=== PATIENT | male | born 1955 | race Caucasian/White ===

== ENCOUNTER 2016-12-12 10:31 | Outpatient (CLI) | payer BC ==
[~2016-12-12] VITALS: Ht 177.8 cm; Wt 95.3 kg
[~2016-12-12 10:31] MED LIST: LOSA50TA36 PO
== END 2016-12-12 12:08 ==
LOC: PREOP 10:31
PROVIDERS: ATTEND Otolaryngology Otolaryngology/Facial Plastic Surgery
DX: Z01.818 Encounter for other preprocedural examination (principal); H65.23 Chronic serous otitis media, bilateral

== ENCOUNTER 2016-12-16 06:57 | Day surgery (SDC) | payer BC ==
[~2016-12-16] VITALS: Ht 177.8 cm; Wt 95.3 kg
[2016-12-16] MEDS ORDERED: LACTATED RINGERS 1,000 ML IV PRN (07:14)
[2016-12-16] MEDS ORDERED: MULT-974 PO (07:23)
[2016-12-16] MEDS ORDERED: LACT1CAP8 PO (07:23)
[2016-12-16 07:24] VITALS: BP 115/78
[2016-12-16] MEDS ORDERED: HURRICAINE EXT TUBE (BENZOCAINE) ONE (08:23)
[2016-12-16] MEDS ORDERED: DEXAMETHASONE PF 10 MG/ML (DECADRON) VIAL ONE (08:23)
[2016-12-16] MEDS ORDERED: proPOfol 200 MG/20 ML (DIPRIVAN) VIAL IV ONE (08:23)
[2016-12-16] MEDS ORDERED: SEVOFLURANE (ULTANE) 15 ML INHAL SOLN ONE ×2 (08:23→08:54)
[2016-12-16] MEDS ORDERED: LIDOCAINE PF 2% 5 ML (XYLOCAINE) VIAL ONE (08:23)
[2016-12-16] MEDS ORDERED: LACTATED RINGERS 1,000 ML IV ONE (08:23)
[2016-12-16] MEDS ORDERED: fentaNYL INJECTION 100 MCG/2 ML AMP ONE (08:24)
[2016-12-16] MEDS ORDERED: MIDAZOLAM 2 MG/2 ML (VERSED) VIAL ONE (08:24)
--- NOTE | 2016-12-16 08:43 | Progress Note-Pre Operative ---
Pre-Operative Progress Note H&P Reviewed The H&P was reviewed, patient examined and no changes noted. Date Seen by Provider: Dec 16, 2016 Time Seen by Provider: 08:00 Date H&P Reviewed: Dec 16, 2016 Time H&P Reviewed: 08:00 Pre-Operative Diagnosis: Bilat Chornic DANYELLE DURAN MD Dec 16, 2016 8:43 am
--- NOTE | 2016-12-16 08:59 | Progress Note-Post Operative ---
Post-Operative Progess Note Surgeon (s)/Alumni Coordinator (s) Surgeon DANYELLE DALEY MD Alumni Coordinator n/a Pre-Operative Diagnosis Bilat Chornic MARCEL Post-Operative Diagnosis same Post-Op Procedure Note Date of Procedure: Dec 16, 2016 Name of Procedure Performed: bmt Description & Findings Description and Findings: n/a Anesthesia Type lma Estimated Blood Loss minimal Packing none. Specimen(s) collected/removed none DANYELLE DALEY MD Dec 16, 2016 8:59 am
[2016-12-16] MEDS ORDERED: APAP 325 MG/10.15 ML LIQ (TYLENOL) UDC PO PRN (09:00)
[2016-12-16] MEDS ORDERED: morphine INJ 10 MG/ML 1ML (SYR OR VIAL) IVP PRN (09:15)
[2016-12-16 09:45] VITALS: BP 124/86
[2016-12-16] MEDS ORDERED: CIPR5DRO OP (10:01)
[2016-12-16 10:15] VITALS: BP 126/84
[2016-12-16 10:20] VITALS: BP 126/84
== END 2016-12-16 10:20 | disposition home or self-care (01) ==
LOC: SDC 06:57
PROVIDERS: ATTEND Otolaryngology Otolaryngology/Facial Plastic Surgery
DX: H65.23 Chronic serous otitis media, bilateral (principal); I10 Essential (primary) hypertension; Z79.899 Other long term (current) drug therapy
CPT/HCPCS: 87081

== ENCOUNTER 2019-11-18 08:54 | Outpatient (RCR) | payer BC ==
[~2019-11-18] VITALS: Ht 177 cm; Wt 100.0 kg
[~2019-11-18 08:54] MED LIST changes: +CIPR5DRO OP; +LACT1CAP8 PO; -LOSA50TA36 PO; +LOSA50TA63 PO; +MULT-974 PO; +PANT40TA3 PO
== END 2019-11-18 16:30 | disposition home or self-care (01) ==
LOC: PREOP 08:54
PROVIDERS: ATTEND Otolaryngology Otolaryngology/Facial Plastic Surgery
DX: Z01.818 Encounter for other preprocedural examination (principal); H65.21 Chronic serous otitis media, right ear
CPT/HCPCS: 87635

== ENCOUNTER 2019-11-22 07:54 | Day surgery (SDC) | payer BC ==
[~2019-11-22] VITALS: Ht 177 cm; Wt 100.0 kg
[2019-11-22] VITALS (10 sets, daily range): BP systolic 90–140; BP diastolic 59–95
--- OUTSIDE RECORDS SUMMARY | 2019-11-22 08:17 | XMS REPORT ---
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 Unavailable Lindy DANYELLE Sotelo MD Unavailable Unavailable Zaid Alex MD Unavailable Unavailable [facility] Unavailable Lindy rick Unavailable Unavailable Unavailable Unavailable Unavailable Unavailable Unavailable Unavailable Unavailable Unavailable Unavailable Unavailable Allergies Normalized Allergy Reported Date of Reaction(s) Care Provider Facility Allergy Type classification allergen Allergy Onset Drug (2 Unclassified No known no information Shimon Hernandez ot Available sources.) allergies (71952) DA (4 Unclassified No Known Drug 12-12-2016 - no information DANYELLE DALEY Not Available sources.) MD Dhaval (40445) Medications Medication Ingredient Drug Dose Dates Status Sig Sig Care Class(es) (Normalized) (Original) Provid er 200 actuat Albuterol beta2-Adren 2 11-20-19 no take 2 P ROAIR HFA Britne albuterol Translation ergic puff(s 20 informat puff(s) by 1 08 (90 y 0.09 s: [ PROAIR Agonist ) ion inhalation BASE) Staff o mg/actuat HFA 108 (90 four times MCG/ACT rd (no metered BASE) daily as INHALATION phone) dose MCG/ACT needed AEROSOL inhaler (6 INHALATION SOLUTION 2 sources.) AEROSOL puffs four SOLUTION] times a day as needed ALBUTEROL SULFATE [id number] Active Katie Braswell Active amoxicillin Amoxicillin Penicillin- 500 mg 08-02-19 no take 1 AMOXICILLIN Zaid 500 mg oral class 19 - informat capsule by 500 MG ORAL M capsule (20 Antibacteri 08-12-19 ion mouth three CAPSULE 1 Guerns sources.) al 19 times daily cap by mouth stoney HERNANDEZ three times (no a day phone) AMOXICILLIN [id number] No Longer Active Zaid Alex MD Active cefdinir cefdinir Cephalospor 300 mg 09-09-19 no take 1 CEFD INIR 300 Mingo 300 mg oral in 20 - informat capsule by MG ORAL Tin dle capsule (20 Antibacteri 09-19-19 ion mouth twice CAPSULE by APPLICATIONS ADMINISTRATOR sources.) al 20 daily mouth twice (no a day phone) CEFDINIR [id number] No Longer Active Mingo Yoan APPLICATIONS ADMINISTRATOR Active no MULTIPLE no 11-20-19 no take 1 MULTIVITAMIN Britn e information VITAMINS-FL information 20 informat tablet by AD ULT ORAL y (6 NERALS ion mouth once TABLET 1 po Staffo sources.) daily qd rd (no phone) MULTIPLE VITAMINS-MIN ERALS [id number] Active Katie Braswell Active pantoprazol pantoprazol Proton Pump 40 mg 03-26-20 no take 1 PANTOPRAZOLE Zaid freire 40 mg e Inhibitor 18 informat tablet by 40MG TAKE 1 M delayed ion mouth once TABLET BY T[place]anna release daily for MOUTH DAILY stoney HERNANDEZ oral tablet gastroesopha FOR GERD (no ( geal reflux phone) sources.) disease PANTOPRAZOLE SODIUM [id number] Active Katie Braswell Active Problems Active Problems Problem Normalized Date Last Normalized Normalized Provider Fa cility Classification Problem(s) Recorded Problem Problem Sta tus Duration Other skin Actinic Episodic Active Zaid Alex [facility] disorders (7 keratosis (19682) sources.) Translations: [ Actinic keratosis, cheek, right, Actinic keratosis, cheek, right] Other upper Allergic Chronic Active [facility] respiratory rhinitis due [facility] (17928) disease (20 to pollen (Work Phone: sources.) Translations: [ Allergic ) rhinitis, seasonal, Allergic rhinitis, seasonal, Allergic rhinitis, seasonal] Unclassified BMI 32-32.9 no information Active QIE Admin [facility] (6 sources.) Translations: [facility] (62482) [ BMI 32-32.9] (Work Phone: ) Other Body mass Chronic Active [facility] nutritional; index (BMI) (92514) endocrine; and 31.0-31.9, metabolic adult disorders (1 source.) Other Body mass 11-20-2019 - Chronic Active [facility] nutritional; index (BMI) (91562) endocrine; and 32.0-32.9, metabolic adult disorders (1 source.) Other Body mass Chronic Active [facility] nutritional; index (BMI) (45038) endocrine; and 40.0-44.9, metabolic adult disorders (1 source.) Chronic Chronic airway Chronic [facility] obstruction, (19292) pulmonary not elsewhere disease and classified bronchiectasis Translations: (7 sources.) [ COPD, COPD] Otitis media Chronic serous 11-19-2019 - Chronic Active SUDHAKAR DALEY Not Available and related otitis media, , (67721) conditions (7 bilateral sources.) Translations: [ CHRONIC SEROUS OTITIS MEDIA, RIGHT EAR] Other Encounter for 11-12-2019 - Episodic [facility] for [facility], (56584) suspected unspecified conditions (not mental disorders or infectious disease) (1 source.) Other 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; (severe) (49771) endocrine; and obesity due to metabolic excess disorders (1 calories source.) Other Obesity, 11-20-2019 - Chronic Active [facility] nutritional; unspecified (54587) endocrine; and metabolic disorders (2 sources.) Diabetes Other abnormal Episodic Active Zaid [facility] mellitus glucose (96348) without Translations: complication [ Elevated (2 sources.) blood sugar, Elevated blood sugar] Other Other long Episodic Active DANYELLE DALEY [facility] Via aftercare (5 term (current) , MD Singleton sources.) drug therapy [facility] (87536) Otitis media Unspecified Episodic Active Zaid [facility] and related otitis media (38267) conditions (14 Translations: sources.) [ Otitis media acute right, Otitis media acute right] Past or Other Problems Problem Normalized Date Last Normalized Normalized Provider Fa cility Classification Problem(s) Recorded Problem Problem Sta tus Duration Unclassified BMI 40-44.9 no information no information QIE Admi n [facility] (13 sources.) Translations: [facility] (98737) [ BMI 40-44.9] (Work Phone: ) Unclassified Body Mass no information no information [facility] Admin [facility] (20 sources.) [employer] [facility] (38867) 31.0-31.9 (Work Phone: Adult ) Immunizations Need for Episodic Completed QIE Admin [facility] inic and screening [facility] (48221) for infectious vaccination (Work Phone: disease (20 and sources.) inoculation ) against influenza Translations: [ Influenza Vaccination for Prophylaxis, Influenza Vaccination for Prophylaxis, Influenza Vaccination for Prophylaxis] Procedures Procedure Normalized Procedure Procedure Result Performer Facility Date 11-20-2019 Collection venous no information Vincent Paniagua [facility] blood venipuncture (24891) (Work Phone: ) 11-20-2019 Cyclocryotherapy no information Katie Topete [facility] (71635) (Work Phone: ) Immunizations The data below is from unstructured sourcesNo immunizations recorded for this patient visitNo immunizations recorded for this patient visitNo immunizations recorded for this patient visitNo immunizations recorded for this patient visitNo immunizations recorded for this patient visit No immunizations recorded for this patient visitNo immunizations recorded for th is patient visitNo immunizations recorded for this patient visitNo immunizations recorded for this patient visitNo immunizations recorded for this patient visit No immunizations recorded for this patient visitNo immunizations recorded for th is patient visitNo immunizations recorded for this patient visitNo immunizations recorded for this patient visitNo immunizations recorded for this patient visit No immunizations recorded for this patient visitNo immunizations recorded for th is patient visitNo immunizations recorded for this patient visitNo immunizations recorded for this patient visitNo immunizations recorded for this patient visit No immunizations recorded for this patient visitNo immunizations recorded for th is patient visitNo immunizations recorded for this patient visitNo immunizations recorded for this patient visitNo immunizations recorded for this patient visit No immunizations recorded for this patient visitNo immunizations recorded for th is patient visitNo immunizations recorded for this patient visitNo immunizations recorded for this patient visitNo immunizations recorded for this patient visit No immunizations recorded for this patient visitNo immunizations recorded for th is patient visitNo immunizations recorded for this patient visitNo immunizations recorded for this patient visitNo immunizations recorded for this patient visit Results Test Name Value Interpretation Reference Range Date Time Fa cility (Normalized) (Normalized) (Medline Reference) other on null no information (CONVERSATION) : (no code) Not Available [facility] (06902) PreReg~(NK_ADDR_ SAME) : No~(IQHREGISTRA) : No, Not Interested~(CITY _CHECK) : Yes~(RELATINSTR) : Please search using the first and last name in the person search box. If you select add person the first and last name will populate the name barajas above.~(REALRELT NCVG) : Real~(FTRELTNCVG ) : Freetext~(NOEMAI L) : No Email no information (PREVPATTYPE) : (no code) Not Available Historical~(ACCR (42781) ELATEDVI) : No~(CONVERSATION ) : [facility] PreReg~(NK_ADDR_ SAME) : No~(IQHREGISTRA) : No, Not Interested~(CITY _CHECK) : Yes~(RELATINSTR) : Please search using the first and last name in the person search box. If you select add person the first and last name will populate the name barajas above.~(REALRELT NCVG) : Real~(FTRELTNCVG ) : [employer]ext~(NOEMAI L) : No Email laboratory on 2019-11-20 Albumin (U) <30 mg/g Normal (no code) 11-20-2019 [facility] [Mass/Vol] mg/g 08:00040 [employer] (02187) (Work Phone: ) Albumin DL <= 20 10 mg/L (no code) 11-20-2019 [facility] mg/L (U) 08:00040 [employer] (17536) [Mass/Vol] (Work Phone: ) ALP [Catalytic 58 U/L (no code) 44 - 147 U/L 11-20-2019 [facility] activity/Vol] 08:000400 [facility] () (Work Phone: ) ALT [Catalytic 25 U/L (no code) 4 - 40 U/L 11-20-2019 [facility] activity/Vol] 08:00040 [facility] () (Work Phone: ) AST [Catalytic 25 U/L (no code) 10 - 34 U/L 11-20-2019 [facility] activity/Vol] 08:00 [facility] () (Work Phone: ) Bilirubin 0.60 mg/dL (no code) 0.1 - 1.2 mg/dL 11-20-2019 [facility] [Mass/Vol] 08:040 [facility] () (Work Phone: ) Calcium 9.6 mg/dL (no code) 8.5 - 10.2 mg/dL 11-20-2019 [facility] [Mass/Vol] 08: [facility] () (Work Phone: ) Chloride 102 mmol/L (no code) 95 - 106 mmol/L 11-20-2019 [facility] [Moles/Vol] 08: [facility] () (Work Phone: ) Cholesterol 260 mg/dL (H) 180 - 200 mg/dL 11-20-2019 [facility] [Mass/Vol] 08: [facility] () (Work Phone: ) Cholesterol in 47 mg/dL (no code) 11-20-2019 [facility] HDL [Mass/Vol] 08: [facility] () (Work Phone: ) Cholesterol in 187 mg/dL (H) 0 - 100 mg/dL 11-20-2019 [facility] LDL [Mass/Vol] 08: [facility] () (Work Phone: ) CO2 (BldV) 29.8 mmol/L (no code) 11-20-2019 [facility] [Partial 08: [facility] () pressure] (Work Phone: ) Creatinine 1.11 mg/dL (no code) 11-20-2019 [facility] [Mass/Vol] 08:00-040 [facility] () (Work Phone: ) Erythrocyte 11.5 % (L) 11.6 - 14.6 % 11-20-2019 [facility] distribution 08: [facility] () width (RBC) (Work Phone: [Ratio] ) GFR/1.73 sq M 71 (?) (no code) 11-20-2019 [facility] predicted among : [facility] () non-blacks MDRD (Work Phone: (S/P/Bld) [Vol ) rate/Area] Glucose 113 mg/dL (H) 60 - 125 mg/dL 11-20-2019 [facility] [Mass/Vol] 08:-399 [facility] () (Work Phone: ) Hematocrit (Bld) 46.2 % (no code) 36.1 - 50.3 % 11-20-2019 [facility] [Volume 08: [facility] () fraction] (Work Phone: ) Hemoglobin (Bld) 15.6 g/dL (no code) 12.1 - 17.2 g/dL 11-20-2019 [facility] [Mass/Vol] 08:00-040 [facility] () (Work Phone: ) MCH (RBC) 30.0 pg (no code) 27 - 31 pg 11-20-2019 [facility] [Entitic mass] 08: [facility] () (Work Phone: ) MCHC (RBC) 33.397361 g/dL (no code) 32 - 36 g/dL 11-20-2019 [facility] [Mass/Vol] 08:-399 [facility] () (Work Phone: ) MCV (RBC) 89 fL (no code) 80 - 100 fL 11-20-2019 [facility] [Entitic vol] 08:040 [facility] () (Work Phone: ) Platelets (Bld) 272 10^3/MM^3 (no code) 11-20-2019 [facility] [#/Vol] [facility] () (Work Phone: ) Potassium 4.4 mmol/L (no code) 3.7 - 5.2 mmol/L 11-20-2019 [facility] [Moles/Vol] 08:00-[facility]00 [facility] () (Work Phone: ) Prostate 3.99 ng/mL (no code) 0 - 4 ng/mL 11-20-2019 [facility] specific Ag 08: [facility] () [Mass/Vol] (Work Phone: ) RBC (Bld) 5.21 10^6/MM^3 (no code) 11-20-2019 [facility] [#/Vol] 08:000400 [facility] () (Work Phone: ) Sodium 138 mmol/L (no code) 135 - 145 mmol/L 11-20-2019 [facility] [Moles/Vol] 08:00-0400 [facility] () (Work Phone: ) Triglyceride 131 mg/dL (no code) 11-20-2019 [facility] post 12 Hr fast : [facility] () [Mass/Vol] (Work Phone: ) Urea nitrogen 16 mg/dL (no code) 7 - 20 mg/dL 11-20-2019 [facility] [Mass/Vol] 08:000400 [facility] () (Work Phone: ) WBC (Bld) 9.1 10^3/MM^3 (no code) 11-20-2019 [facility] [#/Vol] 08:000400 [facility] () (Work Phone: ) urinalysis on 2018-03-26 Albumin DL <= 20 10 mg/L (no code) 03-26-2018 [facility] mg/L mass conc 13: [facility] () (U) (Work Phone: ) other on 2018-03-26 Albumin/Creatini <30 mg/g Normal (no code) 03-26-2018 [facility] ne mass ratio mg/g 13:000 [facility] () (U) (Work Phone: ) ALP enzyme 52 U/L (no code) 03-26-2018 [facility] act/vol (Bld) 13:000400 [facility] () (Work Phone: ) CO2 ppres (BldV) 28.6 mmol/L (no code) 03-26-2018 [facility] () (Work Phone: ) Erythrocyte 11.9 % (no code) 11.6 - 14.6 % 03-26-2018 [facility] distribution 13:000 [facility] () width (RBC) (Work Phone: [Ratio] ) MCHC (RBC) 32 g/dL (no code) 32 - 36 g/dL 03-26-2018 [facility] [Mass/Vol] [facility]00 [facility] () (Work Phone: ) WBC Manual cnt 9.9 10^3/MM^3 (no code) 03-26-2018 [facility] #/vol (Bld) 13:000400 [facility] () (Work Phone: ) metabolic panel on 2018-03-26 ALT enzyme 29 U/L (no code) 4 - 40 U/L 03-26-2018 [facility] act/vol 13:000400 [facility] () (Work Phone: ) AST enzyme 18 U/L (no code) 10 - 34 U/L 03-26-2018 [facility] act/vol [facility]:00-[facility]00 [facility] ([id number]) (Work Phone: ) Bilirubin mass 0.50 mg/dL (no code) 0.1 - 1.2 mg/dL 03-26-2018 [facility] conc 13:000400 [facility] () (Work Phone: ) Calcium mass 9.0 mg/dL (no code) 8.5 - 10.2 mg/dL 03-26-2018 [facility] conc 13:00-0400 [facility] (14293) (Work Phone: ) Chloride molar 102 mmol/L (no code) 95 - 106 mmol/L 03-26-2018 [facility] conc 13:00-0400 [facility] (91860) (Work Phone: ) Creatinine mass 1.14 mg/dL (no code) 03-26-2018 [facility]00 [facility] () (Work Phone: ) Glucose mass 96 mg/dL (H) 60 - 125 mg/dL 03-26-2018 [facility] conc 13:00-0400 [facility] () (Work Phone: ) Potassium molar 4.0 mmol/L (no code) 3.7 - 5.2 mmol/L 03-26-2018 [facility] conc 13:00-0400 [facility] () (Work Phone: ) Sodium molar 137 mmol/L (no code) 135 - 145 mmol/L 03-26-2018 [facility] conc 13:00-0400 [facility] (07119) (Work Phone: ) Urea nitrogen 16 mg/dL (no code) 7 - 20 mg/dL 03-26-2018 [facility] mass conc 13:00-0400 [facility] (42180) (Work Phone: ) hematology on 2018-03-26 Erythrocyte 11.9 % (no code) 11.6 - 14.6 % 03-26-2018 [facility] distribution 13:00-0400 [facility] (84119) width Auto Ratio (Work Phone: (RBC) ) Hematocrit (Bld) 43.7 % (no code) 36.1 - 50.3 % 03-26-2018 [facility] [Volume 13:00-0400 [facility] (17967) fraction] (Work Phone: ) Hematocrit Auto 43.7 % (no code) 36.1 - 50.3 % 03-26-2018 [facility] Volume Fraction 13:00-0400 [facility] ([id number]) (Bld) (Work Phone: ) Hemoglobin mass 14.0 g/dL (no code) 12.1 - 17.2 g/dL 03-26-2018 [facility] conc (Bld) 13:00-0400 [facility] () (Work Phone: ) MCH (RBC) 28.8 pg (no code) 27 - 31 pg 03-26-2018 [facility] [Entitic mass] 13:00-0400 [facility] () (Work Phone: ) MCH Auto Entitic 28.8 pg (no code) 27 - 31 pg 03-26-2018 [facility] mass (RBC) 13:00-0400 [facility] () (Work Phone: ) MCHC Auto mass 32 g/dL (no code) 32 - 36 g/dL 03-26-2018 [facility] conc (RBC) [facility]:00-0400 [facility] () (Work Phone: ) MCV (RBC) 90 fL (no code) 80 - 100 fL 03-26-2018 [facility] [Entitic vol] 13:00-0400 [facility] () (Work Phone: ) MCV Auto Entitic 90 fL (no code) 80 - 100 fL 03-26-2018 [facility] volume (RBC) 13:00-0400 [facility] () (Work Phone: ) Platelets (Bld) 245 10^3/MM^3 (no code) 03-26-2018 [facility] [#/Vol] [facility]:00-0400 [facility] () (Work Phone: ) Platelets Auto 245 10^3/MM^3 (no code) 03-26-2018 [facility] #/vol (Bld) 13:00-0400 [facility] () (Work Phone: ) RBC (Bld) 4.85 10^6/MM^3 (no code) 03-26-2018 [facility] [#/Vol] [facility]:00-0400 [facility] () (Work Phone: ) RBC Auto #/vol 4.85 10^6/MM^3 (no code) 03-26-2018 [facility] (Bld) [facility]00 [facility] ([id number]) (Work Phone: ) WBC (Bld) 9.9 10^3/MM^3 (no code) 03-26-2018 [facility] [#/Vol] 13:00-0400 [facility] ([id number]) (Work Phone: ) Vital Signs Vital Sign Value Interpretation Reference Date Time Care Prov ider Facility (Normalized) (Normalized) Range Body height 177.8 cm (no code) cm 11-20-2019 [facility] ([id number]) (Work Phone: ) Body height 177.8 cm (no code) cm 09-09-2019 [facility] ([id number]) (Work Phone: ) Body 98.4 [degF] (no code) 97.8 - 99.0 11-20-2019 [facility] Admin [facility] temperature [degF] 08:00-0400 [facility] ([id number]) (Work Phone: ) Body 97.8 [degF] (no code) 97.8 - 99.0 09-09-2019 [facility] Admin [facility] temperature [degF] 07:00-0500 [facility] ([id number]) (Work Phone: ) Body 98.9 [degF] (no code) 97.8 - 99.0 08-02-2018 [facility] Admin [facility] Temperature [degF] 13:00-0500 [facility] ([id number]) (Work Phone: ) Body 98.8 [degF] (no code) 97.8 - 99.0 03-26-2018 [facility] Admin [facility] Temperature [degF] 13:00-0400 [facility] ([id number]) (Work Phone: ) Body weight 101.75 kg (no code) kg 11-20-2019 QIE Admin A [facility] 08:00-[facility]00 [facility] ([id number]) (Work Phone: ) Body weight 126.06 kg (no code) kg 09-09-2019 QIE Admin A [facility] 07:00-0500 [facility] ([id number]) (Work Phone: ) Body weight 100.02 kg (no code) kg 08-02-2018 QIE Admin A [facility] 13:00-0500 [facility] () (Work Phone: ) Body weight 98.43 kg (no code) kg 03-26-2018 [facility] () (Work Phone: ) Blood Pressure 131/ (no code) Systolic: 90 - 08-02-2018 [facility] Admin [facility] 77mm[Hg] 120 mm[Hg] 13:00-0500 [facility] () (Work Phone: Diastolic: 60 - 80 mm[Hg] ) Blood Pressure 141/ (no code) Systolic: 90 - 03-26-2018 [facility] Admin [facility] 84mm[Hg] 120 mm[Hg] 13:00-0400 [facility] () (Work Phone: Diastolic: 60 - 80 mm[Hg] ) Blood Pressure 149/ (no code) Systolic: 90 - 11-20-2019 [facility] Admin [facility] 97mm[Hg] 120 mm[Hg] 08:00-0400 [facility] ([id number]) (Work Phone: Diastolic: 60 - 80 mm[Hg] ) Diastolic 103 mm[Hg] (no code) 60 - 80 mm[Hg] 09-09-2019 QIE Adm in [facility] blood pressure 07:00-0500 [facility] () (Work Phone: ) Diastolic 102 mm[Hg] (no code) 60 - 80 mm[Hg] 09-09-2019 QIE Adm in [facility] blood pressure 07:00-0500 [facility] () (Work Phone: ) Heart rate 74 /min (no code) 60 - 100 /min 11-20-2019 [facility] Admin [facility] 08:00-0400 [facility] () (Work Phone: ) Heart rate 81 /min (no code) 60 - 100 /min 09-09-2019 [facility] Admin [facility] 07:00-[facility]00 [facility] ([id number]) (Work Phone: ) Height 177.8 cm (no code) cm 08-02-2018 [facility]00 [facility] ([id number]) (Work Phone: ) Height 177.8 cm (no code) cm 03-26-2018 [facility] ([id number]) (Work Phone: ) Pulse (Heart 89 /min (no code) 60 - 100 /min 08-02-2018 [facility] Adm in [facility] Rate) 13:00-0500 [facility] ([id number]) (Work Phone: ) Pulse (Heart 74 /min (no code) 60 - 100 /min 03-26-2018 [facility] Adm in [facility] Rate) 13:00-0400 [facility] ([id number]) (Work Phone: ) Systolic blood 167 mm[Hg] (no code) 90 - 120 09-09-2019 [facility] Admi n [facility] pressure mm[Hg] 07:00-0500 [facility] ([id number]) (Work Phone: ) Systolic blood 161 mm[Hg] (no code) 90 - 120 09-09-2019 [facility] Admi n [facility] pressure mm[Hg] 07:00-0500 [facility] ([id number]) (Work Phone: ) Weight 100.02 kg (no code) kg 08-02-2018 [facility] Admin [facility] 13:00-0500 [facility] ([id number]) (Work Phone: ) Weight 98.43 kg (no code) kg 03-26-2018 [facility]:00-[facility]00 [facility] ([id number]) (Work Phone: ) Interventions No Information Plan of Treatment The data below is from unstructured sources Discharge Date 12/16/16 10:20am Instructions/Education Provided ANEPerry THESIA INSTRUCTIONS POSTOP DR. DALEY-TYMPANOSTOMY TUBES Prescriptions See Medication Section Goals No Information Social History No Information Functional Status The data below is from unstructured sourcesNo functional or cognitive status observations are available for this visit.No functional or cognitive status observations are available for this visit.No functional or cognitive status observations are available for this visit.No functional or cognitive status observations are available for this visit.No functional or cognitive status observations are available for this visit.No functional or cog nitive status observations are available for this visit.No functional or cogniti ve status observations are available for this visit.No functional or cognitive s tatus observations are available for this visit.No functional or cognitive statu s observations are available for this visit.No functional or cognitive status ob servations are available for this visit.No functional or cognitive status observ ations are available for this visit.No functional or cognitive status observatio ns are available for this visit.No functional or cognitive status observations a re available for this visit.No functional or cognitive status observations are a vailable for this visit.No functional or cognitive status observations are avail able for this visit.No functional or cognitive status observations are available for this visit.No functional or cognitive status observations are available for this visit.No functional or cognitive status observations are available for thi s visit.No functional or cognitive status observations are available for this vi sit.No functional or cognitive status observations are available for this visit. No functional or cognitive status observations are available for this visit.No f unctional or cognitive status observations are available for this visit.No funct ional or cognitive status observations are available for this visit.No functiona l or cognitive status observations are available for this visit.No functional or cognitive status observations are available for this visit.No functional or cog nitive status observations are available for this visit.No functional or cogniti ve status observations are available for this visit.No functional or cognitive s tatus observations are available for this visit.No functional or cognitive statu s observations are available for this visit.No functional or cognitive status ob servations are available for this visit.No functional or cognitive status observ ations are available for this visit.No functional or cognitive status observatio ns are available for this visit.No functional or cognitive status observations a re available for this visit.No functional or cognitive status observations are a vailable for this visit.No functional or cognitive status observations are avail able for this visit.No functional status information available.No functional sta tus information available. 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 (no (no phone) phone) 11-18-2019 Patient encounter no information DANYELLE DALEY MD (no [facility] - procedure phone) [facility] 11-18-2019 (no phone) 11-14-2019 Patient encounter no information DANYELLE DALEY MD (no [facility] procedure phone) [facility] (no phone) 12-16-2016 Patient encounter no information no name no or ganization name - procedure 12-16-2016 12-16-2016 Patient encounter no information DANYELLE DALEY MD (no [facility] - procedure phone) [facility] 12-16-2016 (no phone) 12-09-2016 Patient encounter no information no name no or ganization name procedure 08-30-2016 Patient encounter no information no name no or ganization name procedure 05-11-2016 Patient encounter no information no name no or ganization name - procedure 05-12-2016 11-12-2019 Health screening Routine general no name (no p fadi) medical examination at a health care facility no information Encounter for other no name (no phone) preprocedural examination Medical Equipment No Information Payers Normalized Payer Value [facility] no information Summary Purpose TRANSITION OF CARE AUTO GENERATIONTRANSITION OF CARE AUTO GENERATIONTRANSITION OF CARE AUTO GENERATIONTRANSITION OF CARE AUTO GENERATIONTRANSITION OF CARE AUTO GENERATIONTRANSITION OF CARE AUTO GENERATIONTRANSITION OF CARE AUTO GENERATIONTRANSITION OF CARE AUTO GENERATIONTRANSITION OF CARE AUTO GENERATIONTRANSITION OF CARE AUTO GENERATIONTRANSITION OF CARE AUTO GENERATIONTRANSITION OF CARE AUTO GE NERATIONTRANSITION OF CARE AUTO GENERATIONTRANSITION OF CARE AUTO GENERATIONTRAN SITION OF CARE AUTO GENERATIONTRANSITION OF CARE AUTO GENERATIONTRANSITION OF CA RE AUTO GENERATIONTRANSITION OF CARE AUTO GENERATION Discharge Instructions No discharge instruction text is available for this visit.No discharge instruction text is available for this visit.No discharge instruction text is available for this visit.No discharge instruction text is available for this visit.No discharge instruction text is available for this visit.No discharge instruction text is available for this visit.No discharge instruction text is available for this visit.No discharge instruction text is available for this visit.No discharge instruction text is available for this visit.No discharge instruction text is available for this visit.No discharge instruction text is available for this visit.No discharge instruction text is available for this visit.No discharge instruction text is available for this visit.No discharge instruction text is available for this visit.No discharge instruction text is available for this visit.No discharge instruction text is available for this visit.No discharge instruction text is available for this visit.No discharge instruction text is available for this visit.No hospital discharge instruction information available. Advance Directives Directive Response Recor ded Date/Time Advance Directives No 7:19am Resuscitation Status Full Code 12/16/16 7:19am Additional Source Comments This clinical document has been generated using [employer] software that has been certified by the Office of the National Coordinator for Health Information Technology (ONC 15.99.04.3023.Diam.[id number]) and the National Committee for Sales Operations Consultant (NCQA, as an eMeasure certified technology). FOR RECORDS PERTAINING TO PATIENTS WHO ARE OR HAVE BEEN ENROLLED IN A CHEMICAL D EPENDENCY/SUBSTANCE ABUSE PROGRAM, SOME INFORMATION MAY BE OMITTED. This clinica l summary was aggregated from multiple sources. Caution should be exercised in using it in the provision of clinical care. This summary normalizes information from multiple sources, and as a consequence, information in this document may ma terially change the coding, format and clinical context of patient data. In tia tion, data may be omitted in some cases. CLINICAL DECISIONS SHOULD BE BASED ON T HE PRIMARY CLINICAL RECORDS. [employer] provides no warranty or guara ntee of the accuracy or completeness of information in this document.The followi ng information is based on time limited clinical information
[2019-11-22] MEDS ORDERED: LACTATED RINGERS 1,000 ML IV PRN (08:18)
--- OUTSIDE RECORDS SUMMARY | 2019-11-22 08:18 | XMS REPORT | Clinical Summary ---
Author Author Admin, Volodymyr De Dios Organization [place] Address Unknown Phone Unavailable Allergies, Adverse Reactions, Alerts Allergy Name Reaction Description Start Date Severity Status Pr ovider No Known Allergies Salina Macdonald MA Conditions or Problems Problem Name Problem Code Onset Date Status Entry Date Provider Comment Standard Description Annotate HYPERTENSION 401.9 Active aMu Mcmahon MD Unspecified essential hypertension HYPERLIPIDEMIA 272.4 Refinement Mau Mcmahon MD Other and unspecified hyperlipidemia Mixed hyperlipidemia 272.4 Active Mau Mcmahon MD Other and unspecified hyperlipidemia G E R D 530.81 Active Mau Mcmahon MD Esophageal reflux SEASONAL ALLERGIC RHINITIS 477.9 Resolved 7 Mau Mcmahon MD Allergic rhinitis, cause unspecified Pneumonia, right lower lobe 486 Resolved Osbaldo Wilkes MD Pneumonia, organism unspecified Poison bel 692.6 Resolved Osbaldo Wilkes MD Contact dermatitis and other eczema due to plants [except food] Leg edema, right 782.3 Resolved Mau Mcmahon MD Edema Osteoarthritis 715.90 Active Mau Mcmahon MD Osteoarthrosis, unspecified whether generalized or localized, involving unspecified site Bronchitis 490 Resolved Osbaldo Wilkes MD Bronchitis, not specified as acute or chronic Rhinitis, acute 460 Resolved Osbaldo Dewey Acute nasopharyngitis [common cold] Benign paroxysmal positional vertigo, left 386.11 Resolved Mau Mcmahon MD Benign paroxysmal positional vertigo Gout, unspecified 274.9 Active Mau Mcmahon MD Gout, unspecified Bronchitis, acute 466.0 Resolved Mau meehan MD Acute bronchitis Obesity 278.00 Refinement Osbaldo Wilkes MD Obesity, unspecified Obesity Class I (BMI 30-34.9) 278.00 Refinement 08/02 Mau Mcmahon MD Obesity, unspecified Obesity Class III (BMI >=40) 278.00 Refinement Mingo Milton APRN Obesity, unspecified Obesity Class I (BMI 30-34.9) 278.00 Active 11/19 Katie Braswell Obesity, unspecified Ear disorder 388.9 Resolved Mau Mcmahon MD Unspecified disorder of ear Preop exam V72.84 Resolved Mau Mcmahon MD Preoperative examination, unspecified Skin tag 701.9 Resolved Mau Mcmahon MD Unspecified hypertrophic and atrophic conditions of skin Influenza Vaccination for Prophylaxis V04.81 Inactive Mau Mcmahon MD Need for prophylactic vaccin ation and inoculation against influenza Body Mass Index 31.0-31.9 Adult Refinement 2017 Mau Mcmahon MD Body Mass Index 31.0-31.9, adult BMI 40-44.9 Refinement Mingo Milton APRN Body Mass Index 31.0-31.9, adult BMI 32-32.9 Active Katie Braswell Body Mass Index 31.0-31.9, adult Allergic rhinitis, seasonal 477.0 Active Mau Mcmahon MD Allergic rhinitis due to pollen SINUSITIS, ACUTE 461.9 Inactive Mua Mcmahon MD Acute sinusitis, unspecified Otitis media acute right 382.9 Active Mingo goss APRN Unspecified otitis media Health screening V70.0 Active CORAL Estrella Routine general medical examination at a health care facility COPD 496 Active Katie Braswell C hronic airway obstruction, not elsewhere classified Actinic keratosis, cheek, right 702.0 Active 2019 Katie Braswell Actinic keratosis Elevated blood sugar 790.29 Active Fiorella Justin Other abnormal glucose SEASONAL ALLERGIC RHINITIS ICD-477.9 Inactive Mau Mcmahon MD Pneumonia, right lower lobe ICD-486 Inactive Osbaldo Wilkes MD Poison bel ICD-692.6 Inactive Osbaldo Dewey Leg edema, right ICD-782.3 Inactive Mau calderon MD Bronchitis ICD-490 Inactive Osbaldo iWlkes MD 201 01/08/07 Rhinitis, acute ICD-460 Inactive Osbaldo Lechuga MD Benign paroxysmal positional vertigo, left ICD-386.11 Inactive Mau Mmcahon MD Bronchitis, acute ICD-466.0 Inactive Mau chen MD Ear disorder ICD-388.9 Inactive Mau meehan MD Preop exam ICD-V72.84 Inactive Mau Mcmahon MD Skin tag ICD-701.9 Inactive Mau Dewey Influenza Vaccination for Prophylaxis ICD-V04.81 8 Inactive Fiorella Anderson SINUSITIS, ACUTE ICD-461.9 Inactive Mau calderon MD Medication List Medication Instructions Start Date Stop Date Generic Name NDC Status Provider Patient Instruction PROAIR HFA 108 (90 BASE) MCG/ACT INHALATION AEROSOL SO LUTION 2 puffs four times a day as needed ALBUTEROL SULFATE 64436345367 Active B montrell Braswell Active MULTIVITAMIN ADULT ORAL TABLET 1 po qd MULTI PLE VITAMINS-MINERALS 12312492517 Active Katie Braswell Active MOMETASONE SPR 50MCG SPRAY 2 SPRAYS INTO EACH NOSTRIL DAILY DIRECTED MOMETASONE FUROATE 45283536197 Active Mau Dewey Active CEFDINIR 300 MG ORAL CAPSULE by mouth twice a day 2019 CEFDINIR 53005417696 No Longer Active Mingo Milton APRN Active LOSARTAN POT 50MG 1 TABLET BY MOUTH TWICE DAILY FOR HYPERT ENSION AND GOUT LOSARTAN POTASSIUM 13782731648 Active Mau Dewey Active PANTOPRAZOLE 40MG TAKE 1 TABLET BY MOUTH DAILY FOR GERD PANTOPRAZOLE SODIUM 01564183758 Active Katie Braswell Acti ve AMOXICILLIN 500 MG ORAL CAPSULE 1 cap by mouth three times a day AMOXICILLIN 57694808001 No Longer Active Mau Mcmahon MD Active PREDNISONE 20 MG ORAL TABLET 2 tabs daily for 3 days, 1 tab daily for 3 days, 1/2 tab daily for 2 days PREDNISONE 86068736198 No Longer Active Mau Mcmahon MD Active GUAIFENESIN-CODEINE 100-10 MG/5ML ORAL SYRUP 5ml every 4 to 6 hours as needed for cough GUAIFENESIN-CODEINE 07988301082 No Longe r Active Mau Mcmahon MD Active PREDNISONE 20 MG ORAL TABLET 2 daily for 3 days then 1 daily for 3 days PREDNISONE 11870353424 No Longer Active Mau calderon MD Active HYDROCHLOROTHIAZIDE 25 MG ORAL TABLET 0.5 tablet by mo uth daily for blood pressure. HYDROCHLOROTHIAZIDE 45408235383 No Longe r Active Osbaldo Wilkes MD Active COLCHICINE 0.6 MG ORAL CAPSULE PRN FOR GOUT FLARE UPS COLCHICINE 49963729960 No Longer Active Osbaldo Wilkes MD Activ e ALLOPURINOL 100 MG ORAL TABLET Take 1 tab po x 7 days, then 2 times every day thereafter if tolerated. ALLOPURINOL 22505929965 No Longer Active Osbaldo Wilkes MD Active NASONEX 50 MCG/ACT NASAL SUSPENSION use 2 sprays in each nos tril qday MOMETASONE FUROATE 20988317377 No Longer Active Osbaldo valdez MD Active PREDNISONE 5 MG ORAL TABLET PREDNISONE 60301484333 No Longer Active Osbaldo Wilkes MD Active AZITHROMYCIN 250 MG ORAL TABLET 2 po qd x 1 day, then 1 po q d x 4 days AZITHROMYCIN 61355920588 No Longer Active CORAL Estrella Active SUDAFED 12 HOUR 120 MG ORAL TABLET EXTENDED RELEASE 12 HOUR 1 pill twice daily if needed for congestion PSEUDOEPHEDRINE HCL 47384888928 A ctive Mau Mcmahon MD Active MECLIZINE HCL 25 MG ORAL TABLET one 4 times a day as needed for dizziness MECLIZINE HCL 21275182264 No Longer Active Mau Mcmahon MD Active ZOFRAN 4 MG ORAL TABLET 1 po q6hr PRN Nausea 9 ONDANSETRON HCL 43173902073 No Longer Active Mau Mcmahon MD Acti ve PREDNISONE 5 MG ORAL TABLET Take 3 tabs po on the day, decrease by 1 tablet every 3 days until off PREDNISONE 17602052434 No Longer Active Gilbert Amador MD Active CHERATUSSIN AC 100-10 MG/5ML ORAL SYRUP 1 tsp by mouth every 4 hours as needed for cough GUAIFENESIN-CODEINE 96639621695 No Longe r Active Gilbert Amador MD Active ZITHROMAX 250 MG ORAL TABLET 2 po today, then 1 po q days 2-5 20 23/10/22 AZITHROMYCIN 83825969565 No Longer Active Deirdre Riddle MONEY POSITION OFFICER Active CELEBREX 100 MG ORAL CAPSULE take 1 tab po BID for osteoarthriti s CELECOXIB 70892684868 No Longer Active Deirdre Arell MONEY POSITION OFFICER A ctive OMEPRAZOLE 20 MG ORAL CAPSULE DELAYED RELEASE 1 tablet po in the am OMEPRAZOLE 10047365919 No Longer Active Deirdre Arell MONEY POSITION OFFICER A ctive BACTRIM DS 800-160 MG ORAL TABLET 1 tab by mouth twice daily 201 12/08/14 TRIMETHOPRIM-SULFAMETHOXAZOLE 58167619638 No Longer Active Vincent Riddle MONEY POSITION OFFICER Active ZITHROMAX 1 GM ORAL PACKET DIR AZITHROMY ANALISA 90602116365 No Longer Active Deirdre Reynosoll MONEY POSITION OFFICER Active LEVAQUIN 500 MG ORAL TABLET 1 tablet by mouth daily 20 25/07/14 LEVOFLOXACIN 71969959703 No Longer Active Mau Mcmahon MD Acti ve HYDROCHLOROTHIAZIDE 25 MG ORAL TABLET 1 PO Q AM 201 10/16/21 HYDROCHLOROTHIAZIDE 19618044103 No Longer Active Ryne Cristina DO Ac tive SIMVASTATIN 20 MG ORAL TABLET 1 tablet po q hs SIMVASTATIN 46069684263 No Longer Active Ryne Cristina DO Active SIMVASTATIN 20 MG ORAL TABLET 1 tablet po q hs SIMVASTATIN 20 MG ORAL TABLET 859065 SIMVASTATIN Inactive HYDROCHLOROTHIAZIDE 25 MG ORAL TABLET 1 PO Q AM 201 10/16/21 HYDROCHLOROTHIAZIDE 25 MG ORAL TABLET 028326 HYDROCHLOROTHIAZIDE In active LEVAQUIN 500 MG ORAL TABLET 1 tablet by mouth daily 20 25/07/14 LEVAQUIN 500 MG ORAL TABLET 087893 LEVOFLOXACIN Inactive ZITHROMAX 1 GM ORAL PACKET DIR Z ITHROMAX 1 GM ORAL PACKET 996580 AZITHROMYCIN Inactive BACTRIM DS 800-160 MG ORAL TABLET 1 tab by mouth twice daily 201 12/08/14 BACTRIM DS 800-160 MG ORAL TABLET 286989 TRIMETHOPRIM-SULFAMETHOXAZOLE Inactive OMEPRAZOLE 20 MG ORAL CAPSULE DELAYED RELEASE 1 tablet po in the am OMEPRAZOLE 20 MG ORAL CAPSULE DELAYED RELEASE 436905 OM EPRAZOLE Inactive CELEBREX 100 MG ORAL CAPSULE take 1 tab po BID for osteoarthriti s CELEBREX 100 MG ORAL CAPSULE 213969 CELECOXIB [place] ctive CHERATUSSIN AC 100-10 MG/5ML ORAL SYRUP 1 tsp by mouth every 4 hours as needed for cough CHERATUSSIN AC 100-10 MG/5ML ORAL SYRUP 9 82409 GUAIFENESIN-CODEINE Inactive PREDNISONE 5 MG ORAL TABLET Take 3 tabs po on the , decrease by 1 tablet every 3 days until off PREDNISONE 5 MG OR AL TABLET 911818 PREDNISONE Inactive ZOFRAN 4 MG ORAL TABLET 1 po q6hr PRN Nausea 9 ZOFRAN 4 MG ORAL TABLET 385377 ONDANSETRON HCL Inactive MECLIZINE HCL 25 MG ORAL TABLET one 4 times a day as needed for dizziness MECLIZINE HCL 25 MG ORAL TABLET 871432 MECLIZINE HCL Inactive PREDNISONE 5 MG ORAL TABLET PREDNISO NE 5 MG ORAL TABLET 674604 PREDNISONE Inactive NASONEX 50 MCG/ACT NASAL SUSPENSION use 2 sprays in each nos tril qday NASONEX 50 MCG/ACT NASAL SUSPENSION 3051505 MOMET ASONE FUROATE Inactive ALLOPURINOL 100 MG ORAL TABLET Take 1 tab po x 7 days, then 2 times every day thereafter if tolerated. ALLOPURINOL 100 MG ORAL TABLET 522904 ALLOPURINOL Inactive COLCHICINE 0.6 MG ORAL CAPSULE PRN FOR GOUT FLARE UPS COLCHICINE 0.6 MG ORAL CAPSULE 2444419 COLCHICINE Inactive HYDROCHLOROTHIAZIDE 25 MG ORAL TABLET 0.[address] [facility] daily for blood pressure. HYDROCHLOROTHIAZIDE 25 MG ORAL TABLET 310 798 HYDROCHLOROTHIAZIDE Inactive PREDNISONE 20 MG ORAL TABLET 2 daily for 3 days then 1 daily for 3 days PREDNISONE 20 MG ORAL TABLET 448223 PREDNISONE Inactive GUAIFENESIN-CODEINE 100-10 MG/5ML ORAL SYRUP 5ml every 4 to 6 hours as needed for cough GUAIFENESIN-CODEINE 100-10 MG/5M L ORAL SYRUP 954667 GUAIFENESIN-CODEINE Inactive ZITHROMAX 250 MG ORAL TABLET 2 po today, then 1 po q days 2-5 20 23/10/22 ZITHROMAX 250 MG ORAL TABLET 327696 AZITHROMYCIN [place] ctive AZITHROMYCIN 250 MG ORAL TABLET 2 po qd x 1 day, then 1 po q d x 4 days AZITHROMYCIN 250 MG ORAL TABLET 308040 AZITHROMY ANALISA Inactive PREDNISONE 20 MG ORAL TABLET 2 tabs daily for 3 days, 1 tab daily for 3 days, 1/2 tab daily for 2 days PREDNISONE 20 MG ORAL T ABLET 999518 PREDNISONE Inactive AMOXICILLIN 500 MG ORAL CAPSULE 1 cap by mouth three times a day AMOXICILLIN 500 MG ORAL CAPSULE 322070 AMOXICILLIN Inactive CEFDINIR 300 MG ORAL CAPSULE by mouth twice a day 2019 CEFDINIR 300 MG ORAL CAPSULE 003281 CEFDINIR Inactive Vital Signs Date Name Value Unit Range Description blood pressure, diastolic, repeated by physician 97 BP santos blood pressure, diastolic 97 mm[Hg] BP santos blood pressure, systolic, repeated by physician 149 BP sys blood pressure, systolic 149 mm[Hg] BP sys height E&M 70 [in_us] Bdy height pulse rate 74 /min Heart rate temperature E&M 98.4 [degF] Body temp erature weight E&M 224.31 [lb_av] Weight Measure d blood pressure, diastolic, second observation 103 m m[Hg] BP santos blood pressure, diastolic, repeated by physician 102 BP santos blood pressure, diastolic 102 mm[Hg] BP santos blood pressure, systolic, second observation 167 mm [Hg] BP sys blood pressure, systolic, repeated by physician 161 BP sys blood pressure, systolic 161 mm[Hg] BP sys height E&M 70 [in_us] Bdy height pulse rate 81 /min Heart rate temperature E&M 97.8 [degF] Body temp erature weight E&M 277.90 [lb_av] Weight Measure d Diagnostic Results Date Name Value Unit Range Description Lab Report: CBC, Comp. Metabolic Panel, Lipid Panel, Magnesium, MICROALB ... - Chemistry sodium, serum 138 mmol/L 771-267 1837/05/13 carbon dioxide, venous blood 29.8 mmol/L 21.0-32 .0 potassium, serum 4.4 mmol/L 3.5-5.2 chloride, serum 102 mmol/L 98-107 blood glucose 113 mg/dL 65-95 urea nitrogen, blood 16 mg/dL 7-18 creatinine, serum 1.11 mg/dL 0.60-1.30 Estimated Glomerular Filtration Rate (calc) 71 (?) mL/min/1.73m2 = OR > 60 mL/min alanine aminotransferase (SGPT), serum 25 U/L 12-78 aspartate aminotransferase (SGOT), serum 25 U/L 19-43 calcium, serum 9.6 mg/dL 8.5-10.1 bilirubin, serum, total 0.60 mg/dL 0.00-1.00 cholesterol, serum 260 mg/dL 923-482 4325/05/13 triglyceride, serum, fasting 131 mg/dL 30-200 HDL cholesterol, serum 47 mg/dL 32-60 LDL cholesterol, serum 187 mg/dL 0-130 prostate specific antigen 3.99 ng/mL 0.00-4.00 Lab Report: CBC, Comp. Metabolic Panel, Lipid Panel, Magnesium, MICROALB ... - Hematology leukocyte count, blood 9.1 10^3/MM^3 10*3/mm3 4.6-10.2 erythrocyte (RBC) count 5.21 10^6/MM^3 10*6/mm3 4.50-6.5 0 hemoglobin, blood 15.6 g/dL 14.0-18.0 hematocrit, blood 46.2 % 40.0-54.0 mean corpuscular volume, RBC 89 fL 80-97 mean corpuscular hemoglobin, RBC 30.0 pg 27. 0-31.2 mean corpuscular hemoglobin concentration, RBC 33.8 G/DL % 31.8-35.4 red blood cell distribution width 11.5 % 11 .6-14.8 platelet count 272 10^3/MM^3 10*3/mm3 142-424 Lab Report: CBC, Comp. Metabolic Panel, Lipid Panel, Magnesium, MICROALB ... - Lab Alkaline phosphatase 58 50-136 microalbumin, urine 10 mg/L 0-19 Lab Report: CBC, Comp. Metabolic Panel, Lipid Panel, Magnesium, MICROALB ... - Urinalysis microalbumin/total urine volume <30 mg/g Normal mg/g mg/L 0-29 Encounters Code Encounter Date Provider Facility CPT-75743 [id number] Vst-Est Level IV 11:05:24 CDT Isela Braswell [facility] CPT-88611 Level 3 Est. Patient 16:31:32 BACK END ENGINEER Mingo goss APRN [facility] CPT-91715 [id number] Vst-Est Level III 13:57:28 BACK END ENGINEER Mau Mcmahon MD [facility] CPT-71405 [id number] Vst-Est Level IV 15:44:27 C DT Mau Mcmahon MD [facility] CPT-44277 Level 4 Est. Patient 21:12:34 CDT Mau bailey MD [facility] CPT-52908 Level 3 Est. Patient 16:26:55 BACK END ENGINEER Osbaldo Wilkes MD [facility] CPT-26033 Level 4 Est. Patient 12:43:27 CDT Mau bailey MD [facility] CPT-56963 Level 3 Est. Patient 16:46:20 CDT Gilbert Amador MD [facility] CPT-75452 Level 3 Est. Patient 09:03:26 CDT Deirdre carter GEE [facility] CPT-50588 Level 4 Est. Patient 15:38:51 BACK END ENGINEER Mau bailey MD [facility] CPT-32328 Level 4 Est. Patient 10:26:24 CDT Mau bailey MD [facility] CPT-58988 Level 3 Est. Patient 17:21:09 CDT Ryne ornelas DO [facility] CPT-96221 Level 4 Est. Patient 09:22:16 CDT Mau bailey MD [facility] CPT-05653 Level 3 Est. Patient 08:55:02 BACK END ENGINEER Mau bailey MD [facility] Procedures Code Procedure Name Date Entry Date Standard Desc ription CPT-70330 Venipuncture Draw Fee 12:43:05 CDT CPT-Cryo Cryotherapy 10:49:32 CDT CPT-LR Lesion Removal 21:12:34 CDT CPT-44356 EKG Trac and Interp - XRAY USE ONLY 1 5:52:34 CDT CPT-79159 Venipuncture Draw Fee 09:05:38 CDT CPT-41241 Uric Acid - LAB USE ONLY 09:05:38 CDT 03/10 CPT-62637 Sed Rate - LAB USE ONLY 09:05:38 CDT 03/10 CPT-54703 CMP - LAB USE ONLY 09:05:37 CDT CPT-37052 CBC - LAB USE ONLY 09:05:37 CDT CPT-J2930 Solu Medrol 125 mg (Methyl Prednisolone Sodium Succinate) 16:27:04 CDT CPT-10093 Abx/Therapy Injection 16:27:04 CDT CPT-J2930 Solu Medrol 125 mg (Methyl Prednisolone Sodium Succinate) 14:33:18 CDT
--- OUTSIDE RECORDS SUMMARY | 2019-11-22 08:18 | XMS REPORT | Clinical Summary ---
Author Author Admin, Volodymyr De Dios Organization [facility] Address Unknown Phone Unavailable Allergies, Adverse Reactions, Alerts Allergy Name Reaction Description Start Date Severity Status Pr ovider No Known Allergies Salina Macdonald MA Conditions or Problems Problem Name Problem Code Onset Date Status Entry Date Provider Comment Standard Description Annotate HYPERTENSION 401.9 Active Mau Mcmahon MD Unspecified essential hypertension HYPERLIPIDEMIA 272.4 [...] due to pollen SINUSITIS, ACUTE 461.9 Inactive Mau Mcmahon MD Acute sinusitis, unspecified Otitis media acute right 382.9 Active Mingo goss APRN Unspecified otitis media Health screening V70.0 Active CORAL Estrella Routine general medical examination at a health care facility COPD 496 Active Katie Braswell C hronic airway obstruction, not elsewhere classified Actinic keratosis, cheek, right 702.0 Active 2019 Katie Braswell Actinic keratosis SEASONAL ALLERGIC RHINITIS ICD-477.9 Inactive Mau Mcmahon MD Pneumonia, right lower lobe ICD-486 Inactive Osbaldo Wilkes MD Poison bel ICD-692.6 Inactive Osbaldo Dewey Leg edema, right ICD-782.3 Inactive Mau calderon MD Bronchitis ICD-490 Inactive Osbaldo Wilkes MD 201 01/08/07 Rhinitis, acute ICD-460 Inactive Osbaldo Lechuga MD Benign paroxysmal positional vertigo, left ICD-386.11 Inactive Mau Mcmahon MD Bronchitis, acute ICD-466.0 Inactive Mau chen [...] times a day as needed ALBUTEROL SULFATE 67111746498 Active B montrell Braswell Active MULTIVITAMIN ADULT ORAL TABLET 1 po qd MULTI PLE VITAMINS-MINERALS 83967368646 Active Katie Braswell Active MOMETASONE SPR 50MCG SPRAY 2 SPRAYS INTO EACH NOSTRIL DAILY DIRECTED MOMETASONE FUROATE 85604788897 Active Mau Dewey Active CEFDINIR 300 MG ORAL CAPSULE by mouth twice a day 2019 CEFDINIR 68059723497 No Longer Active Mingo Milton APRN Active LOSARTAN POT 50MG 1 TABLET BY MOUTH TWICE DAILY FOR HYPERT ENSION AND GOUT LOSARTAN POTASSIUM 75210880265 Active Mau Dewey Active PANTOPRAZOLE 40MG TAKE 1 TABLET BY MOUTH DAILY FOR GERD PANTOPRAZOLE SODIUM 95221141056 Active Katie Braswell Acti ve AMOXICILLIN 500 MG ORAL CAPSULE 1 cap by mouth three times a day AMOXICILLIN 21114604764 No Longer Active Mau Mcmahon MD Active PREDNISONE 20 MG ORAL TABLET 2 tabs daily for 3 days, 1 tab daily for 3 days, 1/2 tab daily for 2 days PREDNISONE 48915724521 No Longer Active Mau Mcmahon MD Active GUAIFENESIN-CODEINE 100-10 MG/5ML ORAL SYRUP 5ml every 4 to 6 hours as needed for cough GUAIFENESIN-CODEINE 22592804331 No Longe r Active Mau Mcmahon MD Active PREDNISONE 20 MG ORAL TABLET 2 daily for 3 days then 1 daily for 3 days PREDNISONE 93753933202 No Longer Active Mau calderon MD Active HYDROCHLOROTHIAZIDE 25 MG ORAL TABLET 0.5 tablet by mo [facility] daily for blood pressure. HYDROCHLOROTHIAZIDE 13694393578 No Longe r Active Osbaldo Wilkes MD Active COLCHICINE 0.6 MG ORAL CAPSULE PRN FOR GOUT FLARE UPS COLCHICINE 42069514455 No Longer Active Osbaldo Wilkes MD Activ e ALLOPURINOL 100 MG ORAL TABLET Take 1 tab po x 7 days, then 2 times every day thereafter if tolerated. ALLOPURINOL 37991230194 No Longer Active Osbaldo Wilkes MD Active NASONEX 50 MCG/ACT NASAL SUSPENSION use 2 sprays in each nos tril qday MOMETASONE FUROATE 60701833962 No Longer Active Osbaldo valdez MD Active PREDNISONE 5 MG ORAL TABLET PREDNISONE 92620519601 No Longer Active Osbaldo Wilkes MD Active AZITHROMYCIN 250 MG ORAL TABLET 2 po qd x 1 day, then 1 po q d x 4 days AZITHROMYCIN 72840566185 No Longer Active CORAL Estrella Active SUDAFED 12 HOUR 120 MG ORAL TABLET EXTENDED RELEASE 12 HOUR 1 pill twice daily if needed for congestion PSEUDOEPHEDRINE HCL 54533062865 A ctive Mau Mcmahon MD Active MECLIZINE HCL 25 MG ORAL TABLET one 4 times a day as needed for dizziness MECLIZINE HCL 93185924222 No Longer Active Mau Mcmahon MD Active ZOFRAN 4 MG ORAL TABLET 1 po q6hr PRN Nausea 9 ONDANSETRON HCL 58866280663 No Longer Active Mau Mcmahon MD Acti ve PREDNISONE 5 MG ORAL TABLET Take 3 tabs po on the day, decrease by 1 tablet every 3 days until off PREDNISONE 65601388885 No Longer Active Gilbert Amador MD Active CHERATUSSIN AC 100-10 MG/5ML ORAL SYRUP 1 tsp by mouth every 4 hours as needed for cough GUAIFENESIN-CODEINE 83583768475 No Longe r Active Gilbert Amador MD Active ZITHROMAX 250 MG ORAL TABLET 2 po today, then 1 po q days 2-5 20 23/10/22 AZITHROMYCIN 45840122335 No Longer Active Deirdre Riddle APRN Active CELEBREX 100 MG ORAL CAPSULE take 1 tab po BID for osteoarthriti s CELECOXIB 30855624524 No Longer Active Deirdre Riddle GROUP CAPTAIN A ctive OMEPRAZOLE 20 MG ORAL CAPSULE DELAYED RELEASE 1 tablet po in the am OMEPRAZOLE 53513119320 No Longer Active Deirdre Riddle GROUP CAPTAIN A ctive BACTRIM DS 800-160 MG ORAL TABLET 1 tab by mouth twice daily 201 12/08/14 TRIMETHOPRIM-SULFAMETHOXAZOLE 24568121398 No Longer Active Vincent Reynosoemma FLYNN Active ZITHROMAX 1 GM ORAL PACKET DIR AZITHROMY ANALISA 90062315963 No Longer Active Deirdre Edgardoemma FLYNN Active LEVAQUIN 500 MG ORAL TABLET 1 tablet by mouth daily 20 25/07/14 LEVOFLOXACIN 91472387754 No Longer Active Mau Mcmahon MD Acti ve HYDROCHLOROTHIAZIDE 25 MG ORAL TABLET 1 PO Q AM 201 10/16/21 HYDROCHLOROTHIAZIDE 55203292757 No Longer Active Ryne Cristina DO Ac tive SIMVASTATIN 20 MG ORAL TABLET 1 tablet po q hs SIMVASTATIN 94308574685 No Longer Active Ryne Cristina DO Active SIMVASTATIN 20 MG ORAL TABLET 1 tablet po q hs SIMVASTATIN 20 MG ORAL TABLET 472921 SIMVASTATIN Inactive HYDROCHLOROTHIAZIDE 25 MG ORAL TABLET 1 PO Q AM 201 10/16/21 HYDROCHLOROTHIAZIDE 25 MG ORAL TABLET 955858 HYDROCHLOROTHIAZIDE In active LEVAQUIN 500 MG ORAL TABLET 1 tablet by mouth daily 20 25/07/14 LEVAQUIN 500 MG ORAL TABLET 867459 LEVOFLOXACIN Inactive ZITHROMAX 1 GM ORAL PACKET DIR Z ITHROMAX 1 GM ORAL PACKET 087115 AZITHROMYCIN Inactive BACTRIM DS 800-160 MG ORAL TABLET 1 tab by mouth twice daily 201 12/08/14 BACTRIM DS 800-160 MG ORAL TABLET 854702 TRIMETHOPRIM-SULFAMETHOXAZOLE Inactive OMEPRAZOLE 20 MG ORAL CAPSULE DELAYED RELEASE 1 tablet po in the am OMEPRAZOLE 20 MG ORAL CAPSULE DELAYED RELEASE 854905 OM EPRAZOLE Inactive CELEBREX 100 MG ORAL CAPSULE take 1 tab po BID for osteoarthriti s CELEBREX 100 MG ORAL CAPSULE 974039 CELECOXIB Zohreh ctive CHERATUSSIN AC 100-10 MG/5ML ORAL SYRUP 1 tsp by mouth every 4 hours as needed for cough CHERATUSSIN AC 100-10 MG/5ML ORAL SYRUP 9 54170 GUAIFENESIN-CODEINE Inactive PREDNISONE 5 MG ORAL TABLET Take 3 tabs po on the , decrease by 1 tablet every 3 days until off PREDNISONE 5 MG OR AL TABLET 734796 PREDNISONE Inactive ZOFRAN 4 MG ORAL TABLET 1 po q6hr PRN Nausea 9 ZOFRAN 4 MG ORAL TABLET 532235 ONDANSETRON HCL Inactive MECLIZINE HCL 25 MG ORAL TABLET one 4 times a day as needed for dizziness MECLIZINE HCL 25 MG ORAL TABLET 006085 MECLIZINE HCL Inactive PREDNISONE 5 MG ORAL TABLET PREDNISO NE 5 MG ORAL TABLET 503759 PREDNISONE Inactive NASONEX 50 MCG/ACT NASAL SUSPENSION use 2 sprays in each nos tril qday NASONEX 50 MCG/ACT NASAL SUSPENSION 1065891 MOMET ASONE FUROATE Inactive ALLOPURINOL 100 MG ORAL TABLET Take 1 tab po x 7 days, then 2 times every day thereafter if tolerated. ALLOPURINOL 100 MG ORAL TABLET 901640 ALLOPURINOL Inactive COLCHICINE 0.6 MG ORAL CAPSULE PRN FOR GOUT FLARE UPS COLCHICINE 0.6 MG ORAL CAPSULE 6911566 COLCHICINE Inactive HYDROCHLOROTHIAZIDE 25 MG ORAL TABLET 0.5 tablet by [facility] daily for blood pressure. HYDROCHLOROTHIAZIDE 25 MG ORAL TABLET 310 798 HYDROCHLOROTHIAZIDE Inactive PREDNISONE 20 MG ORAL TABLET 2 daily for 3 days then 1 daily for 3 days PREDNISONE 20 MG ORAL TABLET 821151 PREDNISONE Inactive GUAIFENESIN-CODEINE 100-10 MG/5ML ORAL SYRUP 5ml every 4 to 6 hours as needed for cough GUAIFENESIN-CODEINE 100-10 MG/5M L ORAL SYRUP 318771 GUAIFENESIN-CODEINE Inactive ZITHROMAX 250 MG ORAL TABLET 2 po today, then 1 po q days 2-5 20 23/10/22 ZITHROMAX 250 MG ORAL TABLET 545081 AZITHROMYCIN Zohreh ctive AZITHROMYCIN 250 MG ORAL TABLET 2 po qd x 1 day, then 1 po q d x 4 days AZITHROMYCIN 250 MG ORAL TABLET 539833 AZITHROMY ANALISA Inactive PREDNISONE 20 MG ORAL TABLET 2 tabs daily for 3 days, 1 tab daily for 3 days, 1/2 tab daily for 2 days PREDNISONE 20 MG ORAL T ABLET 518422 PREDNISONE Inactive AMOXICILLIN 500 MG ORAL CAPSULE 1 cap by mouth three times a day AMOXICILLIN 500 MG ORAL CAPSULE 971874 AMOXICILLIN Inactive CEFDINIR 300 MG ORAL CAPSULE by mouth twice a day 2019 CEFDINIR 300 MG ORAL CAPSULE 411713 CEFDINIR Inactive Vital Signs Date Name Value [...] ... - Chemistry sodium, serum 138 mmol/L 330-598 5049/05/13 carbon dioxide, venous blood 29.8 mmol/L 21.0-32 [...] 0.60 mg/dL 0.00-1.00 cholesterol, serum 260 mg/dL 460-614 0162/05/13 triglyceride, serum, fasting 131 mg/dL 30-200 HDL [...] 0-29 Encounters Code Encounter Date Provider Facility CPT-39853 [id number] Vst-Est Level IV 11:05:24 CDT Isela Braswell [facility] CPT-92049 Level 3 Est. Patient 16:31:32 RESIDENT CARE TECHNICIAN Mingo goss APRN [facility] CPT-54281 [id number] Vst-Est Level III 13:57:28 RESIDENT CARE TECHNICIAN Mau Mcmahon MD [facility] CPT-35247 [id number] Vst-Est Level IV 15:44:27 C DT Mau Mcmahon MD [facility] CPT-83425 Level 4 Est. Patient 21:12:34 CDT Mau bailey MD [facility] CPT-26709 Level 3 Est. Patient 16:26:55 RESIDENT CARE TECHNICIAN Osbaldo Wilkes MD [facility] CPT-89939 Level 4 Est. Patient 12:43:27 CDT Mau bailey MD [facility] CPT-83204 Level 3 Est. Patient 16:46:20 CDT Gilbert Amador MD [facility] CPT-42489 Level 3 Est. Patient 09:03:26 CDT Deirdre carter APRN [facility] CPT-75912 Level 4 Est. Patient 15:38:51 RESIDENT CARE TECHNICIAN Mau bailey MD [facility] CPT-78139 Level 4 Est. Patient 10:26:24 CDT Mau bailey MD [facility] CPT-05529 Level 3 Est. Patient 17:21:09 CDT Ryne ornelas DO [facility] CPT-18631 Level 4 Est. Patient 09:22:16 CDT Mau bailey MD [facility] CPT-44380 Level 3 Est. Patient 08:55:02 RESIDENT CARE TECHNICIAN Mau bailey MD [facility] Procedures Code Procedure Name Date Entry Date Standard Desc ription CPT-42043 Venipuncture Draw Fee 12:43:05 CDT CPT-Cryo Cryotherapy 10:49:32 CDT CPT-LR Lesion Removal 21:12:34 CDT CPT-28911 EKG Trac and Interp - XRAY USE ONLY 1 5:52:34 CDT CPT-18428 Venipuncture Draw Fee 09:05:38 CDT CPT-92736 Uric Acid - LAB USE ONLY 09:05:38 CDT 03/10 CPT-12745 Sed Rate - LAB USE ONLY 09:05:38 CDT 03/10 CPT-14205 CMP - LAB USE ONLY 09:05:37 CDT CPT-06906 CBC - LAB USE ONLY 09:05:37 CDT CPT-J2930 Solu Medrol 125 mg (Methyl Prednisolone Sodium Succinate) 16:27:04 CDT CPT-99446 Abx/Therapy Injection 16:27:04 CDT CPT-J2930 Solu Medrol 125 mg (Methyl Prednisolone Sodium Succinate) 14:33:18 CDT
--- OUTSIDE RECORDS SUMMARY | 2019-11-22 08:18 | XMS REPORT | Clinical Summary ---
Author Author Admin, Volodymyr De Dios Organization [facility] Address Unknown Phone Unavailable Allergies, Adverse Reactions, [...] times a day as needed ALBUTEROL SULFATE 43544418458 Active B montrell Braswell Active MULTIVITAMIN ADULT ORAL TABLET 1 po qd MULTI PLE VITAMINS-MINERALS 81685581059 Active Katie Braswell Active MOMETASONE SPR 50MCG SPRAY 2 SPRAYS INTO EACH NOSTRIL DAILY DIRECTED MOMETASONE FUROATE 71657924680 Active Mau Dewey Active CEFDINIR 300 MG ORAL CAPSULE by mouth twice a day 2019 CEFDINIR 57428433585 No Longer Active Mingo Milton APRN Active LOSARTAN POT 50MG 1 TABLET BY MOUTH TWICE DAILY FOR HYPERT ENSION AND GOUT LOSARTAN POTASSIUM 55463120396 Active Mau Dewey Active PANTOPRAZOLE 40MG TAKE 1 TABLET BY MOUTH DAILY FOR GERD PANTOPRAZOLE SODIUM 62317655430 Active Katie Brawsell Acti ve AMOXICILLIN 500 MG ORAL CAPSULE 1 cap by mouth three times a day AMOXICILLIN 47514310349 No Longer Active Mau Mcmahon MD Active PREDNISONE 20 MG ORAL TABLET 2 tabs daily for 3 days, 1 tab daily for 3 days, 1/2 tab daily for 2 days PREDNISONE 25619152936 No Longer Active Mau Mcmahon MD Active GUAIFENESIN-CODEINE 100-10 MG/5ML ORAL SYRUP 5ml every 4 to 6 hours as needed for cough GUAIFENESIN-CODEINE 59123514385 No Longe r Active Mau Mcmahon MD Active PREDNISONE 20 MG ORAL TABLET 2 daily for 3 days then 1 daily for 3 days PREDNISONE 59792941371 No Longer Active Mau calderon MD Active HYDROCHLOROTHIAZIDE 25 MG ORAL TABLET 0.5 tablet by mo [facility] daily for blood pressure. HYDROCHLOROTHIAZIDE 90459868345 No Longe r Active Osbaldo Wilkes MD Active COLCHICINE 0.6 MG ORAL CAPSULE PRN FOR GOUT FLARE UPS COLCHICINE 05033481609 No Longer Active Osbaldo Wilkes MD Activ e ALLOPURINOL 100 MG ORAL TABLET Take 1 tab po x 7 days, then 2 times every day thereafter if tolerated. ALLOPURINOL 54137144148 No Longer Active Osbaldo Wilkes MD Active NASONEX 50 MCG/ACT NASAL SUSPENSION use 2 sprays in each nos tril qday MOMETASONE FUROATE 52452155428 No Longer Active Osbaldo valdez MD Active PREDNISONE 5 MG ORAL TABLET PREDNISONE 79636287816 No Longer Active Osbaldo Wilkes MD Active AZITHROMYCIN 250 MG ORAL TABLET 2 po qd x 1 day, then 1 po q d x 4 days AZITHROMYCIN 36931339121 No Longer Active CORAL Estrella Active SUDAFED 12 HOUR 120 MG ORAL TABLET EXTENDED RELEASE 12 HOUR 1 pill twice daily if needed for congestion PSEUDOEPHEDRINE HCL 80668181217 A ctive Mau Mcmahon MD Active MECLIZINE HCL 25 MG ORAL TABLET one 4 times a day as needed for dizziness MECLIZINE HCL 94576982382 No Longer Active Mau Mcmahon MD Active ZOFRAN 4 MG ORAL TABLET 1 po q6hr PRN Nausea 9 ONDANSETRON HCL 87259394972 No Longer Active Mau Mcmahon MD Acti ve PREDNISONE 5 MG ORAL TABLET Take 3 tabs po on the day, decrease by 1 tablet every 3 days until off PREDNISONE 28681450060 No Longer Active Gilbert Amador MD Active CHERATUSSIN AC 100-10 MG/5ML ORAL SYRUP 1 tsp by mouth every 4 hours as needed for cough GUAIFENESIN-CODEINE 14374360223 No Longe r Active Gilbert Amador MD Active ZITHROMAX 250 MG ORAL TABLET 2 po today, then 1 po q days 2-5 20 23/10/22 AZITHROMYCIN 26988279371 No Longer Active Deirdre Riddle APRN Active CELEBREX 100 MG ORAL CAPSULE take 1 tab po BID for osteoarthriti s CELECOXIB 56252283855 No Longer Active Deirdre Riddle SPRAY CREW A ctive OMEPRAZOLE 20 MG ORAL CAPSULE DELAYED RELEASE 1 tablet po in the am OMEPRAZOLE 57229813144 No Longer Active Deirdre Riddle SPRAY CREW A ctive BACTRIM DS 800-160 MG ORAL TABLET 1 tab by mouth twice daily 201 12/08/14 TRIMETHOPRIM-SULFAMETHOXAZOLE 62856261454 No Longer Active Vincent Reynosoemma FLYNN Active ZITHROMAX 1 GM ORAL PACKET DIR AZITHROMY ANALISA 92508502278 No Longer Active Deirdre Edgardoemma FLYNN Active LEVAQUIN 500 MG ORAL TABLET 1 tablet by mouth daily 20 25/07/14 LEVOFLOXACIN 40680521795 No Longer Active Mau Mcmahon MD Acti ve HYDROCHLOROTHIAZIDE 25 MG ORAL TABLET 1 PO Q AM 201 10/16/21 HYDROCHLOROTHIAZIDE 75128391210 No Longer Active Ryne Cristina DO Ac tive SIMVASTATIN 20 MG ORAL TABLET 1 tablet po q hs SIMVASTATIN 37013954913 No Longer Active Ryne Cristina DO Active SIMVASTATIN 20 MG ORAL TABLET 1 tablet po q hs SIMVASTATIN 20 MG ORAL TABLET 475817 SIMVASTATIN Inactive HYDROCHLOROTHIAZIDE 25 MG ORAL TABLET 1 PO Q AM 201 10/16/21 HYDROCHLOROTHIAZIDE 25 MG ORAL TABLET 152089 HYDROCHLOROTHIAZIDE In active LEVAQUIN 500 MG ORAL TABLET 1 tablet by mouth daily 20 25/07/14 LEVAQUIN 500 MG ORAL TABLET 121446 LEVOFLOXACIN Inactive ZITHROMAX 1 GM ORAL PACKET DIR Z ITHROMAX 1 GM ORAL PACKET 096349 AZITHROMYCIN Inactive BACTRIM DS 800-160 MG ORAL TABLET 1 tab by mouth twice daily 201 12/08/14 BACTRIM DS 800-160 MG ORAL TABLET 126426 TRIMETHOPRIM-SULFAMETHOXAZOLE Inactive OMEPRAZOLE 20 MG ORAL CAPSULE DELAYED RELEASE 1 tablet po in the am OMEPRAZOLE 20 MG ORAL CAPSULE DELAYED RELEASE 576497 OM EPRAZOLE Inactive CELEBREX 100 MG ORAL CAPSULE take 1 tab po BID for osteoarthriti s CELEBREX 100 MG ORAL CAPSULE 162258 CELECOXIB Zohreh ctive CHERATUSSIN AC 100-10 MG/5ML ORAL SYRUP 1 tsp by mouth every 4 hours as needed for cough CHERATUSSIN AC 100-10 MG/5ML ORAL SYRUP 9 99743 GUAIFENESIN-CODEINE Inactive PREDNISONE 5 MG ORAL TABLET Take 3 tabs po on the , decrease by 1 tablet every 3 days until off PREDNISONE 5 MG OR AL TABLET 084944 PREDNISONE Inactive ZOFRAN 4 MG ORAL TABLET 1 po q6hr PRN Nausea 9 ZOFRAN 4 MG ORAL TABLET 349832 ONDANSETRON HCL Inactive MECLIZINE HCL 25 MG ORAL TABLET one 4 times a day as needed for dizziness MECLIZINE HCL 25 MG ORAL TABLET 887878 MECLIZINE HCL Inactive PREDNISONE 5 MG ORAL TABLET PREDNISO NE 5 MG ORAL TABLET 465854 PREDNISONE Inactive NASONEX 50 MCG/ACT NASAL SUSPENSION use 2 sprays in each nos tril qday NASONEX 50 MCG/ACT NASAL SUSPENSION 2984489 MOMET ASONE FUROATE Inactive ALLOPURINOL 100 MG ORAL TABLET Take 1 tab po x 7 days, then 2 times every day thereafter if tolerated. ALLOPURINOL 100 MG ORAL TABLET 209277 ALLOPURINOL Inactive COLCHICINE 0.6 MG ORAL CAPSULE PRN FOR GOUT FLARE UPS COLCHICINE 0.6 MG ORAL CAPSULE 2165770 COLCHICINE Inactive HYDROCHLOROTHIAZIDE 25 MG ORAL TABLET 0.5 tablet by [facility] daily for blood pressure. HYDROCHLOROTHIAZIDE 25 MG ORAL TABLET 310 798 HYDROCHLOROTHIAZIDE Inactive PREDNISONE 20 MG ORAL TABLET 2 daily for 3 days then 1 daily for 3 days PREDNISONE 20 MG ORAL TABLET 432192 PREDNISONE Inactive GUAIFENESIN-CODEINE 100-10 MG/5ML ORAL SYRUP 5ml every 4 to 6 hours as needed for cough GUAIFENESIN-CODEINE 100-10 MG/5M L ORAL SYRUP 815006 GUAIFENESIN-CODEINE Inactive ZITHROMAX 250 MG ORAL TABLET 2 po today, then 1 po q days 2-5 20 23/10/22 ZITHROMAX 250 MG ORAL TABLET 022137 AZITHROMYCIN Zohreh ctive AZITHROMYCIN 250 MG ORAL TABLET 2 po qd x 1 day, then 1 po q d x 4 days AZITHROMYCIN 250 MG ORAL TABLET 155959 AZITHROMY ANALISA Inactive PREDNISONE 20 MG ORAL TABLET 2 tabs daily for 3 days, 1 tab daily for 3 days, 1/2 tab daily for 2 days PREDNISONE 20 MG ORAL T ABLET 574405 PREDNISONE Inactive AMOXICILLIN 500 MG ORAL CAPSULE 1 cap by mouth three times a day AMOXICILLIN 500 MG ORAL CAPSULE 621296 AMOXICILLIN Inactive CEFDINIR 300 MG ORAL CAPSULE by mouth twice a day 2019 CEFDINIR 300 MG ORAL CAPSULE 212858 CEFDINIR Inactive Vital Signs Date Name Value [...] weight E&M 277.90 [lb_av] Weight Measure d Encounters Code Encounter Date Provider Facility CPT-97076 [id number] Vst-Est Level IV 11:05:24 CDT Isela larastoney French [facility] CPT-83811 Level 3 Est. Patient 16:31:32 ECOTHERAPIST Mingo goss [facility] CPT-59925 [id number] Vst-Est Level III 13:57:28 ECOTHERAPIST Mau Mcmahon MD [facility]-80452 21519-Qbm Vst-Est Level IV 15:44:27 C DT Mau Mcmahon MD [facility] CPT-17268 Level 4 Est. Patient 21:12:34 CDT Mau bailey MD [facility] CPT-44164 Level 3 Est. Patient 16:26:55 ECOTHERAPIST Osbaldo Wilkes MD [facility] CPT-61353 Level 4 Est. Patient 12:43:27 CDT Mau bailey MD [facility] CPT-09793 Level 3 Est. Patient 16:46:20 CDT Gilbert Amador MD [facility] CPT-16032 Level 3 Est. Patient 09:03:26 CDT Deirdre carter [facility] CPT-17641 Level 4 Est. Patient 15:38:51 ECOTHERAPIST Mau bailey MD [facility] CPT-98966 Level 4 Est. Patient 10:26:24 CDT Mau bailey MD [facility] CPT-75521 Level 3 Est. Patient 17:21:09 CDT Ryen ornelas DO [facility] CPT-56818 Level 4 Est. Patient 09:22:16 CDT Mau bailey MD [facility] CPT-57055 Level 3 Est. Patient 08:55:02 ECOTHERAPIST Mau bailey MD [facility] Procedures Code Procedure Name Date Entry Date Standard Desc ription CPT-18530 Venipuncture Draw Fee 12:43:05 CDT CPT-Cryo Cryotherapy 10:49:32 CDT CPT-LR Lesion Removal 21:12:34 CDT CPT-23411 EKG Trac and Interp - XRAY USE ONLY 1 5:52:34 CDT CPT-54278 Venipuncture Draw Fee 09:05:38 CDT CPT-91061 Uric Acid - LAB USE ONLY 09:05:38 CDT 03/10 CPT-86872 Sed Rate - LAB USE ONLY 09:05:38 CDT 03/10 CPT-25059 CMP - LAB USE ONLY 09:05:37 CDT CPT-61150 CBC - LAB USE ONLY 09:05:37 CDT CPT-J2930 Solu Medrol 125 mg (Methyl Prednisolone Sodium Succinate) 16:27:04 CDT CPT-95228 Abx/Therapy Injection 16:27:04 CDT CPT-J2930 Solu Medrol 125 mg (Methyl Prednisolone Sodium Succinate) 14:33:18 CDT
--- OUTSIDE RECORDS SUMMARY | 2019-11-22 08:19 | XMS REPORT | Clinical Summary ---
Author Author Admin, Volodymyr De Dios Organization [employer] Address Unknown Phone Unavailable Allergies, Adverse Reactions, [...] meehan MD Acute bronchitis Obesity 278.00 Refinement Osabldo Wilkes MD Obesity, unspecified Obesity Class I [...] times a day as needed ALBUTEROL SULFATE 63362936959 Active B montrell Braswell Active MULTIVITAMIN ADULT ORAL TABLET 1 po qd MULTI PLE VITAMINS-MINERALS 39869114728 Active Katie Braswell Active MOMETASONE SPR 50MCG SPRAY 2 SPRAYS INTO EACH NOSTRIL DAILY DIRECTED MOMETASONE FUROATE 79393321861 Active Mau Dewey Active CEFDINIR 300 MG ORAL CAPSULE by mouth twice a day 2019 CEFDINIR 95667582795 No Longer Active Mingo Milton APRN Active LOSARTAN POT 50MG 1 TABLET BY MOUTH TWICE DAILY FOR HYPERT ENSION AND GOUT LOSARTAN POTASSIUM 10499426813 Active Mau Dewey Active PANTOPRAZOLE 40MG TAKE 1 TABLET BY MOUTH DAILY FOR GERD PANTOPRAZOLE SODIUM 75622632039 Active Katie Braswell Acti ve AMOXICILLIN 500 MG ORAL CAPSULE 1 cap by mouth three times a day AMOXICILLIN 29754089378 No Longer Active Mau Mcmahon MD Active PREDNISONE 20 MG ORAL TABLET 2 tabs daily for 3 days, 1 tab daily for 3 days, 1/2 tab daily for 2 days PREDNISONE 34804354056 No Longer Active Mau Mcmahon MD Active GUAIFENESIN-CODEINE 100-10 MG/5ML ORAL SYRUP 5ml every 4 to 6 hours as needed for cough GUAIFENESIN-CODEINE 04741141373 No Longe r Active Mau Mcmahon MD Active PREDNISONE 20 MG ORAL TABLET 2 daily for 3 days then 1 daily for 3 days PREDNISONE 51256061881 No Longer Active Mau calderon MD Active HYDROCHLOROTHIAZIDE 25 MG ORAL TABLET 0.[address] [facility] daily for blood pressure. HYDROCHLOROTHIAZIDE 27922853637 No Longe r Active Osbaldo Wilkes MD Active COLCHICINE 0.6 MG ORAL CAPSULE PRN FOR GOUT FLARE UPS COLCHICINE 69945278853 No Longer Active Osbaldo Wilkes MD Activ e ALLOPURINOL 100 MG ORAL TABLET Take 1 tab po x 7 days, then 2 times every day thereafter if tolerated. ALLOPURINOL 18051440567 No Longer Active Osbaldo Wilkes MD Active NASONEX 50 MCG/ACT NASAL SUSPENSION use 2 sprays in each nos tril qday MOMETASONE FUROATE 73108494141 No Longer Active Osbaldo valdez MD Active PREDNISONE 5 MG ORAL TABLET PREDNISONE 16484500536 No Longer Active Osbaldo Wilkes MD Active AZITHROMYCIN 250 MG ORAL TABLET 2 po qd x 1 day, then 1 po q d x 4 days AZITHROMYCIN 57213431234 No Longer Active CORAL Estrella Active SUDAFED 12 HOUR 120 MG ORAL TABLET EXTENDED RELEASE 12 HOUR 1 pill twice daily if needed for congestion PSEUDOEPHEDRINE HCL 17178090420 A ctive Mau Mcmahon MD Active MECLIZINE HCL 25 MG ORAL TABLET one 4 times a day as needed for dizziness MECLIZINE HCL 57485188575 No Longer Active Mau Mcmahon MD Active ZOFRAN 4 MG ORAL TABLET 1 po q6hr PRN Nausea 9 ONDANSETRON HCL 30338787509 No Longer Active Mau Mcmahon MD Acti ve PREDNISONE 5 MG ORAL TABLET Take 3 tabs po on the day, decrease by 1 tablet every 3 days until off PREDNISONE 93037985230 No Longer Active Gilbert Amador MD Active CHERATUSSIN AC 100-10 MG/5ML ORAL SYRUP 1 tsp by mouth every 4 hours as needed for cough GUAIFENESIN-CODEINE 17341968311 No Longe r Active Gilbert Amador MD Active ZITHROMAX 250 MG ORAL TABLET 2 po today, then 1 po q days 2-5 20 23/10/22 AZITHROMYCIN 96612431557 No Longer Active Deirdre Riddle APRN Active CELEBREX 100 MG ORAL CAPSULE take 1 tab po BID for osteoarthriti s CELECOXIB 54877767289 No Longer Active Deirdre Riddle JOINERY PATTERNMAKER A ctive OMEPRAZOLE 20 MG ORAL CAPSULE DELAYED RELEASE 1 tablet po in the am OMEPRAZOLE 24967070870 No Longer Active Deirdre Riddle JOINERY PATTERNMAKER A ctive BACTRIM DS 800-160 MG ORAL TABLET 1 tab by mouth twice daily 201 12/08/14 TRIMETHOPRIM-SULFAMETHOXAZOLE 49943997028 No Longer Active Vincent Reynosoemma FLYNN Active ZITHROMAX 1 GM ORAL PACKET DIR AZITHROMY ANALISA 42577778443 No Longer Active Deirdre Edgardoemma FLYNN Active LEVAQUIN 500 MG ORAL TABLET 1 tablet by mouth daily 20 25/07/14 LEVOFLOXACIN 88837833592 No Longer Active Mau Mcmahon MD Acti ve HYDROCHLOROTHIAZIDE 25 MG ORAL TABLET 1 PO Q AM 201 10/16/21 HYDROCHLOROTHIAZIDE 84639271768 No Longer Active Ryne Cristina DO Ac tive SIMVASTATIN 20 MG ORAL TABLET 1 tablet po q hs SIMVASTATIN 80941087833 No Longer Active Ryne Cristina DO Active SIMVASTATIN 20 MG ORAL TABLET 1 tablet po q hs SIMVASTATIN 20 MG ORAL TABLET 428801 SIMVASTATIN Inactive HYDROCHLOROTHIAZIDE 25 MG ORAL TABLET 1 PO Q AM 201 10/16/21 HYDROCHLOROTHIAZIDE 25 MG ORAL TABLET 817988 HYDROCHLOROTHIAZIDE In active LEVAQUIN 500 MG ORAL TABLET 1 tablet by mouth daily 20 25/07/14 LEVAQUIN 500 MG ORAL TABLET 423939 LEVOFLOXACIN Inactive ZITHROMAX 1 GM ORAL PACKET DIR Z ITHROMAX 1 GM ORAL PACKET 455550 AZITHROMYCIN Inactive BACTRIM DS 800-160 MG ORAL TABLET 1 tab by mouth twice daily 201 12/08/14 BACTRIM DS 800-160 MG ORAL TABLET 956087 TRIMETHOPRIM-SULFAMETHOXAZOLE Inactive OMEPRAZOLE 20 MG ORAL CAPSULE DELAYED RELEASE 1 tablet po in the am OMEPRAZOLE 20 MG ORAL CAPSULE DELAYED RELEASE 129073 OM EPRAZOLE Inactive CELEBREX 100 MG ORAL CAPSULE take 1 tab po BID for osteoarthriti s CELEBREX 100 MG ORAL CAPSULE 226016 CELECOXIB Zohreh ctive CHERATUSSIN AC 100-10 MG/5ML ORAL SYRUP 1 tsp by mouth every 4 hours as needed for cough CHERATUSSIN AC 100-10 MG/5ML ORAL SYRUP 9 83374 GUAIFENESIN-CODEINE Inactive PREDNISONE 5 MG ORAL TABLET Take 3 tabs po on the , decrease by 1 tablet every 3 days until off PREDNISONE 5 MG OR AL TABLET 197793 PREDNISONE Inactive ZOFRAN 4 MG ORAL TABLET 1 po q6hr PRN Nausea 9 ZOFRAN 4 MG ORAL TABLET 703818 ONDANSETRON HCL Inactive MECLIZINE HCL 25 MG ORAL TABLET one 4 times a day as needed for dizziness MECLIZINE HCL 25 MG ORAL TABLET 853003 MECLIZINE HCL Inactive PREDNISONE 5 MG ORAL TABLET PREDNISO NE 5 MG ORAL TABLET 363665 PREDNISONE Inactive NASONEX 50 MCG/ACT NASAL SUSPENSION use 2 sprays in each nos tril qday NASONEX 50 MCG/ACT NASAL SUSPENSION 2236235 MOMET ASONE FUROATE Inactive ALLOPURINOL 100 MG ORAL TABLET Take 1 tab po x 7 days, then 2 times every day thereafter if tolerated. ALLOPURINOL 100 MG ORAL TABLET 466009 ALLOPURINOL Inactive COLCHICINE 0.6 MG ORAL CAPSULE PRN FOR GOUT FLARE UPS COLCHICINE 0.6 MG ORAL CAPSULE 5007112 COLCHICINE Inactive HYDROCHLOROTHIAZIDE 25 MG ORAL TABLET 0.5 tablet by [facility] daily for blood pressure. HYDROCHLOROTHIAZIDE 25 MG ORAL TABLET 310 798 HYDROCHLOROTHIAZIDE Inactive PREDNISONE 20 MG ORAL TABLET 2 daily for 3 days then 1 daily for 3 days PREDNISONE 20 MG ORAL TABLET 482144 PREDNISONE Inactive GUAIFENESIN-CODEINE 100-10 MG/5ML ORAL SYRUP 5ml every 4 to 6 hours as needed for cough GUAIFENESIN-CODEINE 100-10 MG/5M L ORAL SYRUP 106161 GUAIFENESIN-CODEINE Inactive ZITHROMAX 250 MG ORAL TABLET 2 po today, then 1 po q days 2-5 20 23/10/22 ZITHROMAX 250 MG ORAL TABLET 465394 AZITHROMYCIN Zohreh ctive AZITHROMYCIN 250 MG ORAL TABLET 2 po qd x 1 day, then 1 po q d x 4 days AZITHROMYCIN 250 MG ORAL TABLET 765865 AZITHROMY ANALISA Inactive PREDNISONE 20 MG ORAL TABLET 2 tabs daily for 3 days, 1 tab daily for 3 days, 1/2 tab daily for 2 days PREDNISONE 20 MG ORAL T ABLET 902840 PREDNISONE Inactive AMOXICILLIN 500 MG ORAL CAPSULE 1 cap by mouth three times a day AMOXICILLIN 500 MG ORAL CAPSULE 901622 AMOXICILLIN Inactive CEFDINIR 300 MG ORAL CAPSULE by mouth twice a day 2019 CEFDINIR 300 MG ORAL CAPSULE 528495 CEFDINIR Inactive Vital Signs Date Name Value [...] d Encounters Code Encounter Date Provider Facility CPT-00446 [id number] Vst-Est Level IV 11:05:24 CDT Isela larastoney French [facility] CPT-48347 Level 3 Est. Patient 16:31:32 SENIOR MICROSTRATEGY DEVELOPER Mingo goss [facility] CPT-74084 [id number] Vst-Est Level III 13:57:28 SENIOR MICROSTRATEGY DEVELOPER Mau Mcmahon MD [facility]-29383 [id number] Vst-Est Level IV 15:44:27 C DT Mau Mcmahon MD [facility] CPT-36865 Level 4 Est. Patient 21:12:34 CDT Mau bailey MD [facility] CPT-33767 Level 3 Est. Patient 16:26:55 SENIOR MICROSTRATEGY DEVELOPER Osbaldo Wilkes MD [facility] CPT-97502 Level 4 Est. Patient 12:43:27 CDT Mau bailey MD [facility] CPT-81577 Level 3 Est. Patient 16:46:20 CDT Gilbert Amador MD [facility] CPT-40922 Level 3 Est. Patient 09:03:26 CDT Deirdre carter [facility] CPT-68228 Level 4 Est. Patient 15:38:51 SENIOR MICROSTRATEGY DEVELOPER Mau bailey MD [facility] CPT-41845 Level 4 Est. Patient 10:26:24 CDT Mau bailey MD [facility] CPT-84310 Level 3 Est. Patient 17:21:09 CDT Ryne ornelas DO [facility] CPT-73673 Level 4 Est. Patient 09:22:16 CDT Mau bailey MD [facility] CPT-97654 Level 3 Est. Patient 08:55:02 SENIOR MICROSTRATEGY DEVELOPER Mau bailey MD [facility] Procedures Code Procedure Name Date Entry Date Standard Desc ription CPT-94433 Venipuncture Draw Fee 12:43:05 CDT CPT-Cryo Cryotherapy 10:49:32 CDT CPT-LR Lesion Removal 21:12:34 CDT CPT-40648 EKG Trac and Interp - XRAY USE ONLY 1 5:52:34 CDT CPT-00218 Venipuncture Draw Fee 09:05:38 CDT CPT-56672 Uric Acid - LAB USE ONLY 09:05:38 CDT 03/10 CPT-49072 Sed Rate - LAB USE ONLY 09:05:38 CDT 03/10 CPT-87435 CMP - LAB USE ONLY 09:05:37 CDT CPT-38976 CBC - LAB USE ONLY 09:05:37 CDT CPT-J2930 Solu Medrol 125 mg (Methyl Prednisolone Sodium Succinate) 16:27:04 CDT CPT-80160 Abx/Therapy Injection 16:27:04 CDT CPT-J2930 Solu Medrol 125 mg (Methyl Prednisolone Sodium Succinate) 14:33:18 CDT
--- OUTSIDE RECORDS SUMMARY | 2019-11-22 08:19 | XMS REPORT | Clinical Summary ---
Author Author Admin, Volodymyr De Dios Organization [employer] Address Unknown Phone Unavailable Allergies, Adverse Reactions, Alerts Allergy Name Reaction Description Start Date Severity Status Pr ovider No Known Allergies Alison obando MA Conditions or Problems Problem Name Problem [...] times a day as needed ALBUTEROL SULFATE 00621490576 Active B montrell Braswell Active MULTIVITAMIN ADULT ORAL TABLET 1 po qd MULTI PLE VITAMINS-MINERALS 94606595300 Active Katie Braswell Active MOMETASONE SPR 50MCG SPRAY 2 SPRAYS INTO EACH NOSTRIL DAILY DIRECTED MOMETASONE FUROATE 06542865009 Active Mau Dewey Active CEFDINIR 300 MG ORAL CAPSULE by mouth twice a day 2019 CEFDINIR 51255084484 No Longer Active Mingo Milton APRN Active LOSARTAN POT 50MG 1 TABLET BY MOUTH TWICE DAILY FOR HYPERT ENSION AND GOUT LOSARTAN POTASSIUM 85233480826 Active Mau Dewey Active PANTOPRAZOLE 40MG TAKE 1 TABLET BY MOUTH DAILY FOR GERD PANTOPRAZOLE SODIUM 81414606267 Active Katie Braswell Acti ve AMOXICILLIN 500 MG ORAL CAPSULE 1 cap by mouth three times a day AMOXICILLIN 80759471690 No Longer Active Mau Mcmahon MD Active PREDNISONE 20 MG ORAL TABLET 2 tabs daily for 3 days, 1 tab daily for 3 days, 1/2 tab daily for 2 days PREDNISONE 46042861556 No Longer Active Mau Mcmahon MD Active GUAIFENESIN-CODEINE 100-10 MG/5ML ORAL SYRUP 5ml every 4 to 6 hours as needed for cough GUAIFENESIN-CODEINE 04218199630 No Longe r Active Mau Mcmahon MD Active PREDNISONE 20 MG ORAL TABLET 2 daily for 3 days then 1 daily for 3 days PREDNISONE 27626382420 No Longer Active Mau calderon MD Active HYDROCHLOROTHIAZIDE 25 MG ORAL TABLET 0.5 tablet by mo [facility] daily for blood pressure. HYDROCHLOROTHIAZIDE 68253197631 No Longe r Active Osbaldo Wilkes MD Active COLCHICINE 0.6 MG ORAL CAPSULE PRN FOR GOUT FLARE UPS COLCHICINE 75672050986 No Longer Active Osbaldo Wilkes MD Activ e ALLOPURINOL 100 MG ORAL TABLET Take 1 tab po x 7 days, then 2 times every day thereafter if tolerated. ALLOPURINOL 95056718919 No Longer Active Osbaldo Wilkes MD Active NASONEX 50 MCG/ACT NASAL SUSPENSION use 2 sprays in each nos tril qday MOMETASONE FUROATE 08029472960 No Longer Active Osbaldo valdez MD Active PREDNISONE 5 MG ORAL TABLET PREDNISONE 92136969859 No Longer Active Osbaldo Wilkes MD Active AZITHROMYCIN 250 MG ORAL TABLET 2 po qd x 1 day, then 1 po q d x 4 days AZITHROMYCIN 96772159353 No Longer Active CORAL Estrella Active SUDAFED 12 HOUR 120 MG ORAL TABLET EXTENDED RELEASE 12 HOUR 1 pill twice daily if needed for congestion PSEUDOEPHEDRINE HCL 42042671370 A ctive Mau Mcmahon MD Active MECLIZINE HCL 25 MG ORAL TABLET one 4 times a day as needed for dizziness MECLIZINE HCL 79301020205 No Longer Active aMu Mcmahon MD Active ZOFRAN 4 MG ORAL TABLET 1 po q6hr PRN Nausea 9 ONDANSETRON HCL 43401974849 No Longer Active Mau Mcmahon MD Acti ve PREDNISONE 5 MG ORAL TABLET Take 3 tabs po on the , decrease by 1 tablet every 3 days until off PREDNISONE 07939128373 No Longer Active Gilbert Amador MD Active CHERATUSSIN AC 100-10 MG/5ML ORAL SYRUP 1 tsp by mouth every 4 hours as needed for cough GUAIFENESIN-CODEINE 62370347404 No Longe r Active Gilbert Amador MD Active ZITHROMAX 250 MG ORAL TABLET 2 po today, then 1 po q days 2-5 20 23/10/22 AZITHROMYCIN 26576595064 No Longer Active Deirdre Arell BABY DOCTOR Active CELEBREX 100 MG ORAL CAPSULE take 1 tab po BID for osteoarthriti s CELECOXIB 45233433479 No Longer Active Deirdre Riddle BABY DOCTOR A ctive OMEPRAZOLE 20 MG ORAL CAPSULE DELAYED RELEASE 1 tablet po in the am OMEPRAZOLE 87802783508 No Longer Active Deirdre Riddle BABY DOCTOR A ctive BACTRIM DS 800-160 MG ORAL TABLET 1 tab by mouth twice daily 201 12/08/14 TRIMETHOPRIM-SULFAMETHOXAZOLE 97511791901 No Longer Active Vincent Reynosoemma AJN Active ZITHROMAX 1 GM ORAL PACKET DIR AZITHROMY ANALISA 69123472879 No Longer Active Deirdre Reynosoemma BABY DOCTOR Active LEVAQUIN 500 MG ORAL TABLET 1 tablet by mouth daily 20 25/07/14 LEVOFLOXACIN 41213638086 No Longer Active Mau Mcmahon MD Acti ve HYDROCHLOROTHIAZIDE 25 MG ORAL TABLET 1 PO Q AM 201 10/16/21 HYDROCHLOROTHIAZIDE 26017997283 No Longer Active Ryne Cristina DO Ac tive SIMVASTATIN 20 MG ORAL TABLET 1 tablet po q hs SIMVASTATIN 32893015789 No Longer Active Ryne Cristina DO Active SIMVASTATIN 20 MG ORAL TABLET 1 tablet po q hs SIMVASTATIN 20 MG ORAL TABLET 518502 SIMVASTATIN Inactive HYDROCHLOROTHIAZIDE 25 MG ORAL TABLET 1 PO Q AM 201 10/16/21 HYDROCHLOROTHIAZIDE 25 MG ORAL TABLET 226778 HYDROCHLOROTHIAZIDE In active LEVAQUIN 500 MG ORAL TABLET 1 tablet by mouth daily 20 25/07/14 LEVAQUIN 500 MG ORAL TABLET 687665 LEVOFLOXACIN Inactive ZITHROMAX 1 GM ORAL PACKET DIR Z ITHROMAX 1 GM ORAL PACKET 462015 AZITHROMYCIN Inactive BACTRIM DS 800-160 MG ORAL TABLET 1 tab by mouth twice daily 201 12/08/14 BACTRIM DS 800-160 MG ORAL TABLET 257604 TRIMETHOPRIM-SULFAMETHOXAZOLE Inactive OMEPRAZOLE 20 MG ORAL CAPSULE DELAYED RELEASE 1 tablet po in the am OMEPRAZOLE 20 MG ORAL CAPSULE DELAYED RELEASE 896023 OM EPRAZOLE Inactive CELEBREX 100 MG ORAL CAPSULE take 1 tab po BID for osteoarthriti s CELEBREX 100 MG ORAL CAPSULE 750311 CELECOXIB Zohreh ctive CHERATUSSIN AC 100-10 MG/5ML ORAL SYRUP 1 tsp by mouth every 4 hours as needed for cough CHERATUSSIN AC 100-10 MG/5ML ORAL SYRUP 9 12711 GUAIFENESIN-CODEINE Inactive PREDNISONE 5 MG ORAL TABLET Take 3 tabs po on the , decrease by 1 tablet every 3 days until off PREDNISONE 5 MG OR AL TABLET 028245 PREDNISONE Inactive ZOFRAN 4 MG ORAL TABLET 1 po q6hr PRN Nausea 9 ZOFRAN 4 MG ORAL TABLET 128857 ONDANSETRON HCL Inactive MECLIZINE HCL 25 MG ORAL TABLET one 4 times a day as needed for dizziness MECLIZINE HCL 25 MG ORAL TABLET 226257 MECLIZINE HCL Inactive PREDNISONE 5 MG ORAL TABLET PREDNISO NE 5 MG ORAL TABLET 774104 PREDNISONE Inactive NASONEX 50 MCG/ACT NASAL SUSPENSION use 2 sprays in each nos tril qday NASONEX 50 MCG/ACT NASAL SUSPENSION 0787924 MOMET ASONE FUROATE Inactive ALLOPURINOL 100 MG ORAL TABLET Take 1 tab po x 7 days, then 2 times every day thereafter if tolerated. ALLOPURINOL 100 MG ORAL TABLET 842424 ALLOPURINOL Inactive COLCHICINE 0.6 MG ORAL CAPSULE PRN FOR GOUT FLARE UPS COLCHICINE 0.6 MG ORAL CAPSULE 7211374 COLCHICINE Inactive HYDROCHLOROTHIAZIDE 25 MG ORAL TABLET 0.5 tablet by [facility] daily for blood pressure. HYDROCHLOROTHIAZIDE 25 MG ORAL TABLET 310 798 HYDROCHLOROTHIAZIDE Inactive PREDNISONE 20 MG ORAL TABLET 2 daily for 3 days then 1 daily for 3 days PREDNISONE 20 MG ORAL TABLET 341679 PREDNISONE Inactive GUAIFENESIN-CODEINE 100-10 MG/5ML ORAL SYRUP 5ml every 4 to 6 hours as needed for cough GUAIFENESIN-CODEINE 100-10 MG/5M L ORAL SYRUP 088919 GUAIFENESIN-CODEINE Inactive ZITHROMAX 250 MG ORAL TABLET 2 po today, then 1 po q days 2-5 20 23/10/22 ZITHROMAX 250 MG ORAL TABLET 494686 AZITHROMYCIN Zohreh ctive AZITHROMYCIN 250 MG ORAL TABLET 2 po qd x 1 day, then 1 po q d x 4 days AZITHROMYCIN 250 MG ORAL TABLET 025175 AZITHROMY ANALISA Inactive PREDNISONE 20 MG ORAL TABLET 2 tabs daily for 3 days, 1 tab daily for 3 days, 1/2 tab daily for 2 days PREDNISONE 20 MG ORAL T ABLET 744557 PREDNISONE Inactive AMOXICILLIN 500 MG ORAL CAPSULE 1 cap by mouth three times a day AMOXICILLIN 500 MG ORAL CAPSULE 224858 AMOXICILLIN Inactive CEFDINIR 300 MG ORAL CAPSULE by mouth twice a day 2019 CEFDINIR 300 MG ORAL CAPSULE 144784 CEFDINIR Inactive Vital Signs Date Name Value Unit Range Description blood pressure, diastolic, second observation 103 m [...] d Encounters Code Encounter Date Provider Facility CPT-71994 [id number] Vst-Est Level IV 11:05:24 CDT Isela allison [facility] CPT-60378 Level 3 Est. Patient 16:31:32 JAWBONE BREAKER Mingo Tin dle [facility]-83760 [id number] Vst-Est Level III 13:57:28 JAWBONE BREAKER Mau Mcmahon MD [facility]-07359 [id number] Vst-Est Level IV 15:44:27 C DT Mau Mcmahon MD [facility] CPT-54404 Level 4 Est. Patient 21:12:34 CDT Mau bailey MD [facility] CPT-62435 Level 3 Est. Patient 16:26:55 JAWBONE BREAKER Osbaldo Wilkes MD [facility] CPT-75400 Level 4 Est. Patient 12:43:27 CDT Mau bailey MD [facility] CPT-00747 Level 3 Est. Patient 16:46:20 CDT Gilbert Amador MD [facility] CPT-87764 Level 3 Est. Patient 09:03:26 CDT Deirdredeisy carter [facility] CPT-10519 Level 4 Est. Patient 15:38:51 JAWBONE BREAKER Mau bailey MD [facility] CPT-49430 Level 4 Est. Patient 10:26:24 CDT Mau bailey MD [facility] CPT-94402 Level 3 Est. Patient 17:21:09 CDT Ryne ornelas DO [facility] CPT-80786 Level 4 Est. Patient 09:22:16 CDT Mau bailey MD [facility] CPT-65732 Level 3 Est. Patient 08:55:02 JAWBONE BREAKER Mau bailey MD [facility] Procedures Code Procedure Name Date Entry Date Standard Desc ription CPT-34777 Venipuncture Draw Fee 12:43:05 CDT CPT-Cryo Cryotherapy 10:49:32 CDT CPT-LR Lesion Removal 21:12:34 CDT CPT-18851 EKG Trac and Interp - XRAY USE ONLY 1 5:52:34 CDT CPT-32107 Venipuncture Draw Fee 09:05:38 CDT CPT-85422 Uric Acid - LAB USE ONLY 09:05:38 CDT 03/10 CPT-45362 Sed Rate - LAB USE ONLY 09:05:38 CDT 03/10 CPT-95866 CMP - LAB USE ONLY 09:05:37 CDT CPT-31442 CBC - LAB USE ONLY 09:05:37 CDT CPT-J2930 Solu Medrol 125 mg (Methyl Prednisolone Sodium Succinate) 16:27:04 CDT CPT-20164 Abx/Therapy Injection 16:27:04 CDT CPT-J2930 Solu Medrol 125 mg (Methyl Prednisolone Sodium Succinate) 14:33:18 CDT
--- OUTSIDE RECORDS SUMMARY | 2019-11-22 08:19 | XMS REPORT | Clinical Summary ---
Author Author Admin, Volodymyr De Dios Organization [employer] Address Unknown Phone Unavailable Allergies, Adverse Reactions, Alerts Allergy Name Reaction Description Start Date Severity Status Pr ovider No Known Allergies Alison obando MA Conditions or Problems Problem Name Problem Code Onset Date Status Entry Date Provider Comment Standard Description Annotate HYPERTENSION 401.9 Active Mau Mcmahon MD Unspecified essential hypertension HYPERLIPIDEMIA 272.4 Refinement Mua Mcmahon MD Other and unspecified hyperlipidemia Mixed [...] Obesity Class I (BMI 30-34.9) 278.00 Refinement 0 08/02 Mau Mcmahon MD Obesity, unspecified Obesity Class III (BMI >=40) 278.00 Active Mingo Milton APRN Obesity, unspecified Ear disorder 388.9 Resolved Mau [...] Body Mass Index 31.0-31.9, adult BMI 40-44.9 Active Mingo Milton APRN Body Mass Index 31.0-31.9, adult Allergic rhinitis, seasonal 477.0 Active Mau Mcmahon MD Allergic rhinitis due to pollen SINUSITIS, ACUTE 461.9 Inactive Mau Mcmahon MD Acute sinusitis, unspecified Otitis media acute right 382.9 Active Mingo goss APRN Unspecified otitis media Health screening V70.0 Active CORAL Estrella Routine general medical examination at a health care facility SEASONAL ALLERGIC RHINITIS ICD-477.9 Inactive Mau Mcmahon [...] Generic Name NDC Status Provider Patient Instruction MOMETASONE SPR 50MCG SPRAY 2 SPRAYS INTO EACH NOSTRIL DAILY DIRECTED MOMETASONE FUROATE [id number] Active Mau Dewey Active CEFDINIR 300 MG ORAL CAPSULE by mouth twice a day 2019 CEFDINIR 00677516669 No Longer Active Mingo Milton APRN Active LOSARTAN POT 50MG 1 TABLET BY MOUTH TWICE DAILY FOR HYPERT ENSION AND GOUT LOSARTAN POTASSIUM 33546410782 Active Mau Dewey Active PANTOPRAZOLE 40MG TAKE 1 TABLET BY MOUTH DAILY FOR GERD PANTOPRAZOLE SODIUM 91214408132 Active Mau Mcmahon MD A ctive AMOXICILLIN 500 MG ORAL CAPSULE 1 cap by mouth three times a day AMOXICILLIN 46847243979 No Longer Active Mau Mcmahon MD Active PREDNISONE 20 MG ORAL TABLET 2 tabs daily for 3 days, 1 tab daily for 3 days, 1/2 tab daily for 2 days PREDNISONE 63933353097 No Longer Active Mau Mcmahon MD Active GUAIFENESIN-CODEINE 100-10 MG/5ML ORAL SYRUP 5ml every 4 to 6 hours as needed for cough GUAIFENESIN-CODEINE 30652379000 No Longe r Active Mau Mcmahon MD Active PREDNISONE 20 MG ORAL TABLET 2 daily for 3 days then 1 daily for 3 days PREDNISONE 09999044928 No Longer Active Mau calderon MD Active HYDROCHLOROTHIAZIDE 25 MG ORAL TABLET 0.5 tablet by [facility] daily for blood pressure. HYDROCHLOROTHIAZIDE 98543806124 No Longe r Active Osbaldo Wilkes MD Active COLCHICINE 0.6 MG ORAL CAPSULE PRN FOR GOUT FLARE UPS COLCHICINE 21055208413 No Longer Active Osbaldo Wilkes MD Activ e ALLOPURINOL 100 MG ORAL TABLET Take 1 tab po x 7 days, then 2 times every day thereafter if tolerated. ALLOPURINOL 21195255903 No Longer Active Osbaldo Wilkes MD Active NASONEX 50 MCG/ACT NASAL SUSPENSION use 2 sprays in each nos tril qday MOMETASONE FUROATE 02017110514 No Longer Active Osbaldo valdez MD Active PREDNISONE 5 MG ORAL TABLET PREDNISONE 90996056976 No Longer Active Osbaldo Wilkes MD Active AZITHROMYCIN 250 MG ORAL TABLET 2 po qd x 1 day, then 1 po q d x 4 days AZITHROMYCIN 76235543620 No Longer Active CORAL Estrella Active SUDAFED 12 HOUR 120 MG ORAL TABLET EXTENDED RELEASE 12 HOUR 1 pill twice daily if needed for congestion PSEUDOEPHEDRINE HCL 52272394737 A ctive Mau Mcmahon MD Active MECLIZINE HCL 25 MG ORAL TABLET one 4 times a day as needed for dizziness MECLIZINE HCL 91433396143 No Longer Active Mau Mcmahon MD Active ZOFRAN 4 MG ORAL TABLET 1 po q6hr PRN Nausea 9 ONDANSETRON HCL 55427266768 No Longer Active Mau Mcmahon MD Acti ve PREDNISONE 5 MG ORAL TABLET Take 3 tabs po on the , decrease by 1 tablet every 3 days until off PREDNISONE 97532102397 No Longer Active Gilbert Amador MD Active CHERATUSSIN AC 100-10 MG/5ML ORAL SYRUP 1 tsp by mouth every 4 hours as needed for cough GUAIFENESIN-CODEINE 98394263521 No Longe r Active Gilbert Amador MD Active ZITHROMAX 250 MG ORAL TABLET 2 po today, then 1 po q days 2-5 20 23/10/22 AZITHROMYCIN 40640383171 No Longer Active Deirdre Riddle APRN Active CELEBREX 100 MG ORAL CAPSULE take 1 tab po BID for osteoarthriti s CELECOXIB 14692765383 No Longer Active Deirdre Riddle APRN A ctive OMEPRAZOLE 20 MG ORAL CAPSULE DELAYED RELEASE 1 tablet po in the am OMEPRAZOLE 20985893854 No Longer Active Deirdre Riddle APRN A ctive BACTRIM DS 800-160 MG ORAL TABLET 1 tab by mouth twice daily 201 12/08/14 TRIMETHOPRIM-SULFAMETHOXAZOLE 76007878094 No Longer Active Vincent Riddle APRN Active ZITHROMAX 1 GM ORAL PACKET DIR AZITHROMY ANALISA 22336975004 No Longer Active Deirdre Riddle APRN Active LEVAQUIN 500 MG ORAL TABLET 1 tablet by mouth daily 20 25/07/14 LEVOFLOXACIN 23325248447 No Longer Active Mau Mcmahon MD Acti ve HYDROCHLOROTHIAZIDE 25 MG ORAL TABLET 1 PO Q AM 201 10/16/21 HYDROCHLOROTHIAZIDE 52039244624 No Longer Active Ryne Cristina DO Ac tive SIMVASTATIN 20 MG ORAL TABLET 1 tablet po q hs SIMVASTATIN 30692522836 No Longer Active Ryne Cristina DO Active SIMVASTATIN 20 MG ORAL TABLET 1 tablet po q hs SIMVASTATIN 20 MG ORAL TABLET 053427 SIMVASTATIN Inactive HYDROCHLOROTHIAZIDE 25 MG ORAL TABLET 1 PO Q AM 201 10/16/21 HYDROCHLOROTHIAZIDE 25 MG ORAL TABLET 037152 HYDROCHLOROTHIAZIDE In active LEVAQUIN 500 MG ORAL TABLET 1 tablet by mouth daily 20 25/07/14 LEVAQUIN 500 MG ORAL TABLET 737413 LEVOFLOXACIN Inactive ZITHROMAX 1 GM ORAL PACKET DIR Z ITHROMAX 1 GM ORAL PACKET 440369 AZITHROMYCIN Inactive BACTRIM DS 800-160 MG ORAL TABLET 1 tab by mouth twice daily 201 12/08/14 BACTRIM DS 800-160 MG ORAL TABLET 298846 TRIMETHOPRIM-SULFAMETHOXAZOLE Inactive OMEPRAZOLE 20 MG ORAL CAPSULE DELAYED RELEASE 1 tablet po in the am OMEPRAZOLE 20 MG ORAL CAPSULE DELAYED RELEASE 730342 OM EPRAZOLE Inactive CELEBREX 100 MG ORAL CAPSULE take 1 tab po BID for osteoarthriti s CELEBREX 100 MG ORAL CAPSULE 148947 CELECOXIB Zohreh ctive CHERATUSSIN AC 100-10 MG/5ML ORAL SYRUP 1 tsp by mouth every 4 hours as needed for cough CHERATUSSIN AC 100-10 MG/5ML ORAL SYRUP 9 27896 GUAIFENESIN-CODEINE Inactive PREDNISONE 5 MG ORAL TABLET Take 3 tabs po on the , decrease by 1 tablet every 3 days until off PREDNISONE 5 MG OR AL TABLET 575786 PREDNISONE Inactive ZOFRAN 4 MG ORAL TABLET 1 po q6hr PRN Nausea 9 ZOFRAN 4 MG ORAL TABLET 283120 ONDANSETRON HCL Inactive MECLIZINE HCL 25 MG ORAL TABLET one 4 times a day as needed for dizziness MECLIZINE HCL 25 MG ORAL TABLET 153432 MECLIZINE HCL Inactive PREDNISONE 5 MG ORAL TABLET PREDNISO NE 5 MG ORAL TABLET 630186 PREDNISONE Inactive NASONEX 50 MCG/ACT NASAL SUSPENSION use 2 sprays in each nos tril qday NASONEX 50 MCG/ACT NASAL SUSPENSION 4504132 MOMET ASONE FUROATE Inactive ALLOPURINOL 100 MG ORAL TABLET Take 1 tab po x 7 days, then 2 times every day thereafter if tolerated. ALLOPURINOL 100 MG ORAL TABLET 528498 ALLOPURINOL Inactive COLCHICINE 0.6 MG ORAL CAPSULE PRN FOR GOUT FLARE UPS COLCHICINE 0.6 MG ORAL CAPSULE 5108211 COLCHICINE Inactive HYDROCHLOROTHIAZIDE 25 MG ORAL TABLET 0.5 tablet by [facility] daily for blood pressure. HYDROCHLOROTHIAZIDE 25 MG ORAL TABLET 310 798 HYDROCHLOROTHIAZIDE Inactive PREDNISONE 20 MG ORAL TABLET 2 daily for 3 days then 1 daily for 3 days PREDNISONE 20 MG ORAL TABLET 849147 PREDNISONE Inactive GUAIFENESIN-CODEINE 100-10 MG/5ML ORAL SYRUP 5ml every 4 to 6 hours as needed for cough GUAIFENESIN-CODEINE 100-10 MG/5M L ORAL SYRUP 394013 GUAIFENESIN-CODEINE Inactive ZITHROMAX 250 MG ORAL TABLET 2 po today, then 1 po q days 2-5 20 23/10/22 ZITHROMAX 250 MG ORAL TABLET 709572 AZITHROMYCIN Harvest ctive AZITHROMYCIN 250 MG ORAL TABLET 2 po qd x 1 day, then 1 po q d x 4 days AZITHROMYCIN 250 MG ORAL TABLET 848858 AZITHROMY ANALISA Inactive PREDNISONE 20 MG ORAL TABLET 2 tabs daily for 3 days, 1 tab daily for 3 days, 1/2 tab daily for 2 days PREDNISONE 20 MG ORAL T ABLET 074387 PREDNISONE Inactive AMOXICILLIN 500 MG ORAL CAPSULE 1 cap by mouth three times a day AMOXICILLIN 500 MG ORAL CAPSULE 485380 AMOXICILLIN Inactive CEFDINIR 300 MG ORAL CAPSULE by mouth twice a day 2019 CEFDINIR 300 MG ORAL CAPSULE 382038 CEFDINIR Inactive Vital Signs Date Name Value [...] d Encounters Code Encounter Date Provider Facility CPT-28720 Level 3 Est. Patient 16:31:32 VRT MECHANIC Mingo goss [facility] [place] CPT-41387 [id number] Vst-Est Level III 13:57:28 VRT MECHANIC Mau Mcmahon MD [facility] CPT-02385 [id number] Vst-Est Level IV 15:44:27 C DT Mau Mcmahon MD [facility] CPT-40374 Level 4 Est. Patient 21:12:34 CDT Mau abiley MD [facility] CPT-18421 Level 3 Est. Patient 16:26:55 VRT MECHANIC Osbaldo Wilkes MD [facility] CPT-63272 Level 4 Est. Patient 12:43:27 CDT Mau bialey MD [facility] CPT-88969 Level 3 Est. Patient 16:46:20 CDT Gilbert Amador MD [facility] CPT-79167 Level 3 Est. Patient 09:03:26 CDT Deirdre carter INTERNAL AFFAIRS INVESTIGATOR [facility] CPT-13972 Level 4 Est. Patient 15:38:51 VRT MECHANIC Mau bailey MD [facility] CPT-37488 Level 4 Est. Patient 10:26:24 CDT Mau bailey MD [facility] CPT-40659 Level 3 Est. Patient 17:21:09 CDT Ryne ornelas DO [facility] CPT-10701 Level 4 Est. Patient 09:22:16 CDT Mau bailey MD [facility] CPT-88971 Level 3 Est. Patient 08:55:02 VRT MECHANIC Mau bailey MD [facility] Procedures Code Procedure Name Date Entry Date Standard Desc ription CPT-LR Lesion Removal 21:12:34 CDT CPT-81826 EKG Trac and Interp - XRAY USE ONLY 1 5:52:34 CDT CPT-17875 Venipuncture Draw Fee 09:05:38 CDT CPT-17302 Uric Acid - LAB USE ONLY 09:05:38 CDT 03/10 CPT-93317 Sed Rate - LAB USE ONLY 09:05:38 CDT 03/10 CPT-48168 CMP - LAB USE ONLY 09:05:37 CDT CPT-88711 CBC - LAB USE ONLY 09:05:37 CDT CPT-J2930 Solu Medrol 125 mg (Methyl Prednisolone Sodium Succinate) 16:27:04 CDT CPT-64013 Abx/Therapy Injection 16:27:04 CDT CPT-J2930 Solu Medrol 125 mg (Methyl Prednisolone Sodium Succinate) 14:33:18 CDT
--- OUTSIDE RECORDS SUMMARY | 2019-11-22 08:19 | XMS REPORT | Clinical Summary ---
Author Author Admin, Volodymyr De Dios Organization [employer] Address Unknown Phone Unavailable Allergies, Adverse Reactions, [...] times a day as needed ALBUTEROL SULFATE 49068307687 Active B montrell Braswell Active MULTIVITAMIN ADULT ORAL TABLET 1 po qd MULTI PLE VITAMINS-MINERALS 67771225131 Active Katie Braswell Active MOMETASONE SPR 50MCG SPRAY 2 SPRAYS INTO EACH NOSTRIL DAILY DIRECTED MOMETASONE FUROATE 58292949723 Active Mau Dewey Active CEFDINIR 300 MG ORAL CAPSULE by mouth twice a day 2019 CEFDINIR 08874994339 No Longer Active Mingo Milton APRN Active LOSARTAN POT 50MG 1 TABLET BY MOUTH TWICE DAILY FOR HYPERT ENSION AND GOUT LOSARTAN POTASSIUM 73001266735 Active Mau Dewey Active PANTOPRAZOLE 40MG TAKE 1 TABLET BY MOUTH DAILY FOR GERD PANTOPRAZOLE SODIUM 00299680282 Active Katie Braswell Acti ve AMOXICILLIN 500 MG ORAL CAPSULE 1 cap by mouth three times a day AMOXICILLIN 39028220223 No Longer Active Mau Mcmahon MD Active PREDNISONE 20 MG ORAL TABLET 2 tabs daily for 3 days, 1 tab daily for 3 days, 1/2 tab daily for 2 days PREDNISONE 15074666236 No Longer Active Mau Mcmahon MD Active GUAIFENESIN-CODEINE 100-10 MG/5ML ORAL SYRUP 5ml every 4 to 6 hours as needed for cough GUAIFENESIN-CODEINE 35356675198 No Longe r Active Mau Mcmahon MD Active PREDNISONE 20 MG ORAL TABLET 2 daily for 3 days then 1 daily for 3 days PREDNISONE 61702906611 No Longer Active Mau calderon MD Active HYDROCHLOROTHIAZIDE 25 MG ORAL TABLET 0.5 tablet by mo [facility] daily for blood pressure. HYDROCHLOROTHIAZIDE 73432491561 No Longe r Active Osbaldo Wilkes MD Active COLCHICINE 0.6 MG ORAL CAPSULE PRN FOR GOUT FLARE UPS COLCHICINE 85068478951 No Longer Active Osbaldo Wilkes MD Activ e ALLOPURINOL 100 MG ORAL TABLET Take 1 tab po x 7 days, then 2 times every day thereafter if tolerated. ALLOPURINOL 31443763995 No Longer Active Osbaldo Wilkes MD Active NASONEX 50 MCG/ACT NASAL SUSPENSION use 2 sprays in each nos tril qday MOMETASONE FUROATE 80102214123 No Longer Active Osbaldo valdez MD Active PREDNISONE 5 MG ORAL TABLET PREDNISONE 89051114574 No Longer Active Osbaldo Wilkes MD Active AZITHROMYCIN 250 MG ORAL TABLET 2 po qd x 1 day, then 1 po q d x 4 days AZITHROMYCIN 98751403337 No Longer Active CORAL Estrella Active SUDAFED 12 HOUR 120 MG ORAL TABLET EXTENDED RELEASE 12 HOUR 1 pill twice daily if needed for congestion PSEUDOEPHEDRINE HCL 98004235446 A ctive Mau Mcmahon MD Active MECLIZINE HCL 25 MG ORAL TABLET one 4 times a day as needed for dizziness MECLIZINE HCL 50328018505 No Longer Active Mau Mcmahon MD Active ZOFRAN 4 MG ORAL TABLET 1 po q6hr PRN Nausea 9 ONDANSETRON HCL 69115937257 No Longer Active Mau Mcmahon MD Acti ve PREDNISONE 5 MG ORAL TABLET Take 3 tabs po on the day, decrease by 1 tablet every 3 days until off PREDNISONE 94535366680 No Longer Active Gilbert Amador MD Active CHERATUSSIN AC 100-10 MG/5ML ORAL SYRUP 1 tsp by mouth every 4 hours as needed for cough GUAIFENESIN-CODEINE 70061339273 No Longe r Active Gilbert Amador MD Active ZITHROMAX 250 MG ORAL TABLET 2 po today, then 1 po q days 2-5 20 23/10/22 AZITHROMYCIN 47541221833 No Longer Active Deirdre Riddle APRN Active CELEBREX 100 MG ORAL CAPSULE take 1 tab po BID for osteoarthriti s CELECOXIB 80025663457 No Longer Active Deirdre Riddle BLACK TOP MACHINE OPERATOR A ctive OMEPRAZOLE 20 MG ORAL CAPSULE DELAYED RELEASE 1 tablet po in the am OMEPRAZOLE 13717229780 No Longer Active Deirdre Riddle BLACK TOP MACHINE OPERATOR A ctive BACTRIM DS 800-160 MG ORAL TABLET 1 tab by mouth twice daily 201 12/08/14 TRIMETHOPRIM-SULFAMETHOXAZOLE 97095669887 No Longer Active Vincent Reynosoemma FLYNN Active ZITHROMAX 1 GM ORAL PACKET DIR AZITHROMY ANALISA 57048451379 No Longer Active Deirdre Edgardoemma FLYNN Active LEVAQUIN 500 MG ORAL TABLET 1 tablet by mouth daily 20 25/07/14 LEVOFLOXACIN 96545772398 No Longer Active Mau Mcmahon MD Acti ve HYDROCHLOROTHIAZIDE 25 MG ORAL TABLET 1 PO Q AM 201 10/16/21 HYDROCHLOROTHIAZIDE 28798796599 No Longer Active Ryne Cristina DO Ac tive SIMVASTATIN 20 MG ORAL TABLET 1 tablet po q hs SIMVASTATIN 77484826095 No Longer Active Ryne Cristina DO Active SIMVASTATIN 20 MG ORAL TABLET 1 tablet po q hs SIMVASTATIN 20 MG ORAL TABLET 735902 SIMVASTATIN Inactive HYDROCHLOROTHIAZIDE 25 MG ORAL TABLET 1 PO Q AM 201 10/16/21 HYDROCHLOROTHIAZIDE 25 MG ORAL TABLET 495384 HYDROCHLOROTHIAZIDE In active LEVAQUIN 500 MG ORAL TABLET 1 tablet by mouth daily 20 25/07/14 LEVAQUIN 500 MG ORAL TABLET 874153 LEVOFLOXACIN Inactive ZITHROMAX 1 GM ORAL PACKET DIR Z ITHROMAX 1 GM ORAL PACKET 799166 AZITHROMYCIN Inactive BACTRIM DS 800-160 MG ORAL TABLET 1 tab by mouth twice daily 201 12/08/14 BACTRIM DS 800-160 MG ORAL TABLET 362178 TRIMETHOPRIM-SULFAMETHOXAZOLE Inactive OMEPRAZOLE 20 MG ORAL CAPSULE DELAYED RELEASE 1 tablet po in the am OMEPRAZOLE 20 MG ORAL CAPSULE DELAYED RELEASE 972685 OM EPRAZOLE Inactive CELEBREX 100 MG ORAL CAPSULE take 1 tab po BID for osteoarthriti s CELEBREX 100 MG ORAL CAPSULE 293553 CELECOXIB Zohreh ctive CHERATUSSIN AC 100-10 MG/5ML ORAL SYRUP 1 tsp by mouth every 4 hours as needed for cough CHERATUSSIN AC 100-10 MG/5ML ORAL SYRUP 9 42716 GUAIFENESIN-CODEINE Inactive PREDNISONE 5 MG ORAL TABLET Take 3 tabs po on the , decrease by 1 tablet every 3 days until off PREDNISONE 5 MG OR AL TABLET 759834 PREDNISONE Inactive ZOFRAN 4 MG ORAL TABLET 1 po q6hr PRN Nausea 9 ZOFRAN 4 MG ORAL TABLET 392199 ONDANSETRON HCL Inactive MECLIZINE HCL 25 MG ORAL TABLET one 4 times a day as needed for dizziness MECLIZINE HCL 25 MG ORAL TABLET 651228 MECLIZINE HCL Inactive PREDNISONE 5 MG ORAL TABLET PREDNISO NE 5 MG ORAL TABLET 514601 PREDNISONE Inactive NASONEX 50 MCG/ACT NASAL SUSPENSION use 2 sprays in each nos tril qday NASONEX 50 MCG/ACT NASAL SUSPENSION 5703054 MOMET ASONE FUROATE Inactive ALLOPURINOL 100 MG ORAL TABLET Take 1 tab po x 7 days, then 2 times every day thereafter if tolerated. ALLOPURINOL 100 MG ORAL TABLET 151955 ALLOPURINOL Inactive COLCHICINE 0.6 MG ORAL CAPSULE PRN FOR GOUT FLARE UPS COLCHICINE 0.6 MG ORAL CAPSULE 5982661 COLCHICINE Inactive HYDROCHLOROTHIAZIDE 25 MG ORAL TABLET 0.5 tablet by [facility] daily for blood pressure. HYDROCHLOROTHIAZIDE 25 MG ORAL TABLET 310 798 HYDROCHLOROTHIAZIDE Inactive PREDNISONE 20 MG ORAL TABLET 2 daily for 3 days then 1 daily for 3 days PREDNISONE 20 MG ORAL TABLET 573655 PREDNISONE Inactive GUAIFENESIN-CODEINE 100-10 MG/5ML ORAL SYRUP 5ml every 4 to 6 hours as needed for cough GUAIFENESIN-CODEINE 100-10 MG/5M L ORAL SYRUP 249073 GUAIFENESIN-CODEINE Inactive ZITHROMAX 250 MG ORAL TABLET 2 po today, then 1 po q days 2-5 20 23/10/22 ZITHROMAX 250 MG ORAL TABLET 615630 AZITHROMYCIN Zohreh ctive AZITHROMYCIN 250 MG ORAL TABLET 2 po qd x 1 day, then 1 po q d x 4 days AZITHROMYCIN 250 MG ORAL TABLET 631203 AZITHROMY ANALISA Inactive PREDNISONE 20 MG ORAL TABLET 2 tabs daily for 3 days, 1 tab daily for 3 days, 1/2 tab daily for 2 days PREDNISONE 20 MG ORAL T ABLET 493683 PREDNISONE Inactive AMOXICILLIN 500 MG ORAL CAPSULE 1 cap by mouth three times a day AMOXICILLIN 500 MG ORAL CAPSULE 549642 AMOXICILLIN Inactive CEFDINIR 300 MG ORAL CAPSULE by mouth twice a day 2019 CEFDINIR 300 MG ORAL CAPSULE 857740 CEFDINIR Inactive Vital Signs Date Name Value [...] d Encounters Code Encounter Date Provider Facility CPT-11222 [id number] Vst-Est Level IV 11:05:24 CDT Isela larastoney French [facility] CPT-63607 Level 3 Est. Patient 16:31:32 SENIOR ELECTRONICS ENGINEER Mingo goss [facility] CPT-48081 [id number] Vst-Est Level III 13:57:28 SENIOR ELECTRONICS ENGINEER Mau Mcmahon MD [facility]-73086 [id number] Vst-Est Level IV 15:44:27 C DT Mau Mcmahon MD [facility] CPT-13949 Level 4 Est. Patient 21:12:34 CDT Mau bailey MD [facility] CPT-83058 Level 3 Est. Patient 16:26:55 SENIOR ELECTRONICS ENGINEER Osbaldo Wilkes MD [facility] CPT-51205 Level 4 Est. Patient 12:43:27 CDT Mau bailey MD [facility] CPT-20506 Level 3 Est. Patient 16:46:20 CDT Gilbert Amador MD [facility] CPT-50535 Level 3 Est. Patient 09:03:26 CDT Deirdre carter [facility] CPT-97878 Level 4 Est. Patient 15:38:51 SENIOR ELECTRONICS ENGINEER Mau bailey MD [facility] CPT-58184 Level 4 Est. Patient 10:26:24 CDT Mau bailey MD [facility] CPT-25219 Level 3 Est. Patient 17:21:09 CDT Ryne ornelas DO [facility] CPT-99743 Level 4 Est. Patient 09:22:16 CDT Mau bailey MD [facility] CPT-07537 Level 3 Est. Patient 08:55:02 SENIOR ELECTRONICS ENGINEER Mau bailey MD [facility] Procedures Code Procedure Name Date Entry Date Standard Desc ription CPT-74831 Venipuncture Draw Fee 12:43:05 CDT CPT-Cryo Cryotherapy 10:49:32 CDT CPT-LR Lesion Removal 21:12:34 CDT CPT-68928 EKG Trac and Interp - XRAY USE ONLY 1 5:52:34 CDT CPT-85761 Venipuncture Draw Fee 09:05:38 CDT CPT-74552 Uric Acid - LAB USE ONLY 09:05:38 CDT 03/10 CPT-76172 Sed Rate - LAB USE ONLY 09:05:38 CDT 03/10 CPT-35849 CMP - LAB USE ONLY 09:05:37 CDT CPT-46299 CBC - LAB USE ONLY 09:05:37 CDT CPT-J2930 Solu Medrol 125 mg (Methyl Prednisolone Sodium Succinate) 16:27:04 CDT CPT-92085 Abx/Therapy Injection 16:27:04 CDT CPT-J2930 Solu Medrol 125 mg (Methyl Prednisolone Sodium Succinate) 14:33:18 CDT
--- OUTSIDE RECORDS SUMMARY | 2019-11-22 08:20 | XMS REPORT | Clinical Summary ---
Author Author Admin, Volodymyr De Dios Organization [employer] Address Unknown Phone Unavailable Allergies, Adverse Reactions, [...] Obesity Class I (BMI 30-34.9) 278.00 Refinement 20190 08/02 Mau Mcmahon MD Obesity, unspecified Obesity [...] Active Mingo goss APRN Unspecified otitis media SEASONAL ALLERGIC RHINITIS ICD-477.9 Inactive Mau Mcmahon [...] Generic Name NDC Status Provider Patient Instruction CEFDINIR 300 MG ORAL CAPSULE by mouth twice a day 2019 CEFDINIR 28507477401 Active Mingo Milton APRN Active LOSARTAN POT 50MG 1 TABLET BY MOUTH TWICE DAILY FOR HYPERT ENSION AND GOUT LOSARTAN POTASSIUM 47092298392 Active Mau Dewey Active PANTOPRAZOLE 40MG TAKE 1 TABLET BY MOUTH DAILY FOR GERD PANTOPRAZOLE SODIUM 61434965606 Active Mau Topete ctive AMOXICILLIN 500 MG ORAL CAPSULE 1 cap by mouth three times a day AMOXICILLIN 29804986672 No Longer Active Mau Mcmahon MD Active PREDNISONE 20 MG ORAL TABLET 2 tabs daily for 3 days, 1 tab daily for 3 days, 1/2 tab daily for 2 days PREDNISONE 07394092001 No Longer Active Mau Mcmahon MD Active GUAIFENESIN-CODEINE 100-10 MG/5ML ORAL SYRUP 5ml every 4 to 6 hours as needed for cough GUAIFENESIN-CODEINE 60724183599 No Longe r Active Mau Mcmahon MD Active PREDNISONE 20 MG ORAL TABLET 2 daily for 3 days then 1 daily for 3 days PREDNISONE 23211645606 No Longer Active Mau calderon MD Active NASONEX 50 MCG/ACT NASAL SUSPENSION 2 sprays everyday MOMETASONE FUROATE 13643903651 Active CORAL Bocanegra Active HYDROCHLOROTHIAZIDE 25 MG ORAL TABLET 0.5 tablet by [facility] daily for blood pressure. HYDROCHLOROTHIAZIDE 33105849736 No Longe r Active Osbaldo Wilkes MD Active COLCHICINE 0.6 MG ORAL CAPSULE PRN FOR GOUT FLARE UPS COLCHICINE 94477552432 No Longer Active Osbaldo Wilkes MD Activ e ALLOPURINOL 100 MG ORAL TABLET Take 1 tab po x 7 days, then 2 times every day thereafter if tolerated. ALLOPURINOL 75036027601 No Longer Active Osbaldo Wilkes MD Active NASONEX 50 MCG/ACT NASAL SUSPENSION use 2 sprays in each nos tril qday MOMETASONE FUROATE 71107586404 No Longer Active Osbaldo valdez MD Active PREDNISONE 5 MG ORAL TABLET PREDNISONE 68925228191 No Longer Active Osbaldo Wilkes MD Active AZITHROMYCIN 250 MG ORAL TABLET 2 po qd x 1 day, then 1 po q d x 4 days AZITHROMYCIN 05188859509 No Longer Active CORAL Estrella Active SUDAFED 12 HOUR 120 MG ORAL TABLET EXTENDED RELEASE 12 HOUR 1 pill twice daily if needed for congestion PSEUDOEPHEDRINE HCL 27505433115 A ctive Mau Mcmahon MD Active MECLIZINE HCL 25 MG ORAL TABLET one 4 times a day as needed for dizziness MECLIZINE HCL 17117124663 No Longer Active Mau Mcmahon MD Active ZOFRAN 4 MG ORAL TABLET 1 po q6hr PRN Nausea 9 ONDANSETRON HCL 81252914391 No Longer Active Mau Mcmahon MD Acti ve PREDNISONE 5 MG ORAL TABLET Take 3 tabs po on the , decrease by 1 tablet every 3 days until off PREDNISONE 55223589342 No Longer Active Gilbert Amador MD Active CHERATUSSIN AC 100-10 MG/5ML ORAL SYRUP 1 tsp by mouth every 4 hours as needed for cough GUAIFENESIN-CODEINE 68634851371 No Longe r Active Gilbert Amador MD Active ZITHROMAX 250 MG ORAL TABLET 2 po today, then 1 po q days 2-5 20 23/10/22 AZITHROMYCIN 72687728514 No Longer Active Deirdre Arell DIRECTOR OF WORKFORCE DEVELOPMENT Active CELEBREX 100 MG ORAL CAPSULE take 1 tab po BID for osteoarthriti s CELECOXIB 44396552402 No Longer Active Deirdre Arell DIRECTOR OF WORKFORCE DEVELOPMENT A ctive OMEPRAZOLE 20 MG ORAL CAPSULE DELAYED RELEASE 1 tablet po in the am OMEPRAZOLE 52856376660 No Longer Active Deirdre Arell DIRECTOR OF WORKFORCE DEVELOPMENT A ctive BACTRIM DS 800-160 MG ORAL TABLET 1 tab by mouth twice daily 201 12/08/14 TRIMETHOPRIM-SULFAMETHOXAZOLE 76113658843 No Longer Active Vincent Riddle APRN Active ZITHROMAX 1 GM ORAL PACKET DIR AZITHROMY ANALISA 62750443733 No Longer Active Deirdre Arell DIRECTOR OF WORKFORCE DEVELOPMENT Active LEVAQUIN 500 MG ORAL TABLET 1 tablet by mouth daily 20 25/07/14 LEVOFLOXACIN 90117847418 No Longer Active Mau Mcmahon MD Acti ve HYDROCHLOROTHIAZIDE 25 MG ORAL TABLET 1 PO Q AM 201 10/16/21 HYDROCHLOROTHIAZIDE 39845104960 No Longer Active Ryne Cristina DO Ac tive SIMVASTATIN 20 MG ORAL TABLET 1 tablet po q hs SIMVASTATIN 01288789848 No Longer Active Ryne Cristina DO Active SIMVASTATIN 20 MG ORAL TABLET 1 tablet po q hs SIMVASTATIN 20 MG ORAL TABLET 501534 SIMVASTATIN Inactive HYDROCHLOROTHIAZIDE 25 MG ORAL TABLET 1 PO Q AM 201 10/16/21 HYDROCHLOROTHIAZIDE 25 MG ORAL TABLET 048147 HYDROCHLOROTHIAZIDE In active LEVAQUIN 500 MG ORAL TABLET 1 tablet by mouth daily 20 25/07/14 LEVAQUIN 500 MG ORAL TABLET 354565 LEVOFLOXACIN Inactive ZITHROMAX 1 GM ORAL PACKET DIR Z ITHROMAX 1 GM ORAL PACKET 243404 AZITHROMYCIN Inactive BACTRIM DS 800-160 MG ORAL TABLET 1 tab by mouth twice daily 201 12/08/14 BACTRIM DS 800-160 MG ORAL TABLET 744076 TRIMETHOPRIM-SULFAMETHOXAZOLE Inactive OMEPRAZOLE 20 MG ORAL CAPSULE DELAYED RELEASE 1 tablet po in the am OMEPRAZOLE 20 MG ORAL CAPSULE DELAYED RELEASE 781722 OM EPRAZOLE Inactive CELEBREX 100 MG ORAL CAPSULE take 1 tab po BID for osteoarthriti s CELEBREX 100 MG ORAL CAPSULE 726891 CELECOXIB Zohreh ctive CHERATUSSIN AC 100-10 MG/5ML ORAL SYRUP 1 tsp by mouth every 4 hours as needed for cough CHERATUSSIN AC 100-10 MG/5ML ORAL SYRUP 9 94118 GUAIFENESIN-CODEINE Inactive PREDNISONE 5 MG ORAL TABLET Take 3 tabs po on the , decrease by 1 tablet every 3 days until off PREDNISONE 5 MG OR AL TABLET 055304 PREDNISONE Inactive ZOFRAN 4 MG ORAL TABLET 1 po q6hr PRN Nausea 9 ZOFRAN 4 MG ORAL TABLET 497896 ONDANSETRON HCL Inactive MECLIZINE HCL 25 MG ORAL TABLET one 4 times a day as needed for dizziness MECLIZINE HCL 25 MG ORAL TABLET 140563 MECLIZINE HCL Inactive PREDNISONE 5 MG ORAL TABLET PREDNISO NE 5 MG ORAL TABLET 717490 PREDNISONE Inactive NASONEX 50 MCG/ACT NASAL SUSPENSION use 2 sprays in each nos tril qday NASONEX 50 MCG/ACT NASAL SUSPENSION 5984693 MOMET ASONE FUROATE Inactive ALLOPURINOL 100 MG ORAL TABLET Take 1 tab po x 7 days, then 2 times every day thereafter if tolerated. ALLOPURINOL 100 MG ORAL TABLET 576243 ALLOPURINOL Inactive COLCHICINE 0.6 MG ORAL CAPSULE PRN FOR GOUT FLARE UPS COLCHICINE 0.6 MG ORAL CAPSULE 6238715 COLCHICINE Inactive HYDROCHLOROTHIAZIDE 25 MG ORAL TABLET 0.5 tablet by [facility] daily for blood pressure. HYDROCHLOROTHIAZIDE 25 MG ORAL TABLET 310 798 HYDROCHLOROTHIAZIDE Inactive PREDNISONE 20 MG ORAL TABLET 2 daily for 3 days then 1 daily for 3 days PREDNISONE 20 MG ORAL TABLET 675666 PREDNISONE Inactive GUAIFENESIN-CODEINE 100-10 MG/5ML ORAL SYRUP 5ml every 4 to 6 hours as needed for cough GUAIFENESIN-CODEINE 100-10 MG/5M L ORAL SYRUP 020079 GUAIFENESIN-CODEINE Inactive ZITHROMAX 250 MG ORAL TABLET 2 po today, then 1 po q days 2-5 20 23/10/22 ZITHROMAX 250 MG ORAL TABLET 927657 AZITHROMYCIN Zohreh ctive AZITHROMYCIN 250 MG ORAL TABLET 2 po qd x 1 day, then 1 po q d x 4 days AZITHROMYCIN 250 MG ORAL TABLET 956535 AZITHROMY ANALISA Inactive PREDNISONE 20 MG ORAL TABLET 2 tabs daily for 3 days, 1 tab daily for 3 days, 1/2 tab daily for 2 days PREDNISONE 20 MG ORAL T ABLET 358474 PREDNISONE Inactive AMOXICILLIN 500 MG ORAL CAPSULE 1 cap by mouth three times a day AMOXICILLIN 500 MG ORAL CAPSULE 843763 AMOXICILLIN Inactive Vital Signs Date Name Value Unit [...] E&M 70 [in_us] Bdy height pulse rate E&M 81 /min Heart rate temperature E&M 97.8 [degF] Body temp erature weight E&M 277.90 [lb_av] Weight Measure d Encounters Code Encounter Date Provider Facility CPT-15491 Level 3 Est. Patient 16:31:32 HOME HEALTH ADMINISTRATOR Mingo goss [facility] CPT-05474 [id number] Vst-Est Level III 13:57:28 HOME HEALTH ADMINISTRATOR Mau Mcmahon MD [facility] CPT-83318 [id number] Vst-Est Level IV 15:44:27 C DT Mau Mcmahon MD [facility] CPT-02019 Level 4 Est. Patient 21:12:34 CDT Mau bailey MD [facility] CPT-18478 Level 3 Est. Patient 16:26:55 HOME HEALTH ADMINISTRATOR Osbaldo Wilkes MD [facility] CPT-13473 Level 4 Est. Patient 12:43:27 CDT Mau bailey MD [facility] CPT-01413 Level 3 Est. Patient 16:46:20 CDT Gilbert Amador MD [facility] CPT-48142 Level 3 Est. Patient 09:03:26 CDT Deirdre carter [facility] CPT-19597 Level 4 Est. Patient 15:38:51 HOME HEALTH ADMINISTRATOR Mau bailey MD [facility] CPT-79533 Level 4 Est. Patient 10:26:24 CDT Mau bailey MD [facility] CPT-57883 Level 3 Est. Patient 17:21:09 CDT Ryne Nina Sherry ornelas DO [facility] CPT-15495 Level 4 Est. Patient 09:22:16 CDT Mau bailey MD [facility] CPT-68503 Level 3 Est. Patient 08:55:02 HOME HEALTH ADMINISTRATOR Mau bailey MD [facility] Procedures Code Procedure Name Date Entry Date Standard Desc ription CPT-LR Lesion Removal 21:12:34 CDT CPT-55911 EKG Trac and Interp - XRAY USE ONLY 1 5:52:34 CDT CPT-94977 Venipuncture Draw Fee 09:05:38 CDT CPT-32139 Uric Acid - LAB USE ONLY 09:05:38 CDT 03/10 CPT-55432 Sed Rate - LAB USE ONLY 09:05:38 CDT 03/10 CPT-29394 CMP - LAB USE ONLY 09:05:37 CDT CPT-53242 CBC - LAB USE ONLY 09:05:37 CDT CPT-J2930 Solu Medrol 125 mg (Methyl Prednisolone Sodium Succinate) 16:27:04 CDT CPT-38593 Abx/Therapy Injection 16:27:04 CDT CPT-J2930 Solu Medrol 125 mg (Methyl Prednisolone Sodium Succinate) 14:33:18 CDT
--- OUTSIDE RECORDS SUMMARY | 2019-11-22 08:20 | XMS REPORT | Clinical Summary ---
Author Author Admin, Volodymyr De Dios Organization [employer] Address Unknown Phone Unavailable Allergies, Adverse Reactions, [...] hyperlipidemia G E R D 530.81 Active aMu Mcmahon MD Esophageal reflux SEASONAL ALLERGIC RHINITIS [...] Active Mingo goss APRN Unspecified otitis media Pneumonia, right lower lobe ICD-486 Inactive Osbaldo Wilkes MD Poison bel ICD-692.6 Inactive Osbaldo Dewey Leg edema, right ICD-782.3 Inactive Mau calderon MD Bronchitis ICD-490 Inactive Osbaldo Wilkes MD 201 01/08/07 Rhinitis, acute ICD-460 Inactive Osbaldo Lechuga MD Benign paroxysmal positional vertigo, left ICD-386.11 Inactive Mau Mcmahon MD Bronchitis, acute ICD-466.0 Inactive Mau chen MD SEASONAL ALLERGIC RHINITIS ICD-477.9 Inactive Mau Mcmahon MD Ear disorder ICD-388.9 Inactive Mau meehan MD Preop exam ICD-V72.84 Inactive Mau Mcmahon MD Skin tag ICD-701.9 Inactive Mau Dewey Influenza Vaccination for Prophylaxis ICD-V04.81 8 Inactive Fiorella Justin SINUSITIS, ACUTE ICD-461.9 Inactive Mau calderon MD Medication List Medication Instructions Start Date Stop Date Generic Name NDC Status Provider Patient Instruction CEFDINIR 300 MG ORAL CAPSULE by mouth twice a day 2019 CEFDINIR 69382078150 Active Mingo Milton APRN Active LOSARTAN POT 50MG 1 TABLET BY MOUTH TWICE DAILY FOR HYPERT ENSION AND GOUT LOSARTAN POTASSIUM 78773993547 Active Mau Dewey Active PANTOPRAZOLE 40MG TAKE 1 TABLET BY MOUTH DAILY FOR GERD PANTOPRAZOLE SODIUM 87785830106 Active Mau Topete ctive AMOXICILLIN 500 MG ORAL CAPSULE 1 cap by mouth three times a day AMOXICILLIN 66247997868 No Longer Active Mau Mcmahon MD Active PREDNISONE 20 MG ORAL TABLET 2 tabs daily for 3 days, 1 tab daily for 3 days, 1/2 tab daily for 2 days PREDNISONE 50116193881 No Longer Active Mau Mcmahon MD Active GUAIFENESIN-CODEINE 100-10 MG/5ML ORAL SYRUP 5ml every 4 to 6 hours as needed for cough GUAIFENESIN-CODEINE 79249419693 No Longe r Active Mau Mcmahon MD Active PREDNISONE 20 MG ORAL TABLET 2 daily for 3 days then 1 daily for 3 days PREDNISONE 36229009527 No Longer Active Mau calderon MD Active NASONEX 50 MCG/ACT NASAL SUSPENSION 2 sprays everyday MOMETASONE FUROATE 99520848604 Active CORAL Bocanegra Active HYDROCHLOROTHIAZIDE 25 MG ORAL TABLET 0.5 tablet by [facility] daily for blood pressure. HYDROCHLOROTHIAZIDE 95318985582 No Longe r Active Osbaldo Wilkes MD Active COLCHICINE 0.6 MG ORAL CAPSULE PRN FOR GOUT FLARE UPS COLCHICINE 24055137280 No Longer Active Osbaldo Wilkes MD Activ e ALLOPURINOL 100 MG ORAL TABLET Take 1 tab po x 7 days, then 2 times every day thereafter if tolerated. ALLOPURINOL 71781924830 No Longer Active Osbaldo Wilkes MD Active NASONEX 50 MCG/ACT NASAL SUSPENSION use 2 sprays in each nos tril qday MOMETASONE FUROATE 63827440090 No Longer Active Osbaldo valdez MD Active PREDNISONE 5 MG ORAL TABLET PREDNISONE 67232774872 No Longer Active Osbaldo Wilkes MD Active AZITHROMYCIN 250 MG ORAL TABLET 2 po qd x 1 day, then 1 po q d x 4 days AZITHROMYCIN 28583139763 No Longer Active CORAL Estrella Active SUDAFED 12 HOUR 120 MG ORAL TABLET EXTENDED RELEASE 12 HOUR 1 pill twice daily if needed for congestion PSEUDOEPHEDRINE HCL 15906744540 A ctive Mau Mcmahon MD Active MECLIZINE HCL 25 MG ORAL TABLET one 4 times a day as needed for dizziness MECLIZINE HCL 89903612568 No Longer Active Mau Mcmahon MD Active ZOFRAN 4 MG ORAL TABLET 1 po q6hr PRN Nausea 9 ONDANSETRON HCL 89730615317 No Longer Active Mau Mcmahon MD Acti ve PREDNISONE 5 MG ORAL TABLET Take 3 tabs po on the , decrease by 1 tablet every 3 days until off PREDNISONE 92893175472 No Longer Active Gilbert Amador MD Active CHERATUSSIN AC 100-10 MG/5ML ORAL SYRUP 1 tsp by mouth every 4 hours as needed for cough GUAIFENESIN-CODEINE 78741508278 No Longe r Active Gilbert Amador MD Active ZITHROMAX 250 MG ORAL TABLET 2 po today, then 1 po q days 2-5 20 23/10/22 AZITHROMYCIN 76617302312 No Longer Active Deirdre Arell SWEETBREAD TRIMMER Active CELEBREX 100 MG ORAL CAPSULE take 1 tab po BID for osteoarthriti s CELECOXIB 37264369899 No Longer Active Deirdre Arell SWEETBREAD TRIMMER A ctive OMEPRAZOLE 20 MG ORAL CAPSULE DELAYED RELEASE 1 tablet po in the am OMEPRAZOLE 19141323269 No Longer Active Deirdre Arell SWEETBREAD TRIMMER A ctive BACTRIM DS 800-160 MG ORAL TABLET 1 tab by mouth twice daily 201 12/08/14 TRIMETHOPRIM-SULFAMETHOXAZOLE 27146657225 No Longer Active Vincent Riddle APRN Active ZITHROMAX 1 GM ORAL PACKET DIR AZITHROMY ANALISA 86530688956 No Longer Active Deirdre Arell SWEETBREAD TRIMMER Active LEVAQUIN 500 MG ORAL TABLET 1 tablet by mouth daily 20 25/07/14 LEVOFLOXACIN 66398343774 No Longer Active Mau Mcmahon MD Acti ve HYDROCHLOROTHIAZIDE 25 MG ORAL TABLET 1 PO Q AM 201 10/16/21 HYDROCHLOROTHIAZIDE 30321218638 No Longer Active Ryne Cristina DO Ac tive SIMVASTATIN 20 MG ORAL TABLET 1 tablet po q hs SIMVASTATIN 04607376298 No Longer Active Ryne Cristina DO Active SIMVASTATIN 20 MG ORAL TABLET 1 tablet po q hs SIMVASTATIN 20 MG ORAL TABLET 370598 SIMVASTATIN Inactive HYDROCHLOROTHIAZIDE 25 MG ORAL TABLET 1 PO Q AM 201 10/16/21 HYDROCHLOROTHIAZIDE 25 MG ORAL TABLET 295792 HYDROCHLOROTHIAZIDE In active LEVAQUIN 500 MG ORAL TABLET 1 tablet by mouth daily 20 25/07/14 LEVAQUIN 500 MG ORAL TABLET 541197 LEVOFLOXACIN Inactive ZITHROMAX 1 GM ORAL PACKET DIR Z ITHROMAX 1 GM ORAL PACKET 984960 AZITHROMYCIN Inactive BACTRIM DS 800-160 MG ORAL TABLET 1 tab by mouth twice daily 201 12/08/14 BACTRIM DS 800-160 MG ORAL TABLET 295461 TRIMETHOPRIM-SULFAMETHOXAZOLE Inactive OMEPRAZOLE 20 MG ORAL CAPSULE DELAYED RELEASE 1 tablet po in the am OMEPRAZOLE 20 MG ORAL CAPSULE DELAYED RELEASE 257161 OM EPRAZOLE Inactive CELEBREX 100 MG ORAL CAPSULE take 1 tab po BID for osteoarthriti s CELEBREX 100 MG ORAL CAPSULE 389090 CELECOXIB Zohreh ctive CHERATUSSIN AC 100-10 MG/5ML ORAL SYRUP 1 tsp by mouth every 4 hours as needed for cough CHERATUSSIN AC 100-10 MG/5ML ORAL SYRUP 9 65899 GUAIFENESIN-CODEINE Inactive PREDNISONE 5 MG ORAL TABLET Take 3 tabs po on the , decrease by 1 tablet every 3 days until off PREDNISONE 5 MG OR AL TABLET 639849 PREDNISONE Inactive ZOFRAN 4 MG ORAL TABLET 1 po q6hr PRN Nausea 9 ZOFRAN 4 MG ORAL TABLET 656583 ONDANSETRON HCL Inactive MECLIZINE HCL 25 MG ORAL TABLET one 4 times a day as needed for dizziness MECLIZINE HCL 25 MG ORAL TABLET 001291 MECLIZINE HCL Inactive PREDNISONE 5 MG ORAL TABLET PREDNISO NE 5 MG ORAL TABLET 561206 PREDNISONE Inactive NASONEX 50 MCG/ACT NASAL SUSPENSION use 2 sprays in each nos tril qday NASONEX 50 MCG/ACT NASAL SUSPENSION 9211931 MOMET ASONE FUROATE Inactive ALLOPURINOL 100 MG ORAL TABLET Take 1 tab po x 7 days, then 2 times every day thereafter if tolerated. ALLOPURINOL 100 MG ORAL TABLET 635080 ALLOPURINOL Inactive COLCHICINE 0.6 MG ORAL CAPSULE PRN FOR GOUT FLARE UPS COLCHICINE 0.6 MG ORAL CAPSULE 2655219 COLCHICINE Inactive HYDROCHLOROTHIAZIDE 25 MG ORAL TABLET 0.5 tablet by [facility] daily for blood pressure. HYDROCHLOROTHIAZIDE 25 MG ORAL TABLET 310 798 HYDROCHLOROTHIAZIDE Inactive PREDNISONE 20 MG ORAL TABLET 2 daily for 3 days then 1 daily for 3 days PREDNISONE 20 MG ORAL TABLET 375242 PREDNISONE Inactive GUAIFENESIN-CODEINE 100-10 MG/5ML ORAL SYRUP 5ml every 4 to 6 hours as needed for cough GUAIFENESIN-CODEINE 100-10 MG/5M L ORAL SYRUP 459708 GUAIFENESIN-CODEINE Inactive ZITHROMAX 250 MG ORAL TABLET 2 po today, then 1 po q days 2-5 20 23/10/22 ZITHROMAX 250 MG ORAL TABLET 620369 AZITHROMYCIN Zohreh ctive AZITHROMYCIN 250 MG ORAL TABLET 2 po qd x 1 day, then 1 po q d x 4 days AZITHROMYCIN 250 MG ORAL TABLET 532132 AZITHROMY ANALISA Inactive PREDNISONE 20 MG ORAL TABLET 2 tabs daily for 3 days, 1 tab daily for 3 days, 1/2 tab daily for 2 days PREDNISONE 20 MG ORAL T ABLET 254150 PREDNISONE Inactive AMOXICILLIN 500 MG ORAL CAPSULE 1 cap by mouth three times a day AMOXICILLIN 500 MG ORAL CAPSULE 505621 AMOXICILLIN Inactive Vital Signs Date Name Value [...] d Encounters Code Encounter Date Provider Facility CPT-42512 Level 3 Est. Patient 16:31:32 REVENUE ACCOUNTANT Mingo goss [facility] CPT-87740 [id number] Vst-Est Level III 13:57:28 REVENUE ACCOUNTANT Mau Mcmahon MD [facility] CPT-69358 [id number] Vst-Est Level IV 15:44:27 C DT Mau Mcmahon MD [facility] CPT-13512 Level 4 Est. Patient 21:12:34 CDT Mau bailey MD [facility] CPT-92011 Level 3 Est. Patient 16:26:55 REVENUE ACCOUNTANT Osbaldo Wilkes MD [facility] CPT-05054 Level 4 Est. Patient 12:43:27 CDT Mau bailey MD [facility] CPT-42779 Level 3 Est. Patient 16:46:20 CDT Gilbert Amador MD [facility] CPT-97032 Level 3 Est. Patient 09:03:26 CDT Deirdre carter [facility] CPT-25497 Level 4 Est. Patient 15:38:51 REVENUE ACCOUNTANT Mau bailey MD [facility] CPT-07129 Level 4 Est. Patient 10:26:24 CDT Mau bailey MD [facility] CPT-41776 Level 3 Est. Patient 17:21:09 CDT Ryne Nina Sherry ornelas DO [facility] CPT-52925 Level 4 Est. Patient 09:22:16 CDT Mau bailey MD [facility] CPT-27217 Level 3 Est. Patient 08:55:02 REVENUE ACCOUNTANT Mau bailey MD [facility] Procedures Code Procedure Name Date Entry Date Standard Desc ription CPT-LR Lesion Removal 21:12:34 CDT CPT-32718 EKG Trac and Interp - XRAY USE ONLY 1 5:52:34 CDT CPT-21842 Venipuncture Draw Fee 09:05:38 CDT CPT-15341 Uric Acid - LAB USE ONLY 09:05:38 CDT 03/10 CPT-67852 Sed Rate - LAB USE ONLY 09:05:38 CDT 03/10 CPT-80138 CMP - LAB USE ONLY 09:05:37 CDT CPT-66505 CBC - LAB USE ONLY 09:05:37 CDT CPT-J2930 Solu Medrol 125 mg (Methyl Prednisolone Sodium Succinate) 16:27:04 CDT CPT-14761 Abx/Therapy Injection 16:27:04 CDT CPT-J2930 Solu Medrol 125 mg (Methyl Prednisolone Sodium Succinate) 14:33:18 CDT
--- OUTSIDE RECORDS SUMMARY | 2019-11-22 08:20 | XMS REPORT | Clinical Summary ---
Author Author Admin, Volodymyr De Dios Organization [employer] Address Unknown Phone Unavailable Allergies, Adverse Reactions, [...] unspecified Otitis media acute right 382.9 Active Mnigo goss APRN Unspecified otitis media SEASONAL ALLERGIC [...] by mouth twice a day 2019 CEFDINIR 92311288354 Active Mingo Milton APRN Active LOSARTAN POT 50MG 1 TABLET BY MOUTH TWICE DAILY FOR HYPERT ENSION AND GOUT LOSARTAN POTASSIUM 99198158667 Active Mau Dewey Active PANTOPRAZOLE 40MG TAKE 1 TABLET BY MOUTH DAILY FOR GERD PANTOPRAZOLE SODIUM 46751657469 Active Mau Topete ctive AMOXICILLIN 500 MG ORAL CAPSULE 1 cap by mouth three times a day AMOXICILLIN 83411070343 No Longer Active Mau Mcmahon MD Active PREDNISONE 20 MG ORAL TABLET 2 tabs daily for 3 days, 1 tab daily for 3 days, 1/2 tab daily for 2 days PREDNISONE 26883707140 No Longer Active Mau Mcmahon MD Active GUAIFENESIN-CODEINE 100-10 MG/5ML ORAL SYRUP 5ml every 4 to 6 hours as needed for cough GUAIFENESIN-CODEINE 03317953171 No Longe r Active Mau Mcmahon MD Active PREDNISONE 20 MG ORAL TABLET 2 daily for 3 days then 1 daily for 3 days PREDNISONE 28793166757 No Longer Active Mau calderon MD Active NASONEX 50 MCG/ACT NASAL SUSPENSION 2 sprays everyday MOMETASONE FUROATE 52537753572 Active CORAL Bocanegra Active HYDROCHLOROTHIAZIDE 25 MG ORAL TABLET 0.5 tablet by [facility] daily for blood pressure. HYDROCHLOROTHIAZIDE 31996666864 No Longe r Active Osbaldo Wilkes MD Active COLCHICINE 0.6 MG ORAL CAPSULE PRN FOR GOUT FLARE UPS COLCHICINE 51937322284 No Longer Active Osbaldo Wilkes MD Activ e ALLOPURINOL 100 MG ORAL TABLET Take 1 tab po x 7 days, then 2 times every day thereafter if tolerated. ALLOPURINOL 97944089366 No Longer Active Osbaldo Wilkes MD Active NASONEX 50 MCG/ACT NASAL SUSPENSION use 2 sprays in each nos tril qday MOMETASONE FUROATE 08617545445 No Longer Active Osbaldo valdez MD Active PREDNISONE 5 MG ORAL TABLET PREDNISONE 69211777545 No Longer Active Osbaldo Wilkes MD Active AZITHROMYCIN 250 MG ORAL TABLET 2 po qd x 1 day, then 1 po q d x 4 days AZITHROMYCIN 41614325771 No Longer Active CORAL Estrella Active SUDAFED 12 HOUR 120 MG ORAL TABLET EXTENDED RELEASE 12 HOUR 1 pill twice daily if needed for congestion PSEUDOEPHEDRINE HCL 86476765684 A ctive Mau Mcmahon MD Active MECLIZINE HCL 25 MG ORAL TABLET one 4 times a day as needed for dizziness MECLIZINE HCL 93079908905 No Longer Active Mau Mcmahon MD Active ZOFRAN 4 MG ORAL TABLET 1 po q6hr PRN Nausea 9 ONDANSETRON HCL 66075961677 No Longer Active Mau Mcmahon MD Acti ve PREDNISONE 5 MG ORAL TABLET Take 3 tabs po on the , decrease by 1 tablet every 3 days until off PREDNISONE 31436692738 No Longer Active Gilbert Amador MD Active CHERATUSSIN AC 100-10 MG/5ML ORAL SYRUP 1 tsp by mouth every 4 hours as needed for cough GUAIFENESIN-CODEINE 78060805612 No Longe r Active Gilbert Amador MD Active ZITHROMAX 250 MG ORAL TABLET 2 po today, then 1 po q days 2-5 20 23/10/22 AZITHROMYCIN 47672723294 No Longer Active Deirdre Arell MANUFACTURING SUPERVISOR Active CELEBREX 100 MG ORAL CAPSULE take 1 tab po BID for osteoarthriti s CELECOXIB 85445540142 No Longer Active Deirdre Arell MANUFACTURING SUPERVISOR A ctive OMEPRAZOLE 20 MG ORAL CAPSULE DELAYED RELEASE 1 tablet po in the am OMEPRAZOLE 83023024998 No Longer Active Deirdre Arell MANUFACTURING SUPERVISOR A ctive BACTRIM DS 800-160 MG ORAL TABLET 1 tab by mouth twice daily 201 12/08/14 TRIMETHOPRIM-SULFAMETHOXAZOLE 41091272539 No Longer Active Vincent Riddle APRN Active ZITHROMAX 1 GM ORAL PACKET DIR AZITHROMY ANALISA 61753323089 No Longer Active Deirdre Arell MANUFACTURING SUPERVISOR Active LEVAQUIN 500 MG ORAL TABLET 1 tablet by mouth daily 20 25/07/14 LEVOFLOXACIN 25431537250 No Longer Active Mau Mcmahon MD Acti ve HYDROCHLOROTHIAZIDE 25 MG ORAL TABLET 1 PO Q AM 201 10/16/21 HYDROCHLOROTHIAZIDE 78886800293 No Longer Active Ryne Cristina DO Ac tive SIMVASTATIN 20 MG ORAL TABLET 1 tablet po q hs SIMVASTATIN 46928513572 No Longer Active Ryne Cristina DO Active SIMVASTATIN 20 MG ORAL TABLET 1 tablet po q hs SIMVASTATIN 20 MG ORAL TABLET 824513 SIMVASTATIN Inactive HYDROCHLOROTHIAZIDE 25 MG ORAL TABLET 1 PO Q AM 201 10/16/21 HYDROCHLOROTHIAZIDE 25 MG ORAL TABLET 558068 HYDROCHLOROTHIAZIDE In active LEVAQUIN 500 MG ORAL TABLET 1 tablet by mouth daily 20 25/07/14 LEVAQUIN 500 MG ORAL TABLET 931121 LEVOFLOXACIN Inactive ZITHROMAX 1 GM ORAL PACKET DIR Z ITHROMAX 1 GM ORAL PACKET 792200 AZITHROMYCIN Inactive BACTRIM DS 800-160 MG ORAL TABLET 1 tab by mouth twice daily 201 12/08/14 BACTRIM DS 800-160 MG ORAL TABLET 418948 TRIMETHOPRIM-SULFAMETHOXAZOLE Inactive OMEPRAZOLE 20 MG ORAL CAPSULE DELAYED RELEASE 1 tablet po in the am OMEPRAZOLE 20 MG ORAL CAPSULE DELAYED RELEASE 134309 OM EPRAZOLE Inactive CELEBREX 100 MG ORAL CAPSULE take 1 tab po BID for osteoarthriti s CELEBREX 100 MG ORAL CAPSULE 648433 CELECOXIB Zohreh ctive CHERATUSSIN AC 100-10 MG/5ML ORAL SYRUP 1 tsp by mouth every 4 hours as needed for cough CHERATUSSIN AC 100-10 MG/5ML ORAL SYRUP 9 01730 GUAIFENESIN-CODEINE Inactive PREDNISONE 5 MG ORAL TABLET Take 3 tabs po on the , decrease by 1 tablet every 3 days until off PREDNISONE 5 MG OR AL TABLET 077310 PREDNISONE Inactive ZOFRAN 4 MG ORAL TABLET 1 po q6hr PRN Nausea 9 ZOFRAN 4 MG ORAL TABLET 351429 ONDANSETRON HCL Inactive MECLIZINE HCL 25 MG ORAL TABLET one 4 times a day as needed for dizziness MECLIZINE HCL 25 MG ORAL TABLET 491563 MECLIZINE HCL Inactive PREDNISONE 5 MG ORAL TABLET PREDNISO NE 5 MG ORAL TABLET 612599 PREDNISONE Inactive NASONEX 50 MCG/ACT NASAL SUSPENSION use 2 sprays in each nos tril qday NASONEX 50 MCG/ACT NASAL SUSPENSION 0410512 MOMET ASONE FUROATE Inactive ALLOPURINOL 100 MG ORAL TABLET Take 1 tab po x 7 days, then 2 times every day thereafter if tolerated. ALLOPURINOL 100 MG ORAL TABLET 041156 ALLOPURINOL Inactive COLCHICINE 0.6 MG ORAL CAPSULE PRN FOR GOUT FLARE UPS COLCHICINE 0.6 MG ORAL CAPSULE 3757445 COLCHICINE Inactive HYDROCHLOROTHIAZIDE 25 MG ORAL TABLET 0.5 tablet by [facility] daily for blood pressure. HYDROCHLOROTHIAZIDE 25 MG ORAL TABLET 310 798 HYDROCHLOROTHIAZIDE Inactive PREDNISONE 20 MG ORAL TABLET 2 daily for 3 days then 1 daily for 3 days PREDNISONE 20 MG ORAL TABLET 651911 PREDNISONE Inactive GUAIFENESIN-CODEINE 100-10 MG/5ML ORAL SYRUP 5ml every 4 to 6 hours as needed for cough GUAIFENESIN-CODEINE 100-10 MG/5M L ORAL SYRUP 155476 GUAIFENESIN-CODEINE Inactive ZITHROMAX 250 MG ORAL TABLET 2 po today, then 1 po q days 2-5 20 23/10/22 ZITHROMAX 250 MG ORAL TABLET 477173 AZITHROMYCIN Zohreh ctive AZITHROMYCIN 250 MG ORAL TABLET 2 po qd x 1 day, then 1 po q d x 4 days AZITHROMYCIN 250 MG ORAL TABLET 172896 AZITHROMY ANALISA Inactive PREDNISONE 20 MG ORAL TABLET 2 tabs daily for 3 days, 1 tab daily for 3 days, 1/2 tab daily for 2 days PREDNISONE 20 MG ORAL T ABLET 082693 PREDNISONE Inactive AMOXICILLIN 500 MG ORAL CAPSULE 1 cap by mouth three times a day AMOXICILLIN 500 MG ORAL CAPSULE 769700 AMOXICILLIN Inactive Vital Signs Date Name Value [...] d Encounters Code Encounter Date Provider Facility CPT-64381 Level 3 Est. Patient 16:31:32 BAR ASSISTANT Mingo goss [facility] CPT-68787 [id number] Vst-Est Level III 13:57:28 BAR ASSISTANT Mau Mcmahon MD [facility] CPT-22967 [id number] Vst-Est Level IV 15:44:27 C DT Mau Mcmahon MD [facility] CPT-96080 Level 4 Est. Patient 21:12:34 CDT Mau bailey MD [facility] CPT-50159 Level 3 Est. Patient 16:26:55 BAR ASSISTANT Osbaldo Wilkes MD [facility] CPT-59611 Level 4 Est. Patient 12:43:27 CDT Mau bailey MD [facility] CPT-83740 Level 3 Est. Patient 16:46:20 CDT Gilbert Amador MD [facility] CPT-81562 Level 3 Est. Patient 09:03:26 CDT Deirdre carter [facility] CPT-31057 Level 4 Est. Patient 15:38:51 BAR ASSISTANT Mau bailey MD [facility] CPT-02567 Level 4 Est. Patient 10:26:24 CDT Mau bailey MD [facility] CPT-17836 Level 3 Est. Patient 17:21:09 CDT Ryne Nina Sherry ornelas DO [facility] CPT-66362 Level 4 Est. Patient 09:22:16 CDT Mau bailey MD [facility] CPT-08603 Level 3 Est. Patient 08:55:02 BAR ASSISTANT Mau bailey MD [facility] Procedures Code Procedure Name Date Entry Date Standard Desc ription CPT-LR Lesion Removal 21:12:34 CDT CPT-14871 EKG Trac and Interp - XRAY USE ONLY 1 5:52:34 CDT CPT-44782 Venipuncture Draw Fee 09:05:38 CDT CPT-26324 Uric Acid - LAB USE ONLY 09:05:38 CDT 03/10 CPT-30860 Sed Rate - LAB USE ONLY 09:05:38 CDT 03/10 CPT-54938 CMP - LAB USE ONLY 09:05:37 CDT CPT-56447 CBC - LAB USE ONLY 09:05:37 CDT CPT-J2930 Solu Medrol 125 mg (Methyl Prednisolone Sodium Succinate) 16:27:04 CDT CPT-07565 Abx/Therapy Injection 16:27:04 CDT CPT-J2930 Solu Medrol 125 mg (Methyl Prednisolone Sodium Succinate) 14:33:18 CDT
--- OUTSIDE RECORDS SUMMARY | 2019-11-22 08:20 | XMS REPORT | Clinical Summary ---
Author Author Admin, Volodymyr De Dios Organization [employer] Address Unknown Phone Unavailable Allergies, Adverse Reactions, [...] by mouth twice a day 2019 CEFDINIR 64785578782 Active Mingo Milton APRN Active LOSARTAN POT 50MG 1 TABLET BY MOUTH TWICE DAILY FOR HYPERT ENSION AND GOUT LOSARTAN POTASSIUM 23597302028 Active Mau Dewey Active PANTOPRAZOLE 40MG TAKE 1 TABLET BY MOUTH DAILY FOR GERD PANTOPRAZOLE SODIUM 65306837551 Active Mau Topete ctive AMOXICILLIN 500 MG ORAL CAPSULE 1 cap by mouth three times a day AMOXICILLIN 69067607959 No Longer Active Mau Mcmahon MD Active PREDNISONE 20 MG ORAL TABLET 2 tabs daily for 3 days, 1 tab daily for 3 days, 1/2 tab daily for 2 days PREDNISONE 38863778946 No Longer Active Mau Mcmahon MD Active GUAIFENESIN-CODEINE 100-10 MG/5ML ORAL SYRUP 5ml every 4 to 6 hours as needed for cough GUAIFENESIN-CODEINE 79616678807 No Longe r Active Mau Mcmahon MD Active PREDNISONE 20 MG ORAL TABLET 2 daily for 3 days then 1 daily for 3 days PREDNISONE 01173242910 No Longer Active Mau calderon MD Active NASONEX 50 MCG/ACT NASAL SUSPENSION 2 sprays everyday MOMETASONE FUROATE 23440542055 Active CORAL Bocanegra Active HYDROCHLOROTHIAZIDE 25 MG ORAL TABLET 0.5 tablet by [facility] daily for blood pressure. HYDROCHLOROTHIAZIDE 45786141338 No Longe r Active Osbaldo Wilkes MD Active COLCHICINE 0.6 MG ORAL CAPSULE PRN FOR GOUT FLARE UPS COLCHICINE 38225058512 No Longer Active Osbaldo Wilkes MD Activ e ALLOPURINOL 100 MG ORAL TABLET Take 1 tab po x 7 days, then 2 times every day thereafter if tolerated. ALLOPURINOL 44880591525 No Longer Active Osbaldo Wilkes MD Active NASONEX 50 MCG/ACT NASAL SUSPENSION use 2 sprays in each nos tril qday MOMETASONE FUROATE 20644877628 No Longer Active Osbaldo valdez MD Active PREDNISONE 5 MG ORAL TABLET PREDNISONE 24802859721 No Longer Active Osbaldo Wilkes MD Active AZITHROMYCIN 250 MG ORAL TABLET 2 po qd x 1 day, then 1 po q d x 4 days AZITHROMYCIN 71489708018 No Longer Active CORAL Estrella Active SUDAFED 12 HOUR 120 MG ORAL TABLET EXTENDED RELEASE 12 HOUR 1 pill twice daily if needed for congestion PSEUDOEPHEDRINE HCL 21284580121 A ctive Mau Mcmahon MD Active MECLIZINE HCL 25 MG ORAL TABLET one 4 times a day as needed for dizziness MECLIZINE HCL 35318359604 No Longer Active Mau Mcmahon MD Active ZOFRAN 4 MG ORAL TABLET 1 po q6hr PRN Nausea 9 ONDANSETRON HCL 58555466002 No Longer Active Mau Mcmahon MD Acti ve PREDNISONE 5 MG ORAL TABLET Take 3 tabs po on the , decrease by 1 tablet every 3 days until off PREDNISONE 96543887622 No Longer Active Gilbert Amador MD Active CHERATUSSIN AC 100-10 MG/5ML ORAL SYRUP 1 tsp by mouth every 4 hours as needed for cough GUAIFENESIN-CODEINE 34359151892 No Longe r Active Gilbert Amador MD Active ZITHROMAX 250 MG ORAL TABLET 2 po today, then 1 po q days 2-5 20 23/10/22 AZITHROMYCIN 78514490441 No Longer Active Deirdre Arell PROBATE LAWYER Active CELEBREX 100 MG ORAL CAPSULE take 1 tab po BID for osteoarthriti s CELECOXIB 66337339282 No Longer Active Deirdre Arell PROBATE LAWYER A ctive OMEPRAZOLE 20 MG ORAL CAPSULE DELAYED RELEASE 1 tablet po in the am OMEPRAZOLE 53049437067 No Longer Active Deirdre Arell PROBATE LAWYER A ctive BACTRIM DS 800-160 MG ORAL TABLET 1 tab by mouth twice daily 201 12/08/14 TRIMETHOPRIM-SULFAMETHOXAZOLE 84481351975 No Longer Active Vincent Riddle APRN Active ZITHROMAX 1 GM ORAL PACKET DIR AZITHROMY ANALISA 20451544205 No Longer Active Deirdre Arell PROBATE LAWYER Active LEVAQUIN 500 MG ORAL TABLET 1 tablet by mouth daily 20 25/07/14 LEVOFLOXACIN 52728486784 No Longer Active Mau Mcmahon MD Acti ve HYDROCHLOROTHIAZIDE 25 MG ORAL TABLET 1 PO Q AM 201 10/16/21 HYDROCHLOROTHIAZIDE 08762727532 No Longer Active Ryne Cristina DO Ac tive SIMVASTATIN 20 MG ORAL TABLET 1 tablet po q hs SIMVASTATIN 41872567595 No Longer Active Ryne Cristina DO Active SIMVASTATIN 20 MG ORAL TABLET 1 tablet po q hs SIMVASTATIN 20 MG ORAL TABLET 026242 SIMVASTATIN Inactive HYDROCHLOROTHIAZIDE 25 MG ORAL TABLET 1 PO Q AM 201 10/16/21 HYDROCHLOROTHIAZIDE 25 MG ORAL TABLET 700464 HYDROCHLOROTHIAZIDE In active LEVAQUIN 500 MG ORAL TABLET 1 tablet by mouth daily 20 25/07/14 LEVAQUIN 500 MG ORAL TABLET 996546 LEVOFLOXACIN Inactive ZITHROMAX 1 GM ORAL PACKET DIR Z ITHROMAX 1 GM ORAL PACKET 933966 AZITHROMYCIN Inactive BACTRIM DS 800-160 MG ORAL TABLET 1 tab by mouth twice daily 201 12/08/14 BACTRIM DS 800-160 MG ORAL TABLET 389347 TRIMETHOPRIM-SULFAMETHOXAZOLE Inactive OMEPRAZOLE 20 MG ORAL CAPSULE DELAYED RELEASE 1 tablet po in the am OMEPRAZOLE 20 MG ORAL CAPSULE DELAYED RELEASE 872754 OM EPRAZOLE Inactive CELEBREX 100 MG ORAL CAPSULE take 1 tab po BID for osteoarthriti s CELEBREX 100 MG ORAL CAPSULE 751640 CELECOXIB Zohreh ctive CHERATUSSIN AC 100-10 MG/5ML ORAL SYRUP 1 tsp by mouth every 4 hours as needed for cough CHERATUSSIN AC 100-10 MG/5ML ORAL SYRUP 9 89161 GUAIFENESIN-CODEINE Inactive PREDNISONE 5 MG ORAL TABLET Take 3 tabs po on the , decrease by 1 tablet every 3 days until off PREDNISONE 5 MG OR AL TABLET 800248 PREDNISONE Inactive ZOFRAN 4 MG ORAL TABLET 1 po q6hr PRN Nausea 9 ZOFRAN 4 MG ORAL TABLET 521871 ONDANSETRON HCL Inactive MECLIZINE HCL 25 MG ORAL TABLET one 4 times a day as needed for dizziness MECLIZINE HCL 25 MG ORAL TABLET 453839 MECLIZINE HCL Inactive PREDNISONE 5 MG ORAL TABLET PREDNISO NE 5 MG ORAL TABLET 032072 PREDNISONE Inactive NASONEX 50 MCG/ACT NASAL SUSPENSION use 2 sprays in each nos tril qday NASONEX 50 MCG/ACT NASAL SUSPENSION 2674687 MOMET ASONE FUROATE Inactive ALLOPURINOL 100 MG ORAL TABLET Take 1 tab po x 7 days, then 2 times every day thereafter if tolerated. ALLOPURINOL 100 MG ORAL TABLET 982477 ALLOPURINOL Inactive COLCHICINE 0.6 MG ORAL CAPSULE PRN FOR GOUT FLARE UPS COLCHICINE 0.6 MG ORAL CAPSULE 3238950 COLCHICINE Inactive HYDROCHLOROTHIAZIDE 25 MG ORAL TABLET 0.5 tablet by [facility] daily for blood pressure. HYDROCHLOROTHIAZIDE 25 MG ORAL TABLET 310 798 HYDROCHLOROTHIAZIDE Inactive PREDNISONE 20 MG ORAL TABLET 2 daily for 3 days then 1 daily for 3 days PREDNISONE 20 MG ORAL TABLET 202863 PREDNISONE Inactive GUAIFENESIN-CODEINE 100-10 MG/5ML ORAL SYRUP 5ml every 4 to 6 hours as needed for cough GUAIFENESIN-CODEINE 100-10 MG/5M L ORAL SYRUP 079530 GUAIFENESIN-CODEINE Inactive ZITHROMAX 250 MG ORAL TABLET 2 po today, then 1 po q days 2-5 20 23/10/22 ZITHROMAX 250 MG ORAL TABLET 782928 AZITHROMYCIN Zohreh ctive AZITHROMYCIN 250 MG ORAL TABLET 2 po qd x 1 day, then 1 po q d x 4 days AZITHROMYCIN 250 MG ORAL TABLET 053433 AZITHROMY ANALISA Inactive PREDNISONE 20 MG ORAL TABLET 2 tabs daily for 3 days, 1 tab daily for 3 days, 1/2 tab daily for 2 days PREDNISONE 20 MG ORAL T ABLET 508421 PREDNISONE Inactive AMOXICILLIN 500 MG ORAL CAPSULE 1 cap by mouth three times a day AMOXICILLIN 500 MG ORAL CAPSULE 436198 AMOXICILLIN Inactive Vital Signs Date Name Value [...] d Encounters Code Encounter Date Provider Facility CPT-63792 Level 3 Est. Patient 16:31:32 DIRECTOR OF FIRST IMPRESSIONS Mingo goss [facility] CPT-63605 [id number] Vst-Est Level III 13:57:28 DIRECTOR OF FIRST IMPRESSIONS Mau Mcmahon MD [facility] CPT-06346 [id number] Vst-Est Level IV 15:44:27 C DT Mau Mcmahon MD [facility] CPT-28106 Level 4 Est. Patient 21:12:34 CDT Mau bailey MD [facility] CPT-80152 Level 3 Est. Patient 16:26:55 DIRECTOR OF FIRST IMPRESSIONS Osbaldo Wilkes MD [facility] CPT-05994 Level 4 Est. Patient 12:43:27 CDT Mau bailey MD [facility] CPT-48117 Level 3 Est. Patient 16:46:20 CDT Gilbert Amador MD [facility] CPT-96981 Level 3 Est. Patient 09:03:26 CDT Deirdre carter [facility] CPT-28248 Level 4 Est. Patient 15:38:51 DIRECTOR OF FIRST IMPRESSIONS Mau bailey MD [facility] CPT-67401 Level 4 Est. Patient 10:26:24 CDT Mau bailey MD [facility] CPT-75298 Level 3 Est. Patient 17:21:09 CDT Ryne Nina Sherry ornelas DO [facility] CPT-87529 Level 4 Est. Patient 09:22:16 CDT Mau bailey MD [facility] CPT-05113 Level 3 Est. Patient 08:55:02 DIRECTOR OF FIRST IMPRESSIONS Mau bailey MD [facility] Procedures Code Procedure Name Date Entry Date Standard Desc ription CPT-LR Lesion Removal 21:12:34 CDT CPT-57623 EKG Trac and Interp - XRAY USE ONLY 1 5:52:34 CDT CPT-59537 Venipuncture Draw Fee 09:05:38 CDT CPT-29700 Uric Acid - LAB USE ONLY 09:05:38 CDT 03/10 CPT-43959 Sed Rate - LAB USE ONLY 09:05:38 CDT 03/10 CPT-97091 CMP - LAB USE ONLY 09:05:37 CDT CPT-50927 CBC - LAB USE ONLY 09:05:37 CDT CPT-J2930 Solu Medrol 125 mg (Methyl Prednisolone Sodium Succinate) 16:27:04 CDT CPT-62031 Abx/Therapy Injection 16:27:04 CDT CPT-J2930 Solu Medrol 125 mg (Methyl Prednisolone Sodium Succinate) 14:33:18 CDT
--- OUTSIDE RECORDS SUMMARY | 2019-11-22 08:20 | XMS REPORT | Clinical Summary ---
Author Author Admin, Volodymyr De Dios Organization [employer] Address Unknown Phone Unavailable Allergies, Adverse Reactions, [...] SINUSITIS, ACUTE ICD-461.9 Inactive Mau calderon MD SEASONAL ALLERGIC RHINITIS ICD-477.9 Inactive Mau Mcmahon MD Medication List Medication Instructions Start Date Stop Date Generic Name NDC Status Provider Patient Instruction MOMETASONE SPR 50MCG SPRAY 2 SPRAYS INTO EACH NOSTRIL DAILY DIRECTED MOMETASONE FUROATE [id number] Active Mau Dewey Active CEFDINIR 300 MG ORAL CAPSULE by mouth twice a day 2019 CEFDINIR 91820034878 No Longer Active Mingo Milton APRN Active LOSARTAN POT 50MG 1 TABLET BY MOUTH TWICE DAILY FOR HYPERT ENSION AND GOUT LOSARTAN POTASSIUM 55409178005 Active Mau Dewey Active PANTOPRAZOLE 40MG TAKE 1 TABLET BY MOUTH DAILY FOR GERD PANTOPRAZOLE SODIUM 63526523413 Active Mau Mcmahon MD A ctive AMOXICILLIN 500 MG ORAL CAPSULE 1 cap by mouth three times a day AMOXICILLIN 88883598412 No Longer Active Mau Mcmahon MD Active PREDNISONE 20 MG ORAL TABLET 2 tabs daily for 3 days, 1 tab daily for 3 days, 1/2 tab daily for 2 days PREDNISONE 30401549622 No Longer Active Mau Mcmahon MD Active GUAIFENESIN-CODEINE 100-10 MG/5ML ORAL SYRUP 5ml every 4 to 6 hours as needed for cough GUAIFENESIN-CODEINE 51315761107 No Longe r Active Mau Mcmahon MD Active PREDNISONE 20 MG ORAL TABLET 2 daily for 3 days then 1 daily for 3 days PREDNISONE 61901324142 No Longer Active Mau calderon MD Active HYDROCHLOROTHIAZIDE 25 MG ORAL TABLET 0.5 tablet by [facility] daily for blood pressure. HYDROCHLOROTHIAZIDE 38629566883 No Longe r Active Osbaldo Wilkes MD Active COLCHICINE 0.6 MG ORAL CAPSULE PRN FOR GOUT FLARE UPS COLCHICINE 33587189697 No Longer Active Osbaldo Wilkes MD Activ e ALLOPURINOL 100 MG ORAL TABLET Take 1 tab po x 7 days, then 2 times every day thereafter if tolerated. ALLOPURINOL 34675466818 No Longer Active Osbaldo Wilkes MD Active NASONEX 50 MCG/ACT NASAL SUSPENSION use 2 sprays in each nos tril qday MOMETASONE FUROATE 62498165502 No Longer Active Osbaldo valdez MD Active PREDNISONE 5 MG ORAL TABLET PREDNISONE 57401791309 No Longer Active Osbaldo Wilkes MD Active AZITHROMYCIN 250 MG ORAL TABLET 2 po qd x 1 day, then 1 po q d x 4 days AZITHROMYCIN 88803652580 No Longer Active CORAL Estrella Active SUDAFED 12 HOUR 120 MG ORAL TABLET EXTENDED RELEASE 12 HOUR 1 pill twice daily if needed for congestion PSEUDOEPHEDRINE HCL 11298941634 A ctive Mau Mcmahon MD Active MECLIZINE HCL 25 MG ORAL TABLET one 4 times a day as needed for dizziness MECLIZINE HCL 14512069635 No Longer Active Mau Mcmahon MD Active ZOFRAN 4 MG ORAL TABLET 1 po q6hr PRN Nausea 9 ONDANSETRON HCL 41289402612 No Longer Active Mau Mcmahon MD Acti ve PREDNISONE 5 MG ORAL TABLET Take 3 tabs po on the , decrease by 1 tablet every 3 days until off PREDNISONE 33136013740 No Longer Active Gilbert Amador MD Active CHERATUSSIN AC 100-10 MG/5ML ORAL SYRUP 1 tsp by mouth every 4 hours as needed for cough GUAIFENESIN-CODEINE 84268991567 No Longe r Active Gilbert Amador MD Active ZITHROMAX 250 MG ORAL TABLET 2 po today, then 1 po q days 2-5 20 23/10/22 AZITHROMYCIN 76222901962 No Longer Active Deirdre Riddle APRN Active CELEBREX 100 MG ORAL CAPSULE take 1 tab po BID for osteoarthriti s CELECOXIB 70281388105 No Longer Active Deirdre Arell LAPPER A ctive OMEPRAZOLE 20 MG ORAL CAPSULE DELAYED RELEASE 1 tablet po in the am OMEPRAZOLE 64463858454 No Longer Active Deirdre Areemma LAPPER A ctive BACTRIM DS 800-160 MG ORAL TABLET 1 tab by mouth twice daily 201 12/08/14 TRIMETHOPRIM-SULFAMETHOXAZOLE 11993371625 No Longer Active Vincent Riddle APRN Active ZITHROMAX 1 GM ORAL PACKET DIR AZITHROMY ANALISA 05703111388 No Longer Active Deirdre Areemma LAPPER Active LEVAQUIN 500 MG ORAL TABLET 1 tablet by mouth daily 20 25/07/14 LEVOFLOXACIN 98516484982 No Longer Active Mau Mcmahon MD Acti ve HYDROCHLOROTHIAZIDE 25 MG ORAL TABLET 1 PO Q AM 201 10/16/21 HYDROCHLOROTHIAZIDE 60671035140 No Longer Active Ryne Cristina DO Ac tive SIMVASTATIN 20 MG ORAL TABLET 1 tablet po q hs SIMVASTATIN 39617214061 No Longer Active Ryne Cristina DO Active SIMVASTATIN 20 MG ORAL TABLET 1 tablet po q hs SIMVASTATIN 20 MG ORAL TABLET 318911 SIMVASTATIN Inactive HYDROCHLOROTHIAZIDE 25 MG ORAL TABLET 1 PO Q AM 201 10/16/21 HYDROCHLOROTHIAZIDE 25 MG ORAL TABLET 227676 HYDROCHLOROTHIAZIDE In active LEVAQUIN 500 MG ORAL TABLET 1 tablet by mouth daily 20 25/07/14 LEVAQUIN 500 MG ORAL TABLET 704715 LEVOFLOXACIN Inactive ZITHROMAX 1 GM ORAL PACKET DIR Z ITHROMAX 1 GM ORAL PACKET 182051 AZITHROMYCIN Inactive BACTRIM DS 800-160 MG ORAL TABLET 1 tab by mouth twice daily 201 12/08/14 BACTRIM DS 800-160 MG ORAL TABLET 487913 TRIMETHOPRIM-SULFAMETHOXAZOLE Inactive OMEPRAZOLE 20 MG ORAL CAPSULE DELAYED RELEASE 1 tablet po in the am OMEPRAZOLE 20 MG ORAL CAPSULE DELAYED RELEASE 337997 OM EPRAZOLE Inactive CELEBREX 100 MG ORAL CAPSULE take 1 tab po BID for osteoarthriti s CELEBREX 100 MG ORAL CAPSULE 335263 CELECOXIB [place]le ctive CHERATUSSIN AC 100-10 MG/5ML ORAL SYRUP 1 tsp by mouth every 4 hours as needed for cough CHERATUSSIN AC 100-10 MG/5ML ORAL SYRUP 9 88619 GUAIFENESIN-CODEINE Inactive PREDNISONE 5 MG ORAL TABLET Take 3 tabs po on the , decrease by 1 tablet every 3 days until off PREDNISONE 5 MG OR AL TABLET 172065 PREDNISONE Inactive ZOFRAN 4 MG ORAL TABLET 1 po q6hr PRN Nausea 9 ZOFRAN 4 MG ORAL TABLET 599325 ONDANSETRON HCL Inactive MECLIZINE HCL 25 MG ORAL TABLET one 4 times a day as needed for dizziness MECLIZINE HCL 25 MG ORAL TABLET 659078 MECLIZINE HCL Inactive PREDNISONE 5 MG ORAL TABLET PREDNISO NE 5 MG ORAL TABLET 175733 PREDNISONE Inactive NASONEX 50 MCG/ACT NASAL SUSPENSION use 2 sprays in each nos tril qday NASONEX 50 MCG/ACT NASAL SUSPENSION 7082954 MOMET ASONE FUROATE Inactive ALLOPURINOL 100 MG ORAL TABLET Take 1 tab po x 7 days, then 2 times every day thereafter if tolerated. ALLOPURINOL 100 MG ORAL TABLET 805514 ALLOPURINOL Inactive COLCHICINE 0.6 MG ORAL CAPSULE PRN FOR GOUT FLARE UPS COLCHICINE 0.6 MG ORAL CAPSULE 3931920 COLCHICINE Inactive HYDROCHLOROTHIAZIDE 25 MG ORAL TABLET 0.5 tablet by [facility] daily for blood pressure. HYDROCHLOROTHIAZIDE 25 MG ORAL TABLET 310 798 HYDROCHLOROTHIAZIDE Inactive PREDNISONE 20 MG ORAL TABLET 2 daily for 3 days then 1 daily for 3 days PREDNISONE 20 MG ORAL TABLET 682866 PREDNISONE Inactive GUAIFENESIN-CODEINE 100-10 MG/5ML ORAL SYRUP 5ml every 4 to 6 hours as needed for cough GUAIFENESIN-CODEINE 100-10 MG/5M L ORAL SYRUP 416883 GUAIFENESIN-CODEINE Inactive ZITHROMAX 250 MG ORAL TABLET 2 po today, then 1 po q days 2-5 20 23/10/22 ZITHROMAX 250 MG ORAL TABLET 630259 AZITHROMYCIN [place] ctive AZITHROMYCIN 250 MG ORAL TABLET 2 po qd x 1 day, then 1 po q d x 4 days AZITHROMYCIN 250 MG ORAL TABLET 466906 AZITHROMY ANALISA Inactive PREDNISONE 20 MG ORAL TABLET 2 tabs daily for 3 days, 1 tab daily for 3 days, 1/2 tab daily for 2 days PREDNISONE 20 MG ORAL T ABLET 850128 PREDNISONE Inactive AMOXICILLIN 500 MG ORAL CAPSULE 1 cap by mouth three times a day AMOXICILLIN 500 MG ORAL CAPSULE 755572 AMOXICILLIN Inactive CEFDINIR 300 MG ORAL CAPSULE by mouth twice a day 2019 CEFDINIR 300 MG ORAL CAPSULE 068522 CEFDINIR Inactive Vital Signs Date Name Value [...] d Encounters Code Encounter Date Provider Facility CPT-70066 Level 3 Est. Patient 16:31:32 NET FINISHER Mingo goss [facility] CPT-43182 [id number] Vst-Est Level III 13:57:28 NET FINISHER Mau Mcmahon MD [facility] CPT-80104 [id number] Vst-Est Level IV 15:44:27 C DT Mau Mcmahon MD [facility] CPT-19386 Level 4 Est. Patient 21:12:34 CDT Mau bailey MD [facility] CPT-08802 Level 3 Est. Patient 16:26:55 NET FINISHER Osbaldo Wilkes MD [facility] CPT-67250 Level 4 Est. Patient 12:43:27 CDT Mau bailey MD [facility] CPT-10792 Level 3 Est. Patient 16:46:20 CDT Gilbert Amador MD [facility] CPT-77357 Level 3 Est. Patient 09:03:26 CDT Deirdre carter [facility] CPT-05083 Level 4 Est. Patient 15:38:51 NET FINISHER Mau bailey MD [facility] CPT-68866 Level 4 Est. Patient 10:26:24 CDT Mau bailey MD [facility] CPT-42373 Level 3 Est. Patient 17:21:09 CDT Ryne ornelas [facility] CPT-38666 Level 4 Est. Patient 09:22:16 CDT Mau bailey MD [facility] CPT-65334 Level 3 Est. Patient 08:55:02 NET FINISHER Mau bailey MD [facility] Procedures Code Procedure Name Date Entry Date Standard Desc ription CPT-LR Lesion Removal 21:12:34 CDT CPT-45850 EKG Trac and Interp - XRAY USE ONLY 1 5:52:34 CDT CPT-98245 Venipuncture Draw Fee 09:05:38 CDT CPT-52799 Uric Acid - LAB USE ONLY 09:05:38 CDT 03/10 CPT-22649 Sed Rate - LAB USE ONLY 09:05:38 CDT 03/10 CPT-69254 CMP - LAB USE ONLY 09:05:37 CDT CPT-21612 CBC - LAB USE ONLY 09:05:37 CDT CPT-J2930 Solu Medrol 125 mg (Methyl Prednisolone Sodium Succinate) 16:27:04 CDT CPT-78358 Abx/Therapy Injection 16:27:04 CDT CPT-J2930 Solu Medrol 125 mg (Methyl Prednisolone Sodium Succinate) 14:33:18 CDT
--- OUTSIDE RECORDS SUMMARY | 2019-11-22 08:21 | XMS REPORT | Clinical Summary ---
Author Author Admin, Volodymyr De Dios Organization [employer] Address Unknown Phone Unavailable Allergies, Adverse Reactions, Alerts Allergy Name Reaction Description Start Date Severity Status Pr ovider No Known Allergies Fiorella Raida Conditions or Problems Problem Name Problem Code [...] Obesity Class I (BMI 30-34.9) 278.00 Active 2019/0 08/02 Mau Mcmahon MD Obesity, unspecified Ear disorder 388.9 Resolved Mau Mcmahon MD Unspecified disorder of ear Preop exam V72.84 Resolved Mau Mcmahon MD Preoperative examination, unspecified Skin tag 701.9 Resolved Mau Mcmahon MD Unspecified hypertrophic and atrophic conditions of skin Influenza Vaccination for Prophylaxis V04.81 Inactive Mau Mcmahon MD Need for prophylactic vaccin ation and inoculation against influenza Body Mass Index 31.0-31.9 Adult Active 2017 Mau Mcmahon MD Body Mass Index 31.0-31.9, adult Allergic rhinitis, seasonal 477.0 Active Mau Mcmahon MD Allergic rhinitis due to pollen SINUSITIS, ACUTE 461.9 Inactive Mau Mcmahon MD Acute sinusitis, unspecified SEASONAL ALLERGIC RHINITIS ICD-477.9 Inactive Mau Mcmahon [...] Vaccination for Prophylaxis ICD-V04.81 8 Inactive Fiorella Laceyrah SINUSITIS, ACUTE ICD-461.9 Inactive Mau calderon MD Medication List Medication Instructions Start Date Stop Date Generic Name NDC Status Provider Patient Instruction LOSARTAN POT 50MG 1 TABLET BY MOUTH TWICE DAILY FOR HYPERT ENSION AND GOUT LOSARTAN POTASSIUM 11899077148 Active Mau Dewey Active PANTOPRAZOLE 40MG TAKE 1 TABLET BY MOUTH DAILY FOR GERD PANTOPRAZOLE SODIUM 07018645056 Active Mau Mcmahon MD A ctive AMOXICILLIN 500 MG ORAL CAPSULE 1 cap by mouth three times a day AMOXICILLIN 64841893341 No Longer Active Mau Mcmahon MD Active PREDNISONE 20 MG ORAL TABLET 2 tabs daily for 3 days, 1 tab daily for 3 days, 1/2 tab daily for 2 days PREDNISONE 86502946244 No Longer Active Mau Mcmahon MD Active GUAIFENESIN-CODEINE 100-10 MG/5ML ORAL SYRUP 5ml every 4 to 6 hours as needed for cough GUAIFENESIN-CODEINE 27482420433 No Longe r Active Mau Mcmahon MD Active PREDNISONE 20 MG ORAL TABLET 2 daily for 3 days then 1 daily for 3 days PREDNISONE 36903186714 No Longer Active Mau calderon MD Active NASONEX 50 MCG/ACT NASAL SUSPENSION 2 sprays everyday MOMETASONE FUROATE 08089841252 Active CORAL Bocanegra Active HYDROCHLOROTHIAZIDE 25 MG ORAL TABLET 0.5 tablet by [facility] daily for blood pressure. HYDROCHLOROTHIAZIDE 34423789252 No Longe r Active Osbaldo Wilkes MD Active COLCHICINE 0.6 MG ORAL CAPSULE PRN FOR GOUT FLARE UPS COLCHICINE 69695452856 No Longer Active Osbaldo Wilkes MD Activ e ALLOPURINOL 100 MG ORAL TABLET Take 1 tab po x 7 days, then 2 times every day thereafter if tolerated. ALLOPURINOL 46538068286 No Longer Active Osbaldo Wilkes MD Active NASONEX 50 MCG/ACT NASAL SUSPENSION use 2 sprays in each nos tril qday MOMETASONE FUROATE 32014259058 No Longer Active Osbaldo valdez MD Active PREDNISONE 5 MG ORAL TABLET PREDNISONE 27886704230 No Longer Active Osbaldo Wilkes MD Active AZITHROMYCIN 250 MG ORAL TABLET 2 po qd x 1 day, then 1 po q d x 4 days AZITHROMYCIN 77074511333 No Longer Active CORAL Estrella Active SUDAFED 12 HOUR 120 MG ORAL TABLET EXTENDED RELEASE 12 HOUR 1 pill twice daily if needed for congestion PSEUDOEPHEDRINE HCL 80819313671 A ctive Mau Mcmahon MD Active MECLIZINE HCL 25 MG ORAL TABLET one 4 times a day as needed for dizziness MECLIZINE HCL 83733464366 No Longer Active Mau Mcmahon MD Active ZOFRAN 4 MG ORAL TABLET 1 po q6hr PRN Nausea 9 ONDANSETRON HCL 05490474486 No Longer Active Mau Mcmahon MD Acti ve PREDNISONE 5 MG ORAL TABLET Take 3 tabs po on the , decrease by 1 tablet every 3 days until off PREDNISONE 69921384613 No Longer Active Gilbert Amador MD Active CHERATUSSIN AC 100-10 MG/5ML ORAL SYRUP 1 tsp by mouth every 4 hours as needed for cough GUAIFENESIN-CODEINE 53090642956 No Longe r Active Gilbert Amador MD Active ZITHROMAX 250 MG ORAL TABLET 2 po today, then 1 po q days 2-5 20 23/10/22 AZITHROMYCIN 18159634365 No Longer Active Deirdre Riddle APRN Active CELEBREX 100 MG ORAL CAPSULE take 1 tab po BID for osteoarthriti s CELECOXIB 34305161777 No Longer Active Deirdre Riddle APRN A ctive OMEPRAZOLE 20 MG ORAL CAPSULE DELAYED RELEASE 1 tablet po in the am OMEPRAZOLE 98716835389 No Longer Active Deirdre Riddle APRN A ctive BACTRIM DS 800-160 MG ORAL TABLET 1 tab by mouth twice daily 201 12/08/14 TRIMETHOPRIM-SULFAMETHOXAZOLE 58075575889 No Longer Active Vincent Riddle APRN Active ZITHROMAX 1 GM ORAL PACKET DIR AZITHROMY ANALISA 79542303199 No Longer Active Deirdre Riddle APRN Active LEVAQUIN 500 MG ORAL TABLET 1 tablet by mouth daily 20 25/07/14 LEVOFLOXACIN 64801946085 No Longer Active Mau Mcmahon MD Acti ve HYDROCHLOROTHIAZIDE 25 MG ORAL TABLET 1 PO Q AM 201 10/16/21 HYDROCHLOROTHIAZIDE 81115362640 No Longer Active Ryne Cristina DO Ac tive SIMVASTATIN 20 MG ORAL TABLET 1 tablet po q hs SIMVASTATIN 33322376474 No Longer Active Ryne Cristina DO Active SIMVASTATIN 20 MG ORAL TABLET 1 tablet po q hs SIMVASTATIN 20 MG ORAL TABLET 312785 SIMVASTATIN Inactive HYDROCHLOROTHIAZIDE 25 MG ORAL TABLET 1 PO Q AM 201 10/16/21 HYDROCHLOROTHIAZIDE 25 MG ORAL TABLET 608345 HYDROCHLOROTHIAZIDE In active LEVAQUIN 500 MG ORAL TABLET 1 tablet by mouth daily 20 25/07/14 LEVAQUIN 500 MG ORAL TABLET 124171 LEVOFLOXACIN Inactive ZITHROMAX 1 GM ORAL PACKET DIR Z ITHROMAX 1 GM ORAL PACKET 533465 AZITHROMYCIN Inactive BACTRIM DS 800-160 MG ORAL TABLET 1 tab by mouth twice daily 201 12/08/14 BACTRIM DS 800-160 MG ORAL TABLET 492480 TRIMETHOPRIM-SULFAMETHOXAZOLE Inactive OMEPRAZOLE 20 MG ORAL CAPSULE DELAYED RELEASE 1 tablet po in the am OMEPRAZOLE 20 MG ORAL CAPSULE DELAYED RELEASE 833488 OM EPRAZOLE Inactive CELEBREX 100 MG ORAL CAPSULE take 1 tab po BID for osteoarthriti s CELEBREX 100 MG ORAL CAPSULE 486126 CELECOXIB [place] ctive CHERATUSSIN AC 100-10 MG/5ML ORAL SYRUP 1 tsp by mouth every 4 hours as needed for cough CHERATUSSIN AC 100-10 MG/5ML ORAL SYRUP 9 30073 GUAIFENESIN-CODEINE Inactive PREDNISONE 5 MG ORAL TABLET Take 3 tabs po on the , decrease by 1 tablet every 3 days until off PREDNISONE 5 MG OR AL TABLET 793887 PREDNISONE Inactive ZOFRAN 4 MG ORAL TABLET 1 po q6hr PRN Nausea 9 ZOFRAN 4 MG ORAL TABLET 173952 ONDANSETRON HCL Inactive MECLIZINE HCL 25 MG ORAL TABLET one 4 times a day as needed for dizziness MECLIZINE HCL 25 MG ORAL TABLET 455118 MECLIZINE HCL Inactive PREDNISONE 5 MG ORAL TABLET PREDNISO NE 5 MG ORAL TABLET 061778 PREDNISONE Inactive NASONEX 50 MCG/ACT NASAL SUSPENSION use 2 sprays in each nos tril qday NASONEX 50 MCG/ACT NASAL SUSPENSION 4922131 MOMET ASONE FUROATE Inactive ALLOPURINOL 100 MG ORAL TABLET Take 1 tab po x 7 days, then 2 times every day thereafter if tolerated. ALLOPURINOL 100 MG ORAL TABLET 949592 ALLOPURINOL Inactive COLCHICINE 0.6 MG ORAL CAPSULE PRN FOR GOUT FLARE UPS COLCHICINE 0.6 MG ORAL CAPSULE 5229001 COLCHICINE Inactive HYDROCHLOROTHIAZIDE 25 MG ORAL TABLET 0.5 tablet by [facility] daily for blood pressure. HYDROCHLOROTHIAZIDE 25 MG ORAL TABLET 310 798 HYDROCHLOROTHIAZIDE Inactive PREDNISONE 20 MG ORAL TABLET 2 daily for 3 days then 1 daily for 3 days PREDNISONE 20 MG ORAL TABLET 554210 PREDNISONE Inactive GUAIFENESIN-CODEINE 100-10 MG/5ML ORAL SYRUP 5ml every 4 to 6 hours as needed for cough GUAIFENESIN-CODEINE 100-10 MG/5M L ORAL SYRUP 192342 GUAIFENESIN-CODEINE Inactive ZITHROMAX 250 MG ORAL TABLET 2 po today, then 1 po q days 2-5 20 23/10/22 ZITHROMAX 250 MG ORAL TABLET 402951 AZITHROMYCIN Zohreh ctive AZITHROMYCIN 250 MG ORAL TABLET 2 po qd x 1 day, then 1 po q d x 4 days AZITHROMYCIN 250 MG ORAL TABLET 843263 AZITHROMY ANALISA Inactive PREDNISONE 20 MG ORAL TABLET 2 tabs daily for 3 days, 1 tab daily for 3 days, 1/2 tab daily for 2 days PREDNISONE 20 MG ORAL T ABLET 875952 PREDNISONE Inactive AMOXICILLIN 500 MG ORAL CAPSULE 1 cap by mouth three times a day AMOXICILLIN 500 MG ORAL CAPSULE 053188 AMOXICILLIN Inactive Vital Signs Date Name Value Unit Range Description blood pressure, diastolic 77 mm[Hg] BP santos blood pressure, systolic 131 mm[Hg] BP sys height E&M 70 [in_us] Bdy height pulse rate E&M 89 /min Heart rate temperature E&M 98.9 [degF] Body temp erature weight E&M 220.50 [lb_av] Weight Measure d Encounters Code Encounter Date Provider Facility CPT-85540 [id number] Vst-Est Level III 13:57:28 HAND FOLDER Mau Mcmahon MD [facility] CPT-95226 [id number] Vst-Est Level IV 15:44:27 C DT Mau Mcmahon MD [facility] CPT-90690 Level 4 Est. Patient 21:12:34 CDT Mau bailey MD [facility] CPT-39475 Level 3 Est. Patient 16:26:55 HAND FOLDER Osbaldo Wilkes MD [facility] CPT-91929 Level 4 Est. Patient 12:43:27 CDT Mau bailey MD [facility] CPT-23317 Level 3 Est. Patient 16:46:20 CDT Gilbert Amador MD [facility] CPT-77396 Level 3 Est. Patient 09:03:26 CDT Deirdre carter APRN [facility] CPT-62558 Level 4 Est. Patient 15:38:51 HAND FOLDER Mau bailey MD [facility] CPT-91966 Level 4 Est. Patient 10:26:24 CDT Mau bailey MD [facility] CPT-41050 Level 3 Est. Patient 17:21:09 CDT Ryne ornelas DO [facility] CPT-90527 Level 4 Est. Patient 09:22:16 CDT Mau bailey MD [facility] CPT-14042 Level 3 Est. Patient 08:55:02 HAND FOLDER Mau bailey MD [facility] Procedures Code Procedure Name Date Entry Date Standard Desc ription CPT-LR Lesion Removal 21:12:34 CDT CPT-83412 EKG Trac and Interp - XRAY USE ONLY 1 5:52:34 CDT CPT-53969 Venipuncture Draw Fee 09:05:38 CDT CPT-56620 Uric Acid - LAB USE ONLY 09:05:38 CDT 03/10 CPT-03070 Sed Rate - LAB USE ONLY 09:05:38 CDT 03/10 CPT-21417 CMP - LAB USE ONLY 09:05:37 CDT CPT-48250 CBC - LAB USE ONLY 09:05:37 CDT CPT-J2930 Solu Medrol 125 mg (Methyl Prednisolone Sodium Succinate) 16:27:04 CDT CPT-49613 Abx/Therapy Injection 16:27:04 CDT CPT-J2930 Solu Medrol 125 mg (Methyl Prednisolone Sodium Succinate) 14:33:18 CDT
--- OUTSIDE RECORDS SUMMARY | 2019-11-22 08:21 | XMS REPORT | Clinical Summary ---
Author Author Admin, Volodymyr De Dios Organization [employer] Address Unknown Phone Unavailable Allergies, Adverse Reactions, [...] by mouth twice a day 2019 CEFDINIR [id number] Active Mingo Milton APRN Active LOSARTAN POT 50MG 1 TABLET BY MOUTH TWICE DAILY FOR HYPERT ENSION AND GOUT LOSARTAN POTASSIUM 61511057792 Active Mau Dewey Active PANTOPRAZOLE 40MG TAKE 1 TABLET BY MOUTH DAILY FOR GERD PANTOPRAZOLE SODIUM 04330163912 Active Mau Topete ctive AMOXICILLIN 500 MG ORAL CAPSULE 1 cap by mouth three times a day AMOXICILLIN 97193130700 No Longer Active Mau Mcmahon MD Active PREDNISONE 20 MG ORAL TABLET 2 tabs daily for 3 days, 1 tab daily for 3 days, 1/2 tab daily for 2 days PREDNISONE 68597870151 No Longer Active Mau Mcmahon MD Active GUAIFENESIN-CODEINE 100-10 MG/5ML ORAL SYRUP 5ml every 4 to 6 hours as needed for cough GUAIFENESIN-CODEINE 81694349925 No Longe r Active Mau Mcmahon MD Active PREDNISONE 20 MG ORAL TABLET 2 daily for 3 days then 1 daily for 3 days PREDNISONE 51091988440 No Longer Active Mau calderon MD Active NASONEX 50 MCG/ACT NASAL SUSPENSION 2 sprays everyday MOMETASONE FUROATE 89808098933 Active CORAL Bocanegra Active HYDROCHLOROTHIAZIDE 25 MG ORAL TABLET 0.5 tablet by [facility] daily for blood pressure. HYDROCHLOROTHIAZIDE 24000145110 No Longe r Active Osbaldo Wilkes MD Active COLCHICINE 0.6 MG ORAL CAPSULE PRN FOR GOUT FLARE UPS COLCHICINE 70748495349 No Longer Active Osbaldo Wilkes MD Activ e ALLOPURINOL 100 MG ORAL TABLET Take 1 tab po x 7 days, then 2 times every day thereafter if tolerated. ALLOPURINOL 55377428680 No Longer Active Osbaldo Wilkes MD Active NASONEX 50 MCG/ACT NASAL SUSPENSION use 2 sprays in each nos tril qday MOMETASONE FUROATE 35276472955 No Longer Active Osbaldo valdez MD Active PREDNISONE 5 MG ORAL TABLET PREDNISONE 68895582454 No Longer Active Osbaldo Wilkes MD Active AZITHROMYCIN 250 MG ORAL TABLET 2 po qd x 1 day, then 1 po q d x 4 days AZITHROMYCIN 53199793545 No Longer Active CORAL Estrella Active SUDAFED 12 HOUR 120 MG ORAL TABLET EXTENDED RELEASE 12 HOUR 1 pill twice daily if needed for congestion PSEUDOEPHEDRINE HCL 02751185804 A ctive Mau Mcmahon MD Active MECLIZINE HCL 25 MG ORAL TABLET one 4 times a day as needed for dizziness MECLIZINE HCL 02217850515 No Longer Active Mau Mcmahon MD Active ZOFRAN 4 MG ORAL TABLET 1 po q6hr PRN Nausea 9 ONDANSETRON HCL 83544617212 No Longer Active Mau Mcmahon MD Acti ve PREDNISONE 5 MG ORAL TABLET Take 3 tabs po on the , decrease by 1 tablet every 3 days until off PREDNISONE 56113657563 No Longer Active Gilbert Amador MD Active CHERATUSSIN AC 100-10 MG/5ML ORAL SYRUP 1 tsp by mouth every 4 hours as needed for cough GUAIFENESIN-CODEINE 12237855862 No Longe r Active Gilbert Amador MD Active ZITHROMAX 250 MG ORAL TABLET 2 po today, then 1 po q days 2-5 20 23/10/22 AZITHROMYCIN 42510909639 No Longer Active Deirdre Arell DIRECTOR OPERATIONS Active CELEBREX 100 MG ORAL CAPSULE take 1 tab po BID for osteoarthriti s CELECOXIB 13400127614 No Longer Active Deirdre Arell DIRECTOR OPERATIONS A ctive OMEPRAZOLE 20 MG ORAL CAPSULE DELAYED RELEASE 1 tablet po in the am OMEPRAZOLE 11275673662 No Longer Active Deirdre Arell DIRECTOR OPERATIONS A ctive BACTRIM DS 800-160 MG ORAL TABLET 1 tab by mouth twice daily 201 12/08/14 TRIMETHOPRIM-SULFAMETHOXAZOLE 76266675753 No Longer Active Vincent Riddle APRN Active ZITHROMAX 1 GM ORAL PACKET DIR AZITHROMY ANALISA 87007560796 No Longer Active Deirdre Arell DIRECTOR OPERATIONS Active LEVAQUIN 500 MG ORAL TABLET 1 tablet by mouth daily 20 25/07/14 LEVOFLOXACIN 88300335141 No Longer Active Mau Mcmahon MD Acti ve HYDROCHLOROTHIAZIDE 25 MG ORAL TABLET 1 PO Q AM 201 10/16/21 HYDROCHLOROTHIAZIDE 91715546642 No Longer Active Ryne Cristina DO Ac tive SIMVASTATIN 20 MG ORAL TABLET 1 tablet po q hs SIMVASTATIN 15837832212 No Longer Active Ryne Cristina DO Active SIMVASTATIN 20 MG ORAL TABLET 1 tablet po q hs SIMVASTATIN 20 MG ORAL TABLET 648410 SIMVASTATIN Inactive HYDROCHLOROTHIAZIDE 25 MG ORAL TABLET 1 PO Q AM 201 10/16/21 HYDROCHLOROTHIAZIDE 25 MG ORAL TABLET 088846 HYDROCHLOROTHIAZIDE In active LEVAQUIN 500 MG ORAL TABLET 1 tablet by mouth daily 20 25/07/14 LEVAQUIN 500 MG ORAL TABLET 976523 LEVOFLOXACIN Inactive ZITHROMAX 1 GM ORAL PACKET DIR Z ITHROMAX 1 GM ORAL PACKET 624543 AZITHROMYCIN Inactive BACTRIM DS 800-160 MG ORAL TABLET 1 tab by mouth twice daily 201 12/08/14 BACTRIM DS 800-160 MG ORAL TABLET 399613 TRIMETHOPRIM-SULFAMETHOXAZOLE Inactive OMEPRAZOLE 20 MG ORAL CAPSULE DELAYED RELEASE 1 tablet po in the am OMEPRAZOLE 20 MG ORAL CAPSULE DELAYED RELEASE 672111 OM EPRAZOLE Inactive CELEBREX 100 MG ORAL CAPSULE take 1 tab po BID for osteoarthriti s CELEBREX 100 MG ORAL CAPSULE 014293 CELECOXIB Zohreh ctive CHERATUSSIN AC 100-10 MG/5ML ORAL SYRUP 1 tsp by mouth every 4 hours as needed for cough CHERATUSSIN AC 100-10 MG/5ML ORAL SYRUP 9 58517 GUAIFENESIN-CODEINE Inactive PREDNISONE 5 MG ORAL TABLET Take 3 tabs po on the , decrease by 1 tablet every 3 days until off PREDNISONE 5 MG OR AL TABLET 982114 PREDNISONE Inactive ZOFRAN 4 MG ORAL TABLET 1 po q6hr PRN Nausea 9 ZOFRAN 4 MG ORAL TABLET 101698 ONDANSETRON HCL Inactive MECLIZINE HCL 25 MG ORAL TABLET one 4 times a day as needed for dizziness MECLIZINE HCL 25 MG ORAL TABLET 071389 MECLIZINE HCL Inactive PREDNISONE 5 MG ORAL TABLET PREDNISO NE 5 MG ORAL TABLET 992181 PREDNISONE Inactive NASONEX 50 MCG/ACT NASAL SUSPENSION use 2 sprays in each nos tril qday NASONEX 50 MCG/ACT NASAL SUSPENSION 0263258 MOMET ASONE FUROATE Inactive ALLOPURINOL 100 MG ORAL TABLET Take 1 tab po x 7 days, then 2 times every day thereafter if tolerated. ALLOPURINOL 100 MG ORAL TABLET 914420 ALLOPURINOL Inactive COLCHICINE 0.6 MG ORAL CAPSULE PRN FOR GOUT FLARE UPS COLCHICINE 0.6 MG ORAL CAPSULE 3269870 COLCHICINE Inactive HYDROCHLOROTHIAZIDE 25 MG ORAL TABLET 0.5 tablet by [facility] daily for blood pressure. HYDROCHLOROTHIAZIDE 25 MG ORAL TABLET 310 798 HYDROCHLOROTHIAZIDE Inactive PREDNISONE 20 MG ORAL TABLET 2 daily for 3 days then 1 daily for 3 days PREDNISONE 20 MG ORAL TABLET 522365 PREDNISONE Inactive GUAIFENESIN-CODEINE 100-10 MG/5ML ORAL SYRUP 5ml every 4 to 6 hours as needed for cough GUAIFENESIN-CODEINE 100-10 MG/5M L ORAL SYRUP 033226 GUAIFENESIN-CODEINE Inactive ZITHROMAX 250 MG ORAL TABLET 2 po today, then 1 po q days 2-5 20 23/10/22 ZITHROMAX 250 MG ORAL TABLET 929531 AZITHROMYCIN Zohreh ctive AZITHROMYCIN 250 MG ORAL TABLET 2 po qd x 1 day, then 1 po q d x 4 days AZITHROMYCIN 250 MG ORAL TABLET 717361 AZITHROMY ANALISA Inactive PREDNISONE 20 MG ORAL TABLET 2 tabs daily for 3 days, 1 tab daily for 3 days, 1/2 tab daily for 2 days PREDNISONE 20 MG ORAL T ABLET 709068 PREDNISONE Inactive AMOXICILLIN 500 MG ORAL CAPSULE 1 cap by mouth three times a day AMOXICILLIN 500 MG ORAL CAPSULE 316342 AMOXICILLIN Inactive Vital Signs Date Name Value [...] d Encounters Code Encounter Date Provider Facility CPT-74097 Level 3 Est. Patient 16:31:32 PACK MASTER Mingo goss [facility] CPT-95547 [id number] Vst-Est Level III 13:57:28 PACK MASTER Mau Mcmahon MD [facility] CPT-83530 [id number] Vst-Est Level IV 15:44:27 C DT Mau Mcmahon MD [facility] CPT-65161 Level 4 Est. Patient 21:12:34 CDT Mau bailey MD [facility] CPT-32693 Level 3 Est. Patient 16:26:55 PACK MASTER Osbaldo Wilkes MD [facility] CPT-27094 Level 4 Est. Patient 12:43:27 CDT Mau bailey MD [facility] CPT-47233 Level 3 Est. Patient 16:46:20 CDT Gilbert Amador MD [facility] CPT-08527 Level 3 Est. Patient 09:03:26 CDT Deirdre carter [facility] CPT-62919 Level 4 Est. Patient 15:38:51 PACK MASTER Mau bailey MD [facility] CPT-14665 Level 4 Est. Patient 10:26:24 CDT Mau bailey MD [facility] CPT-13436 Level 3 Est. Patient 17:21:09 CDT Ryne Nina Sherry ornelas DO [facility] CPT-71590 Level 4 Est. Patient 09:22:16 CDT Mau bailey MD [facility] CPT-12375 Level 3 Est. Patient 08:55:02 PACK MASTER Mau bailey MD [facility] Procedures Code Procedure Name Date Entry Date Standard Desc ription CPT-LR Lesion Removal 21:12:34 CDT CPT-32699 EKG Trac and Interp - XRAY USE ONLY 1 5:52:34 CDT CPT-20533 Venipuncture Draw Fee 09:05:38 CDT CPT-61165 Uric Acid - LAB USE ONLY 09:05:38 CDT 03/10 CPT-12977 Sed Rate - LAB USE ONLY 09:05:38 CDT 03/10 CPT-62512 CMP - LAB USE ONLY 09:05:37 CDT CPT-45256 CBC - LAB USE ONLY 09:05:37 CDT CPT-J2930 Solu Medrol 125 mg (Methyl Prednisolone Sodium Succinate) 16:27:04 CDT CPT-76018 Abx/Therapy Injection 16:27:04 CDT CPT-J2930 Solu Medrol 125 mg (Methyl Prednisolone Sodium Succinate) 14:33:18 CDT
--- OUTSIDE RECORDS SUMMARY | 2019-11-22 08:21 | XMS REPORT | Clinical Summary ---
Author Author Admin, Volodymyr De Dios Organization [employer] Address Unknown Phone Unavailable Allergies, Adverse Reactions, [...] Obesity Class I (BMI 30-34.9) 278.00 Active 0 08/02 Mau Mcmahon MD Obesity, unspecified Ear [...] Generic Name NDC Status Provider Patient Instruction AMOXICILLIN 500 MG ORAL CAPSULE 1 cap by mouth three times a day AMOXICILLIN 34180790072 No Longer Active Mau Mcmahon MD Active PREDNISONE 20 MG ORAL TABLET 2 tabs daily for 3 days, 1 tab daily for 3 days, 1/2 tab daily for 2 days PREDNISONE 82481897024 No Longer Active Mau Mcmahon MD Active PANTOPRAZOLE SODIUM 40 MG ORAL TABLET DELAYED RELEASE 1 pill by mouth daily GERD PANTOPRAZOLE SODIUM 35590268815 Active Mau leonard MD Active GUAIFENESIN-CODEINE 100-10 MG/5ML ORAL SYRUP 5ml every 4 to 6 hours as needed for cough GUAIFENESIN-CODEINE 66483953814 No Longe r Active Mau Mcmahon MD Active PREDNISONE 20 MG ORAL TABLET 2 daily for 3 days then 1 daily for 3 days PREDNISONE 62061710184 No Longer Active Mau calderon MD Active COZAAR 50 MG ORAL TABLET 1 tab po twice daily for hypertensi on and gout LOSARTAN POTASSIUM 28134602081 Active Mau Dewey Active NASONEX 50 MCG/ACT NASAL SUSPENSION 2 sprays everyday MOMETASONE FUROATE 73074566900 Active CORAL Bocanegra Active HYDROCHLOROTHIAZIDE 25 MG ORAL TABLET 0.5 tablet by [facility] daily for blood pressure. HYDROCHLOROTHIAZIDE 72412293400 No Longe r Active Osbaldo Wilkes MD Active COLCHICINE 0.6 MG ORAL CAPSULE PRN FOR GOUT FLARE UPS COLCHICINE 68735000830 No Longer Active Osbaldo Wilkes MD Activ e ALLOPURINOL 100 MG ORAL TABLET Take 1 tab po x 7 days, then 2 times every day thereafter if tolerated. ALLOPURINOL 98232440280 No Longer Active Osbaldo Wilkes MD Active NASONEX 50 MCG/ACT NASAL SUSPENSION use 2 sprays in each nos tril qday MOMETASONE FUROATE 82818550967 No Longer Active Osbaldo valdez MD Active PREDNISONE 5 MG ORAL TABLET PREDNISONE 01696325006 No Longer Active Osbaldo Wilkes MD Active AZITHROMYCIN 250 MG ORAL TABLET 2 po qd x 1 day, then 1 po q d x 4 days AZITHROMYCIN 03406990685 No Longer Active CORAL Estrella Active SUDAFED 12 HOUR 120 MG ORAL TABLET EXTENDED RELEASE 12 HOUR 1 pill twice daily if needed for congestion PSEUDOEPHEDRINE HCL 86916194148 A ctive Mau Mcmahon MD Active MECLIZINE HCL 25 MG ORAL TABLET one 4 times a day as needed for dizziness MECLIZINE HCL 53871596692 No Longer Active Mau Mcmahon MD Active ZOFRAN 4 MG ORAL TABLET 1 po q6hr PRN Nausea 9 ONDANSETRON HCL 89928019276 No Longer Active Mau Mcmahon MD Acti ve PREDNISONE 5 MG ORAL TABLET Take 3 tabs po on the , decrease by 1 tablet every 3 days until off PREDNISONE 47180623798 No Longer Active Gilbert Amador MD Active CHERATUSSIN AC 100-10 MG/5ML ORAL SYRUP 1 tsp by mouth every 4 hours as needed for cough GUAIFENESIN-CODEINE 01410920128 No Longe r Active Gilbert Amador MD Active ZITHROMAX 250 MG ORAL TABLET 2 po today, then 1 po q days 2-5 20 23/10/22 AZITHROMYCIN 85422902184 No Longer Active Deirdre Arell LOADING DOCK HELPER Active CELEBREX 100 MG ORAL CAPSULE take 1 tab po BID for osteoarthriti s CELECOXIB 32840506412 No Longer Active Deirdre Arell LOADING DOCK HELPER A ctive OMEPRAZOLE 20 MG ORAL CAPSULE DELAYED RELEASE 1 tablet po in the am OMEPRAZOLE 65029984979 No Longer Active Deirdre Arell LOADING DOCK HELPER A ctive BACTRIM DS 800-160 MG ORAL TABLET 1 tab by mouth twice daily 201 12/08/14 TRIMETHOPRIM-SULFAMETHOXAZOLE 66468617502 No Longer Active M marsha Riddle APRN Active ZITHROMAX 1 GM ORAL PACKET DIR AZITHROMY ANALISA 78366631931 No Longer Active Deirdre Arell LOADING DOCK HELPER Active LEVAQUIN 500 MG ORAL TABLET 1 tablet by mouth daily 20 25/07/14 LEVOFLOXACIN 76193438960 No Longer Active Mau Mcmahon MD Acti ve HYDROCHLOROTHIAZIDE 25 MG ORAL TABLET 1 PO Q AM 201 10/16/21 HYDROCHLOROTHIAZIDE 53716931682 No Longer Active Ryne Cristina DO Ac tive SIMVASTATIN 20 MG ORAL TABLET 1 tablet po q hs SIMVASTATIN 14590360608 No Longer Active Ryne Cristina DO Active SIMVASTATIN 20 MG ORAL TABLET 1 tablet po q hs SIMVASTATIN 20 MG ORAL TABLET 781467 SIMVASTATIN Inactive HYDROCHLOROTHIAZIDE 25 MG ORAL TABLET 1 PO Q AM 201 10/16/21 HYDROCHLOROTHIAZIDE 25 MG ORAL TABLET 506742 HYDROCHLOROTHIAZIDE In active LEVAQUIN 500 MG ORAL TABLET 1 tablet by mouth daily 20 25/07/14 LEVAQUIN 500 MG ORAL TABLET 120445 LEVOFLOXACIN Inactive ZITHROMAX 1 GM ORAL PACKET DIR Z ITHROMAX 1 GM ORAL PACKET 319713 AZITHROMYCIN Inactive BACTRIM DS 800-160 MG ORAL TABLET 1 tab by mouth twice daily 201 12/08/14 BACTRIM DS 800-160 MG ORAL TABLET 340087 TRIMETHOPRIM-SULFAMETHOXAZOLE Inactive OMEPRAZOLE 20 MG ORAL CAPSULE DELAYED RELEASE 1 tablet po in the am OMEPRAZOLE 20 MG ORAL CAPSULE DELAYED RELEASE 054488 OM EPRAZOLE Inactive CELEBREX 100 MG ORAL CAPSULE take 1 tab po BID for osteoarthriti s CELEBREX 100 MG ORAL CAPSULE 789568 CELECOXIB [place] ctive CHERATUSSIN AC 100-10 MG/5ML ORAL SYRUP 1 tsp by mouth every 4 hours as needed for cough CHERATUSSIN AC 100-10 MG/5ML ORAL SYRUP 9 12010 GUAIFENESIN-CODEINE Inactive PREDNISONE 5 MG ORAL TABLET Take 3 tabs po on the , decrease by 1 tablet every 3 days until off PREDNISONE 5 MG OR AL TABLET 804728 PREDNISONE Inactive ZOFRAN 4 MG ORAL TABLET 1 po q6hr PRN Nausea 9 ZOFRAN 4 MG ORAL TABLET 404769 ONDANSETRON HCL Inactive MECLIZINE HCL 25 MG ORAL TABLET one 4 times a day as needed for dizziness MECLIZINE HCL 25 MG ORAL TABLET 215570 MECLIZINE HCL Inactive PREDNISONE 5 MG ORAL TABLET PREDNISO NE 5 MG ORAL TABLET 648464 PREDNISONE Inactive NASONEX 50 MCG/ACT NASAL SUSPENSION use 2 sprays in each nos tril qday NASONEX 50 MCG/ACT NASAL SUSPENSION 8446217 MOMET ASONE FUROATE Inactive ALLOPURINOL 100 MG ORAL TABLET Take 1 tab po x 7 days, then 2 times every day thereafter if tolerated. ALLOPURINOL 100 MG ORAL TABLET 938741 ALLOPURINOL Inactive COLCHICINE 0.6 MG ORAL CAPSULE PRN FOR GOUT FLARE UPS COLCHICINE 0.6 MG ORAL CAPSULE 7528552 COLCHICINE Inactive HYDROCHLOROTHIAZIDE 25 MG ORAL TABLET 0.5 tablet by [facility] daily for blood pressure. HYDROCHLOROTHIAZIDE 25 MG ORAL TABLET 310 798 HYDROCHLOROTHIAZIDE Inactive PREDNISONE 20 MG ORAL TABLET 2 daily for 3 days then 1 daily for 3 days PREDNISONE 20 MG ORAL TABLET 457860 PREDNISONE Inactive GUAIFENESIN-CODEINE 100-10 MG/5ML ORAL SYRUP 5ml every 4 to 6 hours as needed for cough GUAIFENESIN-CODEINE 100-10 MG/5M L ORAL SYRUP 614085 GUAIFENESIN-CODEINE Inactive ZITHROMAX 250 MG ORAL TABLET 2 po today, then 1 po q days 2-5 20 23/10/22 ZITHROMAX 250 MG ORAL TABLET 873500 AZITHROMYCIN Zohreh ctive AZITHROMYCIN 250 MG ORAL TABLET 2 po qd x 1 day, then 1 po q d x 4 days AZITHROMYCIN 250 MG ORAL TABLET 129092 AZITHROMY ANALISA Inactive PREDNISONE 20 MG ORAL TABLET 2 tabs daily for 3 days, 1 tab daily for 3 days, 1/2 tab daily for 2 days PREDNISONE 20 MG ORAL T ABLET 005811 PREDNISONE Inactive AMOXICILLIN 500 MG ORAL CAPSULE 1 cap by mouth three times a day AMOXICILLIN 500 MG ORAL CAPSULE 053425 AMOXICILLIN Inactive Vital Signs Date Name Value Unit Range Description blood pressure, diastolic 77 mm[Hg] BP santos blood pressure, systolic 131 mm[Hg] BP sys height E&M 70 [in_us] Bdy height pulse rate E&M 89 /min Heart rate temperature E&M 98.9 [degF] Body temp erature weight E&M 220.50 [lb_av] Weight Measure d blood pressure, diastolic 84 mm[Hg] BP santos blood pressure, systolic 141 mm[Hg] BP sys height E&M 70 [in_us] Bdy height pulse rate E&M 74 /min Heart rate temperature E&M 98.8 [degF] Body temp erature weight E&M 217 [lb_av] Weight Measure d Diagnostic Results Date Name Value Unit Range Description Lab Report: Comp. Metabolic Panel, CBC, MICROALB/CREAT W/RATIO - Chemistry sodium, serum 137 mmol/L 961-913 2799/09/17 carbon dioxide, venous blood 28.6 mmol/L 21.0-32 .0 potassium, serum 4.0 mmol/L 3.5-5.2 chloride, serum 102 mmol/L 98-107 blood glucose 96 mg/dL 65-95 urea nitrogen, blood 16 mg/dL 7-18 creatinine, serum 1.14 mg/dL 0.60-1.30 alanine aminotransferase (SGPT), serum 29 U/L 12-78 aspartate aminotransferase (SGOT), serum 18 U/L 15-37 alkaline phosphatase, serum 52 U/L 50-136 calcium, serum 9.0 mg/dL 8.5-10.1 bilirubin, serum, total 0.50 mg/dL 0.00-1.00 albumin/creatinine ratio, urine <30 mg/g Normal mg/g m g/g{creat} 0-29 Lab Report: Comp. Metabolic Panel, CBC, MICROALB/CREAT W/RATIO - Hematology leukocyte count, blood 9.9 10^3/MM^3 10*3/mm3 4.6-10.2 erythrocyte (RBC) count 4.85 10^6/MM^3 10*6/mm3 4.50-6.5 0 hemoglobin, blood 14.0 g/dL 14.0-18.0 hematocrit, blood 43.7 % 40.0-54.0 mean corpuscular volume, RBC 90 fL 80-97 mean corpuscular hemoglobin, RBC 28.8 pg 27. 0-31.2 mean corpuscular hemoglobin concentration, RBC 32.0 G/DL % 31.8-35.4 red blood cell distribution width 11.9 % 11 .6-14.8 platelet count 245 10^3/MM^3 10*3/mm3 142-424 Lab Report: Comp. Metabolic Panel, CBC, MICROALB/CREAT W/RATIO - Lab microalbumin, urine 10 mg/L 0-19 Encounters Code Encounter Date Provider Facility CPT-21394 [id number] Vst-Est Level III 13:57:28 MARKETING STRATEGY MANAGER Mau Mcmahon MD [facility]-79965 [id number] Vst-Est Level IV 15:44:27 C DT Mau Mcmahon MD [facility] CPT-25383 Level 4 Est. Patient 21:12:34 CDT Mau bailey MD [facility] CPT-60796 Level 3 Est. Patient 16:26:55 MARKETING STRATEGY MANAGER Osbaldo Wilkes MD [facility] CPT-28524 Level 4 Est. Patient 12:43:27 CDT Mau bailey MD [facility]-41593 Level 3 Est. Patient 16:46:20 CDT Gilbert Amador MD [facility] CPT-55732 Level 3 Est. Patient 09:03:26 CDT Deirdre carter APRN [facility] CPT-52790 Level 4 Est. Patient 15:38:51 MARKETING STRATEGY MANAGER Mau bailey MD [facility] CPT-03865 Level 4 Est. Patient 10:26:24 CDT Mau bailey MD [facility] CPT-95101 Level 3 Est. Patient 17:21:09 CDT Ryne ornelas DO [facility] CPT-67132 Level 4 Est. Patient 09:22:16 CDT Mau bailey MD [facility] CPT-94301 Level 3 Est. Patient 08:55:02 MARKETING STRATEGY MANAGER Mau bailey MD [facility] Procedures Code Procedure Name Date Entry Date Standard Desc ription CPT-LR Lesion Removal 21:12:34 CDT CPT-98022 EKG Trac and Interp - XRAY USE ONLY 1 5:52:34 CDT CPT-45624 Venipuncture Draw Fee 09:05:38 CDT CPT-70658 Uric Acid - LAB USE ONLY 09:05:38 CDT 03/10 CPT-69801 Sed Rate - LAB USE ONLY 09:05:38 CDT 03/10 CPT-81744 CMP - LAB USE ONLY 09:05:37 CDT CPT-86698 CBC - LAB USE ONLY 09:05:37 CDT CPT-J2930 Solu Medrol 125 mg (Methyl Prednisolone Sodium Succinate) 16:27:04 CDT CPT-40273 Abx/Therapy Injection 16:27:04 CDT CPT-J2930 Solu Medrol 125 mg (Methyl Prednisolone Sodium Succinate) 14:33:18 CDT
--- OUTSIDE RECORDS SUMMARY | 2019-11-22 08:21 | XMS REPORT | Clinical Summary ---
Author Author Admin, Volodymyr De Dios Organization [employer] Address Unknown Phone Unavailable Allergies, Adverse Reactions, [...] Generic Name NDC Status Provider Patient Instruction PANTOPRAZOLE 40MG TAKE 1 TABLET BY MOUTH DAILY FOR GERD PANTOPRAZOLE SODIUM [id number] Active Mau Mcmahon MD A ctive AMOXICILLIN 500 MG ORAL CAPSULE 1 cap by mouth three times a day AMOXICILLIN 78197168185 No Longer Active Mau Mcmahon MD Active PREDNISONE 20 MG ORAL TABLET 2 tabs daily for 3 days, 1 tab daily for 3 days, 1/2 tab daily for 2 days PREDNISONE 58678557234 No Longer Active Mau Mcmahon MD Active GUAIFENESIN-CODEINE 100-10 MG/5ML ORAL SYRUP 5ml every 4 to 6 hours as needed for cough GUAIFENESIN-CODEINE 04591567717 No Longe r Active Mau Mcmahon MD Active PREDNISONE 20 MG ORAL TABLET 2 daily for 3 days then 1 daily for 3 days PREDNISONE 53398047358 No Longer Active Mau calderon MD Active COZAAR 50 MG ORAL TABLET 1 tab po twice daily for hypertensi on and gout LOSARTAN POTASSIUM 33916284522 Active Mau Dewey Active NASONEX 50 MCG/ACT NASAL SUSPENSION 2 sprays everyday MOMETASONE FUROATE 66316132496 Active CORAL [place] Active HYDROCHLOROTHIAZIDE 25 MG ORAL TABLET 0.5 tablet by [facility] daily for blood pressure. HYDROCHLOROTHIAZIDE 98901685707 No Longe r Active Osbaldo Wilkes MD Active COLCHICINE 0.6 MG ORAL CAPSULE PRN FOR GOUT FLARE UPS COLCHICINE 37990569905 No Longer Active Osbaldo Wilkes MD Activ e ALLOPURINOL 100 MG ORAL TABLET Take 1 tab po x 7 days, then 2 times every day thereafter if tolerated. ALLOPURINOL 31198937373 No Longer Active Osbaldo Wilkes MD Active NASONEX 50 MCG/ACT NASAL SUSPENSION use 2 sprays in each nos tril qday MOMETASONE FUROATE 90594722763 No Longer Active Osbaldo valdez MD Active PREDNISONE 5 MG ORAL TABLET PREDNISONE 84221658140 No Longer Active Osbaldo Wilkes MD Active AZITHROMYCIN 250 MG ORAL TABLET 2 po qd x 1 day, then 1 po q d x 4 days AZITHROMYCIN 25543227824 No Longer Active CORAL Estrella Active SUDAFED 12 HOUR 120 MG ORAL TABLET EXTENDED RELEASE 12 HOUR 1 pill twice daily if needed for congestion PSEUDOEPHEDRINE HCL 27943333552 A ctive Mau Mcmahon MD Active MECLIZINE HCL 25 MG ORAL TABLET one 4 times a day as needed for dizziness MECLIZINE HCL 84700134971 No Longer Active Mau Mcmahon MD Active ZOFRAN 4 MG ORAL TABLET 1 po q6hr PRN Nausea 9 ONDANSETRON HCL 13964819116 No Longer Active Mau Mcmahon MD Acti ve PREDNISONE 5 MG ORAL TABLET Take 3 tabs po on the , decrease by 1 tablet every 3 days until off PREDNISONE 74331119868 No Longer Active Gilbert Amador MD Active CHERATUSSIN AC 100-10 MG/5ML ORAL SYRUP 1 tsp by mouth every 4 hours as needed for cough GUAIFENESIN-CODEINE 41243181346 No Longe r Active Gilbert Amador MD Active ZITHROMAX 250 MG ORAL TABLET 2 po today, then 1 po q days 2-5 20 23/10/22 AZITHROMYCIN 79359934932 No Longer Active Deirdre Riddle APPLICATION ARCHITECT Active CELEBREX 100 MG ORAL CAPSULE take 1 tab po BID for osteoarthriti s CELECOXIB 27401082651 No Longer Active Deirdre Arell APPLICATION ARCHITECT A ctive OMEPRAZOLE 20 MG ORAL CAPSULE DELAYED RELEASE 1 tablet po in the am OMEPRAZOLE 26448157504 No Longer Active Deirdre Riddle APRN A ctive BACTRIM DS 800-160 MG ORAL TABLET 1 tab by mouth twice daily 201 12/08/14 TRIMETHOPRIM-SULFAMETHOXAZOLE 34098004607 No Longer Active Vincent Riddle APRN Active ZITHROMAX 1 GM ORAL PACKET DIR AZITHROMY ANALISA 46501822909 No Longer Active Deirdre Riddle APRN Active LEVAQUIN 500 MG ORAL TABLET 1 tablet by mouth daily 20 25/07/14 LEVOFLOXACIN 08607731817 No Longer Active Mau Mcmahon MD Acti ve HYDROCHLOROTHIAZIDE 25 MG ORAL TABLET 1 PO Q AM 201 10/16/21 HYDROCHLOROTHIAZIDE 51429655032 No Longer Active Ryne Cristina DO Ac tive SIMVASTATIN 20 MG ORAL TABLET 1 tablet po q hs SIMVASTATIN 89392519288 No Longer Active Ryne Cristina DO Active SIMVASTATIN 20 MG ORAL TABLET 1 tablet po q hs SIMVASTATIN 20 MG ORAL TABLET 825548 SIMVASTATIN Inactive HYDROCHLOROTHIAZIDE 25 MG ORAL TABLET 1 PO Q AM 201 10/16/21 HYDROCHLOROTHIAZIDE 25 MG ORAL TABLET 014552 HYDROCHLOROTHIAZIDE In active LEVAQUIN 500 MG ORAL TABLET 1 tablet by mouth daily 20 25/07/14 LEVAQUIN 500 MG ORAL TABLET 719957 LEVOFLOXACIN Inactive ZITHROMAX 1 GM ORAL PACKET DIR Z ITHROMAX 1 GM ORAL PACKET 547740 AZITHROMYCIN Inactive BACTRIM DS 800-160 MG ORAL TABLET 1 tab by mouth twice daily 201 12/08/14 BACTRIM DS 800-160 MG ORAL TABLET 599654 TRIMETHOPRIM-SULFAMETHOXAZOLE Inactive OMEPRAZOLE 20 MG ORAL CAPSULE DELAYED RELEASE 1 tablet po in the am OMEPRAZOLE 20 MG ORAL CAPSULE DELAYED RELEASE 918897 OM EPRAZOLE Inactive CELEBREX 100 MG ORAL CAPSULE take 1 tab po BID for osteoarthriti s CELEBREX 100 MG ORAL CAPSULE 715919 CELECOXIB [place] ctive CHERATUSSIN AC 100-10 MG/5ML ORAL SYRUP 1 tsp by mouth every 4 hours as needed for cough CHERATUSSIN AC 100-10 MG/5ML ORAL SYRUP 9 29573 GUAIFENESIN-CODEINE Inactive PREDNISONE 5 MG ORAL TABLET Take 3 tabs po on the , decrease by 1 tablet every 3 days until off PREDNISONE 5 MG OR AL TABLET 526568 PREDNISONE Inactive ZOFRAN 4 MG ORAL TABLET 1 po q6hr PRN Nausea 9 ZOFRAN 4 MG ORAL TABLET 131936 ONDANSETRON HCL Inactive MECLIZINE HCL 25 MG ORAL TABLET one 4 times a day as needed for dizziness MECLIZINE HCL 25 MG ORAL TABLET 481926 MECLIZINE HCL Inactive PREDNISONE 5 MG ORAL TABLET PREDNISO NE 5 MG ORAL TABLET 856215 PREDNISONE Inactive NASONEX 50 MCG/ACT NASAL SUSPENSION use 2 sprays in each nos tril qday NASONEX 50 MCG/ACT NASAL SUSPENSION 2110905 MOMET ASONE FUROATE Inactive ALLOPURINOL 100 MG ORAL TABLET Take 1 tab po x 7 days, then 2 times every day thereafter if tolerated. ALLOPURINOL 100 MG ORAL TABLET 252288 ALLOPURINOL Inactive COLCHICINE 0.6 MG ORAL CAPSULE PRN FOR GOUT FLARE UPS COLCHICINE 0.6 MG ORAL CAPSULE 6707677 COLCHICINE Inactive HYDROCHLOROTHIAZIDE 25 MG ORAL TABLET 0.5 tablet by [facility] daily for blood pressure. HYDROCHLOROTHIAZIDE 25 MG ORAL TABLET 310 798 HYDROCHLOROTHIAZIDE Inactive PREDNISONE 20 MG ORAL TABLET 2 daily for 3 days then 1 daily for 3 days PREDNISONE 20 MG ORAL TABLET 889114 PREDNISONE Inactive GUAIFENESIN-CODEINE 100-10 MG/5ML ORAL SYRUP 5ml every 4 to 6 hours as needed for cough GUAIFENESIN-CODEINE 100-10 MG/5M L ORAL SYRUP 283028 GUAIFENESIN-CODEINE Inactive ZITHROMAX 250 MG ORAL TABLET 2 po today, then 1 po q days 2-5 20 23/10/22 ZITHROMAX 250 MG ORAL TABLET 670478 AZITHROMYCIN [place]re[place] ctive AZITHROMYCIN 250 MG ORAL TABLET 2 po qd x 1 day, then 1 po q d x 4 days AZITHROMYCIN 250 MG ORAL TABLET 594788 AZITHROMY ANALISA Inactive PREDNISONE 20 MG ORAL TABLET 2 tabs daily for 3 days, 1 tab daily for 3 days, 1/2 tab daily for 2 days PREDNISONE 20 MG ORAL T ABLET 439104 PREDNISONE Inactive AMOXICILLIN 500 MG ORAL CAPSULE 1 cap by mouth three times a day AMOXICILLIN 500 MG ORAL CAPSULE 351505 AMOXICILLIN Inactive Vital Signs Date Name Value Unit Range Description blood pressure, diastolic 77 mm[Hg] BP santos blood pressure, systolic 131 mm[Hg] BP sys height E&M 70 [in_us] Bdy height pulse rate E&M 89 /min Heart rate temperature E&M 98.9 [degF] Body temp erature weight E&M 220.50 [lb_av] Weight Measure d Encounters Code Encounter Date Provider Facility CPT-96497 [id number] Vst-Est Level III 13:57:28 BILLET SHEARER Mau Mcmahon MD [facility] CPT-80646 [id number] Vst-Est Level IV 15:44:27 C DT Mau Mcmahon MD [facility] CPT-21667 Level 4 Est. Patient 21:12:34 CDT Mau bailey MD [facility] CPT-26260 Level 3 Est. Patient 16:26:55 BILLET SHEARER Osbaldo Wilkes MD [facility] CPT-72545 Level 4 Est. Patient 12:43:27 CDT Mau bailey MD [facility] CPT-83328 Level 3 Est. Patient 16:46:20 CDT Gilbert Amador MD [facility] CPT-44809 Level 3 Est. Patient 09:03:26 CDT Deirdre carter APRN [facility] CPT-34922 Level 4 Est. Patient 15:38:51 BILLET SHEARER Mau bailey MD [facility] CPT-84856 Level 4 Est. Patient 10:26:24 CDT Mau bailey MD [facility] CPT-55970 Level 3 Est. Patient 17:21:09 CDT Ryne ornelas DO [facility] CPT-90300 Level 4 Est. Patient 09:22:16 CDT Mau bailey MD [facility] CPT-63492 Level 3 Est. Patient 08:55:02 BILLET SHEARER Mau bailey MD [facility] Procedures Code Procedure Name Date Entry Date Standard Desc ription CPT-LR Lesion Removal 21:12:34 CDT CPT-47742 EKG Trac and Interp - XRAY USE ONLY 1 5:52:34 CDT CPT-53094 Venipuncture Draw Fee 09:05:38 CDT CPT-02173 Uric Acid - LAB USE ONLY 09:05:38 CDT 03/10 CPT-01888 Sed Rate - LAB USE ONLY 09:05:38 CDT 03/10 CPT-51521 CMP - LAB USE ONLY 09:05:37 CDT CPT-18171 CBC - LAB USE ONLY 09:05:37 CDT CPT-J2930 Solu Medrol 125 mg (Methyl Prednisolone Sodium Succinate) 16:27:04 CDT CPT-23576 Abx/Therapy Injection 16:27:04 CDT CPT-J2930 Solu Medrol 125 mg (Methyl Prednisolone Sodium Succinate) 14:33:18 CDT
--- OUTSIDE RECORDS SUMMARY | 2019-11-22 08:22 | XMS REPORT | Clinical Summary ---
Author Author Admin, Volodymyr De Dios Organization [employer] Address Unknown Phone Unavailable Allergies, Adverse Reactions, [...] adult Allergic rhinitis, seasonal 477.0 Active Mau Mmcahon MD Allergic rhinitis due to pollen SINUSITIS, ACUTE 461.9 Active Mau Mcmahon MD Acute sinusitis, unspecified Pneumonia, right lower lobe ICD-486 Inactive Osbaldo [...] for Prophylaxis ICD-V04.81 8 Inactive Fiorella Justin SEASONAL ALLERGIC RHINITIS ICD-477.9 Inactive Mau Mcmahon MD Medication List Medication Instructions Start Date Stop Date Generic Name NDC Status Provider Patient Instruction AMOXICILLIN 500 MG ORAL CAPSULE 1 cap by mouth three times a day AMOXICILLIN 83321706503 Active Mau Mcmahon MD Act katina PREDNISONE 20 MG ORAL TABLET 2 tabs daily for 3 days, 1 tab daily for 3 days, 1/2 tab daily for 2 days PREDNISONE 46999508260 Active Mau Mcmahon MD Active PANTOPRAZOLE SODIUM 40 MG ORAL TABLET DELAYED RELEASE 1 pill by mouth daily GERD PANTOPRAZOLE SODIUM 37258700343 Active Mau leonard MD Active GUAIFENESIN-CODEINE 100-10 MG/5ML ORAL SYRUP 5ml every 4 to 6 hours as needed for cough GUAIFENESIN-CODEINE 60484787219 No Longe r Active Mau Mcmahon MD Active PREDNISONE 20 MG ORAL TABLET 2 daily for 3 days then 1 daily for 3 days PREDNISONE 63877099329 No Longer Active Mau calderon MD Active COZAAR 50 MG ORAL TABLET 1 tab po twice daily for hypertensi on and gout LOSARTAN POTASSIUM 45098449806 Active Mau Dewey Active NASONEX 50 MCG/ACT NASAL SUSPENSION 2 sprays everyday MOMETASONE FUROATE 62717665764 Active Mau Mcmahon MD Active HYDROCHLOROTHIAZIDE 25 MG ORAL TABLET 0.5 tablet by [facility] daily for blood pressure. HYDROCHLOROTHIAZIDE 19428575261 No Longe r Active Osbaldo Wilkes MD Active COLCHICINE 0.6 MG ORAL CAPSULE PRN FOR GOUT FLARE UPS COLCHICINE 90618280670 No Longer Active Osbaldo Wilkes MD Activ e ALLOPURINOL 100 MG ORAL TABLET Take 1 tab po x 7 days, then 2 times every day thereafter if tolerated. ALLOPURINOL 38346175972 No Longer Active Osbaldo Wilkes MD Active NASONEX 50 MCG/ACT NASAL SUSPENSION use 2 sprays in each nos tril qday MOMETASONE FUROATE 37357544786 No Longer Active Osbaldo valdez MD Active PREDNISONE 5 MG ORAL TABLET PREDNISONE 04119938885 No Longer Active Osbaldo Wilkes MD Active AZITHROMYCIN 250 MG ORAL TABLET 2 po qd x 1 day, then 1 po q d x 4 days AZITHROMYCIN 14594307405 No Longer Active Pavithra Mora Active SUDAFED 12 HOUR 120 MG ORAL TABLET EXTENDED RELEASE 12 HOUR 1 pill twice daily if needed for congestion PSEUDOEPHEDRINE HCL 91330010612 A ctive Mau Mcmahon MD Active MECLIZINE HCL 25 MG ORAL TABLET one 4 times a day as needed for dizziness MECLIZINE HCL 76350443246 No Longer Active Mau Mcmahon MD Active ZOFRAN 4 MG ORAL TABLET 1 po q6hr PRN Nausea 9 ONDANSETRON HCL 80604071168 No Longer Active Mau Mcmahon MD Acti ve PREDNISONE 5 MG ORAL TABLET Take 3 tabs po on the , decrease by 1 tablet every 3 days until off PREDNISONE 31032324308 No Longer Active Gilbert Amador MD Active CHERATUSSIN AC 100-10 MG/5ML ORAL SYRUP 1 tsp by mouth every 4 hours as needed for cough GUAIFENESIN-CODEINE 49961325104 No Longe r Active Gilbert Amador MD Active ZITHROMAX 250 MG ORAL TABLET 2 po today, then 1 po q days 2-5 20 23/10/22 AZITHROMYCIN 18123021231 No Longer Active Deirdre Arell SOW FARM TECHNICIAN Active CELEBREX 100 MG ORAL CAPSULE take 1 tab po BID for osteoarthriti s CELECOXIB 20296150681 No Longer Active Deirdre Arell SOW FARM TECHNICIAN A ctive OMEPRAZOLE 20 MG ORAL CAPSULE DELAYED RELEASE 1 tablet po in the am OMEPRAZOLE 09647617199 No Longer Active Deirdre Arell SOW FARM TECHNICIAN A ctive BACTRIM DS 800-160 MG ORAL TABLET 1 tab by mouth twice daily 201 12/08/14 TRIMETHOPRIM-SULFAMETHOXAZOLE 67619235568 No Longer Active Vincent Riddle APRN Active ZITHROMAX 1 GM ORAL PACKET DIR AZITHROMY ANALISA 05341786540 No Longer Active Deirdre Arell SOW FARM TECHNICIAN Active LEVAQUIN 500 MG ORAL TABLET 1 tablet by mouth daily 20 25/07/14 LEVOFLOXACIN 74232146147 No Longer Active Mau Mcmahon MD Acti ve HYDROCHLOROTHIAZIDE 25 MG ORAL TABLET 1 PO Q AM 201 10/16/21 HYDROCHLOROTHIAZIDE 58445222401 No Longer Active Ryne Cristina DO Ac tive SIMVASTATIN 20 MG ORAL TABLET 1 tablet po q hs SIMVASTATIN 60913535184 No Longer Active Ryne Cristina DO Active SIMVASTATIN 20 MG ORAL TABLET 1 tablet po q hs SIMVASTATIN 20 MG ORAL TABLET 102481 SIMVASTATIN Inactive HYDROCHLOROTHIAZIDE 25 MG ORAL TABLET 1 PO Q AM 201 10/16/21 HYDROCHLOROTHIAZIDE 25 MG ORAL TABLET 104129 HYDROCHLOROTHIAZIDE In active LEVAQUIN 500 MG ORAL TABLET 1 tablet by mouth daily 20 25/07/14 LEVAQUIN 500 MG ORAL TABLET 848197 LEVOFLOXACIN Inactive ZITHROMAX 1 GM ORAL PACKET DIR Z ITHROMAX 1 GM ORAL PACKET 267485 AZITHROMYCIN Inactive BACTRIM DS 800-160 MG ORAL TABLET 1 tab by mouth twice daily 201 12/08/14 BACTRIM DS 800-160 MG ORAL TABLET 142853 TRIMETHOPRIM-SULFAMETHOXAZOLE Inactive OMEPRAZOLE 20 MG ORAL CAPSULE DELAYED RELEASE 1 tablet po in the am OMEPRAZOLE 20 MG ORAL CAPSULE DELAYED RELEASE 215225 OM EPRAZOLE Inactive CELEBREX 100 MG ORAL CAPSULE take 1 tab po BID for osteoarthriti s CELEBREX 100 MG ORAL CAPSULE 645701 CELECOXIB [place] ctive CHERATUSSIN AC 100-10 MG/5ML ORAL SYRUP 1 tsp by mouth every 4 hours as needed for cough CHERATUSSIN AC 100-10 MG/5ML ORAL SYRUP 9 62653 GUAIFENESIN-CODEINE Inactive PREDNISONE 5 MG ORAL TABLET Take 3 tabs po on the , decrease by 1 tablet every 3 days until off PREDNISONE 5 MG OR AL TABLET 787024 PREDNISONE Inactive ZOFRAN 4 MG ORAL TABLET 1 po q6hr PRN Nausea 9 ZOFRAN 4 MG ORAL TABLET 632725 ONDANSETRON HCL Inactive MECLIZINE HCL 25 MG ORAL TABLET one 4 times a day as needed for dizziness MECLIZINE HCL 25 MG ORAL TABLET 339422 MECLIZINE HCL Inactive PREDNISONE 5 MG ORAL TABLET PREDNISO NE 5 MG ORAL TABLET 213463 PREDNISONE Inactive NASONEX 50 MCG/ACT NASAL SUSPENSION use 2 sprays in each nos tril qday NASONEX 50 MCG/ACT NASAL SUSPENSION 1533059 MOMET ASONE FUROATE Inactive ALLOPURINOL 100 MG ORAL TABLET Take 1 tab po x 7 days, then 2 times every day thereafter if tolerated. ALLOPURINOL 100 MG ORAL TABLET 667160 ALLOPURINOL Inactive COLCHICINE 0.6 MG ORAL CAPSULE PRN FOR GOUT FLARE UPS COLCHICINE 0.6 MG ORAL CAPSULE 4029788 COLCHICINE Inactive HYDROCHLOROTHIAZIDE 25 MG ORAL TABLET 0.5 tablet by [facility] daily for blood pressure. HYDROCHLOROTHIAZIDE 25 MG ORAL TABLET 310 798 HYDROCHLOROTHIAZIDE Inactive PREDNISONE 20 MG ORAL TABLET 2 daily for 3 days then 1 daily for 3 days PREDNISONE 20 MG ORAL TABLET 893767 PREDNISONE Inactive GUAIFENESIN-CODEINE 100-10 MG/5ML ORAL SYRUP 5ml every 4 to 6 hours as needed for cough GUAIFENESIN-CODEINE 100-10 MG/5M L ORAL SYRUP 364565 GUAIFENESIN-CODEINE Inactive ZITHROMAX 250 MG ORAL TABLET 2 po today, then 1 po q days 2-5 20 23/10/22 ZITHROMAX 250 MG ORAL TABLET 378649 AZITHROMYCIN [place] ctive AZITHROMYCIN 250 MG ORAL TABLET 2 po qd x 1 day, then 1 po q d x 4 days AZITHROMYCIN 250 MG ORAL TABLET 929963 AZITHROMY ANALISA Inactive Vital Signs Date Name Value Unit [...] Metabolic Panel, CBC, MICROALB/CREAT W/RATIO - Chemistry urea nitrogen, blood 16 mg/dL 7-18 creatinine, serum 1.14 mg/dL 0.60-1.30 alanine aminotransferase (SGPT), serum 29 U/L 12-78 aspartate aminotransferase (SGOT), serum 18 U/L 15-37 alkaline phosphatase, serum 52 U/L 50-136 calcium, serum 9.0 mg/dL 8.5-10.1 bilirubin, serum, total 0.50 mg/dL 0.00-1.00 albumin/creatinine ratio, urine <30 mg/g Normal mg/g m g/g{creat} 0-29 blood glucose 96 mg/dL 65-95 chloride, serum 102 mmol/L 98-107 potassium, serum 4.0 mmol/L 3.5-5.2 carbon dioxide, venous blood 28.6 mmol/L 21.0-32 .0 sodium, serum 137 mmol/L 136-145 Lab Report: Comp. Metabolic Panel, CBC, MICROALB/CREAT [...] 0-19 Encounters Code Encounter Date Provider Facility CPT-08097 [id number] Vst-Est Level III 13:57:28 IT COMMUNICATIONS SPECIALIST Mau Mcmahon MD [facility]-99376 [id number] Vst-Est Level IV 15:44:27 C DT Mau Mcmahon MD [facility] CPT-93702 Level 4 Est. Patient 21:12:34 CDT Mau bailey MD [facility] CPT-66209 Level 3 Est. Patient 16:26:55 IT COMMUNICATIONS SPECIALIST Osbaldo Wilkes MD [facility] CPT-25439 Level 4 Est. Patient 12:43:27 CDT Mau bailey MD [facility] CPT-38252 Level 3 Est. Patient 16:46:20 CDT Gilbert Amador MD [facility] CPT-72601 Level 3 Est. Patient 09:03:26 CDT Deirdre carter APRN [facility] CPT-21948 Level 4 Est. Patient 15:38:51 IT COMMUNICATIONS SPECIALIST Mau bailey MD [facility] CPT-61772 Level 4 Est. Patient 10:26:24 CDT Mau bailey MD [facility] CPT-88368 Level 3 Est. Patient 17:21:09 CDT Ryne ornelas DO [facility] CPT-05495 Level 4 Est. Patient 09:22:16 CDT Mau bailey MD [facility] CPT-66146 Level 3 Est. Patient 08:55:02 IT COMMUNICATIONS SPECIALIST Mau bailey MD [facility] Procedures Code Procedure Name Date Entry Date Standard Desc ription CPT-LR Lesion Removal 21:12:34 CDT CPT-57091 EKG Trac and Interp - XRAY USE ONLY 1 5:52:34 CDT CPT-41840 Venipuncture Draw Fee 09:05:38 CDT CPT-67161 Uric Acid - LAB USE ONLY 09:05:38 CDT 03/10 CPT-90419 Sed Rate - LAB USE ONLY 09:05:38 CDT 03/10 CPT-21373 CMP - LAB USE ONLY 09:05:37 CDT CPT-13090 CBC - LAB USE ONLY 09:05:37 CDT CPT-J2930 Solu Medrol 125 mg (Methyl Prednisolone Sodium Succinate) 16:27:04 CDT CPT-66635 Abx/Therapy Injection 16:27:04 CDT CPT-J2930 Solu Medrol 125 mg (Methyl Prednisolone Sodium Succinate) 14:33:18 CDT
--- OUTSIDE RECORDS SUMMARY | 2019-11-22 08:22 | XMS REPORT | Clinical Summary ---
Author Author Admin, Volodymyr De Dios Organization [employer] Address Unknown Phone Unavailable Allergies, Adverse Reactions, [...] Active Mau Mcmahon MD Acute sinusitis, unspecified SEASONAL [...] for Prophylaxis ICD-V04.81 8 Inactive Fiorella Justin Medication List Medication Instructions Start Date Stop Date Generic Name NDC Status Provider Patient Instruction AMOXICILLIN 500 MG ORAL CAPSULE 1 cap by mouth three times a day AMOXICILLIN [id number] Active Mau Mcmahon MD Act katina PREDNISONE 20 MG ORAL TABLET 2 tabs daily for 3 days, 1 tab daily for 3 days, 1/2 tab daily for 2 days PREDNISONE 34232508840 Active Mau Mcmahon MD Active PANTOPRAZOLE SODIUM 40 MG ORAL TABLET DELAYED RELEASE 1 pill by mouth daily GERD PANTOPRAZOLE SODIUM 58351526143 Active Mau leonard MD Active GUAIFENESIN-CODEINE 100-10 MG/5ML ORAL SYRUP 5ml every 4 to 6 hours as needed for cough GUAIFENESIN-CODEINE 80189705561 No Longe r Active Mau Mcmahon MD Active PREDNISONE 20 MG ORAL TABLET 2 daily for 3 days then 1 daily for 3 days PREDNISONE 14981057602 No Longer Active Mau calderon MD Active COZAAR 50 MG ORAL TABLET 1 tab po twice daily for hypertensi on and gout LOSARTAN POTASSIUM 42830423008 Active Mau Dewey Active NASONEX 50 MCG/ACT NASAL SUSPENSION 2 sprays everyday MOMETASONE FUROATE 84047429498 Active Mau Mcmahon MD Active HYDROCHLOROTHIAZIDE 25 MG ORAL TABLET 0.5 tablet by [facility] daily for blood pressure. HYDROCHLOROTHIAZIDE 48930364557 No Longe r Active Osbaldo Wilkes MD Active COLCHICINE 0.6 MG ORAL CAPSULE PRN FOR GOUT FLARE UPS COLCHICINE 53676381305 No Longer Active Osbaldo Wilkes MD Activ e ALLOPURINOL 100 MG ORAL TABLET Take 1 tab po x 7 days, then 2 times every day thereafter if tolerated. ALLOPURINOL 37839096896 No Longer Active Osbaldo Wilkes MD Active NASONEX 50 MCG/ACT NASAL SUSPENSION use 2 sprays in each nos tril qday MOMETASONE FUROATE 11117709024 No Longer Active Osbaldo valdez MD Active PREDNISONE 5 MG ORAL TABLET PREDNISONE 58210238607 No Longer Active Osbaldo Wilkes MD Active AZITHROMYCIN 250 MG ORAL TABLET 2 po qd x 1 day, then 1 po q d x 4 days AZITHROMYCIN 14770285116 No Longer Active Pavithra Mora Active SUDAFED 12 HOUR 120 MG ORAL TABLET EXTENDED RELEASE 12 HOUR 1 pill twice daily if needed for congestion PSEUDOEPHEDRINE HCL 31596553175 A ctive Mau Mcmahon MD Active MECLIZINE HCL 25 MG ORAL TABLET one 4 times a day as needed for dizziness MECLIZINE HCL 10540566877 No Longer Active Mau Mcmahon MD Active ZOFRAN 4 MG ORAL TABLET 1 po q6hr PRN Nausea 9 ONDANSETRON HCL 67865441764 No Longer Active Mau Mcmahon MD Acti ve PREDNISONE 5 MG ORAL TABLET Take 3 tabs po on the , decrease by 1 tablet every 3 days until off PREDNISONE 61154456336 No Longer Active Gilbert Amador MD Active CHERATUSSIN AC 100-10 MG/5ML ORAL SYRUP 1 tsp by mouth every 4 hours as needed for cough GUAIFENESIN-CODEINE 20037747755 No Longe r Active Gilbert Amador MD Active ZITHROMAX 250 MG ORAL TABLET 2 po today, then 1 po q days 2-5 20 23/10/22 AZITHROMYCIN 70239622487 No Longer Active Deirdre Arell [employer]CIAL LINES UNDERWRITER Active CELEBREX 100 MG ORAL CAPSULE take 1 tab po BID for osteoarthriti s CELECOXIB 28474560128 No Longer Active Deirdre Arell [employer]ERCIAL [employer]ES UNDERWRITER A ctive OMEPRAZOLE 20 MG ORAL CAPSULE DELAYED RELEASE 1 tablet po in the am OMEPRAZOLE 34092320563 No Longer Active Deirdre Arell COMMERCIAL LINES UNDERWRITER A ctive BACTRIM DS 800-160 MG ORAL TABLET 1 tab by mouth twice daily 201 12/08/14 TRIMETHOPRIM-SULFAMETHOXAZOLE 61888294955 No Longer Active Vincent Riddle APRN Active ZITHROMAX 1 GM ORAL PACKET DIR AZITHROMY ANALISA 12547819871 No Longer Active Deirdre Arell COMMERCIAL LINES UNDERWRITER Active LEVAQUIN 500 MG ORAL TABLET 1 tablet by mouth daily 20 25/07/14 LEVOFLOXACIN 01118498541 No Longer Active Mau Mcmahon MD Acti ve HYDROCHLOROTHIAZIDE 25 MG ORAL TABLET 1 PO Q AM 201 10/16/21 HYDROCHLOROTHIAZIDE 43080477483 No Longer Active Ryne Cristina DO Ac tive SIMVASTATIN 20 MG ORAL TABLET 1 tablet po q hs SIMVASTATIN 30740778798 No Longer Active Ryne Cristina DO Active SIMVASTATIN 20 MG ORAL TABLET 1 tablet po q hs SIMVASTATIN 20 MG ORAL TABLET 591518 SIMVASTATIN Inactive HYDROCHLOROTHIAZIDE 25 MG ORAL TABLET 1 PO Q AM 201 10/16/21 HYDROCHLOROTHIAZIDE 25 MG ORAL TABLET 747971 HYDROCHLOROTHIAZIDE In active LEVAQUIN 500 MG ORAL TABLET 1 tablet by mouth daily 20 25/07/14 LEVAQUIN 500 MG ORAL TABLET 333541 LEVOFLOXACIN Inactive ZITHROMAX 1 GM ORAL PACKET DIR Z ITHROMAX 1 GM ORAL PACKET 495127 AZITHROMYCIN Inactive BACTRIM DS 800-160 MG ORAL TABLET 1 tab by mouth twice daily 201 12/08/14 BACTRIM DS 800-160 MG ORAL TABLET 771621 TRIMETHOPRIM-SULFAMETHOXAZOLE Inactive OMEPRAZOLE 20 MG ORAL CAPSULE DELAYED RELEASE 1 tablet po in the am OMEPRAZOLE 20 MG ORAL CAPSULE DELAYED RELEASE 481778 OM EPRAZOLE Inactive CELEBREX 100 MG ORAL CAPSULE take 1 tab po BID for osteoarthriti s CELEBREX 100 MG ORAL CAPSULE 281597 CELECOXIB [place] ctive CHERATUSSIN AC 100-10 MG/5ML ORAL SYRUP 1 tsp by mouth every 4 hours as needed for cough CHERATUSSIN AC 100-10 MG/5ML ORAL SYRUP 9 33965 GUAIFENESIN-CODEINE Inactive PREDNISONE 5 MG ORAL TABLET Take 3 tabs po on the , decrease by 1 tablet every 3 days until off PREDNISONE 5 MG OR AL TABLET 305346 PREDNISONE Inactive ZOFRAN 4 MG ORAL TABLET 1 po q6hr PRN Nausea 9 ZOFRAN 4 MG ORAL TABLET 671269 ONDANSETRON HCL Inactive MECLIZINE HCL 25 MG ORAL TABLET one 4 times a day as needed for dizziness MECLIZINE HCL 25 MG ORAL TABLET 441871 MECLIZINE HCL Inactive PREDNISONE 5 MG ORAL TABLET PREDNISO NE 5 MG ORAL TABLET 877906 PREDNISONE Inactive NASONEX 50 MCG/ACT NASAL SUSPENSION use 2 sprays in each nos tril qday NASONEX 50 MCG/ACT NASAL SUSPENSION 8488247 MOMET ASONE FUROATE Inactive ALLOPURINOL 100 MG ORAL TABLET Take 1 tab po x 7 days, then 2 times every day thereafter if tolerated. ALLOPURINOL 100 MG ORAL TABLET 696170 ALLOPURINOL Inactive COLCHICINE 0.6 MG ORAL CAPSULE PRN FOR GOUT FLARE UPS COLCHICINE 0.6 MG ORAL CAPSULE 2327748 COLCHICINE Inactive HYDROCHLOROTHIAZIDE 25 MG ORAL TABLET 0.5 tablet by [facility] daily for blood pressure. HYDROCHLOROTHIAZIDE 25 MG ORAL TABLET 310 798 HYDROCHLOROTHIAZIDE Inactive PREDNISONE 20 MG ORAL TABLET 2 daily for 3 days then 1 daily for 3 days PREDNISONE 20 MG ORAL TABLET 636016 PREDNISONE Inactive GUAIFENESIN-CODEINE 100-10 MG/5ML ORAL SYRUP 5ml every 4 to 6 hours as needed for cough GUAIFENESIN-CODEINE 100-10 MG/5M L ORAL SYRUP 104047 GUAIFENESIN-CODEINE Inactive ZITHROMAX 250 MG ORAL TABLET 2 po today, then 1 po q days 2-5 20 23/10/22 ZITHROMAX 250 MG ORAL TABLET 254387 AZITHROMYCIN [place] ctive AZITHROMYCIN 250 MG ORAL TABLET 2 po qd x 1 day, then 1 po q d x 4 days AZITHROMYCIN 250 MG ORAL TABLET 572111 AZITHROMY ANALISA Inactive Vital Signs Date Name [...] W/RATIO - Chemistry sodium, serum 137 mmol/L 199-519 5886/09/17 carbon dioxide, venous blood 28.6 mmol/L 21.0-32 [...] 0-19 Encounters Code Encounter Date Provider Facility CPT-[id number] Vst-Est Level III 13:57:28 PRESS LOADER Mau Mcmahon MD [facility]-91734 [id number] Vst-Est Level IV 15:44:27 C DT Mau Mcmahon MD [facility] CPT-49925 Level 4 Est. Patient 21:12:34 CDT Mau bailey MD [facility] CPT-68695 Level 3 Est. Patient 16:26:55 PRESS LOADER Osbaldo Wilkes MD [facility] CPT-54455 Level 4 Est. Patient 12:43:27 CDT Mau bailey MD [facility] CPT-08946 Level 3 Est. Patient 16:46:20 CDT Gilbert Amador MD [facility] CPT-04975 Level 3 Est. Patient 09:03:26 CDT Deirdre carter APRN [facility] CPT-76777 Level 4 Est. Patient 15:38:51 PRESS LOADER Mau bailey MD [facility] CPT-73463 Level 4 Est. Patient 10:26:24 CDT Mau bailey MD [facility] CPT-55022 Level 3 Est. Patient 17:21:09 CDT Ryne ornelas DO [facility] CPT-22250 Level 4 Est. Patient 09:22:16 CDT Mau bailey MD [facility] CPT-21455 Level 3 Est. Patient 08:55:02 PRESS LOADER Mau bailey MD [facility] Procedures Code Procedure Name Date Entry Date Standard Desc ription CPT-LR Lesion Removal 21:12:34 CDT CPT-73429 EKG Trac and Interp - XRAY USE ONLY 1 5:52:34 CDT CPT-49994 Venipuncture Draw Fee 09:05:38 CDT CPT-12891 Uric Acid - LAB USE ONLY 09:05:38 CDT 03/10 CPT-13092 Sed Rate - LAB USE ONLY 09:05:38 CDT 03/10 CPT-13051 CMP - LAB USE ONLY 09:05:37 CDT CPT-88571 CBC - LAB USE ONLY 09:05:37 CDT CPT-J2930 Solu Medrol 125 mg (Methyl Prednisolone Sodium Succinate) 16:27:04 CDT CPT-98118 Abx/Therapy Injection 16:27:04 CDT CPT-J2930 Solu Medrol 125 mg (Methyl Prednisolone Sodium Succinate) 14:33:18 CDT
--- OUTSIDE RECORDS SUMMARY | 2019-11-22 08:22 | XMS REPORT | Clinical Summary ---
Author Author Admin, Volodymyr De Dios Organization [employer] Address Unknown Phone Unavailable Allergies, Adverse Reactions, [...] by mouth three times a day AMOXICILLIN 83954947656 No Longer Active Mau Mcmahon MD Active PREDNISONE 20 MG ORAL TABLET 2 tabs daily for 3 days, 1 tab daily for 3 days, 1/2 tab daily for 2 days PREDNISONE 67024381007 No Longer Active Mau Mcmahon MD Active PANTOPRAZOLE SODIUM 40 MG ORAL TABLET DELAYED RELEASE 1 pill by mouth daily GERD PANTOPRAZOLE SODIUM 89858472697 Active Mau leonard MD Active GUAIFENESIN-CODEINE 100-10 MG/5ML ORAL SYRUP 5ml every 4 to 6 hours as needed for cough GUAIFENESIN-CODEINE 86473742070 No Longe r Active Mau Mcmahon MD Active PREDNISONE 20 MG ORAL TABLET 2 daily for 3 days then 1 daily for 3 days PREDNISONE 98086990686 No Longer Active Mau calderon MD Active COZAAR 50 MG ORAL TABLET 1 tab po twice daily for hypertensi on and gout LOSARTAN POTASSIUM 24909931477 Active Mau Dewey Active NASONEX 50 MCG/ACT NASAL SUSPENSION 2 sprays everyday MOMETASONE FUROATE 98965913882 Active Mau Mcmahon MD Active HYDROCHLOROTHIAZIDE 25 MG ORAL TABLET 0.5 tablet by [facility] daily for blood pressure. HYDROCHLOROTHIAZIDE 78467765429 No Longe r Active Osbaldo Wilkes MD Active COLCHICINE 0.6 MG ORAL CAPSULE PRN FOR GOUT FLARE UPS COLCHICINE 51681036742 No Longer Active Osbaldo Wilkes MD Activ e ALLOPURINOL 100 MG ORAL TABLET Take 1 tab po x 7 days, then 2 times every day thereafter if tolerated. ALLOPURINOL 36473255276 No Longer Active Osbaldo Wilkes MD Active NASONEX 50 MCG/ACT NASAL SUSPENSION use 2 sprays in each nos tril qday MOMETASONE FUROATE 52902267609 No Longer Active Osbaldo valdez MD Active PREDNISONE 5 MG ORAL TABLET PREDNISONE 97435349652 No Longer Active Osbaldo Wilkes MD Active AZITHROMYCIN 250 MG ORAL TABLET 2 po qd x 1 day, then 1 po q d x 4 days AZITHROMYCIN 10705740141 No Longer Active CORAL Estrella Active SUDAFED 12 HOUR 120 MG ORAL TABLET EXTENDED RELEASE 12 HOUR 1 pill twice daily if needed for congestion PSEUDOEPHEDRINE HCL 40254657674 A ctive Mau Mcmahon MD Active MECLIZINE HCL 25 MG ORAL TABLET one 4 times a day as needed for dizziness MECLIZINE HCL 58207376706 No Longer Active Mau Mcmahon MD Active ZOFRAN 4 MG ORAL TABLET 1 po q6hr PRN Nausea 9 ONDANSETRON HCL 18311590528 No Longer Active Mau Mcmahon MD Acti ve PREDNISONE 5 MG ORAL TABLET Take 3 tabs po on the , decrease by 1 tablet every 3 days until off PREDNISONE 58928492540 No Longer Active Gilbert Amador MD Active CHERATUSSIN AC 100-10 MG/5ML ORAL SYRUP 1 tsp by mouth every 4 hours as needed for cough GUAIFENESIN-CODEINE 30898896343 No Longe r Active Gilbert Amador MD Active ZITHROMAX 250 MG ORAL TABLET 2 po today, then 1 po q days 2-5 20 23/10/22 AZITHROMYCIN 21965942634 No Longer Active Deirdre Arell CELL PLASTERER Active CELEBREX 100 MG ORAL CAPSULE take 1 tab po BID for osteoarthriti s CELECOXIB 66017126484 No Longer Active Deirdre Arell CELL PLASTERER A ctive OMEPRAZOLE 20 MG ORAL CAPSULE DELAYED RELEASE 1 tablet po in the am OMEPRAZOLE 98334521579 No Longer Active Deirdre Arell CELL PLASTERER A ctive BACTRIM DS 800-160 MG ORAL TABLET 1 tab by mouth twice daily 201 12/08/14 TRIMETHOPRIM-SULFAMETHOXAZOLE 83391366839 No Longer Active Vincent Riddle APRN Active ZITHROMAX 1 GM ORAL PACKET DIR AZITHROMY ANALISA 12839480604 No Longer Active Deirdre Arell CELL PLASTERER Active LEVAQUIN 500 MG ORAL TABLET 1 tablet by mouth daily 20 25/07/14 LEVOFLOXACIN 41299326703 No Longer Active Mau Mcmahon MD Acti ve HYDROCHLOROTHIAZIDE 25 MG ORAL TABLET 1 PO Q AM 201 10/16/21 HYDROCHLOROTHIAZIDE 44190683191 No Longer Active Ryne Cristina DO Ac tive SIMVASTATIN 20 MG ORAL TABLET 1 tablet po q hs SIMVASTATIN 43424481288 No Longer Active Ryne Cristina DO Active SIMVASTATIN 20 MG ORAL TABLET 1 tablet po q hs SIMVASTATIN 20 MG ORAL TABLET 141446 SIMVASTATIN Inactive HYDROCHLOROTHIAZIDE 25 MG ORAL TABLET 1 PO Q AM 201 10/16/21 HYDROCHLOROTHIAZIDE 25 MG ORAL TABLET 085931 HYDROCHLOROTHIAZIDE In active LEVAQUIN 500 MG ORAL TABLET 1 tablet by mouth daily 20 25/07/14 LEVAQUIN 500 MG ORAL TABLET 129965 LEVOFLOXACIN Inactive ZITHROMAX 1 GM ORAL PACKET DIR Z ITHROMAX 1 GM ORAL PACKET 664862 AZITHROMYCIN Inactive BACTRIM DS 800-160 MG ORAL TABLET 1 tab by mouth twice daily 201 12/08/14 BACTRIM DS 800-160 MG ORAL TABLET 992329 TRIMETHOPRIM-SULFAMETHOXAZOLE Inactive OMEPRAZOLE 20 MG ORAL CAPSULE DELAYED RELEASE 1 tablet po in the am OMEPRAZOLE 20 MG ORAL CAPSULE DELAYED RELEASE 912251 OM EPRAZOLE Inactive CELEBREX 100 MG ORAL CAPSULE take 1 tab po BID for osteoarthriti s CELEBREX 100 MG ORAL CAPSULE 377528 CELECOXIB Blanket ctive CHERATUSSIN AC 100-10 MG/5ML ORAL SYRUP 1 tsp by mouth every 4 hours as needed for cough CHERATUSSIN AC 100-10 MG/5ML ORAL SYRUP 9 60785 GUAIFENESIN-CODEINE Inactive PREDNISONE 5 MG ORAL TABLET Take 3 tabs po on the , decrease by 1 tablet every 3 days until off PREDNISONE 5 MG OR AL TABLET 013029 PREDNISONE Inactive ZOFRAN 4 MG ORAL TABLET 1 po q6hr PRN Nausea 9 ZOFRAN 4 MG ORAL TABLET 661788 ONDANSETRON HCL Inactive MECLIZINE HCL 25 MG ORAL TABLET one 4 times a day as needed for dizziness MECLIZINE HCL 25 MG ORAL TABLET 824776 MECLIZINE HCL Inactive PREDNISONE 5 MG ORAL TABLET PREDNISO NE 5 MG ORAL TABLET 615705 PREDNISONE Inactive NASONEX 50 MCG/ACT NASAL SUSPENSION use 2 sprays in each nos tril qday NASONEX 50 MCG/ACT NASAL SUSPENSION 6231982 MOMET ASONE FUROATE Inactive ALLOPURINOL 100 MG ORAL TABLET Take 1 tab po x 7 days, then 2 times every day thereafter if tolerated. ALLOPURINOL 100 MG ORAL TABLET 433673 ALLOPURINOL Inactive COLCHICINE 0.6 MG ORAL CAPSULE PRN FOR GOUT FLARE UPS COLCHICINE 0.6 MG ORAL CAPSULE 3442459 COLCHICINE Inactive HYDROCHLOROTHIAZIDE 25 MG ORAL TABLET 0.5 tablet by mo uth daily for blood pressure. HYDROCHLOROTHIAZIDE 25 MG ORAL TABLET 310 798 HYDROCHLOROTHIAZIDE Inactive PREDNISONE 20 MG ORAL TABLET 2 daily for 3 days then 1 daily for 3 days PREDNISONE 20 MG ORAL TABLET 554090 PREDNISONE Inactive GUAIFENESIN-CODEINE 100-10 MG/5ML ORAL SYRUP 5ml every 4 to 6 hours as needed for cough GUAIFENESIN-CODEINE 100-10 MG/5M L ORAL SYRUP 314073 GUAIFENESIN-CODEINE Inactive ZITHROMAX 250 MG ORAL TABLET 2 po today, then 1 po q days 2-5 20 23/10/22 ZITHROMAX 250 MG ORAL TABLET 937033 AZITHROMYCIN Blanket ctive AZITHROMYCIN 250 MG ORAL TABLET 2 po qd x 1 day, then 1 po q d x 4 days AZITHROMYCIN 250 MG ORAL TABLET 094220 AZITHROMY ANALISA Inactive PREDNISONE 20 MG ORAL TABLET 2 tabs daily for 3 days, 1 tab daily for 3 days, 1/2 tab daily for 2 days PREDNISONE 20 MG ORAL T ABLET 455828 PREDNISONE Inactive AMOXICILLIN 500 MG ORAL CAPSULE 1 cap by mouth three times a day AMOXICILLIN 500 MG ORAL CAPSULE 293977 AMOXICILLIN Inactive Vital Signs Date Name Value [...] W/RATIO - Chemistry sodium, serum 137 mmol/L 551-152 8240/09/17 carbon dioxide, venous blood 28.6 mmol/L 21.0-32 [...] 0-19 Encounters Code Encounter Date Provider Facility CPT-25097 [id number] Vst-Est Level III 13:57:28 LEGAL ADVISER Mau Mcmahon MD [facility]-36207 [id number] Vst-Est Level IV 15:44:27 C DT Mau Mcmahon MD [facility]-29154 Level 4 Est. Patient 21:12:34 CDT Mau bailey MD [facility] CPT-13496 Level 3 Est. Patient 16:26:55 LEGAL ADVISER Osbaldo Wilkes MD [facility] CPT-89636 Level 4 Est. Patient 12:43:27 CDT Mau bailey MD [facility] CPT-81084 Level 3 Est. Patient 16:46:20 CDT Gilbert Amador MD [facility]-49326 Level 3 Est. Patient 09:03:26 CDT Deirdre carter APRN [facility] CPT-13318 Level 4 Est. Patient 15:38:51 LEGAL ADVISER Mau bailey MD [facility] CPT-78730 Level 4 Est. Patient 10:26:24 CDT Mau bailey MD [facility] CPT-41162 Level 3 Est. Patient 17:21:09 CDT Ryne ornelas DO [facility] CPT-31623 Level 4 Est. Patient 09:22:16 CDT Mau bailey MD [facility] CPT-70803 Level 3 Est. Patient 08:55:02 LEGAL ADVISER Mau bailey MD [facility] Procedures Code Procedure Name Date Entry Date Standard Desc ription CPT-LR Lesion Removal 21:12:34 CDT CPT-81857 EKG Trac and Interp - XRAY USE ONLY 1 5:52:34 CDT CPT-97017 Venipuncture Draw Fee 09:05:38 CDT CPT-60422 Uric Acid - LAB USE ONLY 09:05:38 CDT 03/10 CPT-07202 Sed Rate - LAB USE ONLY 09:05:38 CDT 03/10 CPT-07972 CMP - LAB USE ONLY 09:05:37 CDT CPT-46935 CBC - LAB USE ONLY 09:05:37 CDT CPT-J2930 Solu Medrol 125 mg (Methyl Prednisolone Sodium Succinate) 16:27:04 CDT CPT-19715 Abx/Therapy Injection 16:27:04 CDT CPT-J2930 Solu Medrol 125 mg (Methyl Prednisolone Sodium Succinate) 14:33:18 CDT
--- OUTSIDE RECORDS SUMMARY | 2019-11-22 08:22 | XMS REPORT | Clinical Summary ---
Author Author Admin, Volodymyr De Dios Organization [employer] Address Unknown Phone Unavailable Allergies, Adverse Reactions, [...] by mouth three times a day AMOXICILLIN [id number] No Longer Active Mau Mcmahon MD Active PREDNISONE 20 MG ORAL TABLET 2 tabs daily for 3 days, 1 tab daily for 3 days, 1/2 tab daily for 2 days PREDNISONE 64756929444 No Longer Active Mau Mcmahon MD Active PANTOPRAZOLE SODIUM 40 MG ORAL TABLET DELAYED RELEASE 1 pill by mouth daily GERD PANTOPRAZOLE SODIUM 20385697514 Active Mau leonard MD Active GUAIFENESIN-CODEINE 100-10 MG/5ML ORAL SYRUP 5ml every 4 to 6 hours as needed for cough GUAIFENESIN-CODEINE 43742238107 No Longe r Active Mau Mcmahon MD Active PREDNISONE 20 MG ORAL TABLET 2 daily for 3 days then 1 daily for 3 days PREDNISONE 67126527116 No Longer Active Mau calderon MD Active COZAAR 50 MG ORAL TABLET 1 tab po twice daily for hypertensi on and gout LOSARTAN POTASSIUM 31879312518 Active Mau Dewey Active NASONEX 50 MCG/ACT NASAL SUSPENSION 2 sprays everyday MOMETASONE FUROATE 19284589380 Active CORAL Bocanegra Active HYDROCHLOROTHIAZIDE 25 MG ORAL TABLET 0.5 tablet by [facility] daily for blood pressure. HYDROCHLOROTHIAZIDE 35995173971 No Longe r Active Osbaldo Wilkes MD Active COLCHICINE 0.6 MG ORAL CAPSULE PRN FOR GOUT FLARE UPS COLCHICINE 28772162202 No Longer Active Osbaldo Wilkes MD Activ e ALLOPURINOL 100 MG ORAL TABLET Take 1 tab po x 7 days, then 2 times every day thereafter if tolerated. ALLOPURINOL 46992033398 No Longer Active Osbaldo Wilkes MD Active NASONEX 50 MCG/ACT NASAL SUSPENSION use 2 sprays in each nos tril qday MOMETASONE FUROATE 90610546876 No Longer Active Osbaldo valdez MD Active PREDNISONE 5 MG ORAL TABLET PREDNISONE 52208921491 No Longer Active Osbaldo Wilkes MD Active AZITHROMYCIN 250 MG ORAL TABLET 2 po qd x 1 day, then 1 po q d x 4 days AZITHROMYCIN 18490780876 No Longer Active CORAL Estrella Active SUDAFED 12 HOUR 120 MG ORAL TABLET EXTENDED RELEASE 12 HOUR 1 pill twice daily if needed for congestion PSEUDOEPHEDRINE HCL 80709376930 A ctive Mau Mcmahon MD Active MECLIZINE HCL 25 MG ORAL TABLET one 4 times a day as needed for dizziness MECLIZINE HCL 85501869518 No Longer Active Mau Mcmahon MD Active ZOFRAN 4 MG ORAL TABLET 1 po q6hr PRN Nausea 9 ONDANSETRON HCL 10033252850 No Longer Active Mau Mcmahon MD Acti ve PREDNISONE 5 MG ORAL TABLET Take 3 tabs po on the , decrease by 1 tablet every 3 days until off PREDNISONE 23572936645 No Longer Active Gilbert Amador MD Active CHERATUSSIN AC 100-10 MG/5ML ORAL SYRUP 1 tsp by mouth every 4 hours as needed for cough GUAIFENESIN-CODEINE 49688580815 No Longe r Active Gilbert Amador MD Active ZITHROMAX 250 MG ORAL TABLET 2 po today, then 1 po q days 2-5 20 23/10/22 AZITHROMYCIN 79769762953 No Longer Active Deirdre Arell CENTRAL OFFICE SUPERVISOR Active CELEBREX 100 MG ORAL CAPSULE take 1 tab po BID for osteoarthriti s CELECOXIB 43361298066 No Longer Active Deirdre Arell CENTRAL OFFICE SUPERVISOR A ctive OMEPRAZOLE 20 MG ORAL CAPSULE DELAYED RELEASE 1 tablet po in the am OMEPRAZOLE 78833450080 No Longer Active Deirdre Arell CENTRAL OFFICE SUPERVISOR A ctive BACTRIM DS 800-160 MG ORAL TABLET 1 tab by mouth twice daily 201 12/08/14 TRIMETHOPRIM-SULFAMETHOXAZOLE 35322058195 No Longer Active M marsha Riddle APRN Active ZITHROMAX 1 GM ORAL PACKET DIR AZITHROMY ANALISA 44840233435 No Longer Active Deirdre Arell CENTRAL OFFICE SUPERVISOR Active LEVAQUIN 500 MG ORAL TABLET 1 tablet by mouth daily 20 25/07/14 LEVOFLOXACIN 48030536946 No Longer Active Mau Mcmahon MD Acti ve HYDROCHLOROTHIAZIDE 25 MG ORAL TABLET 1 PO Q AM 201 10/16/21 HYDROCHLOROTHIAZIDE 76562145212 No Longer Active Ryne Cristina DO Ac tive SIMVASTATIN 20 MG ORAL TABLET 1 tablet po q hs SIMVASTATIN 16180402773 No Longer Active Ryne Cristina DO Active SIMVASTATIN 20 MG ORAL TABLET 1 tablet po q hs SIMVASTATIN 20 MG ORAL TABLET 153798 SIMVASTATIN Inactive HYDROCHLOROTHIAZIDE 25 MG ORAL TABLET 1 PO Q AM 201 10/16/21 HYDROCHLOROTHIAZIDE 25 MG ORAL TABLET 440264 HYDROCHLOROTHIAZIDE In active LEVAQUIN 500 MG ORAL TABLET 1 tablet by mouth daily 20 25/07/14 LEVAQUIN 500 MG ORAL TABLET 536311 LEVOFLOXACIN Inactive ZITHROMAX 1 GM ORAL PACKET DIR Z ITHROMAX 1 GM ORAL PACKET 055063 AZITHROMYCIN Inactive BACTRIM DS 800-160 MG ORAL TABLET 1 tab by mouth twice daily 201 12/08/14 BACTRIM DS 800-160 MG ORAL TABLET 589647 TRIMETHOPRIM-SULFAMETHOXAZOLE Inactive OMEPRAZOLE 20 MG ORAL CAPSULE DELAYED RELEASE 1 tablet po in the am OMEPRAZOLE 20 MG ORAL CAPSULE DELAYED RELEASE 383372 OM EPRAZOLE Inactive CELEBREX 100 MG ORAL CAPSULE take 1 tab po BID for osteoarthriti s CELEBREX 100 MG ORAL CAPSULE 818784 CELECOXIB [place] ctive CHERATUSSIN AC 100-10 MG/5ML ORAL SYRUP 1 tsp by mouth every 4 hours as needed for cough CHERATUSSIN AC 100-10 MG/5ML ORAL SYRUP 9 77742 GUAIFENESIN-CODEINE Inactive PREDNISONE 5 MG ORAL TABLET Take 3 tabs po on the , decrease by 1 tablet every 3 days until off PREDNISONE 5 MG OR AL TABLET 302123 PREDNISONE Inactive ZOFRAN 4 MG ORAL TABLET 1 po q6hr PRN Nausea 9 ZOFRAN 4 MG ORAL TABLET 675427 ONDANSETRON HCL Inactive MECLIZINE HCL 25 MG ORAL TABLET one 4 times a day as needed for dizziness MECLIZINE HCL 25 MG ORAL TABLET 515477 MECLIZINE HCL Inactive PREDNISONE 5 MG ORAL TABLET PREDNISO NE 5 MG ORAL TABLET 692167 PREDNISONE Inactive NASONEX 50 MCG/ACT NASAL SUSPENSION use 2 sprays in each nos tril qday NASONEX 50 MCG/ACT NASAL SUSPENSION 5227792 MOMET ASONE FUROATE Inactive ALLOPURINOL 100 MG ORAL TABLET Take 1 tab po x 7 days, then 2 times every day thereafter if tolerated. ALLOPURINOL 100 MG ORAL TABLET 924593 ALLOPURINOL Inactive COLCHICINE 0.6 MG ORAL CAPSULE PRN FOR GOUT FLARE UPS COLCHICINE 0.6 MG ORAL CAPSULE 3047035 COLCHICINE Inactive HYDROCHLOROTHIAZIDE 25 MG ORAL TABLET 0.5 tablet by mo [facility] daily for blood pressure. HYDROCHLOROTHIAZIDE 25 MG ORAL TABLET 310 798 HYDROCHLOROTHIAZIDE Inactive PREDNISONE 20 MG ORAL TABLET 2 daily for 3 days then 1 daily for 3 days PREDNISONE 20 MG ORAL TABLET 241536 PREDNISONE Inactive GUAIFENESIN-CODEINE 100-10 MG/5ML ORAL SYRUP 5ml every 4 to 6 hours as needed for cough GUAIFENESIN-CODEINE 100-10 MG/5M L ORAL SYRUP 747051 GUAIFENESIN-CODEINE Inactive ZITHROMAX 250 MG ORAL TABLET 2 po today, then 1 po q days 2-5 20 23/10/22 ZITHROMAX 250 MG ORAL TABLET 786498 AZITHROMYCIN Zohre[place] ctive AZITHROMYCIN 250 MG ORAL TABLET 2 po qd x 1 day, then 1 po q d x 4 days AZITHROMYCIN 250 MG ORAL TABLET 621288 AZITHROMY ANALISA Inactive PREDNISONE 20 MG ORAL TABLET 2 tabs daily for 3 days, 1 tab daily for 3 days, 1/2 tab daily for 2 days PREDNISONE 20 MG ORAL T ABLET 135349 PREDNISONE Inactive AMOXICILLIN 500 MG ORAL CAPSULE 1 cap by mouth three times a day AMOXICILLIN 500 MG ORAL CAPSULE 323358 AMOXICILLIN Inactive Vital Signs Date Name Value [...] W/RATIO - Chemistry sodium, serum 137 mmol/L 985-087 0502/09/17 carbon dioxide, venous blood 28.6 mmol/L 21.0-32 [...] 0-19 Encounters Code Encounter Date Provider Facility CPT-36475 [id number] Vst-Est Level III 13:57:28 MATERIAL PREPARATION WORKER Mau Mcmahon MD [facility]-31099 [id number] Vst-Est Level IV 15:44:27 C DT Mau Mcmahon MD [facility] CPT-85093 Level 4 Est. Patient 21:12:34 CDT Mau bailey MD [facility] CPT-84731 Level 3 Est. Patient 16:26:55 MATERIAL PREPARATION WORKER Osbaldo Wilkes MD [facility] CPT-38241 Level 4 Est. Patient 12:43:27 CDT Mau bailey MD [facility]-54711 Level 3 Est. Patient 16:46:20 CDT Gilbert Amador MD [facility] CPT-14009 Level 3 Est. Patient 09:03:26 CDT Deirdre carter APRN [facility] CPT-65348 Level 4 Est. Patient 15:38:51 MATERIAL PREPARATION WORKER Mau bailey MD [facility] CPT-37641 Level 4 Est. Patient 10:26:24 CDT Mau bailey MD [facility] CPT-18464 Level 3 Est. Patient 17:21:09 CDT Ryne ornelas DO [facility] CPT-89915 Level 4 Est. Patient 09:22:16 CDT Mau bailey MD [facility] CPT-68688 Level 3 Est. Patient 08:55:02 MATERIAL PREPARATION WORKER Mau bailey MD [facility] Procedures Code Procedure Name Date Entry Date Standard Desc ription CPT-LR Lesion Removal 21:12:34 CDT CPT-14238 EKG Trac and Interp - XRAY USE ONLY 1 5:52:34 CDT CPT-12121 Venipuncture Draw Fee 09:05:38 CDT CPT-66545 Uric Acid - LAB USE ONLY 09:05:38 CDT 03/10 CPT-78051 Sed Rate - LAB USE ONLY 09:05:38 CDT 03/10 CPT-54870 CMP - LAB USE ONLY 09:05:37 CDT CPT-28090 CBC - LAB USE ONLY 09:05:37 CDT CPT-J2930 Solu Medrol 125 mg (Methyl Prednisolone Sodium Succinate) 16:27:04 CDT CPT-73522 Abx/Therapy Injection 16:27:04 CDT CPT-J2930 Solu Medrol 125 mg (Methyl Prednisolone Sodium Succinate) 14:33:18 CDT
--- OUTSIDE RECORDS SUMMARY | 2019-11-22 08:22 | XMS REPORT | Clinical Summary ---
Author Author Admin, Volodymyr De Dios Organization [employer] Address Unknown Phone Unavailable Allergies, Adverse Reactions, [...] by mouth three times a day AMOXICILLIN 96047186796 Active Mau Mcmahon MD Act [place] PREDNISONE 20 MG ORAL TABLET 2 tabs daily for 3 days, 1 tab daily for 3 days, 1/2 tab daily for 2 days PREDNISONE 29252843937 Active Mau Mcmahon MD Active PANTOPRAZOLE SODIUM 40 MG ORAL TABLET DELAYED RELEASE 1 pill by mouth daily GERD PANTOPRAZOLE SODIUM 19778068628 Active Mau leonard MD Active GUAIFENESIN-CODEINE 100-10 MG/5ML ORAL SYRUP 5ml every 4 to 6 hours as needed for cough GUAIFENESIN-CODEINE 94872195281 No Longe r Active Mau Mcmahon MD Active PREDNISONE 20 MG ORAL TABLET 2 daily for 3 days then 1 daily for 3 days PREDNISONE 15891489789 No Longer Active Mau calderon MD Active COZAAR 50 MG ORAL TABLET 1 tab po twice daily for hypertensi on and gout LOSARTAN POTASSIUM 55835863242 Active Mau Dewey Active NASONEX 50 MCG/ACT NASAL SUSPENSION 2 sprays everyday MOMETASONE FUROATE 13179550493 Active Mau Mcmahon MD Active HYDROCHLOROTHIAZIDE 25 MG ORAL TABLET 0.5 tablet by [facility] daily for blood pressure. HYDROCHLOROTHIAZIDE 64464805102 No Longe r Active Osbaldo Wilkes MD Active COLCHICINE 0.6 MG ORAL CAPSULE PRN FOR GOUT FLARE UPS COLCHICINE 45904916642 No Longer Active Osbaldo Wilkes MD Activ e ALLOPURINOL 100 MG ORAL TABLET Take 1 tab po x 7 days, then 2 times every day thereafter if tolerated. ALLOPURINOL 24300195229 No Longer Active Osbaldo Wilkes MD Active NASONEX 50 MCG/ACT NASAL SUSPENSION use 2 sprays in each nos tril qday MOMETASONE FUROATE 42189365076 No Longer Active Osbaldo valdez MD Active PREDNISONE 5 MG ORAL TABLET PREDNISONE 31285037489 No Longer Active Osbaldo Wilkes MD Active AZITHROMYCIN 250 MG ORAL TABLET 2 po qd x 1 day, then 1 po q d x 4 days AZITHROMYCIN 22497185516 No Longer Active CORAL Estrella Active SUDAFED 12 HOUR 120 MG ORAL TABLET EXTENDED RELEASE 12 HOUR 1 pill twice daily if needed for congestion PSEUDOEPHEDRINE HCL 77413819940 A ctive Mau Mcmahon MD Active MECLIZINE HCL 25 MG ORAL TABLET one 4 times a day as needed for dizziness MECLIZINE HCL 77046456399 No Longer Active Mau Mcmahon MD Active ZOFRAN 4 MG ORAL TABLET 1 po q6hr PRN Nausea 9 ONDANSETRON HCL 45653406213 No Longer Active Mau Mcmahon MD Acti ve PREDNISONE 5 MG ORAL TABLET Take 3 tabs po on the , decrease by 1 tablet every 3 days until off PREDNISONE 02528688823 No Longer Active Gilbert Amador MD Active CHERATUSSIN AC 100-10 MG/5ML ORAL SYRUP 1 tsp by mouth every 4 hours as needed for cough GUAIFENESIN-CODEINE 44487346990 No Longe r Active Gilbert Amador MD Active ZITHROMAX 250 MG ORAL TABLET 2 po today, then 1 po q days 2-5 20 23/10/22 AZITHROMYCIN 65143624501 No Longer Active Deirdre Arell STATEMENT PROCESSOR Active CELEBREX 100 MG ORAL CAPSULE take 1 tab po BID for osteoarthriti s CELECOXIB 57935559382 No Longer Active Deirdre Arell STATEMENT PROCESSOR A ctive OMEPRAZOLE 20 MG ORAL CAPSULE DELAYED RELEASE 1 tablet po in the am OMEPRAZOLE 83608348698 No Longer Active Deirdre Arell STATEMENT PROCESSOR A ctive BACTRIM DS 800-160 MG ORAL TABLET 1 tab by mouth twice daily 201 12/08/14 TRIMETHOPRIM-SULFAMETHOXAZOLE 36375732794 No Longer Active Vincent Riddle APRN Active ZITHROMAX 1 GM ORAL PACKET DIR AZITHROMY ANALISA 02212223996 No Longer Active Deirdre Arell STATEMENT PROCESSOR Active LEVAQUIN 500 MG ORAL TABLET 1 tablet by mouth daily 20 25/07/14 LEVOFLOXACIN 80867277275 No Longer Active Mau Mcmahon MD Acti ve HYDROCHLOROTHIAZIDE 25 MG ORAL TABLET 1 PO Q AM 201 10/16/21 HYDROCHLOROTHIAZIDE 32817588156 No Longer Active Ryne Cristina DO Ac tive SIMVASTATIN 20 MG ORAL TABLET 1 tablet po q hs SIMVASTATIN 79112562488 No Longer Active Ryne Cristina DO Active SIMVASTATIN 20 MG ORAL TABLET 1 tablet po q hs SIMVASTATIN 20 MG ORAL TABLET 933234 SIMVASTATIN Inactive HYDROCHLOROTHIAZIDE 25 MG ORAL TABLET 1 PO Q AM 201 10/16/21 HYDROCHLOROTHIAZIDE 25 MG ORAL TABLET 432693 HYDROCHLOROTHIAZIDE In active LEVAQUIN 500 MG ORAL TABLET 1 tablet by mouth daily 20 25/07/14 LEVAQUIN 500 MG ORAL TABLET 940071 LEVOFLOXACIN Inactive ZITHROMAX 1 GM ORAL PACKET DIR Z ITHROMAX 1 GM ORAL PACKET 508693 AZITHROMYCIN Inactive BACTRIM DS 800-160 MG ORAL TABLET 1 tab by mouth twice daily 201 12/08/14 BACTRIM DS 800-160 MG ORAL TABLET 304036 TRIMETHOPRIM-SULFAMETHOXAZOLE Inactive OMEPRAZOLE 20 MG ORAL CAPSULE DELAYED RELEASE 1 tablet po in the am OMEPRAZOLE 20 MG ORAL CAPSULE DELAYED RELEASE 311956 OM EPRAZOLE Inactive CELEBREX 100 MG ORAL CAPSULE take 1 tab po BID for osteoarthriti s CELEBREX 100 MG ORAL CAPSULE 820128 CELECOXIB Zohreh ctive CHERATUSSIN AC 100-10 MG/5ML ORAL SYRUP 1 tsp by mouth every 4 hours as needed for cough CHERATUSSIN AC 100-10 MG/5ML ORAL SYRUP 9 96959 GUAIFENESIN-CODEINE Inactive PREDNISONE 5 MG ORAL TABLET Take 3 tabs po on the , decrease by 1 tablet every 3 days until off PREDNISONE 5 MG OR AL TABLET 467245 PREDNISONE Inactive ZOFRAN 4 MG ORAL TABLET 1 po q6hr PRN Nausea 9 ZOFRAN 4 MG ORAL TABLET 014238 ONDANSETRON HCL Inactive MECLIZINE HCL 25 MG ORAL TABLET one 4 times a day as needed for dizziness MECLIZINE HCL 25 MG ORAL TABLET 257330 MECLIZINE HCL Inactive PREDNISONE 5 MG ORAL TABLET PREDNISO NE 5 MG ORAL TABLET 514984 PREDNISONE Inactive NASONEX 50 MCG/ACT NASAL SUSPENSION use 2 sprays in each nos tril qday NASONEX 50 MCG/ACT NASAL SUSPENSION 4890252 MOMET ASONE FUROATE Inactive ALLOPURINOL 100 MG ORAL TABLET Take 1 tab po x 7 days, then 2 times every day thereafter if tolerated. ALLOPURINOL 100 MG ORAL TABLET 344148 ALLOPURINOL Inactive COLCHICINE 0.6 MG ORAL CAPSULE PRN FOR GOUT FLARE UPS COLCHICINE 0.6 MG ORAL CAPSULE 5324315 COLCHICINE Inactive HYDROCHLOROTHIAZIDE 25 MG ORAL TABLET 0.5 tablet by [facility] daily for blood pressure. HYDROCHLOROTHIAZIDE 25 MG ORAL TABLET 310 798 HYDROCHLOROTHIAZIDE Inactive PREDNISONE 20 MG ORAL TABLET 2 daily for 3 days then 1 daily for 3 days PREDNISONE 20 MG ORAL TABLET 521268 PREDNISONE Inactive GUAIFENESIN-CODEINE 100-10 MG/5ML ORAL SYRUP 5ml every 4 to 6 hours as needed for cough GUAIFENESIN-CODEINE 100-10 MG/5M L ORAL SYRUP 754883 GUAIFENESIN-CODEINE Inactive ZITHROMAX 250 MG ORAL TABLET 2 po today, then 1 po q days 2-5 20 23/10/22 ZITHROMAX 250 MG ORAL TABLET 725290 AZITHROMYCIN [place] ctive AZITHROMYCIN 250 MG ORAL TABLET 2 po qd x 1 day, then 1 po q d x 4 days AZITHROMYCIN 250 MG ORAL TABLET 180879 AZITHROMY ANALISA Inactive Vital Signs Date Name [...] W/RATIO - Chemistry sodium, serum 137 mmol/L 652-859 0699/09/17 carbon dioxide, venous blood 28.6 mmol/L 21.0-32 [...] 0-19 Encounters Code Encounter Date Provider Facility CPT-13409 [id number] Vst-Est Level III 13:57:28 HOTEL RECREATIONAL FACILITIES MANAGER Mau Mcmahon MD [facility]-45846 [id number] Vst-Est Level IV 15:44:27 C DT Mau Mcmahon MD [facility] CPT-04402 Level 4 Est. Patient 21:12:34 CDT Mau bailey MD [facility] CPT-64321 Level 3 Est. Patient 16:26:55 HOTEL RECREATIONAL FACILITIES MANAGER Osbaldo Wilkes MD [facility] CPT-83658 Level 4 Est. Patient 12:43:27 CDT Mau bailey MD [facility] CPT-23949 Level 3 Est. Patient 16:46:20 CDT Gilbert Amador MD [facility] CPT-08216 Level 3 Est. Patient 09:03:26 CDT Deirdre carter APRN [facility] CPT-12340 Level 4 Est. Patient 15:38:51 HOTEL RECREATIONAL FACILITIES MANAGER Mau bailey MD [facility] CPT-23901 Level 4 Est. Patient 10:26:24 CDT Mau bailey MD [facility] CPT-45890 Level 3 Est. Patient 17:21:09 CDT Ryne ornelas DO [facility] CPT-82361 Level 4 Est. Patient 09:22:16 CDT Mau bailey MD [facility] CPT-66986 Level 3 Est. Patient 08:55:02 HOTEL RECREATIONAL FACILITIES MANAGER Mau bailey MD [facility] Procedures Code Procedure Name Date Entry Date Standard Desc ription CPT-LR Lesion Removal 21:12:34 CDT CPT-11959 EKG Trac and Interp - XRAY USE ONLY 1 5:52:34 CDT CPT-06574 Venipuncture Draw Fee 09:05:38 CDT CPT-69887 Uric Acid - LAB USE ONLY 09:05:38 CDT 03/10 CPT-91193 Sed Rate - LAB USE ONLY 09:05:38 CDT 03/10 CPT-69001 CMP - LAB USE ONLY 09:05:37 CDT CPT-35440 CBC - LAB USE ONLY 09:05:37 CDT CPT-J2930 Solu Medrol 125 mg (Methyl Prednisolone Sodium Succinate) 16:27:04 CDT CPT-52279 Abx/Therapy Injection 16:27:04 CDT CPT-J2930 Solu Medrol 125 mg (Methyl Prednisolone Sodium Succinate) 14:33:18 CDT
--- OUTSIDE RECORDS SUMMARY | 2019-11-22 08:23 | XMS REPORT | Clinical Summary ---
Author Author Admin, Volodymyr De Dios Organization [facility] Address Unknown Phone Unavailable Allergies, Adverse Reactions, [...] Mau meehan MD Acute bronchitis Obesity 278.00 Active Osbaldo Wilkes MD Obesity, unspecified Ear disorder 388.9 Resolved [...] Mcmahon MD Allergic rhinitis due to pollen SEASONAL ALLERGIC RHINITIS ICD-477.9 Inactive Mau Mcmahon [...] Name NDC Status Provider Patient Instruction PANTOPRAZOLE SODIUM 40 MG ORAL TABLET DELAYED RELEASE 1 pill by mouth daily GERD PANTOPRAZOLE SODIUM 17921541454 Active Mau leonard MD Active GUAIFENESIN-CODEINE 100-10 MG/5ML ORAL SYRUP 5ml every 4 to 6 hours as needed for cough GUAIFENESIN-CODEINE 08586248137 No Longe r Active Mau Mcmahon MD Active PREDNISONE 20 MG ORAL TABLET 2 daily for 3 days then 1 daily for 3 days PREDNISONE 09088834117 No Longer Active Mau calderon MD Active COZAAR 50 MG ORAL TABLET 1 tab po twice daily for hypertensi on and gout LOSARTAN POTASSIUM 82641188264 Active Mau Dewey Active NASONEX 50 MCG/ACT NASAL SUSPENSION 2 sprays everyday MOMETASONE FUROATE 28664825020 Active Mau Mcmahon MD Active HYDROCHLOROTHIAZIDE 25 MG ORAL TABLET 0.5 tablet by [facility] daily for blood pressure. HYDROCHLOROTHIAZIDE 86579361265 No Longe r Active Osbaldo Wilkes MD Active COLCHICINE 0.6 MG ORAL CAPSULE PRN FOR GOUT FLARE UPS COLCHICINE 99391338917 No Longer Active Osbaldo Wilkes MD Activ e ALLOPURINOL 100 MG ORAL TABLET Take 1 tab po x 7 days, then 2 times every day thereafter if tolerated. ALLOPURINOL 35938874130 No Longer Active Osbaldo Wilkes MD Active NASONEX 50 MCG/ACT NASAL SUSPENSION use 2 sprays in each nos tril qday MOMETASONE FUROATE 22863552622 No Longer Active Osbaldo valdez MD Active PREDNISONE 5 MG ORAL TABLET PREDNISONE 10735022901 No Longer Active Osbaldo Wilkes MD Active AZITHROMYCIN 250 MG ORAL TABLET 2 po qd x 1 day, then 1 po q d x 4 days AZITHROMYCIN 16306607575 No Longer Active Pavithra Mora Active SUDAFED 12 HOUR 120 MG ORAL TABLET EXTENDED RELEASE 12 HOUR 1 pill twice daily if needed for congestion PSEUDOEPHEDRINE HCL 33728621320 A ctive Mau Mcmahon MD Active MECLIZINE HCL 25 MG ORAL TABLET one 4 times a day as needed for dizziness MECLIZINE HCL 95794914739 No Longer Active Mau Mcmahon MD Active ZOFRAN 4 MG ORAL TABLET 1 po q6hr PRN Nausea 9 ONDANSETRON HCL 72330464238 No Longer Active Mau Mcmahon MD Acti ve PREDNISONE 5 MG ORAL TABLET Take 3 tabs po on the , decrease by 1 tablet every 3 days until off PREDNISONE 61145876684 No Longer Active Gilbert Amador MD Active CHERATUSSIN AC 100-10 MG/5ML ORAL SYRUP 1 tsp by mouth every 4 hours as needed for cough GUAIFENESIN-CODEINE 02977884681 No Longe r Active Gilbert Amador MD Active ZITHROMAX 250 MG ORAL TABLET 2 po today, then 1 po q days 2-5 20 23/10/22 AZITHROMYCIN 08009747983 No Longer Active Deirdre Riddle APRN Active CELEBREX 100 MG ORAL CAPSULE take 1 tab po BID for osteoarthriti s CELECOXIB 32727529850 No Longer Active Deirdre Riddle APRN A ctive OMEPRAZOLE 20 MG ORAL CAPSULE DELAYED RELEASE 1 tablet po in the am OMEPRAZOLE 69365344193 No Longer Active Deirdre Riddle APRN A ctive BACTRIM DS 800-160 MG ORAL TABLET 1 tab by mouth twice daily 201 12/08/14 TRIMETHOPRIM-SULFAMETHOXAZOLE 85343496351 No Longer Active Vincent larson Venkatesh FLYNN Active ZITHROMAX 1 GM ORAL PACKET DIR AZITHROMY ANALISA 42412471206 No Longer Active Deirdredeisy Riddle APRN Active LEVAQUIN 500 MG ORAL TABLET 1 tablet by mouth daily 20 25/07/14 LEVOFLOXACIN 18755409539 No Longer Active Mau Mcmahon MD Acti ve HYDROCHLOROTHIAZIDE 25 MG ORAL TABLET 1 PO Q AM 201 10/16/21 HYDROCHLOROTHIAZIDE 52552453396 No Longer Active Ryne Cristina DO Ac tive SIMVASTATIN 20 MG ORAL TABLET 1 tablet po q hs SIMVASTATIN 24351899656 No Longer Active Ryne Cristina DO Active ALLOPURINOL 100 MG ORAL TABLET Take 1 tab po x 7 days, then 2 times every day thereafter if tolerated. ALLOPURINOL 100 MG ORAL TABLET 575640 ALLOPURINOL Inactive BACTRIM DS 800-160 MG ORAL TABLET 1 tab by mouth twice daily 201 12/08/14 BACTRIM DS 800-160 MG ORAL TABLET 762344 TRIMETHOPRIM-SULFAMETHOXAZOLE Inactive CHERATUSSIN AC 100-10 MG/5ML ORAL SYRUP 1 tsp by mouth every 4 hours as needed for cough CHERATUSSIN AC 100-10 MG/5ML ORAL SYRUP 9 84409 GUAIFENESIN-CODEINE Inactive HYDROCHLOROTHIAZIDE 25 MG ORAL TABLET 1 PO Q AM 201 10/16/21 HYDROCHLOROTHIAZIDE 25 MG ORAL TABLET 652111 HYDROCHLOROTHIAZIDE In active HYDROCHLOROTHIAZIDE 25 MG ORAL TABLET 0.5 tablet by [facility] daily for blood pressure. HYDROCHLOROTHIAZIDE 25 MG ORAL TABLET 310 798 HYDROCHLOROTHIAZIDE Inactive PREDNISONE 20 MG ORAL TABLET 2 daily for 3 days then 1 daily for 3 days PREDNISONE 20 MG ORAL TABLET 904568 PREDNISONE Inactive PREDNISONE 5 MG ORAL TABLET PREDNISO NE 5 MG ORAL TABLET 784027 PREDNISONE Inactive PREDNISONE 5 MG ORAL TABLET Take 3 tabs po on the day, decrease by 1 tablet every 3 days until off PREDNISONE 5 MG OR AL TABLET 967042 PREDNISONE Inactive ZOFRAN 4 MG ORAL TABLET 1 po q6hr PRN Nausea 9 ZOFRAN 4 MG ORAL TABLET 085644 ONDANSETRON HCL Inactive SIMVASTATIN 20 MG ORAL TABLET 1 tablet po q hs SIMVASTATIN 20 MG ORAL TABLET 200323 SIMVASTATIN Inactive MECLIZINE HCL 25 MG ORAL TABLET one 4 times a day as needed for dizziness MECLIZINE HCL 25 MG ORAL TABLET 156034 MECLIZINE HCL Inactive ZITHROMAX 1 GM ORAL PACKET DIR Z ITHROMAX 1 GM ORAL PACKET 592214 AZITHROMYCIN Inactive LEVAQUIN 500 MG ORAL TABLET 1 tablet by mouth daily 20 25/07/14 LEVAQUIN 500 MG ORAL TABLET 808898 LEVOFLOXACIN Inactive ZITHROMAX 250 MG ORAL TABLET 2 po today, then 1 po q days 2-5 20 23/10/22 ZITHROMAX 250 MG ORAL TABLET 506335 AZITHROMYCIN [place] ctive AZITHROMYCIN 250 MG ORAL TABLET 2 po qd x 1 day, then 1 po q d x 4 days AZITHROMYCIN 250 MG ORAL TABLET 459197 AZITHROMY ANALISA Inactive NASONEX 50 MCG/ACT NASAL SUSPENSION use 2 sprays in each nos tril qday NASONEX 50 MCG/ACT NASAL SUSPENSION 1720325 MOMET ASONE FUROATE Inactive CELEBREX 100 MG ORAL CAPSULE take 1 tab po BID for osteoarthriti s CELEBREX 100 MG ORAL CAPSULE 583277 CELECOXIB Zohreh ctive OMEPRAZOLE 20 MG ORAL CAPSULE DELAYED RELEASE 1 tablet po in the am OMEPRAZOLE 20 MG ORAL CAPSULE DELAYED RELEASE 437411 OM EPRAZOLE Inactive GUAIFENESIN-CODEINE 100-10 MG/5ML ORAL SYRUP 5ml every 4 to 6 hours as needed for cough GUAIFENESIN-CODEINE 100-10 MG/5M L ORAL SYRUP 021305 GUAIFENESIN-CODEINE Inactive COLCHICINE 0.6 MG ORAL CAPSULE PRN FOR GOUT FLARE UPS COLCHICINE 0.6 MG ORAL CAPSULE 6743807 COLCHICINE Inactive Vital Signs Date Name Value Unit Range Description blood pressure, diastolic 84 mm[Hg] BP santos blood pressure, systolic 141 mm[Hg] BP sys height E&M 70 [in_us] Bdy height pulse rate E&M 74 /min Heart rate temperature E&M 98.8 [degF] Body temp erature weight E&M 217 [lb_av] Weight Measure d Diagnostic Results Date Name Value Unit Range Description Lab Report: Comp. Metabolic Panel, CBC, MICROALB/CREAT W/RATIO - Chemistry sodium, serum 137 mmol/L 774-285 2491/09/17 carbon dioxide, venous blood 28.6 mmol/L 21.0-32 [...] 0-19 Encounters Code Encounter Date Provider Facility [id number] Vst-Est Level IV 15:44:27 C DT Mau Mcmahon MD [facility] CPT-63867 Level 4 Est. Patient 21:12:34 CDT Mau bailey MD [facility] CPT-32272 Level 3 Est. Patient 16:26:55 YARN PREPARATION SUPERVISOR Osbaldo Wilkes MD [facility] CPT-82778 Level 4 Est. Patient 12:43:27 CDT Mau bailey MD [facility] CPT-86227 Level 3 Est. Patient 16:46:20 CDT Gilbert Amador MD [facility] CPT-20565 Level 3 Est. Patient 09:03:26 CDT Deirdre carter APRN [facility] CPT-64811 Level 4 Est. Patient 15:38:51 YARN PREPARATION SUPERVISOR Mau bailey MD [facility] CPT-66680 Level 4 Est. Patient 10:26:24 CDT Mau bailey MD [facility] CPT-01417 Level 3 Est. Patient 17:21:09 CDT Ryne Nina Sherry ornelas DO [facility] CPT-05817 Level 4 Est. Patient 09:22:16 CDT Mau bailey MD [facility] CPT-71667 Level 3 Est. Patient 08:55:02 YARN PREPARATION SUPERVISOR Mau bailey MD [facility] Procedures Code Procedure Name Date Entry Date Standard Desc ription CPT-LR Lesion Removal 21:12:34 CDT CPT-21213 EKG Trac and Interp - XRAY USE ONLY 1 5:52:34 CDT CPT-79060 Venipuncture Draw Fee 09:05:38 CDT CPT-98089 Uric Acid - LAB USE ONLY 09:05:38 CDT 03/10 CPT-43121 Sed Rate - LAB USE ONLY 09:05:38 CDT 03/10 CPT-53977 CMP - LAB USE ONLY 09:05:37 CDT CPT-76299 CBC - LAB USE ONLY 09:05:37 CDT CPT-J2930 Solu Medrol 125 mg (Methyl Prednisolone Sodium Succinate) 16:27:04 CDT CPT-43307 Abx/Therapy Injection 16:27:04 CDT CPT-J2930 Solu Medrol 125 mg (Methyl Prednisolone Sodium Succinate) 14:33:18 CDT
--- OUTSIDE RECORDS SUMMARY | 2019-11-22 08:23 | XMS REPORT | Clinical Summary ---
Author Author Admin, Volodymyr De Dios Organization [facility] Address Unknown Phone Unavailable Allergies, Adverse Reactions, [...] pill by mouth daily GERD PANTOPRAZOLE SODIUM 08542507934 Active Mau leonard MD Active GUAIFENESIN-CODEINE 100-10 MG/5ML ORAL SYRUP 5ml every 4 to 6 hours as needed for cough GUAIFENESIN-CODEINE 06406459765 No Longe r Active Mau Mcmahon MD Active PREDNISONE 20 MG ORAL TABLET 2 daily for 3 days then 1 daily for 3 days PREDNISONE 18896771280 No Longer Active aMu calderon MD Active COZAAR 50 MG ORAL TABLET 1 tab po twice daily for hypertensi on and gout LOSARTAN POTASSIUM 84431581744 Active Mau Dewey Active NASONEX 50 MCG/ACT NASAL SUSPENSION 2 sprays everyday MOMETASONE FUROATE 63425531461 Active Mau Mcmahon MD Active HYDROCHLOROTHIAZIDE 25 MG ORAL TABLET 0.5 tablet by [facility] daily for blood pressure. HYDROCHLOROTHIAZIDE 52032455107 No Longe r Active Osbaldo Wilkes MD Active COLCHICINE 0.6 MG ORAL CAPSULE PRN FOR GOUT FLARE UPS COLCHICINE 54639293420 No Longer Active Osbaldo Wilkes MD Activ e ALLOPURINOL 100 MG ORAL TABLET Take 1 tab po x 7 days, then 2 times every day thereafter if tolerated. ALLOPURINOL 23440087551 No Longer Active Osbaldo Wilkes MD Active NASONEX 50 MCG/ACT NASAL SUSPENSION use 2 sprays in each nos tril qday MOMETASONE FUROATE 06833858882 No Longer Active Osbaldo valdez MD Active PREDNISONE 5 MG ORAL TABLET PREDNISONE 49322178487 No Longer Active Osbaldo Wilkes MD Active AZITHROMYCIN 250 MG ORAL TABLET 2 po qd x 1 day, then 1 po q d x 4 days AZITHROMYCIN 32777308179 No Longer Active Pavithra Mora Active SUDAFED 12 HOUR 120 MG ORAL TABLET EXTENDED RELEASE 12 HOUR 1 pill twice daily if needed for congestion PSEUDOEPHEDRINE HCL 04235272663 A ctive Mau Mcmahon MD Active MECLIZINE HCL 25 MG ORAL TABLET one 4 times a day as needed for dizziness MECLIZINE HCL 02780132824 No Longer Active Mau Mcmahon MD Active ZOFRAN 4 MG ORAL TABLET 1 po q6hr PRN Nausea 9 ONDANSETRON HCL 27591946593 No Longer Active Mau Mcmahon MD Acti ve PREDNISONE 5 MG ORAL TABLET Take 3 tabs po on the , decrease by 1 tablet every 3 days until off PREDNISONE 21281439478 No Longer Active Gilbert Amador MD Active CHERATUSSIN AC 100-10 MG/5ML ORAL SYRUP 1 tsp by mouth every 4 hours as needed for cough GUAIFENESIN-CODEINE 11526328348 No Longe r Active Gilbert Amador MD Active ZITHROMAX 250 MG ORAL TABLET 2 po today, then 1 po q days 2-5 20 23/10/22 AZITHROMYCIN 34745619822 No Longer Active Deirdre Riddle APRN Active CELEBREX 100 MG ORAL CAPSULE take 1 tab po BID for osteoarthriti s CELECOXIB 22266039307 No Longer Active Deirdre Riddle APRN A ctive OMEPRAZOLE 20 MG ORAL CAPSULE DELAYED RELEASE 1 tablet po in the am OMEPRAZOLE 58238164157 No Longer Active Deirdre Riddle APRN A ctive BACTRIM DS 800-160 MG ORAL TABLET 1 tab by mouth twice daily 201 12/08/14 TRIMETHOPRIM-SULFAMETHOXAZOLE 91642802866 No Longer Active Vincent larson Venkatesh FLYNN Active ZITHROMAX 1 GM ORAL PACKET DIR AZITHROMY ANALISA 99380156918 No Longer Active Deirdredeisy Riddle APRN Active LEVAQUIN 500 MG ORAL TABLET 1 tablet by mouth daily 20 25/07/14 LEVOFLOXACIN 09779492012 No Longer Active Mau Mcmahno MD Acti ve HYDROCHLOROTHIAZIDE 25 MG ORAL TABLET 1 PO Q AM 201 10/16/21 HYDROCHLOROTHIAZIDE 60377926078 No Longer Active Ryne Cristina DO Ac tive SIMVASTATIN 20 MG ORAL TABLET 1 tablet po q hs SIMVASTATIN 66241602641 No Longer Active Ryne Cristina DO Active SIMVASTATIN 20 MG ORAL TABLET 1 tablet po q hs SIMVASTATIN 20 MG ORAL TABLET 515083 SIMVASTATIN Inactive HYDROCHLOROTHIAZIDE 25 MG ORAL TABLET 1 PO Q AM 201 10/16/21 HYDROCHLOROTHIAZIDE 25 MG ORAL TABLET 648359 HYDROCHLOROTHIAZIDE In active LEVAQUIN 500 MG ORAL TABLET 1 tablet by mouth daily 20 25/07/14 LEVAQUIN 500 MG ORAL TABLET 388820 LEVOFLOXACIN Inactive ZITHROMAX 1 GM ORAL PACKET DIR Z ITHROMAX 1 GM ORAL PACKET 205880 AZITHROMYCIN Inactive BACTRIM DS 800-160 MG ORAL TABLET 1 tab by mouth twice daily 201 12/08/14 BACTRIM DS 800-160 MG ORAL TABLET 001569 TRIMETHOPRIM-SULFAMETHOXAZOLE Inactive OMEPRAZOLE 20 MG ORAL CAPSULE DELAYED RELEASE 1 tablet po in the am OMEPRAZOLE 20 MG ORAL CAPSULE DELAYED RELEASE 963596 OM EPRAZOLE Inactive CELEBREX 100 MG ORAL CAPSULE take 1 tab po BID for osteoarthriti s CELEBREX 100 MG ORAL CAPSULE 438831 CELECOXIB Zohreh ctive CHERATUSSIN AC 100-10 MG/5ML ORAL SYRUP 1 tsp by mouth every 4 hours as needed for cough CHERATUSSIN AC 100-10 MG/5ML ORAL SYRUP 9 06832 GUAIFENESIN-CODEINE Inactive PREDNISONE 5 MG ORAL TABLET Take 3 tabs po on the , decrease by 1 tablet every 3 days until off PREDNISONE 5 MG OR AL TABLET 790609 PREDNISONE Inactive ZOFRAN 4 MG ORAL TABLET 1 po q6hr PRN Nausea 9 ZOFRAN 4 MG ORAL TABLET 682595 ONDANSETRON HCL Inactive MECLIZINE HCL 25 MG ORAL TABLET one 4 times a day as needed for dizziness MECLIZINE HCL 25 MG ORAL TABLET 081273 MECLIZINE HCL Inactive PREDNISONE 5 MG ORAL TABLET PREDNISO NE 5 MG ORAL TABLET 407887 PREDNISONE Inactive NASONEX 50 MCG/ACT NASAL SUSPENSION use 2 sprays in each nos tril qday NASONEX 50 MCG/ACT NASAL SUSPENSION 7558303 MOMET ASONE FUROATE Inactive ALLOPURINOL 100 MG ORAL TABLET Take 1 tab po x 7 days, then 2 times every day thereafter if tolerated. ALLOPURINOL 100 MG ORAL TABLET 896448 ALLOPURINOL Inactive COLCHICINE 0.6 MG ORAL CAPSULE PRN FOR GOUT FLARE UPS COLCHICINE 0.6 MG ORAL CAPSULE 2578531 COLCHICINE Inactive HYDROCHLOROTHIAZIDE 25 MG ORAL TABLET 0.5 tablet by [facility] daily for blood pressure. HYDROCHLOROTHIAZIDE 25 MG ORAL TABLET 310 798 HYDROCHLOROTHIAZIDE Inactive PREDNISONE 20 MG ORAL TABLET 2 daily for 3 days then 1 daily for 3 days PREDNISONE 20 MG ORAL TABLET 227925 PREDNISONE Inactive GUAIFENESIN-CODEINE 100-10 MG/5ML ORAL SYRUP 5ml every 4 to 6 hours as needed for cough GUAIFENESIN-CODEINE 100-10 MG/5M L ORAL SYRUP 386782 GUAIFENESIN-CODEINE Inactive ZITHROMAX 250 MG ORAL TABLET 2 po today, then 1 po q days 2-5 20 23/10/22 ZITHROMAX 250 MG ORAL TABLET 911227 AZITHROMYCIN [place] ctive AZITHROMYCIN 250 MG ORAL TABLET 2 po qd x 1 day, then 1 po q d x 4 days AZITHROMYCIN 250 MG ORAL TABLET 520924 AZITHROMY ANALISA Inactive Vital Signs Date Name [...] W/RATIO - Chemistry sodium, serum 137 mmol/L 991-109 7183/09/17 carbon dioxide, venous blood 28.6 mmol/L 21.0-32 [...] 0-19 Encounters Code Encounter Date Provider Facility CPT-17825 [id number] Vst-Est Level IV 15:44:27 C DT Mau Mcmahon MD [facility] CPT-12111 Level 4 Est. Patient 21:12:34 CDT Mau bailey MD [facility] CPT-26797 Level 3 Est. Patient 16:26:55 SUPERINTENDENT TRANSMISSION Osbaldo Wilkes MD [facility] CPT-64039 Level 4 Est. Patient 12:43:27 CDT Mau bailey MD [facility] CPT-85222 Level 3 Est. Patient 16:46:20 CDT Gilbert Amador MD [facility] CPT-50236 Level 3 Est. Patient 09:03:26 CDT Deirdre carter APRN [facility] CPT-99700 Level 4 Est. Patient 15:38:51 SUPERINTENDENT TRANSMISSION Mau bailey MD [facility] CPT-23894 Level 4 Est. Patient 10:26:24 CDT Mau bailey MD [facility] CPT-98738 Level 3 Est. Patient 17:21:09 CDT Ryne Nina Sherry ornelas DO [facility] CPT-06189 Level 4 Est. Patient 09:22:16 CDT Mau bailey MD [facility] CPT-59573 Level 3 Est. Patient 08:55:02 SUPERINTENDENT TRANSMISSION Mau bailey MD [facility] Procedures Code Procedure Name Date Entry Date Standard Desc ription CPT-LR Lesion Removal 21:12:34 CDT CPT-37732 EKG Trac and Interp - XRAY USE ONLY 1 5:52:34 CDT CPT-90199 Venipuncture Draw Fee 09:05:38 CDT CPT-05641 Uric Acid - LAB USE ONLY 09:05:38 CDT 03/10 CPT-03792 Sed Rate - LAB USE ONLY 09:05:38 CDT 03/10 CPT-72216 CMP - LAB USE ONLY 09:05:37 CDT CPT-09357 CBC - LAB USE ONLY 09:05:37 CDT CPT-J2930 Solu Medrol 125 mg (Methyl Prednisolone Sodium Succinate) 16:27:04 CDT CPT-33210 Abx/Therapy Injection 16:27:04 CDT CPT-J2930 Solu Medrol 125 mg (Methyl Prednisolone Sodium Succinate) 14:33:18 CDT
--- OUTSIDE RECORDS SUMMARY | 2019-11-22 08:23 | XMS REPORT | Clinical Summary ---
Author Author Admin, Volodymyr De Dios Organization [employer] Address Unknown Phone Unavailable Allergies, Adverse Reactions, [...] Gout, unspecified Bronchitis, acute 466.0 Resolved Mau meeahn MD Acute bronchitis Obesity 278.00 Refinement Osbaldo [...] by mouth three times a day AMOXICILLIN 29366709069 Active Mau Mcmahon MD Act katina PREDNISONE 20 MG ORAL TABLET 2 tabs daily for 3 days, 1 tab daily for 3 days, 1/2 tab daily for 2 days PREDNISONE 25704210981 Active Mau Mcmahon MD Active PANTOPRAZOLE SODIUM 40 MG ORAL TABLET DELAYED RELEASE 1 pill by mouth daily GERD PANTOPRAZOLE SODIUM 58194001258 Active Mau leonard MD Active GUAIFENESIN-CODEINE 100-10 MG/5ML ORAL SYRUP 5ml every 4 to 6 hours as needed for cough GUAIFENESIN-CODEINE 88603461208 No Longe r Active Mau Mcmahon MD Active PREDNISONE 20 MG ORAL TABLET 2 daily for 3 days then 1 daily for 3 days PREDNISONE 86829609830 No Longer Active Mau calderon MD Active COZAAR 50 MG ORAL TABLET 1 tab po twice daily for hypertensi on and gout LOSARTAN POTASSIUM 10078653420 Active Mau Dewey Active NASONEX 50 MCG/ACT NASAL SUSPENSION 2 sprays everyday MOMETASONE FUROATE 05403757882 Active Mau Mcmahon MD Active HYDROCHLOROTHIAZIDE 25 MG ORAL TABLET 0.5 tablet by [facility] daily for blood pressure. HYDROCHLOROTHIAZIDE 50144089750 No Longe r Active Osbaldo Wilkse MD Active COLCHICINE 0.6 MG ORAL CAPSULE PRN FOR GOUT FLARE UPS COLCHICINE 45724668706 No Longer Active Osbaldo Wilkes MD Activ e ALLOPURINOL 100 MG ORAL TABLET Take 1 tab po x 7 days, then 2 times every day thereafter if tolerated. ALLOPURINOL 42905997224 No Longer Active Osbaldo Wilkes MD Active NASONEX 50 MCG/ACT NASAL SUSPENSION use 2 sprays in each nos tril qday MOMETASONE FUROATE 53352663981 No Longer Active Osbaldo valdez MD Active PREDNISONE 5 MG ORAL TABLET PREDNISONE 22018370086 No Longer Active Osbaldo Wilkes MD Active AZITHROMYCIN 250 MG ORAL TABLET 2 po qd x 1 day, then 1 po q d x 4 days AZITHROMYCIN 95441024742 No Longer Active Pavithra Mora Active SUDAFED 12 HOUR 120 MG ORAL TABLET EXTENDED RELEASE 12 HOUR 1 pill twice daily if needed for congestion PSEUDOEPHEDRINE HCL 09440802563 A ctive Mau Mcmahon MD Active MECLIZINE HCL 25 MG ORAL TABLET one 4 times a day as needed for dizziness MECLIZINE HCL 78359582653 No Longer Active Mau Mcmahon MD Active ZOFRAN 4 MG ORAL TABLET 1 po q6hr PRN Nausea 9 ONDANSETRON HCL 05590928311 No Longer Active Mau Mcmahon MD Acti ve PREDNISONE 5 MG ORAL TABLET Take 3 tabs po on the , decrease by 1 tablet every 3 days until off PREDNISONE 47838343896 No Longer Active Gilbert Amador MD Active CHERATUSSIN AC 100-10 MG/5ML ORAL SYRUP 1 tsp by mouth every 4 hours as needed for cough GUAIFENESIN-CODEINE 51933840416 No Longe r Active Gilbert Amador MD Active ZITHROMAX 250 MG ORAL TABLET 2 po today, then 1 po q days 2-5 20 23/10/22 AZITHROMYCIN 99043518065 No Longer Active Deirdre Arell [employer] 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 CELEBREX 100 MG ORAL CAPSULE take 1 tab po BID for osteoarthriti s CELECOXIB 72108215619 No Longer Active Deirdre Arell [employer] 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 A ctive OMEPRAZOLE 20 MG ORAL CAPSULE DELAYED RELEASE 1 tablet po in the am OMEPRAZOLE 23051496847 No Longer Active Deirdre Arell [employer] 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 A ctive BACTRIM DS 800-160 MG ORAL TABLET 1 tab by mouth twice daily 201 12/08/14 TRIMETHOPRIM-SULFAMETHOXAZOLE 70524148263 No Longer Active Vincent Riddle APRN Active ZITHROMAX 1 GM ORAL PACKET DIR AZITHROMY ANALISA 22658918337 No Longer Active Deirdre Arell [employer]OLDING [employer]ULES 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 LEVAQUIN 500 MG ORAL TABLET 1 tablet by mouth daily 20 25/07/14 LEVOFLOXACIN 76985010482 No Longer Active Mau Mcmahon MD Acti ve HYDROCHLOROTHIAZIDE 25 MG ORAL TABLET 1 PO Q AM 201 10/16/21 HYDROCHLOROTHIAZIDE 01671175569 No Longer Active Ryne Cristina DO Ac tive SIMVASTATIN 20 MG ORAL TABLET 1 tablet po q hs SIMVASTATIN 64693667598 No Longer Active Ryne Cristina DO Active SIMVASTATIN 20 MG ORAL TABLET 1 tablet po q hs SIMVASTATIN 20 MG ORAL TABLET 459793 SIMVASTATIN Inactive HYDROCHLOROTHIAZIDE 25 MG ORAL TABLET 1 PO Q AM 201 10/16/21 HYDROCHLOROTHIAZIDE 25 MG ORAL TABLET 315951 HYDROCHLOROTHIAZIDE In active LEVAQUIN 500 MG ORAL TABLET 1 tablet by mouth daily 20 25/07/14 LEVAQUIN 500 MG ORAL TABLET 327311 LEVOFLOXACIN Inactive ZITHROMAX 1 GM ORAL PACKET DIR Z ITHROMAX 1 GM ORAL PACKET 319247 AZITHROMYCIN Inactive BACTRIM DS 800-160 MG ORAL TABLET 1 tab by mouth twice daily 201 12/08/14 BACTRIM DS 800-160 MG ORAL TABLET 850656 TRIMETHOPRIM-SULFAMETHOXAZOLE Inactive OMEPRAZOLE 20 MG ORAL CAPSULE DELAYED RELEASE 1 tablet po in the am OMEPRAZOLE 20 MG ORAL CAPSULE DELAYED RELEASE 257778 OM EPRAZOLE Inactive CELEBREX 100 MG ORAL CAPSULE take 1 tab po BID for osteoarthriti s CELEBREX 100 MG ORAL CAPSULE 384136 CELECOXIB [place] ctive CHERATUSSIN AC 100-10 MG/5ML ORAL SYRUP 1 tsp by mouth every 4 hours as needed for cough CHERATUSSIN AC 100-10 MG/5ML ORAL SYRUP 9 87262 GUAIFENESIN-CODEINE Inactive PREDNISONE 5 MG ORAL TABLET Take 3 tabs po on the , decrease by 1 tablet every 3 days until off PREDNISONE 5 MG OR AL TABLET 999481 PREDNISONE Inactive ZOFRAN 4 MG ORAL TABLET 1 po q6hr PRN Nausea 9 ZOFRAN 4 MG ORAL TABLET 577218 ONDANSETRON HCL Inactive MECLIZINE HCL 25 MG ORAL TABLET one 4 times a day as needed for dizziness MECLIZINE HCL 25 MG ORAL TABLET 604455 MECLIZINE HCL Inactive PREDNISONE 5 MG ORAL TABLET PREDNISO NE 5 MG ORAL TABLET 088336 PREDNISONE Inactive NASONEX 50 MCG/ACT NASAL SUSPENSION use 2 sprays in each nos tril qday NASONEX 50 MCG/ACT NASAL SUSPENSION 6654212 MOMET ASONE FUROATE Inactive ALLOPURINOL 100 MG ORAL TABLET Take 1 tab po x 7 days, then 2 times every day thereafter if tolerated. ALLOPURINOL 100 MG ORAL TABLET 707067 ALLOPURINOL Inactive COLCHICINE 0.6 MG ORAL CAPSULE PRN FOR GOUT FLARE UPS COLCHICINE 0.6 MG ORAL CAPSULE 5021574 COLCHICINE Inactive HYDROCHLOROTHIAZIDE 25 MG ORAL TABLET 0.5 tablet by [facility] daily for blood pressure. HYDROCHLOROTHIAZIDE 25 MG ORAL TABLET 310 798 HYDROCHLOROTHIAZIDE Inactive PREDNISONE 20 MG ORAL TABLET 2 daily for 3 days then 1 daily for 3 days PREDNISONE 20 MG ORAL TABLET 502682 PREDNISONE Inactive GUAIFENESIN-CODEINE 100-10 MG/5ML ORAL SYRUP 5ml every 4 to 6 hours as needed for cough GUAIFENESIN-CODEINE 100-10 MG/5M L ORAL SYRUP 110378 GUAIFENESIN-CODEINE Inactive ZITHROMAX 250 MG ORAL TABLET 2 po today, then 1 po q days 2-5 20 23/10/22 ZITHROMAX 250 MG ORAL TABLET 924917 AZITHROMYCIN [place] ctive AZITHROMYCIN 250 MG ORAL TABLET 2 po qd x 1 day, then 1 po q d x 4 days AZITHROMYCIN 250 MG ORAL TABLET 819389 AZITHROMY ANALISA Inactive Vital Signs Date Name [...] W/RATIO - Chemistry sodium, serum 137 mmol/L 174-601 7649/09/17 carbon dioxide, venous blood 28.6 mmol/L 21.0-32 [...] 0-19 Encounters Code Encounter Date Provider Facility CPT-[id number] Vst-Est Level III 13:57:28 [employer] Mau Mcmahon MD [facility]-[id number] Vst-Est Level IV 15:44:27 C DT Mau Mcmahon MD [facility] CPT-36286 Level 4 Est. Patient 21:12:34 CDT Mau bailey MD [facility] CPT-54851 Level 3 Est. Patient 16:26:55 [employer] Osbaldo Wilkes MD [facility] CPT-24752 Level 4 Est. Patient 12:43:27 CDT Mau bailey MD [facility] CPT-57293 Level 3 Est. Patient 16:46:20 CDT Gilbert Amador MD [facility] CPT-76608 Level 3 Est. Patient 09:03:26 CDT Deirdre carter APRN [facility] CPT-15781 Level 4 Est. Patient 15:38:51 [employer] Mau bailey MD [facility] CPT-94593 Level 4 Est. Patient 10:26:24 CDT Mau bailey MD [facility] CPT-33275 Level 3 Est. Patient 17:21:09 CDT Ryne ornelas DO [facility] CPT-59786 Level 4 Est. Patient 09:22:16 CDT Mau bailey MD [facility] CPT-33498 Level 3 Est. Patient 08:55:02 [employer] Mau bailey MD [facility] Procedures Code Procedure Name Date Entry Date Standard Desc ription CPT-LR Lesion Removal 21:12:34 CDT CPT-64424 EKG Trac and Interp - XRAY USE ONLY 1 5:52:34 CDT CPT-27736 Venipuncture Draw Fee 09:05:38 CDT CPT-28308 Uric Acid - LAB USE ONLY 09:05:38 CDT 03/10 CPT-75518 Sed Rate - LAB USE ONLY 09:05:38 CDT 03/10 CPT-16442 CMP - LAB USE ONLY 09:05:37 CDT CPT-51939 CBC - LAB USE ONLY 09:05:37 CDT CPT-J2930 Solu Medrol 125 mg (Methyl Prednisolone Sodium Succinate) 16:27:04 CDT CPT-06885 Abx/Therapy Injection 16:27:04 CDT CPT-J2930 Solu Medrol 125 mg (Methyl Prednisolone Sodium Succinate) 14:33:18 CDT
--- OUTSIDE RECORDS SUMMARY | 2019-11-22 08:23 | XMS REPORT | Clinical Summary ---
Author Author Admin, Volodymyr De Dios Organization [employer] Address Unknown Phone Unavailable Allergies, Adverse Reactions, [...] pill by mouth daily GERD PANTOPRAZOLE SODIUM 82991216941 Active Mau leonard MD Active GUAIFENESIN-CODEINE 100-10 MG/5ML ORAL SYRUP 5ml every 4 to 6 hours as needed for cough GUAIFENESIN-CODEINE 72410140600 No Longe r Active Mau Mcmahon MD Active PREDNISONE 20 MG ORAL TABLET 2 daily for 3 days then 1 daily for 3 days PREDNISONE 05060519007 No Longer Active Mau calderon MD Active COZAAR 50 MG ORAL TABLET 1 tab po twice daily for hypertensi on and gout LOSARTAN POTASSIUM 74720207494 Active Mau Dewey Active NASONEX 50 MCG/ACT NASAL SUSPENSION 2 sprays everyday MOMETASONE FUROATE 35210898306 Active Mau Mcmahon MD Active HYDROCHLOROTHIAZIDE 25 MG ORAL TABLET 0.5 tablet by [facility] daily for blood pressure. HYDROCHLOROTHIAZIDE 55289734278 No Longe r Active Osbaldo Wilkes MD Active COLCHICINE 0.6 MG ORAL CAPSULE PRN FOR GOUT FLARE UPS COLCHICINE 69518530195 No Longer Active Osbaldo Wilkes MD Activ e ALLOPURINOL 100 MG ORAL TABLET Take 1 tab po x 7 days, then 2 times every day thereafter if tolerated. ALLOPURINOL 92544160239 No Longer Active Osbaldo Wilkes MD Active NASONEX 50 MCG/ACT NASAL SUSPENSION use 2 sprays in each nos tril qday MOMETASONE FUROATE 49892853622 No Longer Active Osbaldo valdez MD Active PREDNISONE 5 MG ORAL TABLET PREDNISONE 26124779941 No Longer Active Osbaldo Wilkes MD Active AZITHROMYCIN 250 MG ORAL TABLET 2 po qd x 1 day, then 1 po q d x 4 days AZITHROMYCIN 05956176472 No Longer Active Pavithra Mora Active SUDAFED 12 HOUR 120 MG ORAL TABLET EXTENDED RELEASE 12 HOUR 1 pill twice daily if needed for congestion PSEUDOEPHEDRINE HCL 75403442347 A ctive Mau Mcmahon MD Active MECLIZINE HCL 25 MG ORAL TABLET one 4 times a day as needed for dizziness MECLIZINE HCL 34825767788 No Longer Active Mau Mcmahon MD Active ZOFRAN 4 MG ORAL TABLET 1 po q6hr PRN Nausea 9 ONDANSETRON HCL 23503291169 No Longer Active Mau Mcmahon MD Acti ve PREDNISONE 5 MG ORAL TABLET Take 3 tabs po on the , decrease by 1 tablet every 3 days until off PREDNISONE 13447921513 No Longer Active Gilbert Amador MD Active CHERATUSSIN AC 100-10 MG/5ML ORAL SYRUP 1 tsp by mouth every 4 hours as needed for cough GUAIFENESIN-CODEINE 64780779169 No Longe r Active Gilbret Amador MD Active ZITHROMAX 250 MG ORAL TABLET 2 po today, then 1 po q days 2-5 20 23/10/22 AZITHROMYCIN 73778870316 No Longer Active Deirdre Riddle APRN Active CELEBREX 100 MG ORAL CAPSULE take 1 tab po BID for osteoarthriti s CELECOXIB 87552710315 No Longer Active Deirdre Riddle APRN A ctive OMEPRAZOLE 20 MG ORAL CAPSULE DELAYED RELEASE 1 tablet po in the am OMEPRAZOLE 78004383614 No Longer Active Deirdre Riddle APRN A ctive BACTRIM DS 800-160 MG ORAL TABLET 1 tab by mouth twice daily 201 12/08/14 TRIMETHOPRIM-SULFAMETHOXAZOLE 79056454686 No Longer Active Vincent larson Venkatesh FLYNN Active ZITHROMAX 1 GM ORAL PACKET DIR AZITHROMY ANALISA 00061197224 No Longer Active Deirdredeisy Riddle APRN Active LEVAQUIN 500 MG ORAL TABLET 1 tablet by mouth daily 20 25/07/14 LEVOFLOXACIN 11650587626 No Longer Active aMu Mcmahon MD Acti ve HYDROCHLOROTHIAZIDE 25 MG ORAL TABLET 1 PO Q AM 201 10/16/21 HYDROCHLOROTHIAZIDE 84110213613 No Longer Active Ryne Cristina DO Ac tive SIMVASTATIN 20 MG ORAL TABLET 1 tablet po q hs SIMVASTATIN 56537206167 No Longer Active Ryne Cristina DO Active SIMVASTATIN 20 MG ORAL TABLET 1 tablet po q hs SIMVASTATIN 20 MG ORAL TABLET 848760 SIMVASTATIN Inactive HYDROCHLOROTHIAZIDE 25 MG ORAL TABLET 1 PO Q AM 201 10/16/21 HYDROCHLOROTHIAZIDE 25 MG ORAL TABLET 037171 HYDROCHLOROTHIAZIDE In active LEVAQUIN 500 MG ORAL TABLET 1 tablet by mouth daily 20 25/07/14 LEVAQUIN 500 MG ORAL TABLET 919709 LEVOFLOXACIN Inactive ZITHROMAX 1 GM ORAL PACKET DIR Z ITHROMAX 1 GM ORAL PACKET 218732 AZITHROMYCIN Inactive BACTRIM DS 800-160 MG ORAL TABLET 1 tab by mouth twice daily 201 12/08/14 BACTRIM DS 800-160 MG ORAL TABLET 592890 TRIMETHOPRIM-SULFAMETHOXAZOLE Inactive OMEPRAZOLE 20 MG ORAL CAPSULE DELAYED RELEASE 1 tablet po in the am OMEPRAZOLE 20 MG ORAL CAPSULE DELAYED RELEASE 780041 OM EPRAZOLE Inactive CELEBREX 100 MG ORAL CAPSULE take 1 tab po BID for osteoarthriti s CELEBREX 100 MG ORAL CAPSULE 589509 CELECOXIB [place] ctive CHERATUSSIN AC 100-10 MG/5ML ORAL SYRUP 1 tsp by mouth every 4 hours as needed for cough CHERATUSSIN AC 100-10 MG/5ML ORAL SYRUP 9 63896 GUAIFENESIN-CODEINE Inactive PREDNISONE 5 MG ORAL TABLET Take 3 tabs po on the , decrease by 1 tablet every 3 days until off PREDNISONE 5 MG OR AL TABLET 122530 PREDNISONE Inactive ZOFRAN 4 MG ORAL TABLET 1 po q6hr PRN Nausea 9 ZOFRAN 4 MG ORAL TABLET 480379 ONDANSETRON HCL Inactive MECLIZINE HCL 25 MG ORAL TABLET one 4 times a day as needed for dizziness MECLIZINE HCL 25 MG ORAL TABLET 212697 MECLIZINE HCL Inactive PREDNISONE 5 MG ORAL TABLET PREDNISO NE 5 MG ORAL TABLET 907232 PREDNISONE Inactive NASONEX 50 MCG/ACT NASAL SUSPENSION use 2 sprays in each nos tril qday NASONEX 50 MCG/ACT NASAL SUSPENSION 7351874 MOMET ASONE FUROATE Inactive ALLOPURINOL 100 MG ORAL TABLET Take 1 tab po x 7 days, then 2 times every day thereafter if tolerated. ALLOPURINOL 100 MG ORAL TABLET 230660 ALLOPURINOL Inactive COLCHICINE 0.6 MG ORAL CAPSULE PRN FOR GOUT FLARE UPS COLCHICINE 0.6 MG ORAL CAPSULE 6155124 COLCHICINE Inactive HYDROCHLOROTHIAZIDE 25 MG ORAL TABLET 0.5 tablet by [facility] daily for blood pressure. HYDROCHLOROTHIAZIDE 25 MG ORAL TABLET 310 798 HYDROCHLOROTHIAZIDE Inactive PREDNISONE 20 MG ORAL TABLET 2 daily for 3 days then 1 daily for 3 days PREDNISONE 20 MG ORAL TABLET 107948 PREDNISONE Inactive GUAIFENESIN-CODEINE 100-10 MG/5ML ORAL SYRUP 5ml every 4 to 6 hours as needed for cough GUAIFENESIN-CODEINE 100-10 MG/5M L ORAL SYRUP 199984 GUAIFENESIN-CODEINE Inactive ZITHROMAX 250 MG ORAL TABLET 2 po today, then 1 po q days 2-5 20 23/10/22 ZITHROMAX 250 MG ORAL TABLET 104814 AZITHROMYCIN [place] ctive AZITHROMYCIN 250 MG ORAL TABLET 2 po qd x 1 day, then 1 po q d x 4 days AZITHROMYCIN 250 MG ORAL TABLET 094903 AZITHROMY ANALISA Inactive Vital Signs Date Name [...] W/RATIO - Chemistry sodium, serum 137 mmol/L 753-763 9120/09/17 carbon dioxide, venous blood 28.6 mmol/L 21.0-32 [...] 0-19 Encounters Code Encounter Date Provider Facility CPT-23346 [id number] Vst-Est Level IV 15:44:27 C DT Mau Mcmahon MD [facility] CPT-42508 Level 4 Est. Patient 21:12:34 CDT Mau bailey MD [facility] CPT-93875 Level 3 Est. 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 Patient 12:43:27 CDT Mau bailey MD [facility] CPT-28277 Level 3 Est. Patient 16:46:20 CDT Gilbert Amador MD [facility] CPT-78665 Level 3 Est. Patient 09:03:26 CDT Deirdre carter APRN [facility] CPT-24278 Level 4 Est. Patient 15:38:51 PLASMA CENTER TECHNICIAN Mau bailey MD [facility] CPT-93830 Level 4 Est. Patient 10:26:24 CDT Mau bailey MD [facility] CPT-24075 Level 3 Est. Patient 17:21:09 CDT Ryne Nina Sherry ornelas DO [facility] CPT-87603 Level 4 Est. Patient 09:22:16 CDT Mau bailey MD [facility] CPT-28391 Level 3 Est. Patient 08:55:02 PLASMA CENTER TECHNICIAN Mau bailey MD [facility] Procedures Code Procedure Name Date Entry Date Standard Desc ription CPT-LR Lesion Removal 21:12:34 CDT CPT-39080 EKG Trac and Interp - XRAY USE ONLY 1 5:52:34 CDT CPT-52663 Venipuncture Draw Fee 09:05:38 CDT CPT-98322 Uric Acid - LAB USE ONLY 09:05:38 CDT 03/10 CPT-18422 Sed Rate - LAB USE ONLY 09:05:38 CDT 03/10 CPT-41862 CMP - LAB USE ONLY 09:05:37 CDT CPT-38712 CBC - LAB USE ONLY 09:05:37 CDT CPT-J2930 Solu Medrol 125 mg (Methyl Prednisolone Sodium Succinate) 16:27:04 CDT CPT-42757 Abx/Therapy Injection 16:27:04 CDT CPT-J2930 Solu Medrol 125 mg (Methyl Prednisolone Sodium Succinate) 14:33:18 CDT
--- OUTSIDE RECORDS SUMMARY | 2019-11-22 08:24 | XMS REPORT | Clinical Summary ---
Author Author Admin, Volodymyr De Dios Organization [employer] Address Unknown Phone Unavailable Allergies, Adverse Reactions, [...] pill by mouth daily GERD PANTOPRAZOLE SODIUM [id number] Active Mau leonard MD Active GUAIFENESIN-CODEINE 100-10 MG/5ML ORAL SYRUP 5ml every 4 to 6 hours as needed for cough GUAIFENESIN-CODEINE 94248330858 No Longe r Active Mau Mcmahon MD Active PREDNISONE 20 MG ORAL TABLET 2 daily for 3 days then 1 daily for 3 days PREDNISONE 92539370513 No Longer Active Mau calderon MD Active COZAAR 50 MG ORAL TABLET 1 tab po twice daily for hypertensi on and gout LOSARTAN POTASSIUM 86473967883 Active Mau Dewey Active NASONEX 50 MCG/ACT NASAL SUSPENSION 2 sprays everyday MOMETASONE FUROATE 52526586101 Active Mau Mcmahon MD Active HYDROCHLOROTHIAZIDE 25 MG ORAL TABLET 0.5 tablet by [facility] daily for blood pressure. HYDROCHLOROTHIAZIDE 20026802576 No Longe r Active Osbaldo Wilkes MD Active COLCHICINE 0.6 MG ORAL CAPSULE PRN FOR GOUT FLARE UPS COLCHICINE 50715129901 No Longer Active Osbaldo Wilkes MD Activ e ALLOPURINOL 100 MG ORAL TABLET Take 1 tab po x 7 days, then 2 times every day thereafter if tolerated. ALLOPURINOL 99215637723 No Longer Active Osbaldo Wilkes MD Active NASONEX 50 MCG/ACT NASAL SUSPENSION use 2 sprays in each nos tril qday MOMETASONE FUROATE 71442750544 No Longer Active Osbaldo valdez MD Active PREDNISONE 5 MG ORAL TABLET PREDNISONE 64333322804 No Longer Active Osbaldo Wilkes MD Active AZITHROMYCIN 250 MG ORAL TABLET 2 po qd x 1 day, then 1 po q d x 4 days AZITHROMYCIN 81933004068 No Longer Active Pavithra Mora Active SUDAFED 12 HOUR 120 MG ORAL TABLET EXTENDED RELEASE 12 HOUR 1 pill twice daily if needed for congestion PSEUDOEPHEDRINE HCL 78433833135 A ctive Mau Mcmahon MD Active MECLIZINE HCL 25 MG ORAL TABLET one 4 times a day as needed for dizziness MECLIZINE HCL 05371469853 No Longer Active Mau Mcmahon MD Active ZOFRAN 4 MG ORAL TABLET 1 po q6hr PRN Nausea 9 ONDANSETRON HCL 36399475366 No Longer Active Mau Mcmahon MD Acti ve PREDNISONE 5 MG ORAL TABLET Take 3 tabs po on the , decrease by 1 tablet every 3 days until off PREDNISONE 65985720506 No Longer Active Gilbert Amador MD Active CHERATUSSIN AC 100-10 MG/5ML ORAL SYRUP 1 tsp by mouth every 4 hours as needed for cough GUAIFENESIN-CODEINE 37056963444 No Longe r Active Gilbert Amador MD Active ZITHROMAX 250 MG ORAL TABLET 2 po today, then 1 po q days 2-5 20 23/10/22 AZITHROMYCIN 74644767933 No Longer Active Deirdre Riddle APRN Active CELEBREX 100 MG ORAL CAPSULE take 1 tab po BID for osteoarthriti s CELECOXIB 80594616879 No Longer Active Deirdre Riddle APRN A ctive OMEPRAZOLE 20 MG ORAL CAPSULE DELAYED RELEASE 1 tablet po in the am OMEPRAZOLE 02891361991 No Longer Active Deirdre Riddle APRN A ctive BACTRIM DS 800-160 MG ORAL TABLET 1 tab by mouth twice daily 201 12/08/14 TRIMETHOPRIM-SULFAMETHOXAZOLE 46686186836 No Longer Active Vincent larson Venkatesh FLYNN Active ZITHROMAX 1 GM ORAL PACKET DIR AZITHROMY ANALISA 11637776954 No Longer Active Deirdredeisy Riddle APRN Active LEVAQUIN 500 MG ORAL TABLET 1 tablet by mouth daily 20 25/07/14 LEVOFLOXACIN 39968103235 No Longer Active Mau Mcmahon MD Acti ve HYDROCHLOROTHIAZIDE 25 MG ORAL TABLET 1 PO Q AM 201 10/16/21 HYDROCHLOROTHIAZIDE 04229528554 No Longer Active Ryne Cristina DO Ac tive SIMVASTATIN 20 MG ORAL TABLET 1 tablet po q hs SIMVASTATIN 43690694609 No Longer Active Ryne Cristina DO Active SIMVASTATIN 20 MG ORAL TABLET 1 tablet po q hs SIMVASTATIN 20 MG ORAL TABLET 322223 SIMVASTATIN Inactive HYDROCHLOROTHIAZIDE 25 MG ORAL TABLET 1 PO Q AM 201 10/16/21 HYDROCHLOROTHIAZIDE 25 MG ORAL TABLET 124352 HYDROCHLOROTHIAZIDE In active LEVAQUIN 500 MG ORAL TABLET 1 tablet by mouth daily 20 25/07/14 LEVAQUIN 500 MG ORAL TABLET 646531 LEVOFLOXACIN Inactive ZITHROMAX 1 GM ORAL PACKET DIR Z ITHROMAX 1 GM ORAL PACKET 305022 AZITHROMYCIN Inactive BACTRIM DS 800-160 MG ORAL TABLET 1 tab by mouth twice daily 201 12/08/14 BACTRIM DS 800-160 MG ORAL TABLET 173472 TRIMETHOPRIM-SULFAMETHOXAZOLE Inactive OMEPRAZOLE 20 MG ORAL CAPSULE DELAYED RELEASE 1 tablet po in the am OMEPRAZOLE 20 MG ORAL CAPSULE DELAYED RELEASE 353867 OM EPRAZOLE Inactive CELEBREX 100 MG ORAL CAPSULE take 1 tab po BID for osteoarthriti s CELEBREX 100 MG ORAL CAPSULE 654771 CELECOXIB Zohreh ctive CHERATUSSIN AC 100-10 MG/5ML ORAL SYRUP 1 tsp by mouth every 4 hours as needed for cough CHERATUSSIN AC 100-10 MG/5ML ORAL SYRUP 9 00390 GUAIFENESIN-CODEINE Inactive PREDNISONE 5 MG ORAL TABLET Take 3 tabs po on the , decrease by 1 tablet every 3 days until off PREDNISONE 5 MG OR AL TABLET 468973 PREDNISONE Inactive ZOFRAN 4 MG ORAL TABLET 1 po q6hr PRN Nausea 9 ZOFRAN 4 MG ORAL TABLET 705129 ONDANSETRON HCL Inactive MECLIZINE HCL 25 MG ORAL TABLET one 4 times a day as needed for dizziness MECLIZINE HCL 25 MG ORAL TABLET 984589 MECLIZINE HCL Inactive PREDNISONE 5 MG ORAL TABLET PREDNISO NE 5 MG ORAL TABLET 109887 PREDNISONE Inactive NASONEX 50 MCG/ACT NASAL SUSPENSION use 2 sprays in each nos tril qday NASONEX 50 MCG/ACT NASAL SUSPENSION 1920746 MOMET ASONE FUROATE Inactive ALLOPURINOL 100 MG ORAL TABLET Take 1 tab po x 7 days, then 2 times every day thereafter if tolerated. ALLOPURINOL 100 MG ORAL TABLET 979676 ALLOPURINOL Inactive COLCHICINE 0.6 MG ORAL CAPSULE PRN FOR GOUT FLARE UPS COLCHICINE 0.6 MG ORAL CAPSULE 8999972 COLCHICINE Inactive HYDROCHLOROTHIAZIDE 25 MG ORAL TABLET 0.5 tablet by [facility] daily for blood pressure. HYDROCHLOROTHIAZIDE 25 MG ORAL TABLET 310 798 HYDROCHLOROTHIAZIDE Inactive PREDNISONE 20 MG ORAL TABLET 2 daily for 3 days then 1 daily for 3 days PREDNISONE 20 MG ORAL TABLET 882653 PREDNISONE Inactive GUAIFENESIN-CODEINE 100-10 MG/5ML ORAL SYRUP 5ml every 4 to 6 hours as needed for cough GUAIFENESIN-CODEINE 100-10 MG/5M L ORAL SYRUP 343323 GUAIFENESIN-CODEINE Inactive ZITHROMAX 250 MG ORAL TABLET 2 po today, then 1 po q days 2-5 20 23/10/22 ZITHROMAX 250 MG ORAL TABLET 617977 AZITHROMYCIN [place] ctive AZITHROMYCIN 250 MG ORAL TABLET 2 po qd x 1 day, then 1 po q d x 4 days AZITHROMYCIN 250 MG ORAL TABLET 560479 AZITHROMY ANALISA Inactive Vital Signs Date Name [...] W/RATIO - Chemistry sodium, serum 137 mmol/L 074-423 6998/09/17 carbon dioxide, venous blood 28.6 mmol/L 21.0-32 [...] 0-19 Encounters Code Encounter Date Provider Facility CPT-[id number] Vst-Est Level IV 15:44:27 C DT Mau Mcmahon MD [facility] CPT-35363 Level 4 Est. Patient 21:12:34 CDT Mau bailey MD [facility] CPT-41715 Level 3 Est. 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 Patient 12:43:27 CDT Mau bailey MD [facility] CPT-44401 Level 3 Est. Patient 16:46:20 CDT Gilbert Amador MD [facility] CPT-27029 Level 3 Est. Patient 09:03:26 CDT Deirdre carter APRN [facility] CPT-39215 Level 4 Est. Patient 15:38:51 CUSHION INSTALLER Mau bailey MD [facility] CPT-27355 Level 4 Est. Patient 10:26:24 CDT Mau bailey MD [facility] CPT-96805 Level 3 Est. Patient 17:21:09 CDT Ryne Nina Sherry ornelas DO [facility] CPT-60530 Level 4 Est. Patient 09:22:16 CDT Mau bailey MD [facility] CPT-77669 Level 3 Est. Patient 08:55:02 CUSHION INSTALLER Mau bailey MD [facility] Procedures Code Procedure Name Date Entry Date Standard Desc ription CPT-LR Lesion Removal 21:12:34 CDT CPT-25175 EKG Trac and Interp - XRAY USE ONLY 1 5:52:34 CDT CPT-89962 Venipuncture Draw Fee 09:05:38 CDT CPT-08751 Uric Acid - LAB USE ONLY 09:05:38 CDT 03/10 CPT-07299 Sed Rate - LAB USE ONLY 09:05:38 CDT 03/10 CPT-21387 CMP - LAB USE ONLY 09:05:37 CDT CPT-59212 CBC - LAB USE ONLY 09:05:37 CDT CPT-J2930 Solu Medrol 125 mg (Methyl Prednisolone Sodium Succinate) 16:27:04 CDT CPT-22992 Abx/Therapy Injection 16:27:04 CDT CPT-J2930 Solu Medrol 125 mg (Methyl Prednisolone Sodium Succinate) 14:33:18 CDT
--- OUTSIDE RECORDS SUMMARY | 2019-11-22 08:24 | XMS REPORT | Clinical Summary ---
Author Author Admin, Volodymyr De Dios Organization [employer] Address Unknown Phone Unavailable Allergies, Adverse Reactions, Alerts Allergy Name Reaction Description Start Date Severity Status Pr ovider No Known Allergies Pavithra johnson Conditions or Problems Problem Name Problem Code Onset Date Status Entry Date Provider Comment Standard Description Annotate HYPERTENSION 401.9 Active Mau Mcmahon MD Unspecified essential hypertension HYPERLIPIDEMIA 272.4 Active Mau Mcmahon MD Other and unspecified hyperlipidemia G E R D 530.81 Active Mau Mcmahon MD Esophageal reflux SEASONAL ALLERGIC RHINITIS 477.9 Active 4 Mau Mcmahon MD Allergic rhinitis, cause unspecified Pneumonia, right lower lobe 486 Resolved Osbaldo Wilkes MD Pneumonia, organism unspecified Poison bel 692.6 Resolved Osbaldo Wilkes MD Contact dermatitis and other eczema due to plants [except food] Leg edema, right 782.3 Active Mau Mcmahon MD Edema Osteoarthritis 715.90 Active Mau Mcmahon MD Osteoarthrosis, unspecified whether generalized or localized, involving unspecified site Bronchitis 490 Resolved Osbaldo Wilkes MD Bronchitis, not specified as acute or chronic Rhinitis, acute 460 Resolved Osbaldo Dewey Acute nasopharyngitis [common cold] Benign paroxysmal positional vertigo, left 386.11 Acti ve Gilbert Amador MD Benign paroxysmal positional vertigo Gout, unspecified 274.9 Active Mau Mcmahon MD Gout, unspecified Bronchitis, acute 466.0 Active Osbaldo Wilkes MD Acute bronchitis Obesity 278.00 Active Osbaldo Wilkes MD Obesity, unspecified Ear disorder 388.9 Active Mau Mcmahon MD Unspecified disorder of ear Preop exam V72.84 Active Fiorella Olivas eoperative examination, unspecified Skin tag 701.9 Active Mau Mcmahon MD Unspecified hypertrophic and atrophic conditions of skin Pneumonia, right lower lobe ICD-486 Inactive Osbaldo Wilkes MD Poison bel ICD-692.6 Inactive Osbaldo Dewey Bronchitis ICD-490 Inactive Osbaldo Wilkes MD 201 01/08/07 Rhinitis, acute ICD-460 Inactive Osbaldo Lechuga MD Medication List Medication Instructions Start Date Stop Date Generic Name NDC Status Provider Patient Instruction COZAAR 50 MG ORAL TABLET 1 tab po twice daily for hypertensi on and gout LOSARTAN POTASSIUM 36519535467 Active Mau Dewey Active NASONEX 50 MCG/ACT NASAL SUSPENSION 2 sprays everyday MOMETASONE FUROATE 97702443300 Active Mau Mcmahon MD Active GUAIFENESIN-CODEINE 100-10 MG/5ML ORAL SYRUP 5ml every 4 to 6 hours as needed for cough GUAIFENESIN-CODEINE 23250437280 Active Timur Wilkes MD Active PREDNISONE 20 MG ORAL TABLET 2 daily for 3 days then 1 daily for 3 days PREDNISONE 11742318597 Active Osbaldo Wilkes MD Active HYDROCHLOROTHIAZIDE 25 MG ORAL TABLET 0.5 tablet [address] [facility] daily for blood pressure. HYDROCHLOROTHIAZIDE 77602796598 No Longe r Active Osbaldo Wilkes MD Active COLCHICINE 0.6 MG ORAL CAPSULE PRN FOR GOUT FLARE UPS COLCHICINE 23886958857 No Longer Active Osbaldo Wilkes MD Activ e ALLOPURINOL 100 MG ORAL TABLET Take 1 tab po x 7 days, then 2 times every day thereafter if tolerated. ALLOPURINOL 75595030952 No Longer Active Osbaldo Wilkes MD Active NASONEX 50 MCG/ACT NASAL SUSPENSION use 2 sprays in each nos tril qday MOMETASONE FUROATE 60572596908 No Longer Active Osbaldo valdez MD Active PREDNISONE 5 MG ORAL TABLET PREDNISONE 59255939237 No Longer Active Osbaldo Wilkes MD Active AZITHROMYCIN 250 MG ORAL TABLET 2 po qd x 1 day, then 1 po q d x 4 days AZITHROMYCIN 07119853303 No Longer Active Pavithra Mora Active SUDAFED 12 HOUR 120 MG ORAL TABLET EXTENDED RELEASE 12 HOUR 1 pill twice daily if needed for congestion PSEUDOEPHEDRINE HCL 82845387563 A ctive Mau Mcmahon MD Active MECLIZINE HCL 25 MG ORAL TABLET one 4 times a day as needed for dizziness MECLIZINE HCL 70910457747 No Longer Active Mau Mcmahon MD Active ZOFRAN 4 MG ORAL TABLET 1 po q6hr PRN Nausea 9 ONDANSETRON HCL 20606653386 No Longer Active Mau Mcmahon MD Acti ve PREDNISONE 5 MG ORAL TABLET Take 3 tabs po on the , decrease by 1 tablet every 3 days until off PREDNISONE 46450627032 No Longer Active Gilbert Amador MD Active CHERATUSSIN AC 100-10 MG/5ML ORAL SYRUP 1 tsp by mouth every 4 hours as needed for cough GUAIFENESIN-CODEINE 49325181193 No Longe r Active Gilbert Amador MD Active ZITHROMAX 250 MG ORAL TABLET 2 po today, then 1 po q days 2-5 20 23/10/22 AZITHROMYCIN 60979983643 No Longer Active Deirdre Riddle APRN Active CELEBREX 100 MG ORAL CAPSULE take 1 tab po BID for osteoarthriti s CELECOXIB 01533435958 No Longer Active Deirdre Riddle STRUCTURAL TECHNICIAN A ctive OMEPRAZOLE 20 MG ORAL CAPSULE DELAYED RELEASE 1 tablet po in the am OMEPRAZOLE 41110969490 No Longer Active Deirdre Riddle STRUCTURAL TECHNICIAN A ctive BACTRIM DS 800-160 MG ORAL TABLET 1 tab by mouth twice daily 201 12/08/14 TRIMETHOPRIM-SULFAMETHOXAZOLE 60107398706 No Longer Active Vincent Reynosoemma AJN Active ZITHROMAX 1 GM ORAL PACKET DIR AZITHROMY ANALISA 18165027107 No Longer Active Deirdre Riddle STRUCTURAL TECHNICIAN Active LEVAQUIN 500 MG ORAL TABLET 1 tablet by mouth daily 20 25/07/14 LEVOFLOXACIN 54079569821 No Longer Active Mau Mcmahon MD Acti ve HYDROCHLOROTHIAZIDE 25 MG ORAL TABLET 1 PO Q AM 201 10/16/21 HYDROCHLOROTHIAZIDE 49735352255 No Longer Active Ryne Cristina DO Ac tive SIMVASTATIN 20 MG ORAL TABLET 1 tablet po q hs SIMVASTATIN 88111296526 No Longer Active Ryne Cristina DO Active SIMVASTATIN 20 MG ORAL TABLET 1 tablet po q hs SIMVASTATIN 20 MG ORAL TABLET 037445 SIMVASTATIN Inactive HYDROCHLOROTHIAZIDE 25 MG ORAL TABLET 1 PO Q AM 201 10/16/21 HYDROCHLOROTHIAZIDE 25 MG ORAL TABLET 493586 HYDROCHLOROTHIAZIDE In active LEVAQUIN 500 MG ORAL TABLET 1 tablet by mouth daily 20 25/07/14 LEVAQUIN 500 MG ORAL TABLET 663561 LEVOFLOXACIN Inactive ZITHROMAX 1 GM ORAL PACKET DIR Z ITHROMAX 1 GM ORAL PACKET 178710 AZITHROMYCIN Inactive BACTRIM DS 800-160 MG ORAL TABLET 1 tab by mouth twice daily 201 12/08/14 BACTRIM DS 800-160 MG ORAL TABLET 247466 TRIMETHOPRIM-SULFAMETHOXAZOLE Inactive OMEPRAZOLE 20 MG ORAL CAPSULE DELAYED RELEASE 1 tablet po in the am OMEPRAZOLE 20 MG ORAL CAPSULE DELAYED RELEASE 652916 OM EPRAZOLE Inactive CELEBREX 100 MG ORAL CAPSULE take 1 tab po BID for osteoarthriti s CELEBREX 100 MG ORAL CAPSULE 770849 CELECOXIB Zohreh ctive CHERATUSSIN AC 100-10 MG/5ML ORAL SYRUP 1 tsp by mouth every 4 hours as needed for cough CHERATUSSIN AC 100-10 MG/5ML ORAL SYRUP 9 17196 GUAIFENESIN-CODEINE Inactive PREDNISONE 5 MG ORAL TABLET Take 3 tabs po on the , decrease by 1 tablet every 3 days until off PREDNISONE 5 MG OR AL TABLET 660790 PREDNISONE Inactive ZOFRAN 4 MG ORAL TABLET 1 po q6hr PRN Nausea 9 ZOFRAN 4 MG ORAL TABLET 081202 ONDANSETRON HCL Inactive MECLIZINE HCL 25 MG ORAL TABLET one 4 times a day as needed for dizziness MECLIZINE HCL 25 MG ORAL TABLET 625132 MECLIZINE HCL Inactive PREDNISONE 5 MG ORAL TABLET PREDNISO NE 5 MG ORAL TABLET 200762 PREDNISONE Inactive NASONEX 50 MCG/ACT NASAL SUSPENSION use 2 sprays in each nos tril qday NASONEX 50 MCG/ACT NASAL SUSPENSION 5626500 MOMET ASONE FUROATE Inactive ALLOPURINOL 100 MG ORAL TABLET Take 1 tab po x 7 days, then 2 times every day thereafter if tolerated. ALLOPURINOL 100 MG ORAL TABLET 939562 ALLOPURINOL Inactive COLCHICINE 0.6 MG ORAL CAPSULE PRN FOR GOUT FLARE UPS COLCHICINE 0.6 MG ORAL CAPSULE 4226976 COLCHICINE Inactive HYDROCHLOROTHIAZIDE 25 MG ORAL TABLET 0.5 tablet [address] [facility] daily for blood pressure. HYDROCHLOROTHIAZIDE 25 MG ORAL TABLET 310 798 HYDROCHLOROTHIAZIDE Inactive ZITHROMAX 250 MG ORAL TABLET 2 po today, then 1 po q days 2-5 20 23/10/22 ZITHROMAX 250 MG ORAL TABLET 020516 AZITHROMYCIN Zohreh ctive AZITHROMYCIN 250 MG ORAL TABLET 2 po qd x 1 day, then 1 po q d x 4 days AZITHROMYCIN 250 MG ORAL TABLET 539268 AZITHROMY ANALISA Inactive Encounters Code Encounter Date Provider Facility CPT-29284 Level 4 Est. Patient 21:12:34 CDT Mau bailey MD [facility] CPT-59754 Level 3 Est. Patient 16:26:55 TALENT ACQUISITION MANAGER Osbaldo Wilkes MD [facility] CPT-05222 Level 4 Est. Patient 12:43:27 CDT Mau bailey MD [facility] CPT-86277 Level 3 Est. Patient 16:46:20 CDT Gilbert Amador MD [facility] CPT-87221 Level 3 Est. Patient 09:03:26 CDT Deirdre carter APRN [facility] CPT-32230 Level 4 Est. Patient 15:38:51 TALENT ACQUISITION MANAGER Mau bailey MD [facility] CPT-67056 Level 4 Est. Patient 10:26:24 CDT Mau bailey MD [facility] CPT-27658 Level 3 Est. Patient 17:21:09 CDT Ryne ornelas DO [facility] CPT-88220 Level 4 Est. Patient 09:22:16 CDT Mau bailey MD [facility] CPT-17679 Level 3 Est. Patient 08:55:02 TALENT ACQUISITION MANAGER Mau bailey MD [facility] Procedures Code Procedure Name Date Entry Date Standard Desc ription CPT-LR Lesion Removal 21:12:34 CDT CPT-32847 EKG Trac and Interp - XRAY USE ONLY 1 5:52:34 CDT CPT-45378 Venipuncture Draw Fee 09:05:38 CDT CPT-14933 Uric Acid - LAB USE ONLY 09:05:38 CDT 03/10 CPT-09685 Sed Rate - LAB USE ONLY 09:05:38 CDT 03/10 CPT-68322 CMP - LAB USE ONLY 09:05:37 CDT CPT-62563 CBC - LAB USE ONLY 09:05:37 CDT CPT-J2930 Solu Medrol 125 mg (Methyl Prednisolone Sodium Succinate) 16:27:04 CDT CPT-25598 Abx/Therapy Injection 16:27:04 CDT CPT-J2930 Solu Medrol 125 mg (Methyl Prednisolone Sodium Succinate) 14:33:18 CDT
--- OUTSIDE RECORDS SUMMARY | 2019-11-22 08:24 | XMS REPORT | Clinical Summary ---
Author Author Admin, Volodymyr De Dios Organization [employer] Address Unknown Phone Unavailable Allergies, Adverse Reactions, [...] for hypertensi on and gout LOSARTAN POTASSIUM [id number] Active Mau Dewey Active NASONEX 50 MCG/ACT NASAL SUSPENSION 2 sprays everyday MOMETASONE FUROATE 47789805767 Active Mau Mcmahon MD Active GUAIFENESIN-CODEINE 100-10 MG/5ML ORAL SYRUP 5ml every 4 to 6 hours as needed for cough GUAIFENESIN-CODEINE 39573233140 Active Timur Wilkes MD Active PREDNISONE 20 MG ORAL TABLET 2 daily for 3 days then 1 daily for 3 days PREDNISONE 32916448531 Active Osbaldo Wilkes MD Active HYDROCHLOROTHIAZIDE 25 MG ORAL TABLET 0.5 tablet by [facility] daily for blood pressure. HYDROCHLOROTHIAZIDE 99330843436 No Longe r Active Osbaldo Wilkes MD Active COLCHICINE 0.6 MG ORAL CAPSULE PRN FOR GOUT FLARE UPS COLCHICINE 69030053859 No Longer Active Osbaldo Wilkes MD Activ e ALLOPURINOL 100 MG ORAL TABLET Take 1 tab po x 7 days, then 2 times every day thereafter if tolerated. ALLOPURINOL 57041186609 No Longer Active Osbaldo Wilkes MD Active NASONEX 50 MCG/ACT NASAL SUSPENSION use 2 sprays in each nos tril qday MOMETASONE FUROATE 62103983992 No Longer Active Osbaldo valdez MD Active PREDNISONE 5 MG ORAL TABLET PREDNISONE 10816246245 No Longer Active Osbaldo Wilkes MD Active AZITHROMYCIN 250 MG ORAL TABLET 2 po qd x 1 day, then 1 po q d x 4 days AZITHROMYCIN 42074938587 No Longer Active Pavithra Mora Active SUDAFED 12 HOUR 120 MG ORAL TABLET EXTENDED RELEASE 12 HOUR 1 pill twice daily if needed for congestion PSEUDOEPHEDRINE HCL 40948844726 A ctive Mau Mcmahon MD Active MECLIZINE HCL 25 MG ORAL TABLET one 4 times a day as needed for dizziness MECLIZINE HCL 04095949129 No Longer Active Mau Mcmahon MD Active ZOFRAN 4 MG ORAL TABLET 1 po q6hr PRN Nausea 9 ONDANSETRON HCL 17614740982 No Longer Active Mau Mcmahon MD Acti ve PREDNISONE 5 MG ORAL TABLET Take 3 tabs po on the , decrease by 1 tablet every 3 days until off PREDNISONE 14837955425 No Longer Active Gilbert Amador MD Active CHERATUSSIN AC 100-10 MG/5ML ORAL SYRUP 1 tsp by mouth every 4 hours as needed for cough GUAIFENESIN-CODEINE 89408032036 No Longe r Active Gilbert Amador MD Active ZITHROMAX 250 MG ORAL TABLET 2 po today, then 1 po q days 2-5 20 23/10/22 AZITHROMYCIN 16261053985 No Longer Active Deirdre Riddle APRN Active CELEBREX 100 MG ORAL CAPSULE take 1 tab po BID for osteoarthriti s CELECOXIB 30955479061 No Longer Active Deirdre Riddle TRANSPORTATION MANAGER A ctive OMEPRAZOLE 20 MG ORAL CAPSULE DELAYED RELEASE 1 tablet po in the am OMEPRAZOLE 33225289680 No Longer Active Deirdre Riddle TRANSPORTATION MANAGER A ctive BACTRIM DS 800-160 MG ORAL TABLET 1 tab by mouth twice daily 201 12/08/14 TRIMETHOPRIM-SULFAMETHOXAZOLE 59406666840 No Longer Active Vincent Reynosoemma AJN Active ZITHROMAX 1 GM ORAL PACKET DIR AZITHROMY ANALISA 78097523059 No Longer Active Deirdre Riddle TRANSPORTATION MANAGER Active LEVAQUIN 500 MG ORAL TABLET 1 tablet by mouth daily 20 25/07/14 LEVOFLOXACIN 50938107492 No Longer Active Mau Mcmahon MD Acti ve HYDROCHLOROTHIAZIDE 25 MG ORAL TABLET 1 PO Q AM 201 10/16/21 HYDROCHLOROTHIAZIDE 13705157619 No Longer Active Ryne Cristina DO Ac tive SIMVASTATIN 20 MG ORAL TABLET 1 tablet po q hs SIMVASTATIN 17709916210 No Longer Active Ryne Cristina DO Active SIMVASTATIN 20 MG ORAL TABLET 1 tablet po q hs SIMVASTATIN 20 MG ORAL TABLET 725442 SIMVASTATIN Inactive HYDROCHLOROTHIAZIDE 25 MG ORAL TABLET 1 PO Q AM 201 10/16/21 HYDROCHLOROTHIAZIDE 25 MG ORAL TABLET 112312 HYDROCHLOROTHIAZIDE In active LEVAQUIN 500 MG ORAL TABLET 1 tablet by mouth daily 20 25/07/14 LEVAQUIN 500 MG ORAL TABLET 898975 LEVOFLOXACIN Inactive ZITHROMAX 1 GM ORAL PACKET DIR Z ITHROMAX 1 GM ORAL PACKET 437431 AZITHROMYCIN Inactive BACTRIM DS 800-160 MG ORAL TABLET 1 tab by mouth twice daily 201 12/08/14 BACTRIM DS 800-160 MG ORAL TABLET 062685 TRIMETHOPRIM-SULFAMETHOXAZOLE Inactive OMEPRAZOLE 20 MG ORAL CAPSULE DELAYED RELEASE 1 tablet po in the am OMEPRAZOLE 20 MG ORAL CAPSULE DELAYED RELEASE 208193 OM EPRAZOLE Inactive CELEBREX 100 MG ORAL CAPSULE take 1 tab po BID for osteoarthriti s CELEBREX 100 MG ORAL CAPSULE 748892 CELECOXIB Zohreh ctive CHERATUSSIN AC 100-10 MG/5ML ORAL SYRUP 1 tsp by mouth every 4 hours as needed for cough CHERATUSSIN AC 100-10 MG/5ML ORAL SYRUP 9 68554 GUAIFENESIN-CODEINE Inactive PREDNISONE 5 MG ORAL TABLET Take 3 tabs po on the , decrease by 1 tablet every 3 days until off PREDNISONE 5 MG OR AL TABLET 499480 PREDNISONE Inactive ZOFRAN 4 MG ORAL TABLET 1 po q6hr PRN Nausea 9 ZOFRAN 4 MG ORAL TABLET 212276 ONDANSETRON HCL Inactive MECLIZINE HCL 25 MG ORAL TABLET one 4 times a day as needed for dizziness MECLIZINE HCL 25 MG ORAL TABLET 930993 MECLIZINE HCL Inactive PREDNISONE 5 MG ORAL TABLET PREDNISO NE 5 MG ORAL TABLET 197894 PREDNISONE Inactive NASONEX 50 MCG/ACT NASAL SUSPENSION use 2 sprays in each nos tril qday NASONEX 50 MCG/ACT NASAL SUSPENSION 5560875 MOMET ASONE FUROATE Inactive ALLOPURINOL 100 MG ORAL TABLET Take 1 tab po x 7 days, then 2 times every day thereafter if tolerated. ALLOPURINOL 100 MG ORAL TABLET 088184 ALLOPURINOL Inactive COLCHICINE 0.6 MG ORAL CAPSULE PRN FOR GOUT FLARE UPS COLCHICINE 0.6 MG ORAL CAPSULE 1003184 COLCHICINE Inactive HYDROCHLOROTHIAZIDE 25 MG ORAL TABLET 0.5 [address] [facility] daily for blood pressure. HYDROCHLOROTHIAZIDE 25 MG ORAL TABLET 310 798 HYDROCHLOROTHIAZIDE Inactive ZITHROMAX 250 MG ORAL TABLET 2 po today, then 1 po q days 2-5 20 23/10/22 ZITHROMAX 250 MG ORAL TABLET 458029 AZITHROMYCIN Zohreh ctive AZITHROMYCIN 250 MG ORAL TABLET 2 po qd x 1 day, then 1 po q d x 4 days AZITHROMYCIN 250 MG ORAL TABLET 485432 AZITHROMY ANALISA Inactive Encounters Code Encounter Date Provider Facility CPT-54051 Level 4 Est. Patient 21:12:34 CDT Mau bailey MD [facility] CPT-02045 Level 3 Est. Patient 16:26:55 HRIS MANAGER Osbaldo Wilkes MD [facility] CPT-85451 Level 4 Est. Patient 12:43:27 CDT Mau bailey MD [facility] CPT-11645 Level 3 Est. Patient 16:46:20 CDT Gilbert Amador MD [facility] CPT-93250 Level 3 Est. Patient 09:03:26 CDT Deirdre carter APRN [facility] CPT-75434 Level 4 Est. Patient 15:38:51 HRIS MANAGER Mau bailey MD [facility] CPT-53367 Level 4 Est. Patient 10:26:24 CDT Mau bailey MD [facility] CPT-27347 Level 3 Est. Patient 17:21:09 CDT Ryne ornelas DO [facility] CPT-80035 Level 4 Est. Patient 09:22:16 CDT Mau bailey MD [facility] CPT-46179 Level 3 Est. Patient 08:55:02 HRIS MANAGER Mau bailey MD [facility] Procedures Code Procedure Name Date Entry Date Standard Desc ription CPT-LR Lesion Removal 21:12:34 CDT CPT-66537 EKG Trac and Interp - XRAY USE ONLY 1 5:52:34 CDT CPT-44769 Venipuncture Draw Fee 09:05:38 CDT CPT-56088 Uric Acid - LAB USE ONLY 09:05:38 CDT 03/10 CPT-62456 Sed Rate - LAB USE ONLY 09:05:38 CDT 03/10 CPT-36330 CMP - LAB USE ONLY 09:05:37 CDT CPT-78060 CBC - LAB USE ONLY 09:05:37 CDT CPT-J2930 Solu Medrol 125 mg (Methyl Prednisolone Sodium Succinate) 16:27:04 CDT CPT-73362 Abx/Therapy Injection 16:27:04 CDT CPT-J2930 Solu Medrol 125 mg (Methyl Prednisolone Sodium Succinate) 14:33:18 CDT
--- OUTSIDE RECORDS SUMMARY | 2019-11-22 08:24 | XMS REPORT | Clinical Summary ---
Author Author Admin, Volodymyr De Dios Organization [employer] Address Unknown Phone Unavailable Allergies, Adverse Reactions, [...] disorder of ear Preop exam V72.84 Resolved aMu Mcmahon MD Preoperative examination, unspecified Skin tag [...] pill by mouth daily GERD PANTOPRAZOLE SODIUM 91855492737 Active Mau leonard MD Active GUAIFENESIN-CODEINE 100-10 MG/5ML ORAL SYRUP 5ml every 4 to 6 hours as needed for cough GUAIFENESIN-CODEINE 06090558593 No Longe r Active Mau Mcmahon MD Active PREDNISONE 20 MG ORAL TABLET 2 daily for 3 days then 1 daily for 3 days PREDNISONE 53042445656 No Longer Active Mau calderon MD Active COZAAR 50 MG ORAL TABLET 1 tab po twice daily for hypertensi on and gout LOSARTAN POTASSIUM 46504234967 Active Mau Dewey Active NASONEX 50 MCG/ACT NASAL SUSPENSION 2 sprays everyday MOMETASONE FUROATE 06714827121 Active Mau Mcmahon MD Active HYDROCHLOROTHIAZIDE 25 MG ORAL TABLET 0.5 tablet by [facility] daily for blood pressure. HYDROCHLOROTHIAZIDE 31340440130 No Longe r Active Osbaldo Wilkes MD Active COLCHICINE 0.6 MG ORAL CAPSULE PRN FOR GOUT FLARE UPS COLCHICINE 02610919124 No Longer Active Osbaldo Wilkes MD Activ e ALLOPURINOL 100 MG ORAL TABLET Take 1 tab po x 7 days, then 2 times every day thereafter if tolerated. ALLOPURINOL 13647272770 No Longer Active Osbaldo Wilkes MD Active NASONEX 50 MCG/ACT NASAL SUSPENSION use 2 sprays in each nos tril qday MOMETASONE FUROATE 74642863043 No Longer Active Osbaldo valdez MD Active PREDNISONE 5 MG ORAL TABLET PREDNISONE 09561603314 No Longer Active Osbaldo Wilkes MD Active AZITHROMYCIN 250 MG ORAL TABLET 2 po qd x 1 day, then 1 po q d x 4 days AZITHROMYCIN 37271363118 No Longer Active Pavithra Mora Active SUDAFED 12 HOUR 120 MG ORAL TABLET EXTENDED RELEASE 12 HOUR 1 pill twice daily if needed for congestion PSEUDOEPHEDRINE HCL 22009714109 A ctive Mau Mcmahon MD Active MECLIZINE HCL 25 MG ORAL TABLET one 4 times a day as needed for dizziness MECLIZINE HCL 58105966514 No Longer Active Mau Mcmahon MD Active ZOFRAN 4 MG ORAL TABLET 1 po q6hr PRN Nausea 9 ONDANSETRON HCL 71395182822 No Longer Active Mau Mcmahon MD Acti ve PREDNISONE 5 MG ORAL TABLET Take 3 tabs po on the , decrease by 1 tablet every 3 days until off PREDNISONE 52414777347 No Longer Active Gilbert Amador MD Active CHERATUSSIN AC 100-10 MG/5ML ORAL SYRUP 1 tsp by mouth every 4 hours as needed for cough GUAIFENESIN-CODEINE 09433988179 No Longe r Active Gilbert Amador MD Active ZITHROMAX 250 MG ORAL TABLET 2 po today, then 1 po q days 2-5 20 23/10/22 AZITHROMYCIN 30247924679 No Longer Active Deirdre Riddle APRN Active CELEBREX 100 MG ORAL CAPSULE take 1 tab po BID for osteoarthriti s CELECOXIB 24152524433 No Longer Active Deirdre Riddle APRN A ctive OMEPRAZOLE 20 MG ORAL CAPSULE DELAYED RELEASE 1 tablet po in the am OMEPRAZOLE 65750781418 No Longer Active Deirdre Riddle APRN A ctive BACTRIM DS 800-160 MG ORAL TABLET 1 tab by mouth twice daily 201 12/08/14 TRIMETHOPRIM-SULFAMETHOXAZOLE 16139696456 No Longer Active Vincent larson Venkatesh FLYNN Active ZITHROMAX 1 GM ORAL PACKET DIR AZITHROMY ANALISA 43188027399 No Longer Active Deirdredeisy Riddle APRN Active LEVAQUIN 500 MG ORAL TABLET 1 tablet by mouth daily 20 25/07/14 LEVOFLOXACIN 95886654834 No Longer Active Mau Mcmahon MD Acti ve HYDROCHLOROTHIAZIDE 25 MG ORAL TABLET 1 PO Q AM 201 10/16/21 HYDROCHLOROTHIAZIDE 06949986967 No Longer Active Ryne Cristina DO Ac tive SIMVASTATIN 20 MG ORAL TABLET 1 tablet po q hs SIMVASTATIN 40865522585 No Longer Active Ryne Cristina DO Active SIMVASTATIN 20 MG ORAL TABLET 1 tablet po q hs SIMVASTATIN 20 MG ORAL TABLET 550240 SIMVASTATIN Inactive HYDROCHLOROTHIAZIDE 25 MG ORAL TABLET 1 PO Q AM 201 10/16/21 HYDROCHLOROTHIAZIDE 25 MG ORAL TABLET 351708 HYDROCHLOROTHIAZIDE In active LEVAQUIN 500 MG ORAL TABLET 1 tablet by mouth daily 20 25/07/14 LEVAQUIN 500 MG ORAL TABLET 479113 LEVOFLOXACIN Inactive ZITHROMAX 1 GM ORAL PACKET DIR Z ITHROMAX 1 GM ORAL PACKET 391625 AZITHROMYCIN Inactive BACTRIM DS 800-160 MG ORAL TABLET 1 tab by mouth twice daily 201 12/08/14 BACTRIM DS 800-160 MG ORAL TABLET 310639 TRIMETHOPRIM-SULFAMETHOXAZOLE Inactive OMEPRAZOLE 20 MG ORAL CAPSULE DELAYED RELEASE 1 tablet po in the am OMEPRAZOLE 20 MG ORAL CAPSULE DELAYED RELEASE 974939 OM EPRAZOLE Inactive CELEBREX 100 MG ORAL CAPSULE take 1 tab po BID for osteoarthriti s CELEBREX 100 MG ORAL CAPSULE 483991 CELECOXIB Zohreh ctive CHERATUSSIN AC 100-10 MG/5ML ORAL SYRUP 1 tsp by mouth every 4 hours as needed for cough CHERATUSSIN AC 100-10 MG/5ML ORAL SYRUP 9 88658 GUAIFENESIN-CODEINE Inactive PREDNISONE 5 MG ORAL TABLET Take 3 tabs po on the , decrease by 1 tablet every 3 days until off PREDNISONE 5 MG OR AL TABLET 539584 PREDNISONE Inactive ZOFRAN 4 MG ORAL TABLET 1 po q6hr PRN Nausea 9 ZOFRAN 4 MG ORAL TABLET 560044 ONDANSETRON HCL Inactive MECLIZINE HCL 25 MG ORAL TABLET one 4 times a day as needed for dizziness MECLIZINE HCL 25 MG ORAL TABLET 860487 MECLIZINE HCL Inactive PREDNISONE 5 MG ORAL TABLET PREDNISO NE 5 MG ORAL TABLET 052885 PREDNISONE Inactive NASONEX 50 MCG/ACT NASAL SUSPENSION use 2 sprays in each nos tril qday NASONEX 50 MCG/ACT NASAL SUSPENSION 7143243 MOMET ASONE FUROATE Inactive ALLOPURINOL 100 MG ORAL TABLET Take 1 tab po x 7 days, then 2 times every day thereafter if tolerated. ALLOPURINOL 100 MG ORAL TABLET 180981 ALLOPURINOL Inactive COLCHICINE 0.6 MG ORAL CAPSULE PRN FOR GOUT FLARE UPS COLCHICINE 0.6 MG ORAL CAPSULE 3120103 COLCHICINE Inactive HYDROCHLOROTHIAZIDE 25 MG ORAL TABLET 0.5 tablet by [facility] daily for blood pressure. HYDROCHLOROTHIAZIDE 25 MG ORAL TABLET 310 798 HYDROCHLOROTHIAZIDE Inactive PREDNISONE 20 MG ORAL TABLET 2 daily for 3 days then 1 daily for 3 days PREDNISONE 20 MG ORAL TABLET 918354 PREDNISONE Inactive GUAIFENESIN-CODEINE 100-10 MG/5ML ORAL SYRUP 5ml every 4 to 6 hours as needed for cough GUAIFENESIN-CODEINE 100-10 MG/5M L ORAL SYRUP 191111 GUAIFENESIN-CODEINE Inactive ZITHROMAX 250 MG ORAL TABLET 2 po today, then 1 po q days 2-5 20 23/10/22 ZITHROMAX 250 MG ORAL TABLET 953126 AZITHROMYCIN [place] ctive AZITHROMYCIN 250 MG ORAL TABLET 2 po qd x 1 day, then 1 po q d x 4 days AZITHROMYCIN 250 MG ORAL TABLET 414310 AZITHROMY ANALISA Inactive Vital Signs Date Name Value Unit Range Description blood pressure, diastolic 84 mm[Hg] BP santos blood pressure, systolic 141 mm[Hg] BP sys height E&M 70 [in_us] Bdy height pulse rate E&M 74 /min Heart rate temperature E&M 98.8 [degF] Body temp erature weight E&M 217 [lb_av] Weight Measure d Encounters Code Encounter Date Provider Facility CPT-60713 [id number] Vst-Est Level IV 15:44:27 C DT Mau Mcmahon MD [facility]-35689 Level 4 Est. Patient 21:12:34 CDT Mau bailey MD [facility]-88398 Level 3 Est. 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-57461 Level 4 Est. Patient 12:43:27 CDT Mau bailey MD [facility]-75818 Level 3 Est. Patient 16:46:20 CDT Gilbert Amador MD [facility]-85036 Level 3 Est. Patient 09:03:26 CDT Deirdre carter APRN [facility]-87850 Level 4 Est. Patient 15:38:51 POLISHER ALUMINUM Mau bailey MD [facility]-40777 Level 4 Est. Patient 10:26:24 CDT Mau bailey MD [facility] CPT-16945 Level 3 Est. Patient 17:21:09 CDT Ryne ornelas DO [facility] CPT-44356 Level 4 Est. Patient 09:22:16 CDT Mau bailey MD [facility] CPT-47254 Level 3 Est. Patient 08:55:02 POLISHER ALUMINUM Mau bailey MD [facility] Procedures Code Procedure Name Date Entry Date Standard Desc ription CPT-LR Lesion Removal 21:12:34 CDT CPT-19943 EKG Trac and Interp - XRAY USE ONLY 1 5:52:34 CDT CPT-17156 Venipuncture Draw Fee 09:05:38 CDT CPT-72688 Uric Acid - LAB USE ONLY 09:05:38 CDT 03/10 CPT-14792 Sed Rate - LAB USE ONLY 09:05:38 CDT 03/10 CPT-31174 CMP - LAB USE ONLY 09:05:37 CDT CPT-44416 CBC - LAB USE ONLY 09:05:37 CDT CPT-J2930 Solu Medrol 125 mg (Methyl Prednisolone Sodium Succinate) 16:27:04 CDT CPT-60277 Abx/Therapy Injection 16:27:04 CDT CPT-J2930 Solu Medrol 125 mg (Methyl Prednisolone Sodium Succinate) 14:33:18 CDT
--- OUTSIDE RECORDS SUMMARY | 2019-11-22 08:24 | XMS REPORT | Clinical Summary ---
Author Author Admin, Volodymyr De Dios Organization [employer] Address Unknown Phone Unavailable Allergies, Adverse [...] pill by mouth daily GERD PANTOPRAZOLE SODIUM 12971057487 Active Mau leonard MD Active GUAIFENESIN-CODEINE 100-10 MG/5ML ORAL SYRUP 5ml every 4 to 6 hours as needed for cough GUAIFENESIN-CODEINE 24497156100 No Longe r Active Mau Mcmahon MD Active PREDNISONE 20 MG ORAL TABLET 2 daily for 3 days then 1 daily for 3 days PREDNISONE 62228670527 No Longer Active Mau calderon MD Active COZAAR 50 MG ORAL TABLET 1 tab po twice daily for hypertensi on and gout LOSARTAN POTASSIUM 28268166039 Active Mau Dewey Active NASONEX 50 MCG/ACT NASAL SUSPENSION 2 sprays everyday MOMETASONE FUROATE 37978983796 Active Mau Mcmahon MD Active HYDROCHLOROTHIAZIDE 25 MG ORAL TABLET 0.5 tablet by [facility] daily for blood pressure. HYDROCHLOROTHIAZIDE 56219224361 No Longe r Active Osbaldo Wilkes MD Active COLCHICINE 0.6 MG ORAL CAPSULE PRN FOR GOUT FLARE UPS COLCHICINE 88459473492 No Longer Active Osbaldo Wilkes MD Activ e ALLOPURINOL 100 MG ORAL TABLET Take 1 tab po x 7 days, then 2 times every day thereafter if tolerated. ALLOPURINOL 92927600881 No Longer Active Osbaldo Wilkes MD Active NASONEX 50 MCG/ACT NASAL SUSPENSION use 2 sprays in each nos tril qday MOMETASONE FUROATE 63825837898 No Longer Active Osbaldo valdez MD Active PREDNISONE 5 MG ORAL TABLET PREDNISONE 86119945365 No Longer Active Osbaldo Wilkes MD Active AZITHROMYCIN 250 MG ORAL TABLET 2 po qd x 1 day, then 1 po q d x 4 days AZITHROMYCIN 17127458090 No Longer Active Pavithra Mora Active SUDAFED 12 HOUR 120 MG ORAL TABLET EXTENDED RELEASE 12 HOUR 1 pill twice daily if needed for congestion PSEUDOEPHEDRINE HCL 10796181034 A ctive Mau Mcmahon MD Active MECLIZINE HCL 25 MG ORAL TABLET one 4 times a day as needed for dizziness MECLIZINE HCL 27546600429 No Longer Active Mau Mcmahon MD Active ZOFRAN 4 MG ORAL TABLET 1 po q6hr PRN Nausea 9 ONDANSETRON HCL 64673912041 No Longer Active Mau Mcmahon MD Acti ve PREDNISONE 5 MG ORAL TABLET Take 3 tabs po on the , decrease by 1 tablet every 3 days until off PREDNISONE 09761319491 No Longer Active Gilbert Amador MD Active CHERATUSSIN AC 100-10 MG/5ML ORAL SYRUP 1 tsp by mouth every 4 hours as needed for cough GUAIFENESIN-CODEINE 79749538396 No Longe r Active Gilbert Amador MD Active ZITHROMAX 250 MG ORAL TABLET 2 po today, then 1 po q days 2-5 20 23/10/22 AZITHROMYCIN 15732119990 No Longer Active Deirdre Riddle APRN Active CELEBREX 100 MG ORAL CAPSULE take 1 tab po BID for osteoarthriti s CELECOXIB 57163207069 No Longer Active Deirdre Riddle APRN A ctive OMEPRAZOLE 20 MG ORAL CAPSULE DELAYED RELEASE 1 tablet po in the am OMEPRAZOLE 43068720064 No Longer Active Deirdre Riddle APRN A ctive BACTRIM DS 800-160 MG ORAL TABLET 1 tab by mouth twice daily 201 12/08/14 TRIMETHOPRIM-SULFAMETHOXAZOLE 12993509633 No Longer Active Vincent larson Venkatesh FLYNN Active ZITHROMAX 1 GM ORAL PACKET DIR AZITHROMY ANALISA 20636626216 No Longer Active Deirdredeisy Riddle APRN Active LEVAQUIN 500 MG ORAL TABLET 1 tablet by mouth daily 20 25/07/14 LEVOFLOXACIN 28591909916 No Longer Active Mau Mcmahon MD Acti ve HYDROCHLOROTHIAZIDE 25 MG ORAL TABLET 1 PO Q AM 201 10/16/21 HYDROCHLOROTHIAZIDE 19449083694 No Longer Active Ryne Cristina DO Ac tive SIMVASTATIN 20 MG ORAL TABLET 1 tablet po q hs SIMVASTATIN 23599886210 No Longer Active Ryne Cristina DO Active SIMVASTATIN 20 MG ORAL TABLET 1 tablet po q hs SIMVASTATIN 20 MG ORAL TABLET 441216 SIMVASTATIN Inactive HYDROCHLOROTHIAZIDE 25 MG ORAL TABLET 1 PO Q AM 201 10/16/21 HYDROCHLOROTHIAZIDE 25 MG ORAL TABLET 095180 HYDROCHLOROTHIAZIDE In active LEVAQUIN 500 MG ORAL TABLET 1 tablet by mouth daily 20 25/07/14 LEVAQUIN 500 MG ORAL TABLET 470147 LEVOFLOXACIN Inactive ZITHROMAX 1 GM ORAL PACKET DIR Z ITHROMAX 1 GM ORAL PACKET 275521 AZITHROMYCIN Inactive BACTRIM DS 800-160 MG ORAL TABLET 1 tab by mouth twice daily 201 12/08/14 BACTRIM DS 800-160 MG ORAL TABLET 972925 TRIMETHOPRIM-SULFAMETHOXAZOLE Inactive OMEPRAZOLE 20 MG ORAL CAPSULE DELAYED RELEASE 1 tablet po in the am OMEPRAZOLE 20 MG ORAL CAPSULE DELAYED RELEASE 851543 OM EPRAZOLE Inactive CELEBREX 100 MG ORAL CAPSULE take 1 tab po BID for osteoarthriti s CELEBREX 100 MG ORAL CAPSULE 027411 CELECOXIB Zohreh ctive CHERATUSSIN AC 100-10 MG/5ML ORAL SYRUP 1 tsp by mouth every 4 hours as needed for cough CHERATUSSIN AC 100-10 MG/5ML ORAL SYRUP 9 49250 GUAIFENESIN-CODEINE Inactive PREDNISONE 5 MG ORAL TABLET Take 3 tabs po on the , decrease by 1 tablet every 3 days until off PREDNISONE 5 MG OR AL TABLET 219468 PREDNISONE Inactive ZOFRAN 4 MG ORAL TABLET 1 po q6hr PRN Nausea 9 ZOFRAN 4 MG ORAL TABLET 869264 ONDANSETRON HCL Inactive MECLIZINE HCL 25 MG ORAL TABLET one 4 times a day as needed for dizziness MECLIZINE HCL 25 MG ORAL TABLET 491832 MECLIZINE HCL Inactive PREDNISONE 5 MG ORAL TABLET PREDNISO NE 5 MG ORAL TABLET 205102 PREDNISONE Inactive NASONEX 50 MCG/ACT NASAL SUSPENSION use 2 sprays in each nos tril qday NASONEX 50 MCG/ACT NASAL SUSPENSION 3975124 MOMET ASONE FUROATE Inactive ALLOPURINOL 100 MG ORAL TABLET Take 1 tab po x 7 days, then 2 times every day thereafter if tolerated. ALLOPURINOL 100 MG ORAL TABLET 161032 ALLOPURINOL Inactive COLCHICINE 0.6 MG ORAL CAPSULE PRN FOR GOUT FLARE UPS COLCHICINE 0.6 MG ORAL CAPSULE 9744446 COLCHICINE Inactive HYDROCHLOROTHIAZIDE 25 MG ORAL TABLET 0.5 tablet by [facility] daily for blood pressure. HYDROCHLOROTHIAZIDE 25 MG ORAL TABLET 310 798 HYDROCHLOROTHIAZIDE Inactive PREDNISONE 20 MG ORAL TABLET 2 daily for 3 days then 1 daily for 3 days PREDNISONE 20 MG ORAL TABLET 456904 PREDNISONE Inactive GUAIFENESIN-CODEINE 100-10 MG/5ML ORAL SYRUP 5ml every 4 to 6 hours as needed for cough GUAIFENESIN-CODEINE 100-10 MG/5M L ORAL SYRUP 549119 GUAIFENESIN-CODEINE Inactive ZITHROMAX 250 MG ORAL TABLET 2 po today, then 1 po q days 2-5 20 23/10/22 ZITHROMAX 250 MG ORAL TABLET 287906 AZITHROMYCIN [place] ctive AZITHROMYCIN 250 MG ORAL TABLET 2 po qd x 1 day, then 1 po q d x 4 days AZITHROMYCIN 250 MG ORAL TABLET 391629 AZITHROMY ANALISA Inactive Vital Signs Date Name [...] W/RATIO - Chemistry sodium, serum 137 mmol/L 632-930 3382/09/17 carbon dioxide, venous blood 28.6 mmol/L 21.0-32 [...] 0-19 Encounters Code Encounter Date Provider Facility CPT-99990 [id number] Vst-Est Level IV 15:44:27 C DT Mau Mcmahon MD [facility] CPT-22481 Level 4 Est. Patient 21:12:34 CDT Mau bailey MD [facility] CPT-94189 Level 3 Est. Patient 16:26:55 UROGYNAECOLOGIST Osbaldo Wilkes MD [facility] CPT-99617 Level 4 Est. Patient 12:43:27 CDT Mau bailey MD [facility] CPT-28312 Level 3 Est. Patient 16:46:20 CDT Gilbert Amador MD [facility] CPT-58002 Level 3 Est. Patient 09:03:26 CDT Deirdre carter APRN [facility] CPT-91670 Level 4 Est. Patient 15:38:51 UROGYNAECOLOGIST Mau bailey MD [facility] CPT-89651 Level 4 Est. Patient 10:26:24 CDT Mau bailey MD [facility] CPT-58696 Level 3 Est. Patient 17:21:09 CDT Ryne Nina Sherry ornelas DO [facility] CPT-54048 Level 4 Est. Patient 09:22:16 CDT Mau bailey MD [facility] CPT-30955 Level 3 Est. Patient 08:55:02 UROGYNAECOLOGIST Mau bailey MD [facility] Procedures Code Procedure Name Date Entry Date Standard Desc ription CPT-LR Lesion Removal 21:12:34 CDT CPT-50280 EKG Trac and Interp - XRAY USE ONLY 1 5:52:34 CDT CPT-78598 Venipuncture Draw Fee 09:05:38 CDT CPT-52487 Uric Acid - LAB USE ONLY 09:05:38 CDT 03/10 CPT-94410 Sed Rate - LAB USE ONLY 09:05:38 CDT 03/10 CPT-63697 CMP - LAB USE ONLY 09:05:37 CDT CPT-14537 CBC - LAB USE ONLY 09:05:37 CDT CPT-J2930 Solu Medrol 125 mg (Methyl Prednisolone Sodium Succinate) 16:27:04 CDT CPT-43887 Abx/Therapy Injection 16:27:04 CDT CPT-J2930 Solu Medrol 125 mg (Methyl Prednisolone Sodium Succinate) 14:33:18 CDT
--- OUTSIDE RECORDS SUMMARY | 2019-11-22 08:24 | XMS REPORT | Clinical Summary ---
Author Author Admin, Volodymyr De Dios Organization [employer] Address Unknown Phone Unavailable Allergies, Adverse Reactions, [...] pill by mouth daily GERD PANTOPRAZOLE SODIUM [id number] Active Mau leonard MD Active GUAIFENESIN-CODEINE 100-10 MG/5ML ORAL SYRUP 5ml every 4 to 6 hours as needed for cough GUAIFENESIN-CODEINE 56261178572 No Longe r Active Mau cMmahon MD Active PREDNISONE 20 MG ORAL TABLET 2 daily for 3 days then 1 daily for 3 days PREDNISONE 56695017358 No Longer Active Mau calderon MD Active COZAAR 50 MG ORAL TABLET 1 tab po twice daily for hypertensi on and gout LOSARTAN POTASSIUM 17508724287 Active Mau Dewey Active NASONEX 50 MCG/ACT NASAL SUSPENSION 2 sprays everyday MOMETASONE FUROATE 14946666321 Active Mau Mcmahon MD Active HYDROCHLOROTHIAZIDE 25 MG ORAL TABLET 0.5 tablet by [facility] daily for blood pressure. HYDROCHLOROTHIAZIDE 40840204957 No Longe r Active Osbaldo Wilkes MD Active COLCHICINE 0.6 MG ORAL CAPSULE PRN FOR GOUT FLARE UPS COLCHICINE 99019073248 No Longer Active Osbaldo Wilkes MD Activ e ALLOPURINOL 100 MG ORAL TABLET Take 1 tab po x 7 days, then 2 times every day thereafter if tolerated. ALLOPURINOL 42765776071 No Longer Active Osbaldo Wilkes MD Active NASONEX 50 MCG/ACT NASAL SUSPENSION use 2 sprays in each nos tril qday MOMETASONE FUROATE 15550981566 No Longer Active Osbaldo valdez MD Active PREDNISONE 5 MG ORAL TABLET PREDNISONE 22163323753 No Longer Active Osbaldo Wilkes MD Active AZITHROMYCIN 250 MG ORAL TABLET 2 po qd x 1 day, then 1 po q d x 4 days AZITHROMYCIN 49844916310 No Longer Active Pavithra Mora Active SUDAFED 12 HOUR 120 MG ORAL TABLET EXTENDED RELEASE 12 HOUR 1 pill twice daily if needed for congestion PSEUDOEPHEDRINE HCL 62949073776 A ctive Mau Mcmahon MD Active MECLIZINE HCL 25 MG ORAL TABLET one 4 times a day as needed for dizziness MECLIZINE HCL 54831985197 No Longer Active Mau Mcmahon MD Active ZOFRAN 4 MG ORAL TABLET 1 po q6hr PRN Nausea 9 ONDANSETRON HCL 81482863568 No Longer Active Mau Mcmahon MD Acti ve PREDNISONE 5 MG ORAL TABLET Take 3 tabs po on the , decrease by 1 tablet every 3 days until off PREDNISONE 15184020641 No Longer Active Gilbert Amador MD Active CHERATUSSIN AC 100-10 MG/5ML ORAL SYRUP 1 tsp by mouth every 4 hours as needed for cough GUAIFENESIN-CODEINE 20540616065 No Longe r Active Gilbert Amador MD Active ZITHROMAX 250 MG ORAL TABLET 2 po today, then 1 po q days 2-5 20 23/10/22 AZITHROMYCIN 63403985782 No Longer Active Deirdre Riddle APRN Active CELEBREX 100 MG ORAL CAPSULE take 1 tab po BID for osteoarthriti s CELECOXIB 51171626688 No Longer Active Deirdre Riddle APRN A ctive OMEPRAZOLE 20 MG ORAL CAPSULE DELAYED RELEASE 1 tablet po in the am OMEPRAZOLE 98338341205 No Longer Active Deirdre Riddle APRN A ctive BACTRIM DS 800-160 MG ORAL TABLET 1 tab by mouth twice daily 201 12/08/14 TRIMETHOPRIM-SULFAMETHOXAZOLE 24423722993 No Longer Active Vincent larson Venkatesh FLYNN Active ZITHROMAX 1 GM ORAL PACKET DIR AZITHROMY ANALISA 95683834733 No Longer Active Deirdredeisy Riddle APRN Active LEVAQUIN 500 MG ORAL TABLET 1 tablet by mouth daily 20 25/07/14 LEVOFLOXACIN 69789376094 No Longer Active Mau Mcmahon MD Acti ve HYDROCHLOROTHIAZIDE 25 MG ORAL TABLET 1 PO Q AM 201 10/16/21 HYDROCHLOROTHIAZIDE 15248588286 No Longer Active Ryne Cristina DO Ac tive SIMVASTATIN 20 MG ORAL TABLET 1 tablet po q hs SIMVASTATIN 27522912893 No Longer Active Ryne Cristina DO Active SIMVASTATIN 20 MG ORAL TABLET 1 tablet po q hs SIMVASTATIN 20 MG ORAL TABLET 162489 SIMVASTATIN Inactive HYDROCHLOROTHIAZIDE 25 MG ORAL TABLET 1 PO Q AM 201 10/16/21 HYDROCHLOROTHIAZIDE 25 MG ORAL TABLET 438914 HYDROCHLOROTHIAZIDE In active LEVAQUIN 500 MG ORAL TABLET 1 tablet by mouth daily 20 25/07/14 LEVAQUIN 500 MG ORAL TABLET 225347 LEVOFLOXACIN Inactive ZITHROMAX 1 GM ORAL PACKET DIR Z ITHROMAX 1 GM ORAL PACKET 228579 AZITHROMYCIN Inactive BACTRIM DS 800-160 MG ORAL TABLET 1 tab by mouth twice daily 201 12/08/14 BACTRIM DS 800-160 MG ORAL TABLET 565500 TRIMETHOPRIM-SULFAMETHOXAZOLE Inactive OMEPRAZOLE 20 MG ORAL CAPSULE DELAYED RELEASE 1 tablet po in the am OMEPRAZOLE 20 MG ORAL CAPSULE DELAYED RELEASE 150132 OM EPRAZOLE Inactive CELEBREX 100 MG ORAL CAPSULE take 1 tab po BID for osteoarthriti s CELEBREX 100 MG ORAL CAPSULE 173344 CELECOXIB Zohreh ctive CHERATUSSIN AC 100-10 MG/5ML ORAL SYRUP 1 tsp by mouth every 4 hours as needed for cough CHERATUSSIN AC 100-10 MG/5ML ORAL SYRUP 9 49839 GUAIFENESIN-CODEINE Inactive PREDNISONE 5 MG ORAL TABLET Take 3 tabs po on the , decrease by 1 tablet every 3 days until off PREDNISONE 5 MG OR AL TABLET 172541 PREDNISONE Inactive ZOFRAN 4 MG ORAL TABLET 1 po q6hr PRN Nausea 9 ZOFRAN 4 MG ORAL TABLET 030863 ONDANSETRON HCL Inactive MECLIZINE HCL 25 MG ORAL TABLET one 4 times a day as needed for dizziness MECLIZINE HCL 25 MG ORAL TABLET 593825 MECLIZINE HCL Inactive PREDNISONE 5 MG ORAL TABLET PREDNISO NE 5 MG ORAL TABLET 129697 PREDNISONE Inactive NASONEX 50 MCG/ACT NASAL SUSPENSION use 2 sprays in each nos tril qday NASONEX 50 MCG/ACT NASAL SUSPENSION 9840995 MOMET ASONE FUROATE Inactive ALLOPURINOL 100 MG ORAL TABLET Take 1 tab po x 7 days, then 2 times every day thereafter if tolerated. ALLOPURINOL 100 MG ORAL TABLET 896946 ALLOPURINOL Inactive COLCHICINE 0.6 MG ORAL CAPSULE PRN FOR GOUT FLARE UPS COLCHICINE 0.6 MG ORAL CAPSULE 0830848 COLCHICINE Inactive HYDROCHLOROTHIAZIDE 25 MG ORAL TABLET 0.5 tablet by [facility] daily for blood pressure. HYDROCHLOROTHIAZIDE 25 MG ORAL TABLET 310 798 HYDROCHLOROTHIAZIDE Inactive PREDNISONE 20 MG ORAL TABLET 2 daily for 3 days then 1 daily for 3 days PREDNISONE 20 MG ORAL TABLET 028979 PREDNISONE Inactive GUAIFENESIN-CODEINE 100-10 MG/5ML ORAL SYRUP 5ml every 4 to 6 hours as needed for cough GUAIFENESIN-CODEINE 100-10 MG/5M L ORAL SYRUP 944126 GUAIFENESIN-CODEINE Inactive ZITHROMAX 250 MG ORAL TABLET 2 po today, then 1 po q days 2-5 20 23/10/22 ZITHROMAX 250 MG ORAL TABLET 997591 AZITHROMYCIN [place] ctive AZITHROMYCIN 250 MG ORAL TABLET 2 po qd x 1 day, then 1 po q d x 4 days AZITHROMYCIN 250 MG ORAL TABLET 228454 AZITHROMY ANALISA Inactive Vital Signs Date Name Value Unit Range Description blood pressure, diastolic 84 mm[Hg] BP santos blood pressure, systolic 141 mm[Hg] BP sys height E&M 70 [in_us] Bdy height pulse rate E&M 74 /min Heart rate temperature E&M 98.8 [degF] Body temp erature weight E&M 217 [lb_av] Weight Measure d Encounters Code Encounter Date Provider Facility CPT-89222 45370-[id number] Vst-Est Level IV 15:44:27 C DT Mau Mcmahon MD [facility]-48522 Level 4 Est. Patient 21:12:34 CDT Mau bailey MD [facility]-71023 Level 3 Est. 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 Patient 12:43:27 CDT Mau bailey MD [facility]-29103 Level 3 Est. Patient 16:46:20 CDT Gilbert Amador MD [facility]-34363 Level 3 Est. Patient 09:03:26 CDT Deirdre carter APRN [facility]-81620 Level 4 Est. Patient 15:38:51 [employer] Mau bailey MD [facility]-72206 Level 4 Est. Patient 10:26:24 CDT Mau bailey MD [facility] CPT-54208 Level 3 Est. Patient 17:21:09 CDT Ryne ornelas DO [facility] CPT-84297 Level 4 Est. Patient 09:22:16 CDT Mau bailey MD [facility] CPT-26656 Level 3 Est. Patient 08:55:02 [employer]IDENT [employer] Mau bailey MD [facility] Procedures Code Procedure Name Date Entry Date Standard Desc ription CPT-LR Lesion Removal 21:12:34 CDT CPT-40238 EKG Trac and Interp - XRAY USE ONLY 1 5:52:34 CDT CPT-36456 Venipuncture Draw Fee 09:05:38 CDT CPT-47694 Uric Acid - LAB USE ONLY 09:05:38 CDT 03/10 CPT-52993 Sed Rate - LAB USE ONLY 09:05:38 CDT 03/10 CPT-35949 CMP - LAB USE ONLY 09:05:37 CDT CPT-73647 CBC - LAB USE ONLY 09:05:37 CDT CPT-J2930 Solu Medrol 125 mg (Methyl Prednisolone Sodium Succinate) 16:27:04 CDT CPT-65354 Abx/Therapy Injection 16:27:04 CDT CPT-J2930 Solu Medrol 125 mg (Methyl Prednisolone Sodium Succinate) 14:33:18 CDT
--- OUTSIDE RECORDS SUMMARY | 2019-11-22 08:25 | XMS REPORT | Clinical Summary ---
Author Author Admin, Volodymyr De Dios Organization [employer] Address Unknown Phone Unavailable Allergies, Adverse Reactions, [...] for hypertensi on and gout LOSARTAN POTASSIUM 87080760354 Active Mau Dewey Active NASONEX 50 MCG/ACT NASAL SUSPENSION 2 sprays everyday MOMETASONE FUROATE 69790319243 Active Mau Mcmahon MD Active GUAIFENESIN-CODEINE 100-10 MG/5ML ORAL SYRUP 5ml every 4 to 6 hours as needed for cough GUAIFENESIN-CODEINE 69381015893 Active Timur Wilkes MD Active PREDNISONE 20 MG ORAL TABLET 2 daily for 3 days then 1 daily for 3 days PREDNISONE 94729323229 Active Osbaldo Wilkes MD Active HYDROCHLOROTHIAZIDE 25 MG ORAL TABLET 0.5 tablet by [facility] daily for blood pressure. HYDROCHLOROTHIAZIDE 37715628664 No Longe r Active Osbaldo Wilkes MD Active COLCHICINE 0.6 MG ORAL CAPSULE PRN FOR GOUT FLARE UPS COLCHICINE 32554134855 No Longer Active Osbaldo Wilkes MD Activ e ALLOPURINOL 100 MG ORAL TABLET Take 1 tab po x 7 days, then 2 times every day thereafter if tolerated. ALLOPURINOL 61530028908 No Longer Active Osbaldo Wilkes MD Active NASONEX 50 MCG/ACT NASAL SUSPENSION use 2 sprays in each nos tril qday MOMETASONE FUROATE 06714174941 No Longer Active Osbaldo valdez MD Active PREDNISONE 5 MG ORAL TABLET PREDNISONE 16542428409 No Longer Active Osbaldo Wilkes MD Active AZITHROMYCIN 250 MG ORAL TABLET 2 po qd x 1 day, then 1 po q d x 4 days AZITHROMYCIN 19526796666 No Longer Active Pavithra Mora Active SUDAFED 12 HOUR 120 MG ORAL TABLET EXTENDED RELEASE 12 HOUR 1 pill twice daily if needed for congestion PSEUDOEPHEDRINE HCL 18068935333 A ctive Mau Mcmahon MD Active MECLIZINE HCL 25 MG ORAL TABLET one 4 times a day as needed for dizziness MECLIZINE HCL 48614622773 No Longer Active Mau Mcmahon MD Active ZOFRAN 4 MG ORAL TABLET 1 po q6hr PRN Nausea 9 ONDANSETRON HCL 83852751851 No Longer Active Mau Mcmahon MD Acti ve PREDNISONE 5 MG ORAL TABLET Take 3 tabs po on the , decrease by 1 tablet every 3 days until off PREDNISONE 55026954183 No Longer Active Gilbert Amador MD Active CHERATUSSIN AC 100-10 MG/5ML ORAL SYRUP 1 tsp by mouth every 4 hours as needed for cough GUAIFENESIN-CODEINE 60742700873 No Longe r Active Gilbert Amador MD Active ZITHROMAX 250 MG ORAL TABLET 2 po today, then 1 po q days 2-5 20 23/10/22 AZITHROMYCIN 52582336185 No Longer Active Deirdre Riddle APRN Active CELEBREX 100 MG ORAL CAPSULE take 1 tab po BID for osteoarthriti s CELECOXIB 87518873620 No Longer Active Deirdre Riddle SIGN LANGUAGE TEACHER A ctive OMEPRAZOLE 20 MG ORAL CAPSULE DELAYED RELEASE 1 tablet po in the am OMEPRAZOLE 24040621328 No Longer Active Deirdre Riddle SIGN LANGUAGE TEACHER A ctive BACTRIM DS 800-160 MG ORAL TABLET 1 tab by mouth twice daily 201 12/08/14 TRIMETHOPRIM-SULFAMETHOXAZOLE 80852446085 No Longer Active Vincent Reynosoemma AJN Active ZITHROMAX 1 GM ORAL PACKET DIR AZITHROMY ANALISA 74029248446 No Longer Active Deirdre Riddle SIGN LANGUAGE TEACHER Active LEVAQUIN 500 MG ORAL TABLET 1 tablet by mouth daily 20 25/07/14 LEVOFLOXACIN 59281611934 No Longer Active Mau Mcmahon MD Acti ve HYDROCHLOROTHIAZIDE 25 MG ORAL TABLET 1 PO Q AM 201 10/16/21 HYDROCHLOROTHIAZIDE 08742946392 No Longer Active Ryne Cristina DO Ac tive SIMVASTATIN 20 MG ORAL TABLET 1 tablet po q hs SIMVASTATIN 70354523529 No Longer Active Ryne Cristina DO Active SIMVASTATIN 20 MG ORAL TABLET 1 tablet po q hs SIMVASTATIN 20 MG ORAL TABLET 949575 SIMVASTATIN Inactive HYDROCHLOROTHIAZIDE 25 MG ORAL TABLET 1 PO Q AM 201 10/16/21 HYDROCHLOROTHIAZIDE 25 MG ORAL TABLET 430180 HYDROCHLOROTHIAZIDE In active LEVAQUIN 500 MG ORAL TABLET 1 tablet by mouth daily 20 25/07/14 LEVAQUIN 500 MG ORAL TABLET 156818 LEVOFLOXACIN Inactive ZITHROMAX 1 GM ORAL PACKET DIR Z ITHROMAX 1 GM ORAL PACKET 809772 AZITHROMYCIN Inactive BACTRIM DS 800-160 MG ORAL TABLET 1 tab by mouth twice daily 201 12/08/14 BACTRIM DS 800-160 MG ORAL TABLET 116333 TRIMETHOPRIM-SULFAMETHOXAZOLE Inactive OMEPRAZOLE 20 MG ORAL CAPSULE DELAYED RELEASE 1 tablet po in the am OMEPRAZOLE 20 MG ORAL CAPSULE DELAYED RELEASE 548853 OM EPRAZOLE Inactive CELEBREX 100 MG ORAL CAPSULE take 1 tab po BID for osteoarthriti s CELEBREX 100 MG ORAL CAPSULE 775046 CELECOXIB Zohreh ctive CHERATUSSIN AC 100-10 MG/5ML ORAL SYRUP 1 tsp by mouth every 4 hours as needed for cough CHERATUSSIN AC 100-10 MG/5ML ORAL SYRUP 9 81817 GUAIFENESIN-CODEINE Inactive PREDNISONE 5 MG ORAL TABLET Take 3 tabs po on the , decrease by 1 tablet every 3 days until off PREDNISONE 5 MG OR AL TABLET 312320 PREDNISONE Inactive ZOFRAN 4 MG ORAL TABLET 1 po q6hr PRN Nausea 9 ZOFRAN 4 MG ORAL TABLET 969408 ONDANSETRON HCL Inactive MECLIZINE HCL 25 MG ORAL TABLET one 4 times a day as needed for dizziness MECLIZINE HCL 25 MG ORAL TABLET 115633 MECLIZINE HCL Inactive PREDNISONE 5 MG ORAL TABLET PREDNISO NE 5 MG ORAL TABLET 018367 PREDNISONE Inactive NASONEX 50 MCG/ACT NASAL SUSPENSION use 2 sprays in each nos tril qday NASONEX 50 MCG/ACT NASAL SUSPENSION 4875934 MOMET ASONE FUROATE Inactive ALLOPURINOL 100 MG ORAL TABLET Take 1 tab po x 7 days, then 2 times every day thereafter if tolerated. ALLOPURINOL 100 MG ORAL TABLET 921485 ALLOPURINOL Inactive COLCHICINE 0.6 MG ORAL CAPSULE PRN FOR GOUT FLARE UPS COLCHICINE 0.6 MG ORAL CAPSULE 3535946 COLCHICINE Inactive HYDROCHLOROTHIAZIDE 25 MG ORAL TABLET 0.5 tablet by [facility] daily for blood pressure. HYDROCHLOROTHIAZIDE 25 MG ORAL TABLET 310 798 HYDROCHLOROTHIAZIDE Inactive ZITHROMAX 250 MG ORAL TABLET 2 po today, then 1 po q days 2-5 20 23/10/22 ZITHROMAX 250 MG ORAL TABLET 691759 AZITHROMYCIN [place] ctive AZITHROMYCIN 250 MG ORAL TABLET 2 po qd x 1 day, then 1 po q d x 4 days AZITHROMYCIN 250 MG ORAL TABLET 448048 AZITHROMY ANALISA Inactive Vital Signs Date Name Value Unit Range Description blood pressure, diastolic 81 mm[Hg] BP santos blood pressure, systolic 116 mm[Hg] BP sys pulse rate E&M 75 /min Heart rate temperature E&M 98.6 [degF] Body temp erature weight E&M 208 [lb_av] Weight Measure d Diagnostic Results Date Name Value Unit Range Description Office Visit: CHECK UP - Basic LDL target level 130 mg/dL Office Visit: CHECK UP - Chemistry HDL cholesterol, serum, target level 40 mg/dL triglyceride, target level 150 mg/dL cholesterol, target level 200 mg/dL Encounters Code Encounter Date Provider Facility CPT-68933 Level 4 Est. Patient 21:12:34 CDT Mau bailey MD [facility] CPT-65410 Level 3 Est. Patient 16:26:55 SHUTTLE FILLER Osbaldo Wilkes MD [facility] CPT-89160 Level 4 Est. Patient 12:43:27 CDT Mau bailey MD [facility] CPT-89677 Level 3 Est. Patient 16:46:20 CDT Gilbert Amador MD [facility] CPT-96121 Level 3 Est. Patient 09:03:26 CDT Deirdre carter APRN [facility] CPT-60193 Level 4 Est. Patient 15:38:51 SHUTTLE FILLER Mau bailey MD [facility] CPT-67314 Level 4 Est. Patient 10:26:24 CDT Mau bailey MD [facility] CPT-77263 Level 3 Est. Patient 17:21:09 CDT Ryne ornelas DO [facility] CPT-95121 Level 4 Est. Patient 09:22:16 CDT Mau bailey MD [facility] CPT-37374 Level 3 Est. Patient 08:55:02 SHUTTLE FILLER Mau bailey MD [facility] Procedures Code Procedure Name Date Entry Date Standard Desc ription CPT-LR Lesion Removal 21:12:34 CDT CPT-56367 EKG Trac and Interp - XRAY USE ONLY 1 5:52:34 CDT CPT-17459 Venipuncture Draw Fee 09:05:38 CDT CPT-62686 Uric Acid - LAB USE ONLY 09:05:38 CDT 03/10 CPT-12631 Sed Rate - LAB USE ONLY 09:05:38 CDT 03/10 CPT-60394 CMP - LAB USE ONLY 09:05:37 CDT CPT-12262 CBC - LAB USE ONLY 09:05:37 CDT CPT-J2930 Solu Medrol 125 mg (Methyl Prednisolone Sodium Succinate) 16:27:04 CDT CPT-44007 Abx/Therapy Injection 16:27:04 CDT CPT-J2930 Solu Medrol 125 mg (Methyl Prednisolone Sodium Succinate) 14:33:18 CDT
--- OUTSIDE RECORDS SUMMARY | 2019-11-22 08:25 | XMS REPORT | Clinical Summary ---
Author Author Admin, Volodymyr De Dios Organization [employer] Address Unknown Phone Unavailable Allergies, Adverse Reactions, [...] food] Leg edema, right 782.3 Active Mau Mmcahon MD Edema Osteoarthritis 715.90 Active Mau Mcmahon [...] disorder of ear Preop exam V72.84 Active Fiorellaqing Anderson Pr eoperative examination, unspecified Skin tag 701.9 Active Mau Mcmahon MD Unspecified hypertrophic and atrophic conditions of skin Pneumonia, right lower lobe ICD-486 Inactive Osbaldo Wilkes MD Poison bel ICD-692.6 Inactive Osbaldo Dewey Bronchitis ICD-490 Inactive Osbaldo Wilkes MD 201 01/08/07 Rhinitis, acute ICD-460 Inactive Osbaldo Lechuga MD Medication List Medication Instructions Start Date Stop Date Generic Name NDC Status Provider Patient Instruction NASONEX 50 MCG/ACT NASAL SUSPENSION 2 sprays everyday MOMETASONE FUROATE 68316489551 Active Mau Mcmahon MD Active GUAIFENESIN-CODEINE 100-10 MG/5ML ORAL SYRUP 5ml every 4 to 6 hours as needed for cough GUAIFENESIN-CODEINE 56179611283 Active Timur Wilkes MD Active PREDNISONE 20 MG ORAL TABLET 2 daily for 3 days then 1 daily for 3 days PREDNISONE 37311765555 Active Osbaldo Wilkes MD Active HYDROCHLOROTHIAZIDE 25 MG ORAL TABLET 0.5 tablet by [facility] daily for blood pressure. HYDROCHLOROTHIAZIDE 68381976423 No Longe r Active Osbaldo Wilkes MD Active COLCHICINE 0.6 MG ORAL CAPSULE PRN FOR GOUT FLARE UPS COLCHICINE 30111298413 No Longer Active Osbaldo Wilkes MD Activ e ALLOPURINOL 100 MG ORAL TABLET Take 1 tab po x 7 days, then 2 times every day thereafter if tolerated. ALLOPURINOL 85610859612 No Longer Active Osbaldo Wilkes MD Active NASONEX 50 MCG/ACT NASAL SUSPENSION use 2 sprays in each nos tril qday MOMETASONE FUROATE 98630120619 No Longer Active Osbaldo valdez MD Active PREDNISONE 5 MG ORAL TABLET PREDNISONE 08269666784 No Longer Active Osbaldo Wilkes MD Active AZITHROMYCIN 250 MG ORAL TABLET 2 po qd x 1 day, then 1 po q d x 4 days AZITHROMYCIN 31094665604 No Longer Active Pavithra Mora Active SUDAFED 12 HOUR 120 MG ORAL TABLET EXTENDED RELEASE 12 HOUR 1 pill twice daily if needed for congestion PSEUDOEPHEDRINE HCL 45585009004 A ctive Mau Mcmahon MD Active MECLIZINE HCL 25 MG ORAL TABLET one 4 times a day as needed for dizziness MECLIZINE HCL 31922383925 No Longer Active Mau Mcmahon MD Active ZOFRAN 4 MG ORAL TABLET 1 po q6hr PRN Nausea 9 ONDANSETRON HCL 71056985052 No Longer Active Mau Mcmahon MD Acti ve PREDNISONE 5 MG ORAL TABLET Take 3 tabs po on the day, decrease by 1 tablet every 3 days until off PREDNISONE 55293714476 No Longer Active Gilbert Amador MD Active CHERATUSSIN AC 100-10 MG/5ML ORAL SYRUP 1 tsp by mouth every 4 hours as needed for cough GUAIFENESIN-CODEINE 25173253028 No Longe r Active Gilbert Amador MD Active ZITHROMAX 250 MG ORAL TABLET 2 po today, then 1 po q days 2-5 20 23/10/22 AZITHROMYCIN 42038392156 No Longer Active Deirdre Riddle APRN Active CELEBREX 100 MG ORAL CAPSULE take 1 tab po BID for osteoarthriti s CELECOXIB 87417345136 No Longer Active Deirdre Riddle APRN A ctive OMEPRAZOLE 20 MG ORAL CAPSULE DELAYED RELEASE 1 tablet po in the am OMEPRAZOLE 26183004400 No Longer Active Deirdre Riddle APRN A ctive COZAAR 50 MG ORAL TABLET 1 tab po daily for hypertension and gout 2 LOSARTAN POTASSIUM 08489131136 Active Deirdre Riddle APRN Activ e BACTRIM DS 800-160 MG ORAL TABLET 1 tab by mouth twice daily 201 12/08/14 TRIMETHOPRIM-SULFAMETHOXAZOLE 65913222769 No Longer Active Vincent Riddle APRN Active ZITHROMAX 1 GM ORAL PACKET DIR AZITHROMY ANALISA 94863779791 No Longer Active Deirdre Riddle APRN Active LEVAQUIN 500 MG ORAL TABLET 1 tablet by mouth daily 20 25/07/14 LEVOFLOXACIN 66219072464 No Longer Active Mau Mcmahon MD Acti ve HYDROCHLOROTHIAZIDE 25 MG ORAL TABLET 1 PO Q AM 201 10/16/21 HYDROCHLOROTHIAZIDE 04299065280 No Longer Active Ryne Cristina DO Ac tive SIMVASTATIN 20 MG ORAL TABLET 1 tablet po q hs SIMVASTATIN 11924996824 No Longer Active Ryne Cristina DO Active SIMVASTATIN 20 MG ORAL TABLET 1 tablet po q hs SIMVASTATIN 20 MG ORAL TABLET 306459 SIMVASTATIN Inactive HYDROCHLOROTHIAZIDE 25 MG ORAL TABLET 1 PO Q AM 201 10/16/21 HYDROCHLOROTHIAZIDE 25 MG ORAL TABLET 089063 HYDROCHLOROTHIAZIDE In active LEVAQUIN 500 MG ORAL TABLET 1 tablet by mouth daily 20 25/07/14 LEVAQUIN 500 MG ORAL TABLET 363034 LEVOFLOXACIN Inactive ZITHROMAX 1 GM ORAL PACKET DIR Z ITHROMAX 1 GM ORAL PACKET 345421 AZITHROMYCIN Inactive BACTRIM DS 800-160 MG ORAL TABLET 1 tab by mouth twice daily 201 12/08/14 BACTRIM DS 800-160 MG ORAL TABLET 335368 TRIMETHOPRIM-SULFAMETHOXAZOLE Inactive OMEPRAZOLE 20 MG ORAL CAPSULE DELAYED RELEASE 1 tablet po in the am OMEPRAZOLE 20 MG ORAL CAPSULE DELAYED RELEASE 593762 OM EPRAZOLE Inactive CELEBREX 100 MG ORAL CAPSULE take 1 tab po BID for osteoarthriti s CELEBREX 100 MG ORAL CAPSULE 061287 CELECOXIB Zohreh ctive CHERATUSSIN AC 100-10 MG/5ML ORAL SYRUP 1 tsp by mouth every 4 hours as needed for cough CHERATUSSIN AC 100-10 MG/5ML ORAL SYRUP 9 75454 GUAIFENESIN-CODEINE Inactive PREDNISONE 5 MG ORAL TABLET Take 3 tabs po on the , decrease by 1 tablet every 3 days until off PREDNISONE 5 MG OR AL TABLET 397228 PREDNISONE Inactive ZOFRAN 4 MG ORAL TABLET 1 po q6hr PRN Nausea 9 ZOFRAN 4 MG ORAL TABLET 316932 ONDANSETRON HCL Inactive MECLIZINE HCL 25 MG ORAL TABLET one 4 times a day as needed for dizziness MECLIZINE HCL 25 MG ORAL TABLET 863832 MECLIZINE HCL Inactive PREDNISONE 5 MG ORAL TABLET PREDNISO NE 5 MG ORAL TABLET 634812 PREDNISONE Inactive NASONEX 50 MCG/ACT NASAL SUSPENSION use 2 sprays in each nos tril qday NASONEX 50 MCG/ACT NASAL SUSPENSION 5098245 MOMET ASONE FUROATE Inactive ALLOPURINOL 100 MG ORAL TABLET Take 1 tab po x 7 days, then 2 times every day thereafter if tolerated. ALLOPURINOL 100 MG ORAL TABLET 590342 ALLOPURINOL Inactive COLCHICINE 0.6 MG ORAL CAPSULE PRN FOR GOUT FLARE UPS COLCHICINE 0.6 MG ORAL CAPSULE 7580060 COLCHICINE Inactive HYDROCHLOROTHIAZIDE 25 MG ORAL TABLET 0.5 tablet by [facility] daily for blood pressure. HYDROCHLOROTHIAZIDE 25 MG ORAL TABLET 310 798 HYDROCHLOROTHIAZIDE Inactive ZITHROMAX 250 MG ORAL TABLET 2 po today, then 1 po q days 2-5 20 23/10/22 ZITHROMAX 250 MG ORAL TABLET 641942 AZITHROMYCIN [place] ctive AZITHROMYCIN 250 MG ORAL TABLET 2 po qd x 1 day, then 1 po q d x 4 days AZITHROMYCIN 250 MG ORAL TABLET 745276 AZITHROMY ANALISA Inactive Vital Signs Date Name [...] mg/dL Encounters Code Encounter Date Provider Facility CPT-44118 Level 4 Est. Patient 21:12:34 CDT Mau bailey MD [facility] CPT-84143 Level 3 Est. Patient 16:26:55 CARE SERVICES MANAGER Osbaldo Wilkes MD [facility] CPT-55181 Level 4 Est. Patient 12:43:27 CDT Mau bailey MD [facility] CPT-12639 Level 3 Est. Patient 16:46:20 CDT Gilbert Amador MD [facility] CPT-09268 Level 3 Est. Patient 09:03:26 CDT Deirdre carter APRN [facility] CPT-27998 Level 4 Est. Patient 15:38:51 CARE SERVICES MANAGER Mau bailey MD [facility] CPT-63278 Level 4 Est. Patient 10:26:24 CDT Mau bailey MD [facility] CPT-45702 Level 3 Est. Patient 17:21:09 CDT Ryne ornelas DO [facility] CPT-75546 Level 4 Est. Patient 09:22:16 CDT Mau bailey MD [facility] CPT-81621 Level 3 Est. Patient 08:55:02 CARE SERVICES MANAGER Mau bailey MD [facility] Procedures Code Procedure Name Date Entry Date Standard Desc ription CPT-LR Lesion Removal 21:12:34 CDT CPT-15544 EKG Trac and Interp - XRAY USE ONLY 1 5:52:34 CDT CPT-85273 Venipuncture Draw Fee 09:05:38 CDT CPT-02740 Uric Acid - LAB USE ONLY 09:05:38 CDT 03/10 CPT-75889 Sed Rate - LAB USE ONLY 09:05:38 CDT 03/10 CPT-74096 CMP - LAB USE ONLY 09:05:37 CDT CPT-32174 CBC - LAB USE ONLY 09:05:37 CDT CPT-J2930 Solu Medrol 125 mg (Methyl Prednisolone Sodium Succinate) 16:27:04 CDT CPT-70205 Abx/Therapy Injection 16:27:04 CDT CPT-J2930 Solu Medrol 125 mg (Methyl Prednisolone Sodium Succinate) 14:33:18 CDT
--- OUTSIDE RECORDS SUMMARY | 2019-11-22 08:25 | XMS REPORT | Clinical Summary ---
Author Author Admin, Volodymyr De Dios Organization [email or web address] Address Unknown Phone Unavailable Allergies, Adverse Reactions, [...] NASAL SUSPENSION 2 sprays everyday MOMETASONE FUROATE 67905095478 Active Mau Mcmahon MD Active GUAIFENESIN-CODEINE 100-10 MG/5ML ORAL SYRUP 5ml every 4 to 6 hours as needed for cough GUAIFENESIN-CODEINE 25975351156 Active Timur Wilkes MD Active PREDNISONE 20 MG ORAL TABLET 2 daily for 3 days then 1 daily for 3 days PREDNISONE 28919924209 Active Osbaldo Wilkes MD Active HYDROCHLOROTHIAZIDE 25 MG ORAL TABLET 0.5 tablet by [facility] daily for blood pressure. HYDROCHLOROTHIAZIDE 31356250036 No Longe r Active Osbaldo Wilkes MD Active COLCHICINE 0.6 MG ORAL CAPSULE PRN FOR GOUT FLARE UPS COLCHICINE 18816747874 No Longer Active Osbaldo Wilkes MD Activ e ALLOPURINOL 100 MG ORAL TABLET Take 1 tab po x 7 days, then 2 times every day thereafter if tolerated. ALLOPURINOL 46223912697 No Longer Active Osbaldo Wilkes MD Active NASONEX 50 MCG/ACT NASAL SUSPENSION use 2 sprays in each nos tril qday MOMETASONE FUROATE 27224843228 No Longer Active Osbaldo vadlez MD Active PREDNISONE 5 MG ORAL TABLET PREDNISONE 71210240931 No Longer Active Osbaldo Wilkes MD Active AZITHROMYCIN 250 MG ORAL TABLET 2 po qd x 1 day, then 1 po q d x 4 days AZITHROMYCIN 72998378835 No Longer Active Pavithra Mora Active SUDAFED 12 HOUR 120 MG ORAL TABLET EXTENDED RELEASE 12 HOUR 1 pill twice daily if needed for congestion PSEUDOEPHEDRINE HCL 44336312230 A ctive Mau Mcmahon MD Active MECLIZINE HCL 25 MG ORAL TABLET one 4 times a day as needed for dizziness MECLIZINE HCL 19660988413 No Longer Active Mau Mcmahon MD Active ZOFRAN 4 MG ORAL TABLET 1 po q6hr PRN Nausea 9 ONDANSETRON HCL 42302371137 No Longer Active Mau Mcmahon MD Acti ve PREDNISONE 5 MG ORAL TABLET Take 3 tabs po on the day, decrease by 1 tablet every 3 days until off PREDNISONE 15566153090 No Longer Active Gilbert Amador MD Active CHERATUSSIN AC 100-10 MG/5ML ORAL SYRUP 1 tsp by mouth every 4 hours as needed for cough GUAIFENESIN-CODEINE 73743145653 No Longe r Active Gilbert Amador MD Active ZITHROMAX 250 MG ORAL TABLET 2 po today, then 1 po q days 2-5 20 23/10/22 AZITHROMYCIN 55787487601 No Longer Active Deirdre Riddle APRN Active CELEBREX 100 MG ORAL CAPSULE take 1 tab po BID for osteoarthriti s CELECOXIB 43261914043 No Longer Active Deirdre Riddle APRN A ctive OMEPRAZOLE 20 MG ORAL CAPSULE DELAYED RELEASE 1 tablet po in the am OMEPRAZOLE 48916412044 No Longer Active Deirdre Riddle APRN A ctive COZAAR 50 MG ORAL TABLET 1 tab po daily for hypertension and gout 2 LOSARTAN POTASSIUM 81858559310 Active Deirdre Riddle APRN Activ e BACTRIM DS 800-160 MG ORAL TABLET 1 tab by mouth twice daily 201 12/08/14 TRIMETHOPRIM-SULFAMETHOXAZOLE 90300784313 No Longer Active Vincent Riddle APRN Active ZITHROMAX 1 GM ORAL PACKET DIR AZITHROMY ANALISA 01021436758 No Longer Active Deirdre Riddle APRN Active LEVAQUIN 500 MG ORAL TABLET 1 tablet by mouth daily 20 25/07/14 LEVOFLOXACIN 13741670099 No Longer Active Mau Mcmahon MD Acti ve HYDROCHLOROTHIAZIDE 25 MG ORAL TABLET 1 PO Q AM 201 10/16/21 HYDROCHLOROTHIAZIDE 03878125895 No Longer Active Ryne Cristina DO Ac tive SIMVASTATIN 20 MG ORAL TABLET 1 tablet po q hs SIMVASTATIN 64005200984 No Longer Active Ryne Cristina DO Active SIMVASTATIN 20 MG ORAL TABLET 1 tablet po q hs SIMVASTATIN 20 MG ORAL TABLET 341985 SIMVASTATIN Inactive HYDROCHLOROTHIAZIDE 25 MG ORAL TABLET 1 PO Q AM 201 10/16/21 HYDROCHLOROTHIAZIDE 25 MG ORAL TABLET 490283 HYDROCHLOROTHIAZIDE In active LEVAQUIN 500 MG ORAL TABLET 1 tablet by mouth daily 20 25/07/14 LEVAQUIN 500 MG ORAL TABLET 476982 LEVOFLOXACIN Inactive ZITHROMAX 1 GM ORAL PACKET DIR Z ITHROMAX 1 GM ORAL PACKET 431102 AZITHROMYCIN Inactive BACTRIM DS 800-160 MG ORAL TABLET 1 tab by mouth twice daily 201 12/08/14 BACTRIM DS 800-160 MG ORAL TABLET 734831 TRIMETHOPRIM-SULFAMETHOXAZOLE Inactive OMEPRAZOLE 20 MG ORAL CAPSULE DELAYED RELEASE 1 tablet po in the am OMEPRAZOLE 20 MG ORAL CAPSULE DELAYED RELEASE 461591 OM EPRAZOLE Inactive CELEBREX 100 MG ORAL CAPSULE take 1 tab po BID for osteoarthriti s CELEBREX 100 MG ORAL CAPSULE 994091 CELECOXIB Zohreh ctive CHERATUSSIN AC 100-10 MG/5ML ORAL SYRUP 1 tsp by mouth every 4 hours as needed for cough CHERATUSSIN AC 100-10 MG/5ML ORAL SYRUP 9 71937 GUAIFENESIN-CODEINE Inactive PREDNISONE 5 MG ORAL TABLET Take 3 tabs po on the , decrease by 1 tablet every 3 days until off PREDNISONE 5 MG OR AL TABLET 912873 PREDNISONE Inactive ZOFRAN 4 MG ORAL TABLET 1 po q6hr PRN Nausea 9 ZOFRAN 4 MG ORAL TABLET 203694 ONDANSETRON HCL Inactive MECLIZINE HCL 25 MG ORAL TABLET one 4 times a day as needed for dizziness MECLIZINE HCL 25 MG ORAL TABLET 084507 MECLIZINE HCL Inactive PREDNISONE 5 MG ORAL TABLET PREDNISO NE 5 MG ORAL TABLET 031420 PREDNISONE Inactive NASONEX 50 MCG/ACT NASAL SUSPENSION use 2 sprays in each nos tril qday NASONEX 50 MCG/ACT NASAL SUSPENSION 0502749 MOMET ASONE FUROATE Inactive ALLOPURINOL 100 MG ORAL TABLET Take 1 tab po x 7 days, then 2 times every day thereafter if tolerated. ALLOPURINOL 100 MG ORAL TABLET 895087 ALLOPURINOL Inactive COLCHICINE 0.6 MG ORAL CAPSULE PRN FOR GOUT FLARE UPS COLCHICINE 0.6 MG ORAL CAPSULE 5634578 COLCHICINE Inactive HYDROCHLOROTHIAZIDE 25 MG ORAL TABLET 0.5 tablet by [facility] daily for blood pressure. HYDROCHLOROTHIAZIDE 25 MG ORAL TABLET 310 798 HYDROCHLOROTHIAZIDE Inactive ZITHROMAX 250 MG ORAL TABLET 2 po today, then 1 po q days 2-5 20 23/10/22 ZITHROMAX 250 MG ORAL TABLET 635625 AZITHROMYCIN [place] ctive AZITHROMYCIN 250 MG ORAL TABLET 2 po qd x 1 day, then 1 po q d x 4 days AZITHROMYCIN 250 MG ORAL TABLET 136123 AZITHROMY ANALISA Inactive Vital Signs Date Name [...] mg/dL Encounters Code Encounter Date Provider Facility CPT-97453 Level 4 Est. Patient 21:12:34 CDT Mau bailey MD [facility] CPT-43895 Level 3 Est. Patient 16:26:55 CHIEF TALENT OFFICER Osbaldo Wilkes MD [facility] CPT-81023 Level 4 Est. Patient 12:43:27 CDT Mau bailey MD [facility] CPT-71887 Level 3 Est. Patient 16:46:20 CDT Gilbert Amador MD [facility] CPT-07631 Level 3 Est. Patient 09:03:26 CDT Deirdre carter APRN [facility] CPT-50702 Level 4 Est. Patient 15:38:51 CHIEF TALENT OFFICER Mau bailey MD [facility] CPT-57519 Level 4 Est. Patient 10:26:24 CDT Mau bailey MD [facility] CPT-67689 Level 3 Est. Patient 17:21:09 CDT Ryne ornelas DO [facility] CPT-84466 Level 4 Est. Patient 09:22:16 CDT Mau bailey MD [facility] CPT-71631 Level 3 Est. Patient 08:55:02 CHIEF TALENT OFFICER Mau bailey MD [facility] Procedures Code Procedure Name Date Entry Date Standard Desc ription CPT-LR Lesion Removal 21:12:34 CDT CPT-64006 EKG Trac and Interp - XRAY USE ONLY 1 5:52:34 CDT CPT-32267 Venipuncture Draw Fee 09:05:38 CDT CPT-47689 Uric Acid - LAB USE ONLY 09:05:38 CDT 03/10 CPT-84737 Sed Rate - LAB USE ONLY 09:05:38 CDT 03/10 CPT-27642 CMP - LAB USE ONLY 09:05:37 CDT CPT-25111 CBC - LAB USE ONLY 09:05:37 CDT CPT-J2930 Solu Medrol 125 mg (Methyl Prednisolone Sodium Succinate) 16:27:04 CDT CPT-67705 Abx/Therapy Injection 16:27:04 CDT CPT-J2930 Solu Medrol 125 mg (Methyl Prednisolone Sodium Succinate) 14:33:18 CDT
--- OUTSIDE RECORDS SUMMARY | 2019-11-22 08:25 | XMS REPORT | Clinical Summary ---
Author Author Admin, Volodymyr De Dios Organization [employer] Address Unknown Phone Unavailable Allergies, Adverse Reactions, [...] G E R D 530.81 Active Mau cMmahon MD Esophageal reflux SEASONAL ALLERGIC RHINITIS 477.9 [...] for hypertensi on and gout LOSARTAN POTASSIUM 40452631759 Active Mau Dewey Active NASONEX 50 MCG/ACT NASAL SUSPENSION 2 sprays everyday MOMETASONE FUROATE 58342812864 Active Mau Mcmahon MD Active GUAIFENESIN-CODEINE 100-10 MG/5ML ORAL SYRUP 5ml every 4 to 6 hours as needed for cough GUAIFENESIN-CODEINE 70090209971 Active Timur Wilkes MD Active PREDNISONE 20 MG ORAL TABLET 2 daily for 3 days then 1 daily for 3 days PREDNISONE 70055806528 Active Osbaldo Wilkes MD Active HYDROCHLOROTHIAZIDE 25 MG ORAL TABLET 0.5 tablet by [facility] daily for blood pressure. HYDROCHLOROTHIAZIDE 35597071413 No Longe r Active Osbaldo Wilkes MD Active COLCHICINE 0.6 MG ORAL CAPSULE PRN FOR GOUT FLARE UPS COLCHICINE 63569479713 No Longer Active Osbaldo Wilkes MD Activ e ALLOPURINOL 100 MG ORAL TABLET Take 1 tab po x 7 days, then 2 times every day thereafter if tolerated. ALLOPURINOL 16462638569 No Longer Active Osbaldo Wilkes MD Active NASONEX 50 MCG/ACT NASAL SUSPENSION use 2 sprays in each nos tril qday MOMETASONE FUROATE 86210692693 No Longer Active Osbaldo vadlez MD Active PREDNISONE 5 MG ORAL TABLET PREDNISONE 84663339151 No Longer Active Osbaldo Wilkes MD Active AZITHROMYCIN 250 MG ORAL TABLET 2 po qd x 1 day, then 1 po q d x 4 days AZITHROMYCIN 60943919451 No Longer Active Pavithra Mora Active SUDAFED 12 HOUR 120 MG ORAL TABLET EXTENDED RELEASE 12 HOUR 1 pill twice daily if needed for congestion PSEUDOEPHEDRINE HCL 54565705357 A ctive Mau Mcmahon MD Active MECLIZINE HCL 25 MG ORAL TABLET one 4 times a day as needed for dizziness MECLIZINE HCL 21123343691 No Longer Active Mau Mcmahon MD Active ZOFRAN 4 MG ORAL TABLET 1 po q6hr PRN Nausea 9 ONDANSETRON HCL 06643345463 No Longer Active Mau Mcmahon MD Acti ve PREDNISONE 5 MG ORAL TABLET Take 3 tabs po on the , decrease by 1 tablet every 3 days until off PREDNISONE 04056612198 No Longer Active Gilbert Amador MD Active CHERATUSSIN AC 100-10 MG/5ML ORAL SYRUP 1 tsp by mouth every 4 hours as needed for cough GUAIFENESIN-CODEINE 96340734615 No Longe r Active Gilbert Amador MD Active ZITHROMAX 250 MG ORAL TABLET 2 po today, then 1 po q days 2-5 20 23/10/22 AZITHROMYCIN 35440558966 No Longer Active Deirdre Riddle APRN Active CELEBREX 100 MG ORAL CAPSULE take 1 tab po BID for osteoarthriti s CELECOXIB 07663465614 No Longer Active Deirdre Riddle SENIOR USER EXPERIENCE ARCHITECT A ctive OMEPRAZOLE 20 MG ORAL CAPSULE DELAYED RELEASE 1 tablet po in the am OMEPRAZOLE 31002744823 No Longer Active Deirdre Riddle SENIOR USER EXPERIENCE ARCHITECT A ctive BACTRIM DS 800-160 MG ORAL TABLET 1 tab by mouth twice daily 201 12/08/14 TRIMETHOPRIM-SULFAMETHOXAZOLE 82771209899 No Longer Active Vincent Reynosoemma AJN Active ZITHROMAX 1 GM ORAL PACKET DIR AZITHROMY ANALISA 60181956296 No Longer Active Deirdre Riddle SENIOR USER EXPERIENCE ARCHITECT Active LEVAQUIN 500 MG ORAL TABLET 1 tablet by mouth daily 20 25/07/14 LEVOFLOXACIN 01026309597 No Longer Active Mau Mcmahon MD Acti ve HYDROCHLOROTHIAZIDE 25 MG ORAL TABLET 1 PO Q AM 201 10/16/21 HYDROCHLOROTHIAZIDE 38053561249 No Longer Active Ryne Cristina DO Ac tive SIMVASTATIN 20 MG ORAL TABLET 1 tablet po q hs SIMVASTATIN 70006956772 No Longer Active Ryne Cristina DO Active SIMVASTATIN 20 MG ORAL TABLET 1 tablet po q hs SIMVASTATIN 20 MG ORAL TABLET 700433 SIMVASTATIN Inactive HYDROCHLOROTHIAZIDE 25 MG ORAL TABLET 1 PO Q AM 201 10/16/21 HYDROCHLOROTHIAZIDE 25 MG ORAL TABLET 148197 HYDROCHLOROTHIAZIDE In active LEVAQUIN 500 MG ORAL TABLET 1 tablet by mouth daily 20 25/07/14 LEVAQUIN 500 MG ORAL TABLET 149753 LEVOFLOXACIN Inactive ZITHROMAX 1 GM ORAL PACKET DIR Z ITHROMAX 1 GM ORAL PACKET 187019 AZITHROMYCIN Inactive BACTRIM DS 800-160 MG ORAL TABLET 1 tab by mouth twice daily 201 12/08/14 BACTRIM DS 800-160 MG ORAL TABLET 607682 TRIMETHOPRIM-SULFAMETHOXAZOLE Inactive OMEPRAZOLE 20 MG ORAL CAPSULE DELAYED RELEASE 1 tablet po in the am OMEPRAZOLE 20 MG ORAL CAPSULE DELAYED RELEASE 980865 OM EPRAZOLE Inactive CELEBREX 100 MG ORAL CAPSULE take 1 tab po BID for osteoarthriti s CELEBREX 100 MG ORAL CAPSULE 355080 CELECOXIB Zohreh ctive CHERATUSSIN AC 100-10 MG/5ML ORAL SYRUP 1 tsp by mouth every 4 hours as needed for cough CHERATUSSIN AC 100-10 MG/5ML ORAL SYRUP 9 91974 GUAIFENESIN-CODEINE Inactive PREDNISONE 5 MG ORAL TABLET Take 3 tabs po on the , decrease by 1 tablet every 3 days until off PREDNISONE 5 MG OR AL TABLET 583251 PREDNISONE Inactive ZOFRAN 4 MG ORAL TABLET 1 po q6hr PRN Nausea 9 ZOFRAN 4 MG ORAL TABLET 285733 ONDANSETRON HCL Inactive MECLIZINE HCL 25 MG ORAL TABLET one 4 times a day as needed for dizziness MECLIZINE HCL 25 MG ORAL TABLET 700041 MECLIZINE HCL Inactive PREDNISONE 5 MG ORAL TABLET PREDNISO NE 5 MG ORAL TABLET 748462 PREDNISONE Inactive NASONEX 50 MCG/ACT NASAL SUSPENSION use 2 sprays in each nos tril qday NASONEX 50 MCG/ACT NASAL SUSPENSION 1389948 MOMET ASONE FUROATE Inactive ALLOPURINOL 100 MG ORAL TABLET Take 1 tab po x 7 days, then 2 times every day thereafter if tolerated. ALLOPURINOL 100 MG ORAL TABLET 605583 ALLOPURINOL Inactive COLCHICINE 0.6 MG ORAL CAPSULE PRN FOR GOUT FLARE UPS COLCHICINE 0.6 MG ORAL CAPSULE 2493644 COLCHICINE Inactive HYDROCHLOROTHIAZIDE 25 MG ORAL TABLET 0.5 tablet by [facility] daily for blood pressure. HYDROCHLOROTHIAZIDE 25 MG ORAL TABLET 310 798 HYDROCHLOROTHIAZIDE Inactive ZITHROMAX 250 MG ORAL TABLET 2 po today, then 1 po q days 2-5 20 23/10/22 ZITHROMAX 250 MG ORAL TABLET 581797 AZITHROMYCIN Zohreh ctive AZITHROMYCIN 250 MG ORAL TABLET 2 po qd x 1 day, then 1 po q d x 4 days AZITHROMYCIN 250 MG ORAL TABLET 774999 AZITHROMY ANALISA Inactive Vital Signs Date Name [...] mg/dL Encounters Code Encounter Date Provider Facility CPT-19634 Level 4 Est. Patient 21:12:34 CDT Mau bailey MD [facility] CPT-17831 Level 3 Est. Patient 16:26:55 CREDIT FRONT OFFICE DEVELOPER Osbaldo Wilkes MD [facility] CPT-37038 Level 4 Est. Patient 12:43:27 CDT Mau bailey MD [facility] CPT-64438 Level 3 Est. Patient 16:46:20 CDT Gilbert Amador MD [facility] CPT-76644 Level 3 Est. Patient 09:03:26 CDT Deirdre carter APRN [facility] CPT-11272 Level 4 Est. Patient 15:38:51 CREDIT FRONT OFFICE DEVELOPER Mau bailey MD [facility] CPT-36775 Level 4 Est. Patient 10:26:24 CDT Mau bailey MD [facility] CPT-20196 Level 3 Est. Patient 17:21:09 CDT Ryne ornelas DO [facility] CPT-45622 Level 4 Est. Patient 09:22:16 CDT Mau bailey MD [facility] CPT-96044 Level 3 Est. Patient 08:55:02 CREDIT FRONT OFFICE DEVELOPER Mau bailey MD [facility] Procedures Code Procedure Name Date Entry Date Standard Desc ription CPT-LR Lesion Removal 21:12:34 CDT CPT-62926 EKG Trac and Interp - XRAY USE ONLY 1 5:52:34 CDT CPT-20382 Venipuncture Draw Fee 09:05:38 CDT CPT-14736 Uric Acid - LAB USE ONLY 09:05:38 CDT 03/10 CPT-97432 Sed Rate - LAB USE ONLY 09:05:38 CDT 03/10 CPT-73253 CMP - LAB USE ONLY 09:05:37 CDT CPT-55273 CBC - LAB USE ONLY 09:05:37 CDT CPT-J2930 Solu Medrol 125 mg (Methyl Prednisolone Sodium Succinate) 16:27:04 CDT CPT-66344 Abx/Therapy Injection 16:27:04 CDT CPT-J2930 Solu Medrol 125 mg (Methyl Prednisolone Sodium Succinate) 14:33:18 CDT
--- OUTSIDE RECORDS SUMMARY | 2019-11-22 08:25 | XMS REPORT | Clinical Summary ---
Author Author Admin, Volodymyr De Dios Organization [employer] Address Unknown Phone Unavailable Allergies, Adverse Reactions, [...] of ear Preop exam V72.84 Active Fiorellaqing Olivas eoperative examination, unspecified Skin tag 701.9 Active Mau Mcmahon MD Unspecified hypertrophic and atrophic conditions of skin Pneumonia, right lower lobe ICD-486 Inactive Osbaldo Wilkes MD Poison bel ICD-692.6 Inactive Osbaldo Dewey Bronchitis ICD-490 Inactive Osbaldo Wilkes MD 201 01/08/07 Rhinitis, acute ICD-460 Inactive Osbaldo Lechuga MD Medication List Medication Instructions Start Date Stop Date Generic Name NDC Status Provider Patient Instruction GUAIFENESIN-CODEINE 100-10 MG/5ML ORAL SYRUP 5ml every 4 to 6 hours as needed for cough GUAIFENESIN-CODEINE 37262530799 Active Timur Wilkes MD Active PREDNISONE 20 MG ORAL TABLET 2 daily for 3 days then 1 daily for 3 days PREDNISONE 44726843569 Active Osbaldo Wilkes MD Active HYDROCHLOROTHIAZIDE 25 MG ORAL TABLET 0.5 tablet by [facility] daily for blood pressure. HYDROCHLOROTHIAZIDE 47817670430 No Longe r Active Osbaldo Wilkes MD Active COLCHICINE 0.6 MG ORAL CAPSULE PRN FOR GOUT FLARE UPS COLCHICINE 08385936230 No Longer Active Osbaldo Wilkes MD Activ e ALLOPURINOL 100 MG ORAL TABLET Take 1 tab po x 7 days, then 2 times every day thereafter if tolerated. ALLOPURINOL 38484822435 No Longer Active Osbaldo Wilkes MD Active NASONEX 50 MCG/ACT NASAL SUSPENSION use 2 sprays in each nos tril qday MOMETASONE FUROATE 49166869631 No Longer Active Osbaldo valdez MD Active PREDNISONE 5 MG ORAL TABLET PREDNISONE 31439745882 No Longer Active Osbaldo Wilkes MD Active AZITHROMYCIN 250 MG ORAL TABLET 2 po qd x 1 day, then 1 po q d x 4 days AZITHROMYCIN 53141250245 No Longer Active Pavithra Mora Active SUDAFED 12 HOUR 120 MG ORAL TABLET EXTENDED RELEASE 12 HOUR 1 pill twice daily if needed for congestion PSEUDOEPHEDRINE HCL 45083302128 A ctive Mau Mcmahon MD Active MECLIZINE HCL 25 MG ORAL TABLET one 4 times a day as needed for dizziness MECLIZINE HCL 41793986605 No Longer Active Mau Mcmahon MD Active ZOFRAN 4 MG ORAL TABLET 1 po q6hr PRN Nausea 9 ONDANSETRON HCL 69202475451 No Longer Active Mau Mcmahon MD Acti ve PREDNISONE 5 MG ORAL TABLET Take 3 tabs po on the , decrease by 1 tablet every 3 days until off PREDNISONE 78479858428 No Longer Active Gilbert Amador MD Active CHERATUSSIN AC 100-10 MG/5ML ORAL SYRUP 1 tsp by mouth every 4 hours as needed for cough GUAIFENESIN-CODEINE 93368010058 No Longe r Active Gilbert Amador MD Active ZITHROMAX 250 MG ORAL TABLET 2 po today, then 1 po q days 2-5 20 23/10/22 AZITHROMYCIN 77743759282 No Longer Active Deirdre Fitzgerald APRN Active CELEBREX 100 MG ORAL CAPSULE take 1 tab po BID for osteoarthriti s CELECOXIB 46932692895 No Longer Active Deirdre Fitzgerald APRN Active OMEPRAZOLE 20 MG ORAL CAPSULE DELAYED RELEASE 1 tablet po in the am OMEPRAZOLE 91756027290 No Longer Active Deirdre Fitzgerald APRN Active COZAAR 50 MG ORAL TABLET 1 tab po daily for hypertension and gout 2 LOSARTAN POTASSIUM 79196044494 Active Deirdre Fitzgerald APRN Ac tive BACTRIM DS 800-160 MG ORAL TABLET 1 tab by mouth twice daily 201 12/08/14 TRIMETHOPRIM-SULFAMETHOXAZOLE 52205975908 No Longer Active Vincent larson Amilcar FLYNN Active ZITHROMAX 1 GM ORAL PACKET DIR AZITHROMY ANALISA 07143868974 No Longer Active Deirdre Fitzgerald APRN Active LEVAQUIN 500 MG ORAL TABLET 1 tablet by mouth daily 20 25/07/14 LEVOFLOXACIN 43167883179 No Longer Active Mau Mcmahon MD Acti ve HYDROCHLOROTHIAZIDE 25 MG ORAL TABLET 1 PO Q AM 201 10/16/21 HYDROCHLOROTHIAZIDE 51364218832 No Longer Active Ryne Cristina DO Ac tive SIMVASTATIN 20 MG ORAL TABLET 1 tablet po q hs SIMVASTATIN 72401336550 No Longer Active Ryne Cristina DO Active SIMVASTATIN 20 MG ORAL TABLET 1 tablet po q hs SIMVASTATIN 20 MG ORAL TABLET 974008 SIMVASTATIN Inactive HYDROCHLOROTHIAZIDE 25 MG ORAL TABLET 1 PO Q AM 201 10/16/21 HYDROCHLOROTHIAZIDE 25 MG ORAL TABLET 806908 HYDROCHLOROTHIAZIDE In active LEVAQUIN 500 MG ORAL TABLET 1 tablet by mouth daily 20 25/07/14 LEVAQUIN 500 MG ORAL TABLET 287525 LEVOFLOXACIN Inactive ZITHROMAX 1 GM ORAL PACKET DIR Z ITHROMAX 1 GM ORAL PACKET 935617 AZITHROMYCIN Inactive BACTRIM DS 800-160 MG ORAL TABLET 1 tab by mouth twice daily 201 12/08/14 BACTRIM DS 800-160 MG ORAL TABLET 584617 TRIMETHOPRIM-SULFAMETHOXAZOLE Inactive OMEPRAZOLE 20 MG ORAL CAPSULE DELAYED RELEASE 1 tablet po in the am OMEPRAZOLE 20 MG ORAL CAPSULE DELAYED RELEASE 817136 OM EPRAZOLE Inactive CELEBREX 100 MG ORAL CAPSULE take 1 tab po BID for osteoarthriti s CELEBREX 100 MG ORAL CAPSULE 807482 CELECOXIB Zohreh ctive CHERATUSSIN AC 100-10 MG/5ML ORAL SYRUP 1 tsp by mouth every 4 hours as needed for cough CHERATUSSIN AC 100-10 MG/5ML ORAL SYRUP 9 01418 GUAIFENESIN-CODEINE Inactive PREDNISONE 5 MG ORAL TABLET Take 3 tabs po on the , decrease by 1 tablet every 3 days until off PREDNISONE 5 MG OR AL TABLET 099072 PREDNISONE Inactive ZOFRAN 4 MG ORAL TABLET 1 po q6hr PRN Nausea 9 ZOFRAN 4 MG ORAL TABLET 789170 ONDANSETRON HCL Inactive MECLIZINE HCL 25 MG ORAL TABLET one 4 times a day as needed for dizziness MECLIZINE HCL 25 MG ORAL TABLET 278552 MECLIZINE HCL Inactive PREDNISONE 5 MG ORAL TABLET PREDNISO NE 5 MG ORAL TABLET 826525 PREDNISONE Inactive NASONEX 50 MCG/ACT NASAL SUSPENSION use 2 sprays in each nos tril qday NASONEX 50 MCG/ACT NASAL SUSPENSION 8898192 MOMET ASONE FUROATE Inactive ALLOPURINOL 100 MG ORAL TABLET Take 1 tab po x 7 days, then 2 times every day thereafter if tolerated. ALLOPURINOL 100 MG ORAL TABLET 833187 ALLOPURINOL Inactive COLCHICINE 0.6 MG ORAL CAPSULE PRN FOR GOUT FLARE UPS COLCHICINE 0.6 MG ORAL CAPSULE 0610952 COLCHICINE Inactive HYDROCHLOROTHIAZIDE 25 MG ORAL TABLET 0.5 tablet by [facility] daily for blood pressure. HYDROCHLOROTHIAZIDE 25 MG ORAL TABLET 310 798 HYDROCHLOROTHIAZIDE Inactive ZITHROMAX 250 MG ORAL TABLET 2 po today, then 1 po q days 2-5 20 23/10/22 ZITHROMAX 250 MG ORAL TABLET 949978 AZITHROMYCIN [place] ctive AZITHROMYCIN 250 MG ORAL TABLET 2 po qd x 1 day, then 1 po q d x 4 days AZITHROMYCIN 250 MG ORAL TABLET 902028 AZITHROMY ANALISA Inactive Vital Signs Date Name Value Unit Range Description blood pressure, diastolic 81 mm[Hg] BP santos blood pressure, systolic 116 mm[Hg] BP sys pulse rate E&M 75 /min Heart rate temperature E&M 98.6 [degF] Body temp erature weight E&M 208 [lb_av] Weight Measure d blood pressure, diastolic 91 mm[Hg] BP santos blood pressure, systolic 151 mm[Hg] BP sys pulse rate E&M 69 /min Heart rate temperature E&M 98.5 [degF] Body temp erature weight E&M 212.0 [lb_av] Weight Measure d Diagnostic Results Date Name Value Unit Range Description Lab Report: CBC, Basic Metabolic Panel - Chemistry sodium, serum 141 mmol/L 355-595 8624/05/22 potassium, serum 4.4 mmol/L 3.5-5.2 chloride, serum 103 mmol/L 98-107 carbon dioxide, venous blood 31.1 mmol/L 21.0-32 .0 blood glucose 101 mg/dL 65-110 calcium, serum 9.2 mg/dL 8.5-10.1 urea nitrogen, blood 12 mg/dL 7-18 creatinine, serum 1.11 mg/dL 0.55-1.30 Lab Report: CBC, Basic Metabolic Panel - Hematology leukocyte count, blood 8.5 10^3/MM^3 10*3/mm3 4.6-10.2 erythrocyte (RBC) count 4.82 10^6/MM^3 10*6/mm3 4.50-6.5 0 hemoglobin, blood 14.7 g/dL 14.0-18.0 hematocrit, blood 43.9 % 40.0-54.0 mean corpuscular volume, RBC 91 fL 80-97 mean corpuscular hemoglobin, RBC 30.5 pg 27. 0-31.2 mean corpuscular hemoglobin concentration, RBC 33.5 G/DL % 31.8-35.4 red blood cell distribution width 13.5 % 11 .6-14.8 platelet count 248 10^3/MM^3 10*3/mm3 142-424 Office Visit: CHECK UP - Basic LDL target level 130 mg/dL Office Visit: CHECK UP - Chemistry HDL cholesterol, serum, target level 40 mg/dL triglyceride, target level 150 mg/dL cholesterol, target level 200 mg/dL Encounters Code Encounter Date Provider Facility CPT-74812 Level 4 Est. Patient 21:12:34 CDT Mau bailey MD [facility] CPT-10597 Level 3 Est. Patient 16:26:55 HAT TRIMMER Osbaldo Wilkes MD [facility] CPT-07209 Level 4 Est. Patient 12:43:27 CDT Mau bailey MD [facility] CPT-55796 Level 3 Est. Patient 16:46:20 CDT Gilbert Amador MD [facility] CPT-14750 Level 3 Est. Patient 09:03:26 CDT Paulina FLYNN [facility] CPT-27553 Level 4 Est. Patient 15:38:51 HAT TRIMMER Mau bailey MD [facility] CPT-93380 Level 4 Est. Patient 10:26:24 CDT Mau bailey MD [facility] CPT-03101 Level 3 Est. Patient 17:21:09 CDT Ryne ornelas DO [facility] CPT-69142 Level 4 Est. Patient 09:22:16 CDT Mau bailey MD [facility] CPT-11318 Level 3 Est. Patient 08:55:02 HAT TRIMMER Mau bailey MD [facility] Procedures Code Procedure Name Date Entry Date Standard Desc ription CPT-LR Lesion Removal 21:12:34 CDT CPT-58624 EKG Trac and Interp - XRAY USE ONLY 1 5:52:34 CDT CPT-35109 Venipuncture Draw Fee 09:05:38 CDT CPT-98722 Uric Acid - LAB USE ONLY 09:05:38 CDT 03/10 CPT-92111 Sed Rate - LAB USE ONLY 09:05:38 CDT 03/10 CPT-48388 CMP - LAB USE ONLY 09:05:37 CDT CPT-73420 CBC - LAB USE ONLY 09:05:37 CDT CPT-J2930 Solu Medrol 125 mg (Methyl Prednisolone Sodium Succinate) 16:27:04 CDT CPT-42098 Abx/Therapy Injection 16:27:04 CDT CPT-J2930 Solu Medrol 125 mg (Methyl Prednisolone Sodium Succinate) 14:33:18 CDT
--- OUTSIDE RECORDS SUMMARY | 2019-11-22 08:26 | XMS REPORT | Clinical Summary ---
Author Author Admin, Volodymyr De Dios Organization [facility] Address Unknown Phone Unavailable Allergies, Adverse Reactions, Alerts Allergy Name Reaction Description Start Date Severity Status Pr ovider No Known Allergies Doris Kaur adl [employer]MER Conditions or Problems Problem Name Problem Code [...] of ear Preop exam V72.84 Active Fiorella Justin Pr eoperative examination, unspecified Pneumonia, right lower lobe ICD-486 Inactive Osbaldo Wilkes MD Poison bel ICD-692.6 Inactive Osbaldo Kaur D Bronchitis ICD-490 Inactive Osbaldo Wilkes MD 201 01/08/07 Rhinitis, acute ICD-460 Inactive Osbaldo Lechuga MD Medication List Medication Instructions Start Date Stop Date Generic Name NDC Status Provider Patient Instruction GUAIFENESIN-CODEINE 100-10 MG/5ML SYRP 5ml every 4 to 6 hours as needed for cough GUAIFENESIN-CODEINE 82931734567 Active Osbaldo villa MD Active PREDNISONE 20 MG TABS 2 daily for 3 days then 1 daily for 3 days 20 26/08/06 PREDNISONE 87583989880 Active Osbaldo Wilkes MD Active HYDROCHLOROTHIAZIDE 25 MG TABS 0.5 tablet by mouth daily for blood pressure. HYDROCHLOROTHIAZIDE 06119514127 No Longer Active Timur Wilkes MD Active COLCHICINE 0.6 MG ORAL CAPS PRN FOR GOUT FLARE UPS 201 01/08/07 COLCHICINE 74746021395 No Longer Active Osbaldo Wilkes MD Activ e ALLOPURINOL 100 MG TAB Take 1 tab po x 7 days, then 2 times every day thereafter if tolerated. ALLOPURINOL 39522697269 No Longer Active Osbaldo Wilkes MD Active NASONEX 50 MCG/ACT SUSP use 2 sprays in each nostril qday 1 MOMETASONE FUROATE 95669072277 No Longer Active Osbaldo Wilkes MD Active PREDNISONE 5 MG TAB PREDNISONE 9755799 7321 No Longer Active Osbaldo Wilkes MD Active AZITHROMYCIN 250 MG TABS 2 po qd x 1 day, then 1 po qd x 4 days AZITHROMYCIN 50837317206 No Longer Active Pavithra Mora Activ e SUDAFED 12 HOUR 120 MG [id number] 1 pill twice daily if neede d for congestion PSEUDOEPHEDRINE HCL 41612960376 Active Mau Mcmahon MD Active MECLIZINE HCL 25 MG TAB one 4 times a day as needed for dizzines s MECLIZINE HCL 00983807704 No Longer Active Mau Mcmahon MD Active ZOFRAN 4 MG TABS 1 po q6hr PRN Nausea ONDANSETR ON HCL 05253310981 No Longer Active Mau Mcmahon MD Active PREDNISONE 5 MG TAB Take 3 tabs po on the first day, decrease by 1 tablet every 3 days until off PREDNISONE 04608754744 No Longer Active Gilbert Amador MD Active CHERATUSSIN AC 100-10 MG/5ML SYRP 1 tsp by mouth every 4 hours as needed for cough GUAIFENESIN-CODEINE 59149529084 No Longer Activ e Gilbert Amador MD Active ZITHROMAX 250 MG TAB 2 po today, then 1 po q days 2-5 AZITHROMYCIN 56911741243 No Longer Active Deirdre Fitzgerald APRN Acti ve CELEBREX 100 MG ORAL CAPS take 1 tab po BID for osteoarthritis 2 CELECOXIB 77567134280 No Longer Active Deirdre Fitzgerald APRN Active OMEPRAZOLE 20 MG CPDR 1 tablet po in the am OMEPR AZOLE 57522326402 No Longer Active Deirdre Fitzgerald APRN Active COZAAR 50 MG ORAL TABS 1 tab po daily for hypertension and gout 201 12/11/12 LOSARTAN POTASSIUM 62548840101 Active Deirdre Fitzgerald APRN Ac tive BACTRIM DS 800-160 MG TAB 1 tab by mouth twice daily 2 TRIMETHOPRIM-SULFAMETHOXAZOLE 26140684738 No Longer Active Deirdre Fitzgerald AP RN Active ZITHROMAX 1 GM ORAL PACK DIR AZITHROMYCIN 82403571841 No Longer Active Deirdre Fitzgerald APRN Active LEVAQUIN 500 MG TAB 1 tablet by mouth daily LEV OFLOXACIN 84871602913 No Longer Active Mau Mcmahon MD Active HYDROCHLOROTHIAZIDE 25 MG TABS 1 PO Q AM HYDROCHLOROTHIAZIDE 98290891373 No Longer Active Ryne Cristina DO Ac tive SIMVASTATIN 20 MG TABS 1 tablet po q hs SIMVASTAT IN 46516777292 No Longer Active Ryne Cristina DO Active SIMVASTATIN 20 MG TABS 1 tablet po q hs SIMVAST ATIN 20 MG TABS 540945 SIMVASTATIN Inactive HYDROCHLOROTHIAZIDE 25 MG TABS 1 PO Q AM HYDROCHLOROTHIAZIDE 25 MG TABS 605397 HYDROCHLOROTHIAZIDE Inactive LEVAQUIN 500 MG TAB 1 tablet by mouth daily LEVAQUIN 500 MG TAB 686538 LEVOFLOXACIN Inactive ZITHROMAX 1 GM ORAL PACK DIR ZITHROMAX 1 GM ORAL PACK 365257 AZITHROMYCIN Inactive BACTRIM DS 800-160 MG TAB 1 tab by mouth twice daily 2 BACTRIM DS 800-160 MG TAB 260760 TRIMETHOPRIM-SULFAMETHOXAZOLE Inac tive OMEPRAZOLE 20 MG CPDR 1 tablet po in the am OME PRAZOLE 20 MG CPDR 593992 OMEPRAZOLE Inactive CELEBREX 100 MG ORAL CAPS take 1 tab po BID for osteoarthritis 2 CELEBREX 100 MG ORAL CAPS 649030 CELECOXIB Inacti ve CHERATUSSIN AC 100-10 MG/5ML SYRP 1 tsp by mouth every 4 hours as needed for cough CHERATUSSIN AC 100-10 MG/5ML SYRP 312701 GUAIFENESIN-CODEINE Inactive PREDNISONE 5 MG TAB Take 3 tabs po on the first day, decrease by 1 tablet every 3 days until off PREDNISONE 5 MG TAB 323113 PREDNISONE Inactive ZOFRAN 4 MG TABS 1 po q6hr PRN Nausea ZOFRAN 4 MG TABS 876451 ONDANSETRON HCL Inactive MECLIZINE HCL 25 MG TAB one 4 times a day as needed for dizzines s MECLIZINE HCL 25 MG TAB 107462 MECLIZINE HCL Inactive PREDNISONE 5 MG TAB PREDNISONE 5 MG TA B 413053 PREDNISONE Inactive NASONEX 50 MCG/ACT SUSP use 2 sprays in each nostril qday 1 NASONEX 50 MCG/ACT SUSP 3693625 MOMETASONE FUROATE Inactive ALLOPURINOL 100 MG TAB Take 1 tab po x 7 days, then 2 times every day thereafter if tolerated. ALLOPURINOL 100 MG TAB 076893 ALLOPURINO L Inactive COLCHICINE 0.6 MG ORAL CAPS PRN FOR GOUT FLARE UPS 201 01/08/07 COLCHICINE 0.6 MG ORAL CAPS 5527883 COLCHICINE Inactive HYDROCHLOROTHIAZIDE 25 MG TABS 0.5 tablet by mouth daily for blood pressure. HYDROCHLOROTHIAZIDE 25 MG TABS 121795 HYDROCHLOR OTHIAZIDE Inactive ZITHROMAX 250 MG TAB 2 po today, then 1 po q days 2-5 ZITHROMAX 250 MG TAB 0525570 AZITHROMYCIN Inactive AZITHROMYCIN 250 MG TABS 2 po qd x 1 day, then 1 po qd x 4 days AZITHROMYCIN 250 MG TABS 1920860 AZITHROMYCIN Inactiv e Vital Signs Date Name Value Unit Range Description blood pressure, diastolic 91 mm[Hg] BP santos blood pressure, systolic 151 mm[Hg] BP sys pulse rate E&M 69 /min Heart rate temperature E&M 98.5 [degF] Body temp erature weight E&M 212.0 [lb_av] Weight Measure d Diagnostic Results Date Name Value Unit Range Description Lab Report: CBC, Basic Metabolic Panel - Chemistry sodium, serum 141 mmol/L 958-359 1090/05/22 potassium, serum 4.4 mmol/L 3.5-5.2 chloride, serum [...] .6-14.8 platelet count 248 10^3/MM^3 10*3/mm3 142-424 Lab Report: CBC, Comp. Metabolic Panel, Uric Acid - Chemistry sodium, serum 139 mmol/L 161-903 7862/09/01 carbon dioxide, venous blood 30.0 mmol/L 21.0-32 .0 potassium, serum 4.2 mmol/L 3.5-5.2 chloride, serum 102 mmol/L 98-107 blood glucose 99 mg/dL 65-110 urea nitrogen, blood 12 mg/dL 7-18 creatinine, serum 1.06 mg/dL 0.55-1.30 alanine aminotransferase (SGPT), serum 28 U/L 12-78 aspartate aminotransferase (SGOT), serum 16 U/L 15-37 calcium, serum 8.9 mg/dL 8.5-10.1 bilirubin, serum, total 0.80 mg/dL 0.00-1.00 uric acid, serum 3.9 mg/dL 2.6-7.2 Lab Report: CBC, Comp. Metabolic Panel, Uric Acid - Hematology leukocyte count, blood 9.7 10^3/MM^3 10*3/mm3 4.6-10.2 erythrocyte (RBC) count 4.96 10^6/MM^3 10*6/mm3 4.69-6.1 3 hemoglobin, blood 15.3 g/dL 13.5-17.5 hematocrit, blood 45.5 % 41.0-53.0 mean corpuscular volume, RBC 92 fL 80-97 mean corpuscular hemoglobin, RBC 30.8 pg 27. 0-31.2 mean corpuscular hemoglobin concentration, RBC 33.5 G/DL % 31.8-35.4 red blood cell distribution width 13.3 % 11 .6-14.8 platelet count 263 10^3/MM^3 10*3/mm3 142-424 Encounters Code Encounter Date Provider Facility CPT-99761 Level 3 Est. 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 Patient 12:43:27 CDT Mau bailey MD [facility] CPT-89550 Level 3 Est. Patient 16:46:20 CDT Gilbert Amador MD [facility] CPT-90774 Level 3 Est. Patient 09:03:26 CDT Paulina FLYNN [facility] CPT-55439 Level 4 Est. Patient 15:38:51 [employer] TECH Mau bailey MD [facility] CPT-51627 Level 4 Est. Patient 10:26:24 CDT Mau bailey MD [facility] CPT-25652 Level 3 Est. Patient 17:21:09 CDT Ryne ornelas [facility] CPT-48373 Level 4 Est. Patient 09:22:16 CDT Mau bailey MD [facility] CPT-25976 Level 3 Est. Patient 08:55:02 CENTRAL [employer] TECH Mau bailey MD [facility] Procedures Code Procedure Name Date Entry Date Standard Desc ription CPT-22502 EKG Trac and Interp - XRAY USE ONLY 1 5:52:34 CDT CPT-03012 Venipuncture Draw Fee 09:05:38 CDT CPT-43377 Uric Acid - LAB USE ONLY 09:05:38 CDT 03/10 CPT-53057 Sed Rate - LAB USE ONLY 09:05:38 CDT 03/10 CPT-30905 CMP - LAB USE ONLY 09:05:37 CDT CPT-50008 CBC - LAB USE ONLY 09:05:37 CDT CPT-J2930 Solu Medrol 125 mg (Methyl Prednisolone Sodium Succinate) 16:27:04 CDT CPT-41171 Abx/Therapy Injection 16:27:04 CDT CPT-J2930 Solu Medrol 125 mg (Methyl Prednisolone Sodium Succinate) 14:33:18 CDT
--- OUTSIDE RECORDS SUMMARY | 2019-11-22 08:27 | XMS REPORT | Clinical Summary ---
Author Author Admin, Voloydmyr De Dios Organization [employer] Address Unknown Phone Unavailable Allergies, Adverse Reactions, [...] paroxysmal positional vertigo, left 386.11 Acti ve iGlbert Amador MD Benign paroxysmal positional vertigo Gout, [...] 6 hours as needed for cough GUAIFENESIN-CODEINE 97618035851 Active Osbaldo villa MD Active PREDNISONE 20 MG TABS 2 daily for 3 days then 1 daily for 3 days 20 26/08/06 PREDNISONE 79856309464 Active Osbaldo Wilkes MD Active HYDROCHLOROTHIAZIDE 25 MG TABS 0.5 tablet by mouth daily for blood pressure. HYDROCHLOROTHIAZIDE 65477097501 No Longer Active Timur Wilkes MD Active COLCHICINE 0.6 MG ORAL CAPS PRN FOR GOUT FLARE UPS 201 01/08/07 COLCHICINE 15866343130 No Longer Active Osbaldo Wilkes MD Activ e ALLOPURINOL 100 MG TAB Take 1 tab po x 7 days, then 2 times every day thereafter if tolerated. ALLOPURINOL 79642476129 No Longer Active Osbaldo Wilkes MD Active NASONEX 50 MCG/ACT SUSP use 2 sprays in each nostril qday 1 MOMETASONE FUROATE 24218738480 No Longer Active Osbaldo Wilkes MD Active PREDNISONE 5 MG TAB PREDNISONE 6633576 7321 No Longer Active Osbaldo Wilkes MD Active AZITHROMYCIN 250 MG TABS 2 po qd x 1 day, then 1 po qd x 4 days AZITHROMYCIN 58083059471 No Longer Active Pavithra Mora Activ e SUDAFED 12 HOUR 120 MG [id number] 1 pill twice daily if neede d for congestion PSEUDOEPHEDRINE HCL 06644653323 Active Mau Mcmahon MD Active MECLIZINE HCL 25 MG TAB one 4 times a day as needed for dizzines s MECLIZINE HCL 67400790385 No Longer Active Mau Mcmahon MD Active ZOFRAN 4 MG TABS 1 po q6hr PRN Nausea ONDANSETR ON HCL 45502975224 No Longer Active Mau Mcmahon MD Active PREDNISONE 5 MG TAB Take 3 tabs po on the first day, decrease by 1 tablet every 3 days until off PREDNISONE 84243142906 No Longer Active Gilbert Amador MD Active CHERATUSSIN AC 100-10 MG/5ML SYRP 1 tsp by mouth every 4 hours as needed for cough GUAIFENESIN-CODEINE 19545373496 No Longer Activ e Gilbert Amador MD Active ZITHROMAX 250 MG TAB 2 po today, then 1 po q days 2-5 AZITHROMYCIN 78418370592 No Longer Active Deirdre Fitzgerald APRN Acti ve CELEBREX 100 MG ORAL CAPS take 1 tab po BID for osteoarthritis 2 CELECOXIB 77916261556 No Longer Active Deirdre Fitzgerald APRN Active OMEPRAZOLE 20 MG CPDR 1 tablet po in the am OMEPR AZOLE 04759354221 No Longer Active Deirdre Fitzgerald APRN Active COZAAR 50 MG ORAL TABS 1 tab po daily for hypertension and gout 201 12/11/12 LOSARTAN POTASSIUM 02387175811 Active Deirdre Fitzgerald APRN Ac tive BACTRIM DS 800-160 MG TAB 1 tab by mouth twice daily 2 TRIMETHOPRIM-SULFAMETHOXAZOLE 40291622411 No Longer Active Deirdre SPIVEY RN Active ZITHROMAX 1 GM ORAL PACK DIR AZITHROMYCIN 87493801847 No Longer Active Deirdre Fitzgerald APRN Active LEVAQUIN 500 MG TAB 1 tablet by mouth daily LEV OFLOXACIN 96074227064 No Longer Active Mau Mcmahon MD Active HYDROCHLOROTHIAZIDE 25 MG TABS 1 PO Q AM HYDROCHLOROTHIAZIDE 66728524823 No Longer Active Ryne Cristina DO Ac tive SIMVASTATIN 20 MG TABS 1 tablet po q hs SIMVASTAT IN 09830768430 No Longer Active Ryne Cristina DO Active SIMVASTATIN 20 MG TABS 1 tablet po q hs SIMVAST ATIN 20 MG TABS 946785 SIMVASTATIN Inactive HYDROCHLOROTHIAZIDE 25 MG TABS 1 PO Q AM HYDROCHLOROTHIAZIDE 25 MG TABS 238739 HYDROCHLOROTHIAZIDE Inactive LEVAQUIN 500 MG TAB 1 tablet by mouth daily LEVAQUIN 500 MG TAB 845394 LEVOFLOXACIN Inactive ZITHROMAX 1 GM ORAL PACK DIR ZITHROMAX 1 GM ORAL PACK 530908 AZITHROMYCIN Inactive BACTRIM DS 800-160 MG TAB 1 tab by mouth twice daily 2 BACTRIM DS 800-160 MG TAB 208293 TRIMETHOPRIM-SULFAMETHOXAZOLE Inac tive OMEPRAZOLE 20 MG CPDR 1 tablet po in the am OME PRAZOLE 20 MG CPDR 993626 OMEPRAZOLE Inactive CELEBREX 100 MG ORAL CAPS take 1 tab po BID for osteoarthritis 2 CELEBREX 100 MG ORAL CAPS 010697 CELECOXIB Inacti ve CHERATUSSIN AC 100-10 MG/5ML SYRP 1 tsp by mouth every 4 hours as needed for cough CHERATUSSIN AC 100-10 MG/5ML SYRP 634956 GUAIFENESIN-CODEINE Inactive PREDNISONE 5 MG TAB Take 3 tabs po on the first day, decrease by 1 tablet every 3 days until off PREDNISONE 5 MG TAB 522477 PREDNISONE Inactive ZOFRAN 4 MG TABS 1 po q6hr PRN Nausea ZOFRAN 4 MG TABS 293565 ONDANSETRON HCL Inactive MECLIZINE HCL 25 MG TAB one 4 times a day as needed for dizzines s MECLIZINE HCL 25 MG TAB 311608 MECLIZINE HCL Inactive PREDNISONE 5 MG TAB PREDNISONE 5 MG TA B 466888 PREDNISONE Inactive NASONEX 50 MCG/ACT SUSP use 2 sprays in each nostril qday 1 NASONEX 50 MCG/ACT SUSP 6333862 MOMETASONE FUROATE Inactive ALLOPURINOL 100 MG TAB Take 1 tab po x 7 days, then 2 times every day thereafter if tolerated. ALLOPURINOL 100 MG TAB 375184 ALLOPURINO L Inactive COLCHICINE 0.6 MG ORAL CAPS PRN FOR GOUT FLARE UPS 201 01/08/07 COLCHICINE 0.6 MG ORAL CAPS 2469432 COLCHICINE Inactive HYDROCHLOROTHIAZIDE 25 MG TABS 0.5 tablet by mouth daily for blood pressure. HYDROCHLOROTHIAZIDE 25 MG TABS 530059 HYDROCHLOR OTHIAZIDE Inactive ZITHROMAX 250 MG TAB 2 po today, then 1 po q days 2-5 ZITHROMAX 250 MG TAB 474938 AZITHROMYCIN Inactive AZITHROMYCIN 250 MG TABS 2 po qd x 1 day, then 1 po qd x 4 days AZITHROMYCIN 250 MG TABS 018183 AZITHROMYCIN Inactiv e Vital Signs Date Name [...] Panel - Chemistry sodium, serum 141 mmol/L 762-692 5581/05/22 potassium, serum 4.4 mmol/L 3.5-5.2 chloride, serum [...] mg/dL Encounters Code Encounter Date Provider Facility CPT-24340 Level 4 Est. Patient 21:12:34 CDT Mau bailey MD [facility] CPT-18105 Level 3 Est. 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 Patient 12:43:27 CDT Mau bailey MD [facility] CPT-25946 Level 3 Est. Patient 16:46:20 CDT Gilbert Amador MD [facility] CPT-16736 Level 3 Est. Patient 09:03:26 CDT Paulina FLYNN [facility] CPT-18548 Level 4 Est. Patient 15:38:51 VEGETABLE TIER Mau bailey MD [facility] CPT-67257 Level 4 Est. Patient 10:26:24 CDT Mau bailey MD [facility] CPT-34066 Level 3 Est. Patient 17:21:09 CDT Ryne ornelas DO [facility] CPT-92361 Level 4 Est. Patient 09:22:16 CDT Mau bailey MD [facility] CPT-49845 Level 3 Est. Patient 08:55:02 VEGETABLE TIER Mau bailey MD [facility] Procedures Code Procedure Name Date Entry Date Standard Desc ription CPT-LR Lesion Removal 21:12:34 CDT CPT-27602 EKG Trac and Interp - XRAY USE ONLY 1 5:52:34 CDT CPT-44272 Venipuncture Draw Fee 09:05:38 CDT CPT-78693 Uric Acid - LAB USE ONLY 09:05:38 CDT 03/10 CPT-49723 Sed Rate - LAB USE ONLY 09:05:38 CDT 03/10 CPT-92747 CMP - LAB USE ONLY 09:05:37 CDT CPT-60074 CBC - LAB USE ONLY 09:05:37 CDT CPT-J2930 Solu Medrol 125 mg (Methyl Prednisolone Sodium Succinate) 16:27:04 CDT CPT-37429 Abx/Therapy Injection 16:27:04 CDT CPT-J2930 Solu Medrol 125 mg (Methyl Prednisolone Sodium Succinate) 14:33:18 CDT
--- OUTSIDE RECORDS SUMMARY | 2019-11-22 08:27 | XMS REPORT | Clinical Summary ---
Author Author Admin, Volodymyr De Dios Organization [employer] Address Unknown Phone Unavailable Allergies, Adverse Reactions, [...] NASAL SUSPENSION 2 sprays everyday MOMETASONE FUROATE 11966486425 Active Mau Mcmahon MD Active GUAIFENESIN-CODEINE 100-10 MG/5ML ORAL SYRUP 5ml every 4 to 6 hours as needed for cough GUAIFENESIN-CODEINE 06517095032 Active Timur Wilkes MD Active PREDNISONE 20 MG ORAL TABLET 2 daily for 3 days then 1 daily for 3 days PREDNISONE 49650600015 Active Osbaldo Wilkes MD Active HYDROCHLOROTHIAZIDE 25 MG ORAL TABLET 0.5 tablet by [facility] daily for blood pressure. HYDROCHLOROTHIAZIDE 32900019205 No Longe r Active Osbaldo Wilkes MD Active COLCHICINE 0.6 MG ORAL CAPSULE PRN FOR GOUT FLARE UPS COLCHICINE 95001131148 No Longer Active Osbaldo Wilkes MD Activ e ALLOPURINOL 100 MG ORAL TABLET Take 1 tab po x 7 days, then 2 times every day thereafter if tolerated. ALLOPURINOL 78734468834 No Longer Active Osbaldo Wilkes MD Active NASONEX 50 MCG/ACT NASAL SUSPENSION use 2 sprays in each nos tril qday MOMETASONE FUROATE 67557408312 No Longer Active Osbaldo valdez MD Active PREDNISONE 5 MG ORAL TABLET PREDNISONE 75648899625 No Longer Active Osbaldo Wilkes MD Active AZITHROMYCIN 250 MG ORAL TABLET 2 po qd x 1 day, then 1 po q d x 4 days AZITHROMYCIN 86509041542 No Longer Active Pavithra Mora Active SUDAFED 12 HOUR 120 MG ORAL TABLET EXTENDED RELEASE 12 HOUR 1 pill twice daily if needed for congestion PSEUDOEPHEDRINE HCL 99870282548 A ctive Mau Mcmahon MD Active MECLIZINE HCL 25 MG ORAL TABLET one 4 times a day as needed for dizziness MECLIZINE HCL 68410763653 No Longer Active Mau Mcmahon MD Active ZOFRAN 4 MG ORAL TABLET 1 po q6hr PRN Nausea 9 ONDANSETRON HCL 06926656798 No Longer Active Mau Mcmahon MD Acti ve PREDNISONE 5 MG ORAL TABLET Take 3 tabs po on the day, decrease by 1 tablet every 3 days until off PREDNISONE 12767654114 No Longer Active Gilbert Amador MD Active CHERATUSSIN AC 100-10 MG/5ML ORAL SYRUP 1 tsp by mouth every 4 hours as needed for cough GUAIFENESIN-CODEINE 45644559948 No Longe r Active Gilbert Amador MD Active ZITHROMAX 250 MG ORAL TABLET 2 po today, then 1 po q days 2-5 20 23/10/22 AZITHROMYCIN 15595807613 No Longer Active Deirdre Fitzgerald APRN Active CELEBREX 100 MG ORAL CAPSULE take 1 tab po BID for osteoarthriti s CELECOXIB 92274250006 No Longer Active Deirdre Fitzgerald APRN Active OMEPRAZOLE 20 MG ORAL CAPSULE DELAYED RELEASE 1 tablet po in the am OMEPRAZOLE 91691892768 No Longer Active Deirdre Fitzgerald APRN Active COZAAR 50 MG ORAL TABLET 1 tab po daily for hypertension and gout 2 LOSARTAN POTASSIUM 97262339705 Active Deirdre Fitzgerald APRN Ac tive BACTRIM DS 800-160 MG ORAL TABLET 1 tab by mouth twice daily 201 12/08/14 TRIMETHOPRIM-SULFAMETHOXAZOLE 39623331630 No Longer Active Vincent Fitzgerald APRN Active ZITHROMAX 1 GM ORAL PACKET DIR AZITHROMY ANALISA 34980633716 No Longer Active Deirdre Fitzgerald APRN Active LEVAQUIN 500 MG ORAL TABLET 1 tablet by mouth daily 20 25/07/14 LEVOFLOXACIN 22429053066 No Longer Active Mau Mcmahon MD Acti ve HYDROCHLOROTHIAZIDE 25 MG ORAL TABLET 1 PO Q AM 201 10/16/21 HYDROCHLOROTHIAZIDE 88759352711 No Longer Active Ryne Cristina DO Ac tive SIMVASTATIN 20 MG ORAL TABLET 1 tablet po q hs SIMVASTATIN 17731025571 No Longer Active Ryne Cristina DO Active SIMVASTATIN 20 MG ORAL TABLET 1 tablet po q hs SIMVASTATIN 20 MG ORAL TABLET 477161 SIMVASTATIN Inactive HYDROCHLOROTHIAZIDE 25 MG ORAL TABLET 1 PO Q AM 201 10/16/21 HYDROCHLOROTHIAZIDE 25 MG ORAL TABLET 482748 HYDROCHLOROTHIAZIDE In active LEVAQUIN 500 MG ORAL TABLET 1 tablet by mouth daily 20 25/07/14 LEVAQUIN 500 MG ORAL TABLET 266658 LEVOFLOXACIN Inactive ZITHROMAX 1 GM ORAL PACKET DIR Z ITHROMAX 1 GM ORAL PACKET 529210 AZITHROMYCIN Inactive BACTRIM DS 800-160 MG ORAL TABLET 1 tab by mouth twice daily 201 12/08/14 BACTRIM DS 800-160 MG ORAL TABLET 552135 TRIMETHOPRIM-SULFAMETHOXAZOLE Inactive OMEPRAZOLE 20 MG ORAL CAPSULE DELAYED RELEASE 1 tablet po in the am OMEPRAZOLE 20 MG ORAL CAPSULE DELAYED RELEASE 963682 OM EPRAZOLE Inactive CELEBREX 100 MG ORAL CAPSULE take 1 tab po BID for osteoarthriti s CELEBREX 100 MG ORAL CAPSULE 139334 CELECOXIB [place] ctive CHERATUSSIN AC 100-10 MG/5ML ORAL SYRUP 1 tsp by mouth every 4 hours as needed for cough CHERATUSSIN AC 100-10 MG/5ML ORAL SYRUP 9 79302 GUAIFENESIN-CODEINE Inactive PREDNISONE 5 MG ORAL TABLET Take 3 tabs po on the day, decrease by 1 tablet every 3 days until off PREDNISONE 5 MG OR AL TABLET 329686 PREDNISONE Inactive ZOFRAN 4 MG ORAL TABLET 1 po q6hr PRN Nausea 9 ZOFRAN 4 MG ORAL TABLET 354276 ONDANSETRON HCL Inactive MECLIZINE HCL 25 MG ORAL TABLET one 4 times a day as needed for dizziness MECLIZINE HCL 25 MG ORAL TABLET 826640 MECLIZINE HCL Inactive PREDNISONE 5 MG ORAL TABLET PREDNISO NE 5 MG ORAL TABLET 896818 PREDNISONE Inactive NASONEX 50 MCG/ACT NASAL SUSPENSION use 2 sprays in each nos tril qday NASONEX 50 MCG/ACT NASAL SUSPENSION 3649712 MOMET ASONE FUROATE Inactive ALLOPURINOL 100 MG ORAL TABLET Take 1 tab po x 7 days, then 2 times every day thereafter if tolerated. ALLOPURINOL 100 MG ORAL TABLET 507371 ALLOPURINOL Inactive COLCHICINE 0.6 MG ORAL CAPSULE PRN FOR GOUT FLARE UPS COLCHICINE 0.6 MG ORAL CAPSULE 2493356 COLCHICINE Inactive HYDROCHLOROTHIAZIDE 25 MG ORAL TABLET 0.5 tablet by [facility] daily for blood pressure. HYDROCHLOROTHIAZIDE 25 MG ORAL TABLET 310 798 HYDROCHLOROTHIAZIDE Inactive ZITHROMAX 250 MG ORAL TABLET 2 po today, then 1 po q days 2-5 20 23/10/22 ZITHROMAX 250 MG ORAL TABLET 098916 AZITHROMYCIN [place] ctive AZITHROMYCIN 250 MG ORAL TABLET 2 po qd x 1 day, then 1 po q d x 4 days AZITHROMYCIN 250 MG ORAL TABLET 488863 AZITHROMY ANALISA Inactive Vital Signs Date Name [...] Panel - Chemistry sodium, serum 141 mmol/L 537-708 1886/05/22 potassium, serum 4.4 mmol/L 3.5-5.2 chloride, serum [...] mg/dL Encounters Code Encounter Date Provider Facility CPT-06316 Level 4 Est. Patient 21:12:34 CDT Mau bailey MD [facility] CPT-10996 Level 3 Est. 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 Patient 12:43:27 CDT Mau bailey MD [facility] CPT-16833 Level 3 Est. Patient 16:46:20 CDT Gilbert Amador MD [facility] CPT-37850 Level 3 Est. Patient 09:03:26 CDT Paulina FLYNN [facility] CPT-97356 Level 4 Est. 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 Patient 10:26:24 CDT Mau bailey MD [facility] CPT-15838 Level 3 Est. Patient 17:21:09 CDT Ryne ornelas DO [facility] CPT-70681 Level 4 Est. Patient 09:22:16 CDT Mau bailey MD [facility] CPT-70021 Level 3 Est. 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 Mau bailey MD [facility] Procedures Code Procedure Name Date Entry Date Standard Desc ription CPT-LR Lesion Removal 21:12:34 CDT CPT-64420 EKG Trac and Interp - XRAY USE ONLY 1 5:52:34 CDT CPT-80945 Venipuncture Draw Fee 09:05:38 CDT CPT-75852 Uric Acid - LAB USE ONLY 09:05:38 CDT 03/10 CPT-14010 Sed Rate - LAB USE ONLY 09:05:38 CDT 03/10 CPT-83833 CMP - LAB USE ONLY 09:05:37 CDT CPT-29508 CBC - LAB USE ONLY 09:05:37 CDT CPT-J2930 Solu Medrol 125 mg (Methyl Prednisolone Sodium Succinate) 16:27:04 CDT CPT-40393 Abx/Therapy Injection 16:27:04 CDT CPT-J2930 Solu Medrol 125 mg (Methyl Prednisolone Sodium Succinate) 14:33:18 CDT
--- OUTSIDE RECORDS SUMMARY | 2019-11-22 08:27 | XMS REPORT | Clinical Summary ---
Author Author Admin, Volodymyr De Dios Organization [employer] Address Unknown Phone Unavailable Allergies, Adverse Reactions, [...] 6 hours as needed for cough GUAIFENESIN-CODEINE 98524440381 Active Osbaldo villa MD Active PREDNISONE 20 MG TABS 2 daily for 3 days then 1 daily for 3 days 20 26/08/06 PREDNISONE 18622362026 Active Osbaldo Wilkes MD Active HYDROCHLOROTHIAZIDE 25 MG TABS 0.5 tablet by mouth daily for blood pressure. HYDROCHLOROTHIAZIDE 43860195163 No Longer Active Timur Wilkes MD Active COLCHICINE 0.6 MG ORAL CAPS PRN FOR GOUT FLARE UPS 201 01/08/07 COLCHICINE 87314267398 No Longer Active Osbaldo Wilkes MD Activ e ALLOPURINOL 100 MG TAB Take 1 tab po x 7 days, then 2 times every day thereafter if tolerated. ALLOPURINOL 55006193216 No Longer Active Osbaldo Wilkes MD Active NASONEX 50 MCG/ACT SUSP use 2 sprays in each nostril qday 1 MOMETASONE FUROATE 19719956769 No Longer Active Osbaldo Wilkes MD Active PREDNISONE 5 MG TAB PREDNISONE 3544184 7321 No Longer Active Osbaldo Wilkes MD Active AZITHROMYCIN 250 MG TABS 2 po qd x 1 day, then 1 po qd x 4 days AZITHROMYCIN 62828564499 No Longer Active Pavithra Mora Activ e SUDAFED 12 HOUR 120 MG [id number] 1 pill twice daily if neede d for congestion PSEUDOEPHEDRINE HCL 81335829894 Active Mau Mcmahon MD Active MECLIZINE HCL 25 MG TAB one 4 times a day as needed for dizzines s MECLIZINE HCL 46601132757 No Longer Active Mau Mcmahon MD Active ZOFRAN 4 MG TABS 1 po q6hr PRN Nausea ONDANSETR ON HCL 28088402036 No Longer Active Mau Mcmahon MD Active PREDNISONE 5 MG TAB Take 3 tabs po on the first day, decrease by 1 tablet every 3 days until off PREDNISONE 81221610745 No Longer Active Gilbert Amador MD Active CHERATUSSIN AC 100-10 MG/5ML SYRP 1 tsp by mouth every 4 hours as needed for cough GUAIFENESIN-CODEINE 68376817412 No Longer Activ e Gilbert Amador MD Active ZITHROMAX 250 MG TAB 2 po today, then 1 po q days 2-5 AZITHROMYCIN 69560947032 No Longer Active Deirdre Fitzgerald APRN Acti ve CELEBREX 100 MG ORAL CAPS take 1 tab po BID for osteoarthritis 2 CELECOXIB 47009094951 No Longer Active Deirdre Fitzgerald APRN Active OMEPRAZOLE 20 MG CPDR 1 tablet po in the am OMEPR AZOLE 13889401851 No Longer Active Deirdre Fitzgerald APRN Active COZAAR 50 MG ORAL TABS 1 tab po daily for hypertension and gout 201 12/11/12 LOSARTAN POTASSIUM 29972535082 Active Deirdre Fitzgerald APRN Ac tive BACTRIM DS 800-160 MG TAB 1 tab by mouth twice daily 2 TRIMETHOPRIM-SULFAMETHOXAZOLE 01413045556 No Longer Active Deirdre SPIVEY RN Active ZITHROMAX 1 GM ORAL PACK DIR AZITHROMYCIN 81895201053 No Longer Active Deirdre Fitzgerald APRN Active LEVAQUIN 500 MG TAB 1 tablet by mouth daily LEV OFLOXACIN 27830439836 No Longer Active Mau Mcmahon MD Active HYDROCHLOROTHIAZIDE 25 MG TABS 1 PO Q AM HYDROCHLOROTHIAZIDE 80620625568 No Longer Active Ryne Cristina DO Ac tive SIMVASTATIN 20 MG TABS 1 tablet po q hs SIMVASTAT IN 76894010909 No Longer Active Ryne Cristina DO Active SIMVASTATIN 20 MG TABS 1 tablet po q hs SIMVAST ATIN 20 MG TABS 807449 SIMVASTATIN Inactive HYDROCHLOROTHIAZIDE 25 MG TABS 1 PO Q AM HYDROCHLOROTHIAZIDE 25 MG TABS 107958 HYDROCHLOROTHIAZIDE Inactive LEVAQUIN 500 MG TAB 1 tablet by mouth daily LEVAQUIN 500 MG TAB 960689 LEVOFLOXACIN Inactive ZITHROMAX 1 GM ORAL PACK DIR ZITHROMAX 1 GM ORAL PACK 617239 AZITHROMYCIN Inactive BACTRIM DS 800-160 MG TAB 1 tab by mouth twice daily 2 BACTRIM DS 800-160 MG TAB 651183 TRIMETHOPRIM-SULFAMETHOXAZOLE Inac tive OMEPRAZOLE 20 MG CPDR 1 tablet po in the am OME PRAZOLE 20 MG CPDR 318118 OMEPRAZOLE Inactive CELEBREX 100 MG ORAL CAPS take 1 tab po BID for osteoarthritis 2 CELEBREX 100 MG ORAL CAPS 519990 CELECOXIB Inacti ve CHERATUSSIN AC 100-10 MG/5ML SYRP 1 tsp by mouth every 4 hours as needed for cough CHERATUSSIN AC 100-10 MG/5ML SYRP 974030 GUAIFENESIN-CODEINE Inactive PREDNISONE 5 MG TAB Take 3 tabs po on the first day, decrease by 1 tablet every 3 days until off PREDNISONE 5 MG TAB 495850 PREDNISONE Inactive ZOFRAN 4 MG TABS 1 po q6hr PRN Nausea ZOFRAN 4 MG TABS 946766 ONDANSETRON HCL Inactive MECLIZINE HCL 25 MG TAB one 4 times a day as needed for dizzines s MECLIZINE HCL 25 MG TAB 107496 MECLIZINE HCL Inactive PREDNISONE 5 MG TAB PREDNISONE 5 MG TA B 718458 PREDNISONE Inactive NASONEX 50 MCG/ACT SUSP use 2 sprays in each nostril qday 1 NASONEX 50 MCG/ACT SUSP 2472230 MOMETASONE FUROATE Inactive ALLOPURINOL 100 MG TAB Take 1 tab po x 7 days, then 2 times every day thereafter if tolerated. ALLOPURINOL 100 MG TAB 067013 ALLOPURINO L Inactive COLCHICINE 0.6 MG ORAL CAPS PRN FOR GOUT FLARE UPS 201 01/08/07 COLCHICINE 0.6 MG ORAL CAPS 5655981 COLCHICINE Inactive HYDROCHLOROTHIAZIDE 25 MG TABS 0.5 tablet by mouth daily for blood pressure. HYDROCHLOROTHIAZIDE 25 MG TABS 949754 HYDROCHLOR OTHIAZIDE Inactive ZITHROMAX 250 MG TAB 2 po today, then 1 po q days 2-5 ZITHROMAX 250 MG TAB 3911691 AZITHROMYCIN Inactive AZITHROMYCIN 250 MG TABS 2 po qd x 1 day, then 1 po qd x 4 days AZITHROMYCIN 250 MG TABS 2457163 AZITHROMYCIN Inactiv e Vital Signs Date Name [...] Panel - Chemistry sodium, serum 141 mmol/L 024-715 8098/05/22 potassium, serum 4.4 mmol/L 3.5-5.2 chloride, serum [...] Acid - Chemistry sodium, serum 139 mmol/L 085-905 9836/09/01 carbon dioxide, venous blood 30.0 mmol/L 21.0-32 [...] .6-14.8 platelet count 263 10^3/MM^3 10*3/mm3 142-424 Office Visit: CHECK UP - Basic LDL target level 130 mg/dL Office Visit: CHECK UP - Chemistry HDL cholesterol, serum, target level 40 mg/dL triglyceride, target level 150 mg/dL cholesterol, target level 200 mg/dL Encounters Code Encounter Date Provider Facility CPT-89095 Level 4 Est. Patient 21:12:34 CDT Mau bailey MD [facility] CPT-76148 Level 3 Est. Patient 16:26:55 NEUROPSYCHIATRIST Osbaldo Wilkes MD [facility] CPT-27443 Level 4 Est. Patient 12:43:27 CDT Mau bailey MD [facility] CPT-38889 Level 3 Est. Patient 16:46:20 CDT Gilbert Amador MD [facility] CPT-28812 Level 3 Est. Patient 09:03:26 CDT Paulina FLYNN [facility] CPT-91988 Level 4 Est. Patient 15:38:51 NEUROPSYCHIATRIST Mau bailey MD [facility] CPT-65491 Level 4 Est. Patient 10:26:24 CDT Mau bailey MD [facility] CPT-06643 Level 3 Est. Patient 17:21:09 CDT Ryne ornelas DO [facility] CPT-82732 Level 4 Est. Patient 09:22:16 CDT Mau bailey MD [facility] CPT-37224 Level 3 Est. Patient 08:55:02 NEUROPSYCHIATRIST Mau bailey MD [facility] Procedures Code Procedure Name Date Entry Date Standard Desc ription CPT-LR Lesion Removal 21:12:34 CDT CPT-46972 EKG Trac and Interp - XRAY USE ONLY 1 5:52:34 CDT CPT-85966 Venipuncture Draw Fee 09:05:38 CDT CPT-06316 Uric Acid - LAB USE ONLY 09:05:38 CDT 03/10 CPT-72067 Sed Rate - LAB USE ONLY 09:05:38 CDT 03/10 CPT-98662 CMP - LAB USE ONLY 09:05:37 CDT CPT-63105 CBC - LAB USE ONLY 09:05:37 CDT CPT-J2930 Solu Medrol 125 mg (Methyl Prednisolone Sodium Succinate) 16:27:04 CDT CPT-64916 Abx/Therapy Injection 16:27:04 CDT CPT-J2930 Solu Medrol 125 mg (Methyl Prednisolone Sodium Succinate) 14:33:18 CDT
--- OUTSIDE RECORDS SUMMARY | 2019-11-22 08:27 | XMS REPORT | Clinical Summary ---
Author Author Admin, Volodymyr De Dios Organization [employer] Address Unknown Phone Unavailable Allergies, Adverse Reactions, [...] NASAL SUSPENSION 2 sprays everyday MOMETASONE FUROATE 52813906937 Active Mau Mcmahon MD Active GUAIFENESIN-CODEINE 100-10 MG/5ML ORAL SYRUP 5ml every 4 to 6 hours as needed for cough GUAIFENESIN-CODEINE 61115482416 Active Timur Wilkes MD Active PREDNISONE 20 MG ORAL TABLET 2 daily for 3 days then 1 daily for 3 days PREDNISONE 99502858930 Active Osbaldo Wilkes MD Active HYDROCHLOROTHIAZIDE 25 MG ORAL TABLET 0.5 tablet by [facility] daily for blood pressure. HYDROCHLOROTHIAZIDE 88734434553 No Longe r Active Osbaldo Wilkes MD Active COLCHICINE 0.6 MG ORAL CAPSULE PRN FOR GOUT FLARE UPS COLCHICINE 21301853073 No Longer Active Osbaldo Wilkes MD Activ e ALLOPURINOL 100 MG ORAL TABLET Take 1 tab po x 7 days, then 2 times every day thereafter if tolerated. ALLOPURINOL 10143581249 No Longer Active Osbaldo Wilkes MD Active NASONEX 50 MCG/ACT NASAL SUSPENSION use 2 sprays in each nos tril qday MOMETASONE FUROATE 77886616680 No Longer Active Osbaldo valdez MD Active PREDNISONE 5 MG ORAL TABLET PREDNISONE 77456562376 No Longer Active Osbaldo Wilkes MD Active AZITHROMYCIN 250 MG ORAL TABLET 2 po qd x 1 day, then 1 po q d x 4 days AZITHROMYCIN 75172842491 No Longer Active Pavithra Mora Active SUDAFED 12 HOUR 120 MG ORAL TABLET EXTENDED RELEASE 12 HOUR 1 pill twice daily if needed for congestion PSEUDOEPHEDRINE HCL 99010800919 A ctive Mau Mcmahon MD Active MECLIZINE HCL 25 MG ORAL TABLET one 4 times a day as needed for dizziness MECLIZINE HCL 40293027380 No Longer Active Mau Mcmahon MD Active ZOFRAN 4 MG ORAL TABLET 1 po q6hr PRN Nausea 9 ONDANSETRON HCL 00533295601 No Longer Active Mau Mcmahon MD Acti ve PREDNISONE 5 MG ORAL TABLET Take 3 tabs po on the day, decrease by 1 tablet every 3 days until off PREDNISONE 08957373699 No Longer Active Gilbert Amador MD Active CHERATUSSIN AC 100-10 MG/5ML ORAL SYRUP 1 tsp by mouth every 4 hours as needed for cough GUAIFENESIN-CODEINE 34472004761 No Longe r Active Gilbert Amador MD Active ZITHROMAX 250 MG ORAL TABLET 2 po today, then 1 po q days 2-5 20 23/10/22 AZITHROMYCIN 53202013796 No Longer Active Deirdre Riddle APRN Active CELEBREX 100 MG ORAL CAPSULE take 1 tab po BID for osteoarthriti s CELECOXIB 81654657770 No Longer Active Deirdre Riddle APRN A ctive OMEPRAZOLE 20 MG ORAL CAPSULE DELAYED RELEASE 1 tablet po in the am OMEPRAZOLE 92353193327 No Longer Active Deirdre Riddle APRN A ctive COZAAR 50 MG ORAL TABLET 1 tab po daily for hypertension and gout 2 LOSARTAN POTASSIUM 25926262762 Active Deirdre Riddle APRN Activ e BACTRIM DS 800-160 MG ORAL TABLET 1 tab by mouth twice daily 201 12/08/14 TRIMETHOPRIM-SULFAMETHOXAZOLE 51535531474 No Longer Active Vincent Riddle APRN Active ZITHROMAX 1 GM ORAL PACKET DIR AZITHROMY ANALISA 26887297388 No Longer Active Deirdre Riddle APRN Active LEVAQUIN 500 MG ORAL TABLET 1 tablet by mouth daily 20 25/07/14 LEVOFLOXACIN 97512464268 No Longer Active Mau Mcmahon MD Acti ve HYDROCHLOROTHIAZIDE 25 MG ORAL TABLET 1 PO Q AM 201 10/16/21 HYDROCHLOROTHIAZIDE 74136176820 No Longer Active Ryne Cristina DO Ac tive SIMVASTATIN 20 MG ORAL TABLET 1 tablet po q hs SIMVASTATIN 95949370599 No Longer Active Ryne Cristina DO Active SIMVASTATIN 20 MG ORAL TABLET 1 tablet po q hs SIMVASTATIN 20 MG ORAL TABLET 503687 SIMVASTATIN Inactive HYDROCHLOROTHIAZIDE 25 MG ORAL TABLET 1 PO Q AM 201 10/16/21 HYDROCHLOROTHIAZIDE 25 MG ORAL TABLET 300736 HYDROCHLOROTHIAZIDE In active LEVAQUIN 500 MG ORAL TABLET 1 tablet by mouth daily 20 25/07/14 LEVAQUIN 500 MG ORAL TABLET 891901 LEVOFLOXACIN Inactive ZITHROMAX 1 GM ORAL PACKET DIR Z ITHROMAX 1 GM ORAL PACKET 980074 AZITHROMYCIN Inactive BACTRIM DS 800-160 MG ORAL TABLET 1 tab by mouth twice daily 201 12/08/14 BACTRIM DS 800-160 MG ORAL TABLET 700369 TRIMETHOPRIM-SULFAMETHOXAZOLE Inactive OMEPRAZOLE 20 MG ORAL CAPSULE DELAYED RELEASE 1 tablet po in the am OMEPRAZOLE 20 MG ORAL CAPSULE DELAYED RELEASE 225549 OM EPRAZOLE Inactive CELEBREX 100 MG ORAL CAPSULE take 1 tab po BID for osteoarthriti s CELEBREX 100 MG ORAL CAPSULE 615105 CELECOXIB Zohre[place] ctive CHERATUSSIN AC 100-10 MG/5ML ORAL SYRUP 1 tsp by mouth every 4 hours as needed for cough CHERATUSSIN AC 100-10 MG/5ML ORAL SYRUP 9 99843 GUAIFENESIN-CODEINE Inactive PREDNISONE 5 MG ORAL TABLET Take 3 tabs po on the , decrease by 1 tablet every 3 days until off PREDNISONE 5 MG OR AL TABLET 150923 PREDNISONE Inactive ZOFRAN 4 MG ORAL TABLET 1 po q6hr PRN Nausea 9 ZOFRAN 4 MG ORAL TABLET 865518 ONDANSETRON HCL Inactive MECLIZINE HCL 25 MG ORAL TABLET one 4 times a day as needed for dizziness MECLIZINE HCL 25 MG ORAL TABLET 225977 MECLIZINE HCL Inactive PREDNISONE 5 MG ORAL TABLET PREDNISO NE 5 MG ORAL TABLET 561266 PREDNISONE Inactive NASONEX 50 MCG/ACT NASAL SUSPENSION use 2 sprays in each nos tril qday NASONEX 50 MCG/ACT NASAL SUSPENSION 2693017 MOMET ASONE FUROATE Inactive ALLOPURINOL 100 MG ORAL TABLET Take 1 tab po x 7 days, then 2 times every day thereafter if tolerated. ALLOPURINOL 100 MG ORAL TABLET 142659 ALLOPURINOL Inactive COLCHICINE 0.6 MG ORAL CAPSULE PRN FOR GOUT FLARE UPS COLCHICINE 0.6 MG ORAL CAPSULE 0273050 COLCHICINE Inactive HYDROCHLOROTHIAZIDE 25 MG ORAL TABLET 0.5 tablet by [facility] daily for blood pressure. HYDROCHLOROTHIAZIDE 25 MG ORAL TABLET 310 798 HYDROCHLOROTHIAZIDE Inactive ZITHROMAX 250 MG ORAL TABLET 2 po today, then 1 po q days 2-5 20 23/10/22 ZITHROMAX 250 MG ORAL TABLET 010225 AZITHROMYCIN [place] ctive AZITHROMYCIN 250 MG ORAL TABLET 2 po qd x 1 day, then 1 po q d x 4 days AZITHROMYCIN 250 MG ORAL TABLET 301730 AZITHROMY ANALISA Inactive Vital Signs Date Name [...] mg/dL Encounters Code Encounter Date Provider Facility CPT-21532 Level 4 Est. Patient 21:12:34 CDT Mau bailey MD [facility] CPT-26987 Level 3 Est. 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 Patient 12:43:27 CDT Mau bailey MD [facility] CPT-09714 Level 3 Est. Patient 16:46:20 CDT Gilbert Amador MD [facility] CPT-79385 Level 3 Est. Patient 09:03:26 CDT Deirdre carter APRN [facility] CPT-27147 Level 4 Est. Patient 15:38:51 SUPERVISOR NET MAKING Mau bailey MD [facility] CPT-11627 Level 4 Est. Patient 10:26:24 CDT Mau bailey MD [facility] CPT-85127 Level 3 Est. Patient 17:21:09 CDT Ryne ornelas DO [facility] CPT-80971 Level 4 Est. Patient 09:22:16 CDT Mau bailey MD [facility] CPT-12872 Level 3 Est. Patient 08:55:02 SUPERVISOR NET MAKING Mau bailey MD [facility] Procedures Code Procedure Name Date Entry Date Standard Desc ription CPT-LR Lesion Removal 21:12:34 CDT CPT-79685 EKG Trac and Interp - XRAY USE ONLY 1 5:52:34 CDT CPT-57463 Venipuncture Draw Fee 09:05:38 CDT CPT-45890 Uric Acid - LAB USE ONLY 09:05:38 CDT 03/10 CPT-96702 Sed Rate - LAB USE ONLY 09:05:38 CDT 03/10 CPT-31266 CMP - LAB USE ONLY 09:05:37 CDT CPT-51513 CBC - LAB USE ONLY 09:05:37 CDT CPT-J2930 Solu Medrol 125 mg (Methyl Prednisolone Sodium Succinate) 16:27:04 CDT CPT-04540 Abx/Therapy Injection 16:27:04 CDT CPT-J2930 Solu Medrol 125 mg (Methyl Prednisolone Sodium Succinate) 14:33:18 CDT
--- OUTSIDE RECORDS SUMMARY | 2019-11-22 08:28 | XMS REPORT | Clinical Summary ---
Author Author Admin, Volodymyr De Dios Organization [email or web address] Address Unknown Phone Unavailable Allergies, Adverse Reactions, [...] NASAL SUSPENSION 2 sprays everyday MOMETASONE FUROATE 44815358050 Active Mau Mcmahon MD Active GUAIFENESIN-CODEINE 100-10 MG/5ML ORAL SYRUP 5ml every 4 to 6 hours as needed for cough GUAIFENESIN-CODEINE 05918854226 Active Timur Wilkes MD Active PREDNISONE 20 MG ORAL TABLET 2 daily for 3 days then 1 daily for 3 days PREDNISONE 79210078534 Active Osbaldo Wilkes MD Active HYDROCHLOROTHIAZIDE 25 MG ORAL TABLET 0.5 tablet by [facility] daily for blood pressure. HYDROCHLOROTHIAZIDE 03579374804 No Longe r Active Osbaldo Wilkes MD Active COLCHICINE 0.6 MG ORAL CAPSULE PRN FOR GOUT FLARE UPS COLCHICINE 87854935790 No Longer Active Osbaldo Wilkes MD Activ e ALLOPURINOL 100 MG ORAL TABLET Take 1 tab po x 7 days, then 2 times every day thereafter if tolerated. ALLOPURINOL 36791802544 No Longer Active Osbaldo Wilkes MD Active NASONEX 50 MCG/ACT NASAL SUSPENSION use 2 sprays in each nos tril qday MOMETASONE FUROATE 18084892465 No Longer Active Osbaldo valdez MD Active PREDNISONE 5 MG ORAL TABLET PREDNISONE 87174425435 No Longer Active Osbaldo Wilkes MD Active AZITHROMYCIN 250 MG ORAL TABLET 2 po qd x 1 day, then 1 po q d x 4 days AZITHROMYCIN 47398861585 No Longer Active Pavithra Mora Active SUDAFED 12 HOUR 120 MG ORAL TABLET EXTENDED RELEASE 12 HOUR 1 pill twice daily if needed for congestion PSEUDOEPHEDRINE HCL 42195530654 A ctive Mau Mcmahon MD Active MECLIZINE HCL 25 MG ORAL TABLET one 4 times a day as needed for dizziness MECLIZINE HCL 58796053733 No Longer Active Mau Mcmahon MD Active ZOFRAN 4 MG ORAL TABLET 1 po q6hr PRN Nausea 9 ONDANSETRON HCL 24152887354 No Longer Active Mau Mcmahon MD Acti ve PREDNISONE 5 MG ORAL TABLET Take 3 tabs po on the day, decrease by 1 tablet every 3 days until off PREDNISONE 44793104073 No Longer Active Gilbert Amador MD Active CHERATUSSIN AC 100-10 MG/5ML ORAL SYRUP 1 tsp by mouth every 4 hours as needed for cough GUAIFENESIN-CODEINE 31371666225 No Longe r Active Gilbert Amador MD Active ZITHROMAX 250 MG ORAL TABLET 2 po today, then 1 po q days 2-5 20 23/10/22 AZITHROMYCIN 36149970211 No Longer Active Deirdre Fitzgerald APRN Active CELEBREX 100 MG ORAL CAPSULE take 1 tab po BID for osteoarthriti s CELECOXIB 28272398306 No Longer Active Deirdre Fitzgerald APRN Active OMEPRAZOLE 20 MG ORAL CAPSULE DELAYED RELEASE 1 tablet po in the am OMEPRAZOLE 98519121737 No Longer Active Deirdre Fitzgerald APRN Active COZAAR 50 MG ORAL TABLET 1 tab po daily for hypertension and gout 2 LOSARTAN POTASSIUM 53454947718 Active Deirdre Fitzgerald APRN Ac tive BACTRIM DS 800-160 MG ORAL TABLET 1 tab by mouth twice daily 201 12/08/14 TRIMETHOPRIM-SULFAMETHOXAZOLE 49219764600 No Longer Active Vincent Fitzgerald APRN Active ZITHROMAX 1 GM ORAL PACKET DIR AZITHROMY ANALISA 24534174490 No Longer Active Deirdre Fitzgerald APRN Active LEVAQUIN 500 MG ORAL TABLET 1 tablet by mouth daily 20 25/07/14 LEVOFLOXACIN 08410174138 No Longer Active Mau Mcmahon MD Acti ve HYDROCHLOROTHIAZIDE 25 MG ORAL TABLET 1 PO Q AM 201 10/16/21 HYDROCHLOROTHIAZIDE 37713115901 No Longer Active Ryne Cristina DO Ac tive SIMVASTATIN 20 MG ORAL TABLET 1 tablet po q hs SIMVASTATIN 76865873912 No Longer Active Ryne Cristina DO Active SIMVASTATIN 20 MG ORAL TABLET 1 tablet po q hs SIMVASTATIN 20 MG ORAL TABLET 452130 SIMVASTATIN Inactive HYDROCHLOROTHIAZIDE 25 MG ORAL TABLET 1 PO Q AM 201 10/16/21 HYDROCHLOROTHIAZIDE 25 MG ORAL TABLET 441697 HYDROCHLOROTHIAZIDE In active LEVAQUIN 500 MG ORAL TABLET 1 tablet by mouth daily 20 25/07/14 LEVAQUIN 500 MG ORAL TABLET 824739 LEVOFLOXACIN Inactive ZITHROMAX 1 GM ORAL PACKET DIR Z ITHROMAX 1 GM ORAL PACKET 075239 AZITHROMYCIN Inactive BACTRIM DS 800-160 MG ORAL TABLET 1 tab by mouth twice daily 201 12/08/14 BACTRIM DS 800-160 MG ORAL TABLET 959819 TRIMETHOPRIM-SULFAMETHOXAZOLE Inactive OMEPRAZOLE 20 MG ORAL CAPSULE DELAYED RELEASE 1 tablet po in the am OMEPRAZOLE 20 MG ORAL CAPSULE DELAYED RELEASE 547787 OM EPRAZOLE Inactive CELEBREX 100 MG ORAL CAPSULE take 1 tab po BID for osteoarthriti s CELEBREX 100 MG ORAL CAPSULE 882883 CELECOXIB [place] ctive CHERATUSSIN AC 100-10 MG/5ML ORAL SYRUP 1 tsp by mouth every 4 hours as needed for cough CHERATUSSIN AC 100-10 MG/5ML ORAL SYRUP 9 15310 GUAIFENESIN-CODEINE Inactive PREDNISONE 5 MG ORAL TABLET Take 3 tabs po on the day, decrease by 1 tablet every 3 days until off PREDNISONE 5 MG OR AL TABLET 440836 PREDNISONE Inactive ZOFRAN 4 MG ORAL TABLET 1 po q6hr PRN Nausea 9 ZOFRAN 4 MG ORAL TABLET 195321 ONDANSETRON HCL Inactive MECLIZINE HCL 25 MG ORAL TABLET one 4 times a day as needed for dizziness MECLIZINE HCL 25 MG ORAL TABLET 556680 MECLIZINE HCL Inactive PREDNISONE 5 MG ORAL TABLET PREDNISO NE 5 MG ORAL TABLET 999569 PREDNISONE Inactive NASONEX 50 MCG/ACT NASAL SUSPENSION use 2 sprays in each nos tril qday NASONEX 50 MCG/ACT NASAL SUSPENSION 3622232 MOMET ASONE FUROATE Inactive ALLOPURINOL 100 MG ORAL TABLET Take 1 tab po x 7 days, then 2 times every day thereafter if tolerated. ALLOPURINOL 100 MG ORAL TABLET 858671 ALLOPURINOL Inactive COLCHICINE 0.6 MG ORAL CAPSULE PRN FOR GOUT FLARE UPS COLCHICINE 0.6 MG ORAL CAPSULE 9836088 COLCHICINE Inactive HYDROCHLOROTHIAZIDE 25 MG ORAL TABLET 0.5 tablet by [facility] daily for blood pressure. HYDROCHLOROTHIAZIDE 25 MG ORAL TABLET 310 798 HYDROCHLOROTHIAZIDE Inactive ZITHROMAX 250 MG ORAL TABLET 2 po today, then 1 po q days 2-5 20 23/10/22 ZITHROMAX 250 MG ORAL TABLET 191900 AZITHROMYCIN [place] ctive AZITHROMYCIN 250 MG ORAL TABLET 2 po qd x 1 day, then 1 po q d x 4 days AZITHROMYCIN 250 MG ORAL TABLET 412961 AZITHROMY ANALISA Inactive Vital Signs Date Name [...] Panel - Chemistry sodium, serum 141 mmol/L 421-403 1587/05/22 potassium, serum 4.4 mmol/L 3.5-5.2 chloride, serum [...] mg/dL Encounters Code Encounter Date Provider Facility CPT-00987 Level 4 Est. Patient 21:12:34 CDT Mau bailey MD [facility] CPT-97347 Level 3 Est. 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 Patient 12:43:27 CDT Mau bailey MD [facility] CPT-31165 Level 3 Est. Patient 16:46:20 CDT Gilbert Amador MD [facility] CPT-66246 Level 3 Est. Patient 09:03:26 CDT Paulina FLYNN [facility] CPT-78637 Level 4 Est. Patient 15:38:51 RADIATION PROTECTION ENGINEER Mau bailey MD [facility] CPT-27086 Level 4 Est. Patient 10:26:24 CDT Mau bailey MD [facility] CPT-80236 Level 3 Est. Patient 17:21:09 CDT Ryne ornelas DO [facility] CPT-42330 Level 4 Est. Patient 09:22:16 CDT Mau bailey MD [facility] CPT-87910 Level 3 Est. Patient 08:55:02 RADIATION PROTECTION ENGINEER Mau bailey MD [facility] Procedures Code Procedure Name Date Entry Date Standard Desc ription CPT-LR Lesion Removal 21:12:34 CDT CPT-51344 EKG Trac and Interp - XRAY USE ONLY 1 5:52:34 CDT CPT-83311 Venipuncture Draw Fee 09:05:38 CDT CPT-23856 Uric Acid - LAB USE ONLY 09:05:38 CDT 03/10 CPT-00512 Sed Rate - LAB USE ONLY 09:05:38 CDT 03/10 CPT-41419 CMP - LAB USE ONLY 09:05:37 CDT CPT-00194 CBC - LAB USE ONLY 09:05:37 CDT CPT-J2930 Solu Medrol 125 mg (Methyl Prednisolone Sodium Succinate) 16:27:04 CDT CPT-03544 Abx/Therapy Injection 16:27:04 CDT CPT-J2930 Solu Medrol 125 mg (Methyl Prednisolone Sodium Succinate) 14:33:18 CDT
--- OUTSIDE RECORDS SUMMARY | 2019-11-22 08:28 | XMS REPORT | Clinical Summary ---
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 HYDROCHLOROTHIAZIDE 44696466539 No Longer Active Timur Wilkes MD Active COLCHICINE 0.6 MG ORAL CAPS PRN FOR GOUT FLARE UPS 201 01/08/07 COLCHICINE 98431693086 No Longer Active Osbaldo Wilkes MD Activ e ALLOPURINOL 100 MG TAB Take 1 tab po x 7 days, then 2 times every day thereafter if tolerated. ALLOPURINOL 03704791252 No Longer Active Osbaldo Wilkes MD Active NASONEX 50 MCG/ACT SUSP use 2 sprays in each nostril qday 1 MOMETASONE FUROATE 51105205151 No Longer Active Osabldo Wilkes MD Active PREDNISONE 5 MG TAB PREDNISONE 7488573 7321 No Longer Active Osbaldo Wilkes MD Active AZITHROMYCIN 250 MG TABS 2 po qd x 1 day, then 1 po qd x 4 days AZITHROMYCIN 40101619612 No Longer Active Pavithra Mora Activ e SUDAFED 12 HOUR 120 MG [id number] 1 pill twice daily if neede d for congestion PSEUDOEPHEDRINE HCL 96536330527 Active Mau Mcmahon MD Active MECLIZINE HCL 25 MG TAB one 4 times a day as needed for dizzines s MECLIZINE HCL 63351265161 No Longer Active Mau Mcmahon MD Active ZOFRAN 4 MG TABS 1 po q6hr PRN Nausea ONDANSETR ON HCL 94117847077 No Longer Active Mau Mcmahon MD Active PREDNISONE 5 MG TAB Take 3 tabs po on the first day, decrease by 1 tablet every 3 days until off PREDNISONE 61984827122 No Longer Active Gilbert Amador MD Active CHERATUSSIN AC 100-10 MG/5ML SYRP 1 tsp by mouth every 4 hours as needed for cough GUAIFENESIN-CODEINE 86634148410 No Longer Activ e Gilbert Amador MD Active ZITHROMAX 250 MG TAB 2 po today, then 1 po q days 2-5 AZITHROMYCIN 25785685804 No Longer Active Deirdre Fitzgerald APRN Acti ve CELEBREX 100 MG ORAL CAPS take 1 tab po BID for osteoarthritis 2 CELECOXIB 84720332988 No Longer Active Deirdre Fitzgerald APRN Active OMEPRAZOLE 20 MG CPDR 1 tablet po in the am OMEPR AZOLE 39913960882 No Longer Active Deirdre Fitzgerald APRN Active COZAAR 50 MG ORAL TABS 1 tab po daily for hypertension and gout 201 12/11/12 LOSARTAN POTASSIUM 25431187928 Active Deirdre Fitzgerald APRN Ac tive BACTRIM DS 800-160 MG TAB 1 tab by mouth twice daily 2 TRIMETHOPRIM-SULFAMETHOXAZOLE 08965192278 No Longer Active Deirdre Fitzgerald AP RN Active ZITHROMAX 1 GM ORAL PACK DIR AZITHROMYCIN 04772199444 No Longer Active Deirdre Fitzgerald APRN Active LEVAQUIN 500 MG TAB 1 tablet by mouth daily LEV OFLOXACIN 20359500222 No Longer Active Mau Mcmahon MD Active HYDROCHLOROTHIAZIDE 25 MG TABS 1 PO Q AM HYDROCHLOROTHIAZIDE 79150912497 No Longer Active Ryne Cristina DO Ac tive SIMVASTATIN 20 MG TABS 1 tablet po q hs SIMVASTAT IN 87624988113 No Longer Active Ryne Cristina DO Active SIMVASTATIN 20 MG TABS 1 tablet po q hs SIMVAST ATIN 20 MG TABS 082002 SIMVASTATIN Inactive HYDROCHLOROTHIAZIDE 25 MG TABS 1 PO Q AM HYDROCHLOROTHIAZIDE 25 MG TABS 637251 HYDROCHLOROTHIAZIDE Inactive LEVAQUIN 500 MG TAB 1 tablet by mouth daily LEVAQUIN 500 MG TAB 755086 LEVOFLOXACIN Inactive ZITHROMAX 1 GM ORAL PACK DIR ZITHROMAX 1 GM ORAL PACK 558967 AZITHROMYCIN Inactive BACTRIM DS 800-160 MG TAB 1 tab by mouth twice daily 2 BACTRIM DS 800-160 MG TAB 055262 TRIMETHOPRIM-SULFAMETHOXAZOLE Inac tive OMEPRAZOLE 20 MG CPDR 1 tablet po in the am OME PRAZOLE 20 MG CPDR 903760 OMEPRAZOLE Inactive CELEBREX 100 MG ORAL CAPS take 1 tab po BID for osteoarthritis 2 CELEBREX 100 MG ORAL CAPS 321551 CELECOXIB Inacti ve CHERATUSSIN AC 100-10 MG/5ML SYRP 1 tsp by mouth every 4 hours as needed for cough CHERATUSSIN AC 100-10 MG/5ML SYRP 630221 GUAIFENESIN-CODEINE Inactive PREDNISONE 5 MG TAB Take 3 tabs po on the first day, decrease by 1 tablet every 3 days until off PREDNISONE 5 MG TAB 101708 PREDNISONE Inactive ZOFRAN 4 MG TABS 1 po q6hr PRN Nausea ZOFRAN 4 MG TABS 044460 ONDANSETRON HCL Inactive MECLIZINE HCL 25 MG TAB one 4 times a day as needed for dizzines s MECLIZINE HCL 25 MG TAB 259340 MECLIZINE HCL Inactive PREDNISONE 5 MG TAB PREDNISONE 5 MG TA B 526452 PREDNISONE Inactive NASONEX 50 MCG/ACT SUSP use 2 sprays in each nostril qday 1 NASONEX 50 MCG/ACT SUSP 8673010 MOMETASONE FUROATE Inactive ALLOPURINOL 100 MG TAB Take 1 tab po x 7 days, then 2 times every day thereafter if tolerated. ALLOPURINOL 100 MG TAB 535746 ALLOPURINO L Inactive COLCHICINE 0.6 MG ORAL CAPS PRN FOR GOUT FLARE UPS 201 01/08/07 COLCHICINE 0.6 MG ORAL CAPS 6418767 COLCHICINE Inactive HYDROCHLOROTHIAZIDE 25 MG TABS 0.5 tablet by mouth daily for blood pressure. HYDROCHLOROTHIAZIDE 25 MG TABS 402869 HYDROCHLOR OTHIAZIDE Inactive ZITHROMAX 250 MG TAB 2 po today, then 1 po q days 2-5 ZITHROMAX 250 MG TAB 8761517 AZITHROMYCIN Inactive AZITHROMYCIN 250 MG TABS 2 po qd x 1 day, then 1 po qd x 4 days AZITHROMYCIN 250 MG TABS 2820207 AZITHROMYCIN Inactiv e Vital Signs Date Name [...] Panel - Chemistry sodium, serum 141 mmol/L 559-511 7857/05/22 potassium, serum 4.4 mmol/L 3.5-5.2 chloride, serum [...] Acid - Chemistry sodium, serum 139 mmol/L 223-555 3013/09/01 carbon dioxide, venous blood 30.0 mmol/L 21.0-32 [...] 142-424 Encounters Code Encounter Date Provider Facility CPT-94479 Level 3 Est. 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 Patient 12:43:27 CDT Mau bailey MD [facility] CPT-96007 Level 3 Est. Patient 16:46:20 CDT Gilbert Amador MD [facility] CPT-24361 Level 3 Est. Patient 09:03:26 CDT Paulina FLYNN [facility] CPT-76117 Level 4 Est. Patient 15:38:51 MANAGER STUDY Mau bailey MD [facility] CPT-48102 Level 4 Est. Patient 10:26:24 CDT Mau bailey MD [facility] CPT-50602 Level 3 Est. Patient 17:21:09 CDT Ryne ornelas [facility] CPT-36855 Level 4 Est. Patient 09:22:16 CDT Mau bailey MD [facility] CPT-67182 Level 3 Est. Patient 08:55:02 MANAGER STUDY Mau bailey MD [facility] Procedures Code Procedure Name Date Entry Date Standard Desc ription CPT-96328 EKG Trac and Interp - XRAY USE ONLY 1 5:52:34 CDT CPT-28368 Venipuncture Draw Fee 09:05:38 CDT CPT-94333 Uric Acid - LAB USE ONLY 09:05:38 CDT 03/10 CPT-30484 Sed Rate - LAB USE ONLY 09:05:38 CDT 03/10 CPT-62878 CMP - LAB USE ONLY 09:05:37 CDT CPT-59405 CBC - LAB USE ONLY 09:05:37 CDT CPT-J2930 Solu Medrol 125 mg (Methyl Prednisolone Sodium Succinate) 16:27:04 CDT CPT-41084 Abx/Therapy Injection 16:27:04 CDT CPT-J2930 Solu Medrol 125 mg (Methyl Prednisolone Sodium Succinate) 14:33:18 CDT
--- OUTSIDE RECORDS SUMMARY | 2019-11-22 08:28 | XMS REPORT | Clinical Summary ---
Author Author Admin, Volodymyr De Dios Organization [employer] Address Unknown Phone Unavailable Allergies, Adverse Reactions, [...] 6 hours as needed for cough GUAIFENESIN-CODEINE 38160030038 Active Osbaldo villa MD Active PREDNISONE 20 MG TABS 2 daily for 3 days then 1 daily for 3 days 20 26/08/06 PREDNISONE 53946249990 Active Osbaldo Wilkes MD Active HYDROCHLOROTHIAZIDE 25 MG TABS 0.5 tablet by mouth daily for blood pressure. HYDROCHLOROTHIAZIDE 81258311824 No Longer Active Timur Wilkes MD Active COLCHICINE 0.6 MG ORAL CAPS PRN FOR GOUT FLARE UPS 201 01/08/07 COLCHICINE 50019939104 No Longer Active Osbaldo Wilkes MD Activ e ALLOPURINOL 100 MG TAB Take 1 tab po x 7 days, then 2 times every day thereafter if tolerated. ALLOPURINOL 62422705486 No Longer Active Osbaldo Wilkes MD Active NASONEX 50 MCG/ACT SUSP use 2 sprays in each nostril qday 1 MOMETASONE FUROATE 51779939903 No Longer Active Osbaldo Wilkes MD Active PREDNISONE 5 MG TAB PREDNISONE 8195166 7321 No Longer Active Osbaldo Wilkes MD Active AZITHROMYCIN 250 MG TABS 2 po qd x 1 day, then 1 po qd x 4 days AZITHROMYCIN 35856806600 No Longer Active Pavithra Mora Activ e SUDAFED 12 HOUR 120 MG [id number] 1 pill twice daily if neede d for congestion PSEUDOEPHEDRINE HCL 32427006257 Active Mau Mcmahon MD Active MECLIZINE HCL 25 MG TAB one 4 times a day as needed for dizzines s MECLIZINE HCL 14810644435 No Longer Active Mau Mcmahon MD Active ZOFRAN 4 MG TABS 1 po q6hr PRN Nausea ONDANSETR ON HCL 48551919645 No Longer Active Mau Mcmahon MD Active PREDNISONE 5 MG TAB Take 3 tabs po on the first day, decrease by 1 tablet every 3 days until off PREDNISONE 35126903592 No Longer Active Gilbert Amador MD Active CHERATUSSIN AC 100-10 MG/5ML SYRP 1 tsp by mouth every 4 hours as needed for cough GUAIFENESIN-CODEINE 00264564632 No Longer Activ e Gilbert Amador MD Active ZITHROMAX 250 MG TAB 2 po today, then 1 po q days 2-5 AZITHROMYCIN 66164731015 No Longer Active Deirdre Fitzgerald APRN Acti ve CELEBREX 100 MG ORAL CAPS take 1 tab po BID for osteoarthritis 2 CELECOXIB 32381681347 No Longer Active Deirdre Fitzgerald APRN Active OMEPRAZOLE 20 MG CPDR 1 tablet po in the am OMEPR AZOLE 75279855782 No Longer Active Deirdre Fitzgerald APRN Active COZAAR 50 MG ORAL TABS 1 tab po daily for hypertension and gout 201 12/11/12 LOSARTAN POTASSIUM 20830475969 Active Deirdre Fitzgerald APRN Ac tive BACTRIM DS 800-160 MG TAB 1 tab by mouth twice daily 2 TRIMETHOPRIM-SULFAMETHOXAZOLE 78931397346 No Longer Active Deirdre SPIVEY RN Active ZITHROMAX 1 GM ORAL PACK DIR AZITHROMYCIN 07486096499 No Longer Active Deirdre Fitzgerald APRN Active LEVAQUIN 500 MG TAB 1 tablet by mouth daily LEV OFLOXACIN 69099642587 No Longer Active Mau Mcmahon MD Active HYDROCHLOROTHIAZIDE 25 MG TABS 1 PO Q AM HYDROCHLOROTHIAZIDE 21605301343 No Longer Active Ryne Cristina DO Ac tive SIMVASTATIN 20 MG TABS 1 tablet po q hs SIMVASTAT IN 14029448866 No Longer Active Ryne Cristina DO Active SIMVASTATIN 20 MG TABS 1 tablet po q hs SIMVAST ATIN 20 MG TABS 239345 SIMVASTATIN Inactive HYDROCHLOROTHIAZIDE 25 MG TABS 1 PO Q AM HYDROCHLOROTHIAZIDE 25 MG TABS 589175 HYDROCHLOROTHIAZIDE Inactive LEVAQUIN 500 MG TAB 1 tablet by mouth daily LEVAQUIN 500 MG TAB 187982 LEVOFLOXACIN Inactive ZITHROMAX 1 GM ORAL PACK DIR ZITHROMAX 1 GM ORAL PACK 947100 AZITHROMYCIN Inactive BACTRIM DS 800-160 MG TAB 1 tab by mouth twice daily 2 BACTRIM DS 800-160 MG TAB 605713 TRIMETHOPRIM-SULFAMETHOXAZOLE Inac tive OMEPRAZOLE 20 MG CPDR 1 tablet po in the am OME PRAZOLE 20 MG CPDR 814569 OMEPRAZOLE Inactive CELEBREX 100 MG ORAL CAPS take 1 tab po BID for osteoarthritis 2 CELEBREX 100 MG ORAL CAPS 918618 CELECOXIB Inacti ve CHERATUSSIN AC 100-10 MG/5ML SYRP 1 tsp by mouth every 4 hours as needed for cough CHERATUSSIN AC 100-10 MG/5ML SYRP 797843 GUAIFENESIN-CODEINE Inactive PREDNISONE 5 MG TAB Take 3 tabs po on the first day, decrease by 1 tablet every 3 days until off PREDNISONE 5 MG TAB 439048 PREDNISONE Inactive ZOFRAN 4 MG TABS 1 po q6hr PRN Nausea ZOFRAN 4 MG TABS 720531 ONDANSETRON HCL Inactive MECLIZINE HCL 25 MG TAB one 4 times a day as needed for dizzines s MECLIZINE HCL 25 MG TAB 147897 MECLIZINE HCL Inactive PREDNISONE 5 MG TAB PREDNISONE 5 MG TA B 930728 PREDNISONE Inactive NASONEX 50 MCG/ACT SUSP use 2 sprays in each nostril qday 1 NASONEX 50 MCG/ACT SUSP 3343978 MOMETASONE FUROATE Inactive ALLOPURINOL 100 MG TAB Take 1 tab po x 7 days, then 2 times every day thereafter if tolerated. ALLOPURINOL 100 MG TAB 866361 ALLOPURINO L Inactive COLCHICINE 0.6 MG ORAL CAPS PRN FOR GOUT FLARE UPS 201 01/08/07 COLCHICINE 0.6 MG ORAL CAPS 1385509 COLCHICINE Inactive HYDROCHLOROTHIAZIDE 25 MG TABS 0.5 tablet by mouth daily for blood pressure. HYDROCHLOROTHIAZIDE 25 MG TABS 699765 HYDROCHLOR OTHIAZIDE Inactive ZITHROMAX 250 MG TAB 2 po today, then 1 po q days 2-5 ZITHROMAX 250 MG TAB 4019151 AZITHROMYCIN Inactive AZITHROMYCIN 250 MG TABS 2 po qd x 1 day, then 1 po qd x 4 days AZITHROMYCIN 250 MG TABS 5040729 AZITHROMYCIN Inactiv e Vital Signs Date Name [...] Panel - Chemistry sodium, serum 141 mmol/L 879-870 2614/05/22 potassium, serum 4.4 mmol/L 3.5-5.2 chloride, serum [...] Acid - Chemistry sodium, serum 139 mmol/L 974-568 2483/09/01 carbon dioxide, venous blood 30.0 mmol/L 21.0-32 [...] mg/dL Encounters Code Encounter Date Provider Facility CPT-18102 Level 4 Est. Patient 21:12:34 CDT Mau bailey MD [facility] CPT-55476 Level 3 Est. 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 CPT-02417 Level 4 Est. Patient 12:43:27 CDT Mau bailey MD [facility] CPT-07444 Level 3 Est. Patient 16:46:20 CDT Gilbert Amador MD [facility] CPT-26009 Level 3 Est. Patient 09:03:26 CDT Paulina FLYNN [facility] CPT-72672 Level 4 Est. Patient 15:38:51 SKIFF OPERATOR Mau bailey MD [facility] CPT-49594 Level 4 Est. Patient 10:26:24 CDT Mau bailey MD [facility] CPT-76242 Level 3 Est. Patient 17:21:09 CDT Ryne ornelas DO [facility] CPT-14928 Level 4 Est. Patient 09:22:16 CDT Mau bailey MD [facility] CPT-97196 Level 3 Est. Patient 08:55:02 SKIFF OPERATOR Mau bailey MD [facility] Procedures Code Procedure Name Date Entry Date Standard Desc ription CPT-LR Lesion Removal 21:12:34 CDT CPT-35167 EKG Trac and Interp - XRAY USE ONLY 1 5:52:34 CDT CPT-14456 Venipuncture Draw Fee 09:05:38 CDT CPT-45585 Uric Acid - LAB USE ONLY 09:05:38 CDT 03/10 CPT-11286 Sed Rate - LAB USE ONLY 09:05:38 CDT 03/10 CPT-13527 CMP - LAB USE ONLY 09:05:37 CDT CPT-07332 CBC - LAB USE ONLY 09:05:37 CDT CPT-J2930 Solu Medrol 125 mg (Methyl Prednisolone Sodium Succinate) 16:27:04 CDT CPT-30578 Abx/Therapy Injection 16:27:04 CDT CPT-J2930 Solu Medrol 125 mg (Methyl Prednisolone Sodium Succinate) 14:33:18 CDT
--- OUTSIDE RECORDS SUMMARY | 2019-11-22 08:29 | XMS REPORT | Clinical Summary ---
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 HYDROCHLOROTHIAZIDE 74103606317 No Longer Active Timur Wilkes MD Active COLCHICINE 0.6 MG ORAL CAPS PRN FOR GOUT FLARE UPS 201 01/08/07 COLCHICINE 77734340659 No Longer Active Osbaldo Wilkes MD Activ e ALLOPURINOL 100 MG TAB Take 1 tab po x 7 days, then 2 times every day thereafter if tolerated. ALLOPURINOL 25962858263 No Longer Active Osbaldo Wilkes MD Active NASONEX 50 MCG/ACT SUSP use 2 sprays in each nostril qday 1 MOMETASONE FUROATE 00710605243 No Longer Active Osbaldo Wilkes MD Active PREDNISONE 5 MG TAB PREDNISONE 9579945 7321 No Longer Active Osbaldo Wilkes MD Active AZITHROMYCIN 250 MG TABS 2 po qd x 1 day, then 1 po qd x 4 days AZITHROMYCIN 41052730387 No Longer Active Pavithra Mora Activ e SUDAFED 12 HOUR 120 MG [id number] 1 pill twice daily if neede d for congestion PSEUDOEPHEDRINE HCL 95097448539 Active Mau Mcmahon MD Active MECLIZINE HCL 25 MG TAB one 4 times a day as needed for dizzines s MECLIZINE HCL 10431740783 No Longer Active Mau Mcmahon MD Active ZOFRAN 4 MG TABS 1 po q6hr PRN Nausea ONDANSETR ON HCL 80672340332 No Longer Active Mau Mcmahon MD Active PREDNISONE 5 MG TAB Take 3 tabs po on the first day, decrease by 1 tablet every 3 days until off PREDNISONE 56988313612 No Longer Active Gilbert Amador MD Active CHERATUSSIN AC 100-10 MG/5ML SYRP 1 tsp by mouth every 4 hours as needed for cough GUAIFENESIN-CODEINE 12189713005 No Longer Activ e Gilbert Amador MD Active ZITHROMAX 250 MG TAB 2 po today, then 1 po q days 2-5 AZITHROMYCIN 77924090516 No Longer Active Deirdre Fitzgerald APRN Acti ve CELEBREX 100 MG ORAL CAPS take 1 tab po BID for osteoarthritis 2 CELECOXIB 44079805286 No Longer Active Deirdre Fitzgerald APRN Active OMEPRAZOLE 20 MG CPDR 1 tablet po in the am OMEPR AZOLE 80295910671 No Longer Active Deirdre Fitzgerald APRN Active COZAAR 50 MG ORAL TABS 1 tab po daily for hypertension and gout 201 12/11/12 LOSARTAN POTASSIUM 29835742916 Active Deirdre Fitzgerald APRN Ac tive BACTRIM DS 800-160 MG TAB 1 tab by mouth twice daily 2 TRIMETHOPRIM-SULFAMETHOXAZOLE 95579444222 No Longer Active Deirdre Fitzgerlad AP RN Active ZITHROMAX 1 GM ORAL PACK DIR AZITHROMYCIN 12358572995 No Longer Active Deirdre Fitzgerald APRN Active LEVAQUIN 500 MG TAB 1 tablet by mouth daily LEV OFLOXACIN 35823694143 No Longer Active Mau Mcmahon MD Active HYDROCHLOROTHIAZIDE 25 MG TABS 1 PO Q AM HYDROCHLOROTHIAZIDE 22882493990 No Longer Active Ryne Cristina DO Ac tive SIMVASTATIN 20 MG TABS 1 tablet po q hs SIMVASTAT IN 43624532190 No Longer Active Ryne Cristina DO Active SIMVASTATIN 20 MG TABS 1 tablet po q hs SIMVAST ATIN 20 MG TABS 538243 SIMVASTATIN Inactive HYDROCHLOROTHIAZIDE 25 MG TABS 1 PO Q AM HYDROCHLOROTHIAZIDE 25 MG TABS 758152 HYDROCHLOROTHIAZIDE Inactive LEVAQUIN 500 MG TAB 1 tablet by mouth daily LEVAQUIN 500 MG TAB 557832 LEVOFLOXACIN Inactive ZITHROMAX 1 GM ORAL PACK DIR ZITHROMAX 1 GM ORAL PACK 879659 AZITHROMYCIN Inactive BACTRIM DS 800-160 MG TAB 1 tab by mouth twice daily 2 BACTRIM DS 800-160 MG TAB 165138 TRIMETHOPRIM-SULFAMETHOXAZOLE Inac tive OMEPRAZOLE 20 MG CPDR 1 tablet po in the am OME PRAZOLE 20 MG CPDR 493791 OMEPRAZOLE Inactive CELEBREX 100 MG ORAL CAPS take 1 tab po BID for osteoarthritis 2 CELEBREX 100 MG ORAL CAPS 402739 CELECOXIB Inacti ve CHERATUSSIN AC 100-10 MG/5ML SYRP 1 tsp by mouth every 4 hours as needed for cough CHERATUSSIN AC 100-10 MG/5ML SYRP 812586 GUAIFENESIN-CODEINE Inactive PREDNISONE 5 MG TAB Take 3 tabs po on the first day, decrease by 1 tablet every 3 days until off PREDNISONE 5 MG TAB 451892 PREDNISONE Inactive ZOFRAN 4 MG TABS 1 po q6hr PRN Nausea ZOFRAN 4 MG TABS 308112 ONDANSETRON HCL Inactive MECLIZINE HCL 25 MG TAB one 4 times a day as needed for dizzines s MECLIZINE HCL 25 MG TAB 432192 MECLIZINE HCL Inactive PREDNISONE 5 MG TAB PREDNISONE 5 MG TA B 962132 PREDNISONE Inactive NASONEX 50 MCG/ACT SUSP use 2 sprays in each nostril qday 1 NASONEX 50 MCG/ACT SUSP 0391066 MOMETASONE FUROATE Inactive ALLOPURINOL 100 MG TAB Take 1 tab po x 7 days, then 2 times every day thereafter if tolerated. ALLOPURINOL 100 MG TAB 877215 ALLOPURINO L Inactive COLCHICINE 0.6 MG ORAL CAPS PRN FOR GOUT FLARE UPS 201 01/08/07 COLCHICINE 0.6 MG ORAL CAPS 7009037 COLCHICINE Inactive HYDROCHLOROTHIAZIDE 25 MG TABS 0.5 tablet by mouth daily for blood pressure. HYDROCHLOROTHIAZIDE 25 MG TABS 503332 HYDROCHLOR OTHIAZIDE Inactive ZITHROMAX 250 MG TAB 2 po today, then 1 po q days 2-5 ZITHROMAX 250 MG TAB 8463303 AZITHROMYCIN Inactive AZITHROMYCIN 250 MG TABS 2 po qd x 1 day, then 1 po qd x 4 days AZITHROMYCIN 250 MG TABS 7564450 AZITHROMYCIN Inactiv e Vital Signs Date Name [...] Panel - Chemistry sodium, serum 141 mmol/L 989-404 4473/05/22 potassium, serum 4.4 mmol/L 3.5-5.2 chloride, serum [...] Acid - Chemistry sodium, serum 139 mmol/L 493-991 7074/09/01 carbon dioxide, venous blood 30.0 mmol/L 21.0-32 [...] 142-424 Encounters Code Encounter Date Provider Facility CPT-17404 Level 3 Est. 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 Patient 12:43:27 CDT Mau bailey MD [facility] CPT-55006 Level 3 Est. Patient 16:46:20 CDT Gilbert Amador MD [facility] CPT-91341 Level 3 Est. Patient 09:03:26 CDT Paulina FLYNN [facility] CPT-88613 Level 4 Est. 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 Patient 10:26:24 CDT Mau bailey MD [facility] CPT-90857 Level 3 Est. Patient 17:21:09 CDT Ryne ornelas [facility] CPT-01503 Level 4 Est. Patient 09:22:16 CDT Mau bailey MD [facility] CPT-27226 Level 3 Est. 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 FARM WORKER Mau bailey MD [facility] Procedures Code Procedure Name Date Entry Date Standard Desc ription CPT-34499 EKG Trac and Interp - XRAY USE ONLY 1 5:52:34 CDT CPT-19487 Venipuncture Draw Fee 09:05:38 CDT CPT-65761 Uric Acid - LAB USE ONLY 09:05:38 CDT 03/10 CPT-25374 Sed Rate - LAB USE ONLY 09:05:38 CDT 03/10 CPT-82055 CMP - LAB USE ONLY 09:05:37 CDT CPT-65365 CBC - LAB USE ONLY 09:05:37 CDT CPT-J2930 Solu Medrol 125 mg (Methyl Prednisolone Sodium Succinate) 16:27:04 CDT CPT-42440 Abx/Therapy Injection 16:27:04 CDT CPT-J2930 Solu Medrol 125 mg (Methyl Prednisolone Sodium Succinate) 14:33:18 CDT
--- OUTSIDE RECORDS SUMMARY | 2019-11-22 08:29 | XMS REPORT | Clinical Summary ---
Author Author Admin, Volodymyr De Dios Organization [facility] [employer] [facility] Address Unknown Phone Unavailable Allergies, Adverse Reactions, [...] of ear Preop exam V72.84 Active Fiorellaqing Andersno Pr eoperative examination, unspecified Skin tag 701.9 [...] 6 hours as needed for cough GUAIFENESIN-CODEINE 57020873959 Active Osbaldo villa MD Active PREDNISONE 20 MG TABS 2 daily for 3 days then 1 daily for 3 days 20 26/08/06 PREDNISONE 53176008634 Active Osbaldo Wileks MD Active HYDROCHLOROTHIAZIDE 25 MG TABS 0.5 tablet by mouth daily for blood pressure. HYDROCHLOROTHIAZIDE 69287477834 No Longer Active Timur Wilkes MD Active COLCHICINE 0.6 MG ORAL CAPS PRN FOR GOUT FLARE UPS 201 01/08/07 COLCHICINE 73603316799 No Longer Active Osbaldo Wilkes MD Activ e ALLOPURINOL 100 MG TAB Take 1 tab po x 7 days, then 2 times every day thereafter if tolerated. ALLOPURINOL 75139538964 No Longer Active Osbaldo Wilkes MD Active NASONEX 50 MCG/ACT SUSP use 2 sprays in each nostril qday 1 MOMETASONE FUROATE 09703223094 No Longer Active Osbaldo Wilkes MD Active PREDNISONE 5 MG TAB PREDNISONE 9628647 7321 No Longer Active Osbaldo Wilkes MD Active AZITHROMYCIN 250 MG TABS 2 po qd x 1 day, then 1 po qd x 4 days AZITHROMYCIN 63536180787 No Longer Active Pavithra Mora Activ e SUDAFED 12 HOUR 120 MG [id number] 1 pill twice daily if neede d for congestion PSEUDOEPHEDRINE HCL 62328017941 Active Mau Mcmahon MD Active MECLIZINE HCL 25 MG TAB one 4 times a day as needed for dizzines s MECLIZINE HCL 14872233713 No Longer Active Mau Mcmahon MD Active ZOFRAN 4 MG TABS 1 po q6hr PRN Nausea ONDANSETR ON HCL 59930442339 No Longer Active Mau Mcmahon MD Active PREDNISONE 5 MG TAB Take 3 tabs po on the first day, decrease by 1 tablet every 3 days until off PREDNISONE 61143641277 No Longer Active Gilbert Amador MD Active CHERATUSSIN AC 100-10 MG/5ML SYRP 1 tsp by mouth every 4 hours as needed for cough GUAIFENESIN-CODEINE 06422106676 No Longer Activ e Gilbert Amador MD Active ZITHROMAX 250 MG TAB 2 po today, then 1 po q days 2-5 AZITHROMYCIN 30912371813 No Longer Active Deirdre Fitzgerald APRN Acti ve CELEBREX 100 MG ORAL CAPS take 1 tab po BID for osteoarthritis 2 CELECOXIB 48328254744 No Longer Active Deirdre Fitzgerald APRN Active OMEPRAZOLE 20 MG CPDR 1 tablet po in the am OMEPR AZOLE 54277915915 No Longer Active Deirdre Fitzgerald APRN Active COZAAR 50 MG ORAL TABS 1 tab po daily for hypertension and gout 201 12/11/12 LOSARTAN POTASSIUM 64628605720 Active Deirdre Fitzgerald APRN Ac tive BACTRIM DS 800-160 MG TAB 1 tab by mouth twice daily 2 TRIMETHOPRIM-SULFAMETHOXAZOLE 41726480655 No Longer Active Deirdre SPIVEY RN Active ZITHROMAX 1 GM ORAL PACK DIR AZITHROMYCIN 75072401840 No Longer Active Deirdre Fitzgerald APRN Active LEVAQUIN 500 MG TAB 1 tablet by mouth daily LEV OFLOXACIN 33916593368 No Longer Active Mau Mcmahon MD Active HYDROCHLOROTHIAZIDE 25 MG TABS 1 PO Q AM HYDROCHLOROTHIAZIDE 63215707186 No Longer Active Ryne Cristina DO Ac tive SIMVASTATIN 20 MG TABS 1 tablet po q hs SIMVASTAT IN 17471264832 No Longer Active Ryne Cristina DO Active SIMVASTATIN 20 MG TABS 1 tablet po q hs SIMVAST ATIN 20 MG TABS 592538 SIMVASTATIN Inactive HYDROCHLOROTHIAZIDE 25 MG TABS 1 PO Q AM HYDROCHLOROTHIAZIDE 25 MG TABS 601438 HYDROCHLOROTHIAZIDE Inactive LEVAQUIN 500 MG TAB 1 tablet by mouth daily LEVAQUIN 500 MG TAB 535859 LEVOFLOXACIN Inactive ZITHROMAX 1 GM ORAL PACK DIR ZITHROMAX 1 GM ORAL PACK 736606 AZITHROMYCIN Inactive BACTRIM DS 800-160 MG TAB 1 tab by mouth twice daily 2 BACTRIM DS 800-160 MG TAB 459834 TRIMETHOPRIM-SULFAMETHOXAZOLE Inac tive OMEPRAZOLE 20 MG CPDR 1 tablet po in the am OME PRAZOLE 20 MG CPDR 982696 OMEPRAZOLE Inactive CELEBREX 100 MG ORAL CAPS take 1 tab po BID for osteoarthritis 2 CELEBREX 100 MG ORAL CAPS 188470 CELECOXIB Inacti ve CHERATUSSIN AC 100-10 MG/5ML SYRP 1 tsp by mouth every 4 hours as needed for cough CHERATUSSIN AC 100-10 MG/5ML SYRP 034061 GUAIFENESIN-CODEINE Inactive PREDNISONE 5 MG TAB Take 3 tabs po on the first day, decrease by 1 tablet every 3 days until off PREDNISONE 5 MG TAB 060158 PREDNISONE Inactive ZOFRAN 4 MG TABS 1 po q6hr PRN Nausea ZOFRAN 4 MG TABS 753044 ONDANSETRON HCL Inactive MECLIZINE HCL 25 MG TAB one 4 times a day as needed for dizzines s MECLIZINE HCL 25 MG TAB 327471 MECLIZINE HCL Inactive PREDNISONE 5 MG TAB PREDNISONE 5 MG TA B 641595 PREDNISONE Inactive NASONEX 50 MCG/ACT SUSP use 2 sprays in each nostril qday 1 NASONEX 50 MCG/ACT SUSP 0615161 MOMETASONE FUROATE Inactive ALLOPURINOL 100 MG TAB Take 1 tab po x 7 days, then 2 times every day thereafter if tolerated. ALLOPURINOL 100 MG TAB 184397 ALLOPURINO L Inactive COLCHICINE 0.6 MG ORAL CAPS PRN FOR GOUT FLARE UPS 201 01/08/07 COLCHICINE 0.6 MG ORAL CAPS 3960580 COLCHICINE Inactive HYDROCHLOROTHIAZIDE 25 MG TABS 0.5 tablet by mouth daily for blood pressure. HYDROCHLOROTHIAZIDE 25 MG TABS 733046 HYDROCHLOR OTHIAZIDE Inactive ZITHROMAX 250 MG TAB 2 po today, then 1 po q days 2-5 ZITHROMAX 250 MG TAB 344412 AZITHROMYCIN Inactive AZITHROMYCIN 250 MG TABS 2 po qd x 1 day, then 1 po qd x 4 days AZITHROMYCIN 250 MG TABS 442335 AZITHROMYCIN Inactiv e Vital Signs Date Name [...] Panel - Chemistry sodium, serum 141 mmol/L 389-422 9804/05/22 potassium, serum 4.4 mmol/L 3.5-5.2 chloride, serum [...] mg/dL Encounters Code Encounter Date Provider Facility CPT-93435 Level 4 Est. Patient 21:12:34 CDT Mau bailey MD [facility] CPT-38273 Level 3 Est. 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 Patient 12:43:27 CDT Mau bailey MD [facility] CPT-87147 Level 3 Est. Patient 16:46:20 CDT Gilbert Amador MD [facility] CPT-44211 Level 3 Est. Patient 09:03:26 CDT Paulina FLYNN [facility] CPT-01266 Level 4 Est. Patient 15:38:51 GLOBAL COMPENSATION DIRECTOR Mau bailey MD [facility] CPT-03259 Level 4 Est. Patient 10:26:24 CDT Mau bailey MD [facility] CPT-29822 Level 3 Est. Patient 17:21:09 CDT Ryne ornelas DO [facility] CPT-95981 Level 4 Est. Patient 09:22:16 CDT Mau bailey MD [facility] CPT-43557 Level 3 Est. Patient 08:55:02 GLOBAL COMPENSATION DIRECTOR Mau bailey MD [facility] Procedures Code Procedure Name Date Entry Date Standard Desc ription CPT-LR Lesion Removal 21:12:34 CDT CPT-16279 EKG Trac and Interp - XRAY USE ONLY 1 5:52:34 CDT CPT-51806 Venipuncture Draw Fee 09:05:38 CDT CPT-63339 Uric Acid - LAB USE ONLY 09:05:38 CDT 03/10 CPT-17016 Sed Rate - LAB USE ONLY 09:05:38 CDT 03/10 CPT-60231 CMP - LAB USE ONLY 09:05:37 CDT CPT-15047 CBC - LAB USE ONLY 09:05:37 CDT CPT-J2930 Solu Medrol 125 mg (Methyl Prednisolone Sodium Succinate) 16:27:04 CDT CPT-36005 Abx/Therapy Injection 16:27:04 CDT CPT-J2930 Solu Medrol 125 mg (Methyl Prednisolone Sodium Succinate) 14:33:18 CDT
--- OUTSIDE RECORDS SUMMARY | 2019-11-22 08:29 | XMS REPORT | Clinical Summary ---
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 Problem Name Problem Code [...] Osbaldo Wilkes MD Poison bel ICD-692.6 Inactive Osblado Kaur D Bronchitis ICD-490 Inactive Osbaldo Wilkes MD 201 01/08/07 Rhinitis, acute ICD-460 Inactive Osbaldo Lechuga MD Medication List Medication Instructions Start Date Stop Date Generic Name NDC Status Provider Patient Instruction GUAIFENESIN-CODEINE 100-10 MG/5ML SYRP 5ml every 4 to 6 hours as needed for cough GUAIFENESIN-CODEINE 79842092047 Active Osbaldo villa MD Active PREDNISONE 20 MG TABS 2 daily for 3 days then 1 daily for 3 days 20 26/08/06 PREDNISONE 01707262972 Active Osbaldo Wilkes MD Active HYDROCHLOROTHIAZIDE 25 MG TABS 0.5 tablet by mouth daily for blood pressure. HYDROCHLOROTHIAZIDE 09287378658 No Longer Active Timur Wilkes MD Active COLCHICINE 0.6 MG ORAL CAPS PRN FOR GOUT FLARE UPS 201 01/08/07 COLCHICINE 83953830027 No Longer Active Osbaldo Wilkes MD Activ e ALLOPURINOL 100 MG TAB Take 1 tab po x 7 days, then 2 times every day thereafter if tolerated. ALLOPURINOL 01619432178 No Longer Active Osbadlo Wilkes MD Active NASONEX 50 MCG/ACT SUSP use 2 sprays in each nostril qday 1 MOMETASONE FUROATE 47272565508 No Longer Active Osbaldo Wilkes MD Active PREDNISONE 5 MG TAB PREDNISONE 2209357 7321 No Longer Active Osbaldo Wilkes MD Active AZITHROMYCIN 250 MG TABS 2 po qd x 1 day, then 1 po qd x 4 days AZITHROMYCIN 47279439400 No Longer Active Pavithra Mora Activ e SUDAFED 12 HOUR 120 MG [id number] 1 pill twice daily if neede d for congestion PSEUDOEPHEDRINE HCL 85282806899 Active Mau Mcmahon MD Active MECLIZINE HCL 25 MG TAB one 4 times a day as needed for dizzines s MECLIZINE HCL 73918484067 No Longer Active Mau Mcmahon MD Active ZOFRAN 4 MG TABS 1 po q6hr PRN Nausea ONDANSETR ON HCL 63753312572 No Longer Active Mau Mcmahon MD Active PREDNISONE 5 MG TAB Take 3 tabs po on the first day, decrease by 1 tablet every 3 days until off PREDNISONE 72469449155 No Longer Active Gilbert Amador MD Active CHERATUSSIN AC 100-10 MG/5ML SYRP 1 tsp by mouth every 4 hours as needed for cough GUAIFENESIN-CODEINE 56459995519 No Longer Activ e Gilbert Amador MD Active ZITHROMAX 250 MG TAB 2 po today, then 1 po q days 2-5 AZITHROMYCIN 69055901551 No Longer Active Deirdre Fitzgerald APRN Acti ve CELEBREX 100 MG ORAL CAPS take 1 tab po BID for osteoarthritis 2 CELECOXIB 89362677667 No Longer Active Deirdre Fitzgerald APRN Active OMEPRAZOLE 20 MG CPDR 1 tablet po in the am OMEPR AZOLE 75190850383 No Longer Active Deirdre Fitzgerald APRN Active COZAAR 50 MG ORAL TABS 1 tab po daily for hypertension and gout 201 12/11/12 LOSARTAN POTASSIUM 00303152897 Active Deirdre Fitzgerald APRN Ac tive BACTRIM DS 800-160 MG TAB 1 tab by mouth twice daily 2 TRIMETHOPRIM-SULFAMETHOXAZOLE 55269202795 No Longer Active Deirdre Fitzgerald AP RN Active ZITHROMAX 1 GM ORAL PACK DIR AZITHROMYCIN 92243937933 No Longer Active Deirdre Fitzgerald APRN Active LEVAQUIN 500 MG TAB 1 tablet by mouth daily LEV OFLOXACIN 41425435165 No Longer Active Mau Mcmahon MD Active HYDROCHLOROTHIAZIDE 25 MG TABS 1 PO Q AM HYDROCHLOROTHIAZIDE 02607732323 No Longer Active Ryne Cristina DO Ac tive SIMVASTATIN 20 MG TABS 1 tablet po q hs SIMVASTAT IN 01426257551 No Longer Active Ryne Cristina DO Active SIMVASTATIN 20 MG TABS 1 tablet po q hs SIMVAST ATIN 20 MG TABS 631760 SIMVASTATIN Inactive HYDROCHLOROTHIAZIDE 25 MG TABS 1 PO Q AM HYDROCHLOROTHIAZIDE 25 MG TABS 234018 HYDROCHLOROTHIAZIDE Inactive LEVAQUIN 500 MG TAB 1 tablet by mouth daily LEVAQUIN 500 MG TAB 982307 LEVOFLOXACIN Inactive ZITHROMAX 1 GM ORAL PACK DIR ZITHROMAX 1 GM ORAL PACK 375243 AZITHROMYCIN Inactive BACTRIM DS 800-160 MG TAB 1 tab by mouth twice daily 2 BACTRIM DS 800-160 MG TAB 024063 TRIMETHOPRIM-SULFAMETHOXAZOLE Inac tive OMEPRAZOLE 20 MG CPDR 1 tablet po in the am OME PRAZOLE 20 MG CPDR 972849 OMEPRAZOLE Inactive CELEBREX 100 MG ORAL CAPS take 1 tab po BID for osteoarthritis 2 CELEBREX 100 MG ORAL CAPS 780784 CELECOXIB Inacti ve CHERATUSSIN AC 100-10 MG/5ML SYRP 1 tsp by mouth every 4 hours as needed for cough CHERATUSSIN AC 100-10 MG/5ML SYRP 444858 GUAIFENESIN-CODEINE Inactive PREDNISONE 5 MG TAB Take 3 tabs po on the first day, decrease by 1 tablet every 3 days until off PREDNISONE 5 MG TAB 749634 PREDNISONE Inactive ZOFRAN 4 MG TABS 1 po q6hr PRN Nausea ZOFRAN 4 MG TABS 949238 ONDANSETRON HCL Inactive MECLIZINE HCL 25 MG TAB one 4 times a day as needed for dizzines s MECLIZINE HCL 25 MG TAB 861118 MECLIZINE HCL Inactive PREDNISONE 5 MG TAB PREDNISONE 5 MG TA B 854962 PREDNISONE Inactive NASONEX 50 MCG/ACT SUSP use 2 sprays in each nostril qday 1 NASONEX 50 MCG/ACT SUSP 6402695 MOMETASONE FUROATE Inactive ALLOPURINOL 100 MG TAB Take 1 tab po x 7 days, then 2 times every day thereafter if tolerated. ALLOPURINOL 100 MG TAB 656980 ALLOPURINO L Inactive COLCHICINE 0.6 MG ORAL CAPS PRN FOR GOUT FLARE UPS 201 01/08/07 COLCHICINE 0.6 MG ORAL CAPS 3801892 COLCHICINE Inactive HYDROCHLOROTHIAZIDE 25 MG TABS 0.5 tablet by mouth daily for blood pressure. HYDROCHLOROTHIAZIDE 25 MG TABS 945380 HYDROCHLOR OTHIAZIDE Inactive ZITHROMAX 250 MG TAB 2 po today, then 1 po q days 2-5 ZITHROMAX 250 MG TAB 7947312 AZITHROMYCIN Inactive AZITHROMYCIN 250 MG TABS 2 po qd x 1 day, then 1 po qd x 4 days AZITHROMYCIN 250 MG TABS 1606100 AZITHROMYCIN Inactiv e Vital Signs Date Name Value Unit Range Description blood pressure, diastolic - 8462-4 91 mm[Hg] BP santos blood pressure, systolic - 8480-6 151 mm[Hg] BP sys pulse rate E&M - 8867-4 69 /min H eart rate temperature E&M 98.5 [degF] Body temp erature weight E&M - 3141-9 212.0 [lb_av] Weigh t Measured blood pressure, diastolic - 8462-4 75 mm[Hg] BP santos blood pressure, systolic - 8480-6 120 mm[Hg] BP sys pulse rate E&M - 8867-4 74 /min H eart rate temperature E&M 98.3 [degF] Body temp erature weight E&M - 3141-9 204.5 [lb_av] Weigh t Measured Diagnostic Results Date Name Value Unit Range Description Lab Report: CBC, Basic Metabolic Panel - Chemistry sodium, serum 141 mmol/L 764-975 1474/05/22 potassium, serum 4.4 mmol/L 3.5-5.2 chloride, serum [...] Acid - Chemistry sodium, serum 139 mmol/L 647-469 3587/09/01 carbon dioxide, venous blood 30.0 mmol/L 21.0-32 [...] 10^3/MM^3 10*3/mm3 142-424 Office Visit: CHECK UP & MED REFILLS - B asic LDL target level 130 mg/dL Office Visit: CHECK UP & MED REFILLS - C hemistry HDL cholesterol, serum, target level 40 mg/dL triglyceride, target level 150 mg/dL cholesterol, target level 200 mg/dL Encounters Code Encounter Date Provider Facility CPT-32260 Level 3 Est. Patient 16:26:55 MEDICAL RESEARCH SCIENTIST Osbaldo Wilkes MD [facility] CPT-95097 Level 4 Est. Patient 12:43:27 CDT Mau bailey MD [facility] CPT-82745 Level 3 Est. Patient 16:46:20 CDT Gilbert Amador MD [facility] CPT-03905 Level 3 Est. Patient 09:03:26 CDT Paulina FLYNN [facility] CPT-20924 Level 4 Est. Patient 15:38:51 MEDICAL RESEARCH SCIENTIST Mau bailey MD [facility] CPT-75135 Level 4 Est. Patient 10:26:24 CDT Mau bailey MD [facility] CPT-66558 Level 3 Est. Patient 17:21:09 CDT Ryne ornelas DO [facility] CPT-42990 Level 4 Est. Patient 09:22:16 CDT Mau bailey MD [facility] CPT-87813 Level 3 Est. Patient 08:55:02 MEDICAL RESEARCH SCIENTIST Mau bailey MD [facility] Procedures Code Procedure Name Date Entry Date Standard Desc ription CPT-57525 EKG Trac and Interp - XRAY USE ONLY 1 5:52:34 CDT CPT-07519 Venipuncture Draw Fee 09:05:38 CDT CPT-09375 Uric Acid - LAB USE ONLY 09:05:38 CDT 03/10 CPT-38865 Sed Rate - LAB USE ONLY 09:05:38 CDT 03/10 CPT-05944 CMP - LAB USE ONLY 09:05:37 CDT CPT-06522 CBC - LAB USE ONLY 09:05:37 CDT CPT-J2930 Solu Medrol 125 mg (Methyl Prednisolone Sodium Succinate) 16:27:04 CDT CPT-44356 Abx/Therapy Injection 16:27:04 CDT CPT-J2930 Solu Medrol 125 mg (Methyl Prednisolone Sodium Succinate) 14:33:18 CDT
--- OUTSIDE RECORDS SUMMARY | 2019-11-22 08:29 | XMS REPORT | Clinical Summary ---
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 HYDROCHLOROTHIAZIDE 27290073359 No Longer Active Timur Wilkes MD Active COLCHICINE 0.6 MG ORAL CAPS PRN FOR GOUT FLARE UPS 201 01/08/07 COLCHICINE 88777058825 No Longer Active Osbaldo Wilkes MD Activ e ALLOPURINOL 100 MG TAB Take 1 tab po x 7 days, then 2 times every day thereafter if tolerated. ALLOPURINOL 63470847004 No Longer Active Osbaldo Wilkes MD Active NASONEX 50 MCG/ACT SUSP use 2 sprays in each nostril qday 1 MOMETASONE FUROATE 64389140382 No Longer Active Osbaldo Wilkes MD Active PREDNISONE 5 MG TAB PREDNISONE 7654796 7321 No Longer Active Osbaldo Wilkes MD Active AZITHROMYCIN 250 MG TABS 2 po qd x 1 day, then 1 po qd x 4 days AZITHROMYCIN 80529606203 No Longer Active Pavithra Mora Activ e SUDAFED 12 HOUR 120 MG [id number] 1 pill twice daily if neede d for congestion PSEUDOEPHEDRINE HCL 86328562158 Active Mau Mcmahon MD Active MECLIZINE HCL 25 MG TAB one 4 times a day as needed for dizzines s MECLIZINE HCL 63028337057 No Longer Active Mau Mcmahon MD Active ZOFRAN 4 MG TABS 1 po q6hr PRN Nausea ONDANSETR ON HCL 06898753794 No Longer Active Mau Mcmahon MD Active PREDNISONE 5 MG TAB Take 3 tabs po on the first day, decrease by 1 tablet every 3 days until off PREDNISONE 45023980618 No Longer Active Gilbert Amador MD Active CHERATUSSIN AC 100-10 MG/5ML SYRP 1 tsp by mouth every 4 hours as needed for cough GUAIFENESIN-CODEINE 83622563069 No Longer Activ e Gilbert Amador MD Active ZITHROMAX 250 MG TAB 2 po today, then 1 po q days 2-5 AZITHROMYCIN 12612983501 No Longer Active Deirdre Fitzgerald APRN Acti ve CELEBREX 100 MG ORAL CAPS take 1 tab po BID for osteoarthritis 2 CELECOXIB 27228417403 No Longer Active Deirdre Fitzgerald APRN Active OMEPRAZOLE 20 MG CPDR 1 tablet po in the am OMEPR AZOLE 73589464322 No Longer Active Deirdre Fitzgerald APRN Active COZAAR 50 MG ORAL TABS 1 tab po daily for hypertension and gout 201 12/11/12 LOSARTAN POTASSIUM 25612209822 Active Deirdre Fitzgerald APRN Ac tive BACTRIM DS 800-160 MG TAB 1 tab by mouth twice daily 2 TRIMETHOPRIM-SULFAMETHOXAZOLE 86133435886 No Longer Active Deirdre Fitzgerald AP RN Active ZITHROMAX 1 GM ORAL PACK DIR AZITHROMYCIN 79895821142 No Longer Active Deirdre Fitzgerald APRN Active LEVAQUIN 500 MG TAB 1 tablet by mouth daily LEV OFLOXACIN 54774814755 No Longer Active Mau Mcmahon MD Active HYDROCHLOROTHIAZIDE 25 MG TABS 1 PO Q AM HYDROCHLOROTHIAZIDE 96628772316 No Longer Active Ryne Cristina DO Ac tive SIMVASTATIN 20 MG TABS 1 tablet po q hs SIMVASTAT IN 17676952570 No Longer Active Ryne Cristina DO Active SIMVASTATIN 20 MG TABS 1 tablet po q hs SIMVAST ATIN 20 MG TABS 370246 SIMVASTATIN Inactive HYDROCHLOROTHIAZIDE 25 MG TABS 1 PO Q AM HYDROCHLOROTHIAZIDE 25 MG TABS 645460 HYDROCHLOROTHIAZIDE Inactive LEVAQUIN 500 MG TAB 1 tablet by mouth daily LEVAQUIN 500 MG TAB 967748 LEVOFLOXACIN Inactive ZITHROMAX 1 GM ORAL PACK DIR ZITHROMAX 1 GM ORAL PACK 786744 AZITHROMYCIN Inactive BACTRIM DS 800-160 MG TAB 1 tab by mouth twice daily 2 BACTRIM DS 800-160 MG TAB 501664 TRIMETHOPRIM-SULFAMETHOXAZOLE Inac tive OMEPRAZOLE 20 MG CPDR 1 tablet po in the am OME PRAZOLE 20 MG CPDR 814982 OMEPRAZOLE Inactive CELEBREX 100 MG ORAL CAPS take 1 tab po BID for osteoarthritis 2 CELEBREX 100 MG ORAL CAPS 810837 CELECOXIB Inacti ve CHERATUSSIN AC 100-10 MG/5ML SYRP 1 tsp by mouth every 4 hours as needed for cough CHERATUSSIN AC 100-10 MG/5ML SYRP 292632 GUAIFENESIN-CODEINE Inactive PREDNISONE 5 MG TAB Take 3 tabs po on the first day, decrease by 1 tablet every 3 days until off PREDNISONE 5 MG TAB 158909 PREDNISONE Inactive ZOFRAN 4 MG TABS 1 po q6hr PRN Nausea ZOFRAN 4 MG TABS 901097 ONDANSETRON HCL Inactive MECLIZINE HCL 25 MG TAB one 4 times a day as needed for dizzines s MECLIZINE HCL 25 MG TAB 354338 MECLIZINE HCL Inactive PREDNISONE 5 MG TAB PREDNISONE 5 MG TA B 120136 PREDNISONE Inactive NASONEX 50 MCG/ACT SUSP use 2 sprays in each nostril qday 1 NASONEX 50 MCG/ACT SUSP 1190428 MOMETASONE FUROATE Inactive ALLOPURINOL 100 MG TAB Take 1 tab po x 7 days, then 2 times every day thereafter if tolerated. ALLOPURINOL 100 MG TAB 503629 ALLOPURINO L Inactive COLCHICINE 0.6 MG ORAL CAPS PRN FOR GOUT FLARE UPS 201 01/08/07 COLCHICINE 0.6 MG ORAL CAPS 1730978 COLCHICINE Inactive HYDROCHLOROTHIAZIDE 25 MG TABS 0.5 tablet by mouth daily for blood pressure. HYDROCHLOROTHIAZIDE 25 MG TABS 703276 HYDROCHLOR OTHIAZIDE Inactive ZITHROMAX 250 MG TAB 2 po today, then 1 po q days 2-5 ZITHROMAX 250 MG TAB 9844072 AZITHROMYCIN Inactive AZITHROMYCIN 250 MG TABS 2 po qd x 1 day, then 1 po qd x 4 days AZITHROMYCIN 250 MG TABS 1338246 AZITHROMYCIN Inactiv e Vital Signs Date Name [...] Panel - Chemistry sodium, serum 141 mmol/L 682-296 8085/05/22 potassium, serum 4.4 mmol/L 3.5-5.2 chloride, serum [...] Acid - Chemistry sodium, serum 139 mmol/L 965-754 3946/09/01 carbon dioxide, venous blood 30.0 mmol/L 21.0-32 [...] 142-424 Encounters Code Encounter Date Provider Facility CPT-93611 Level 3 Est. 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 Patient 12:43:27 CDT Mau bailey MD [facility] CPT-21205 Level 3 Est. Patient 16:46:20 CDT Gilbert Amador MD [facility] CPT-69440 Level 3 Est. Patient 09:03:26 CDT Paulina FLYNN [facility] CPT-73051 Level 4 Est. Patient 15:38:51 WATERWAY TRAFFIC CHECKER Mau bailey MD [facility] CPT-80981 Level 4 Est. Patient 10:26:24 CDT Mau bailey MD [facility] CPT-37722 Level 3 Est. Patient 17:21:09 CDT Ryne ornelas [facility] CPT-34150 Level 4 Est. Patient 09:22:16 CDT Mau bailey MD [facility] CPT-01615 Level 3 Est. Patient 08:55:02 WATERWAY TRAFFIC CHECKER Mau bailey MD [facility] Procedures Code Procedure Name Date Entry Date Standard Desc ription CPT-19346 EKG Trac and Interp - XRAY USE ONLY 1 5:52:34 CDT CPT-92309 Venipuncture Draw Fee 09:05:38 CDT CPT-31049 Uric Acid - LAB USE ONLY 09:05:38 CDT 03/10 CPT-83077 Sed Rate - LAB USE ONLY 09:05:38 CDT 03/10 CPT-26107 CMP - LAB USE ONLY 09:05:37 CDT CPT-22374 CBC - LAB USE ONLY 09:05:37 CDT CPT-J2930 Solu Medrol 125 mg (Methyl Prednisolone Sodium Succinate) 16:27:04 CDT CPT-58735 Abx/Therapy Injection 16:27:04 CDT CPT-J2930 Solu Medrol 125 mg (Methyl Prednisolone Sodium Succinate) 14:33:18 CDT
--- OUTSIDE RECORDS SUMMARY | 2019-11-22 08:29 | XMS REPORT | Clinical Summary ---
Author Author Admin, Volodymyr De Dios Organization [employer] Address Unknown Phone Unavailable Allergies, Adverse Reactions, [...] Unspecified hypertrophic and atrophic conditions of skin Poison bel ICD-692.6 Inactive Osbaldo Dewey Bronchitis ICD-490 Inactive Osbaldo Wilkes MD 201 01/08/07 Rhinitis, acute ICD-460 Inactive Osbaldo Lechuga MD Pneumonia, right lower lobe ICD-486 Inactive Osbaldo Wikles MD Medication List Medication Instructions Start Date Stop Date Generic Name NDC Status Provider Patient Instruction NASONEX 50 MCG/ACT NASAL SUSPENSION 2 sprays everyday MOMETASONE FUROATE 67734096489 Active Mau Mcmahon MD Active GUAIFENESIN-CODEINE 100-10 MG/5ML ORAL SYRUP 5ml every 4 to 6 hours as needed for cough GUAIFENESIN-CODEINE 00424541679 Active Timur Wilkes MD Active PREDNISONE 20 MG ORAL TABLET 2 daily for 3 days then 1 daily for 3 days PREDNISONE 62821881790 Active Osbaldo Wilkes MD Active HYDROCHLOROTHIAZIDE 25 MG ORAL TABLET 0.5 tablet by [facility] daily for blood pressure. HYDROCHLOROTHIAZIDE 40707379651 No Longe r Active Osbaldo Wilkes MD Active COLCHICINE 0.6 MG ORAL CAPSULE PRN FOR GOUT FLARE UPS COLCHICINE 88429550292 No Longer Active Osbaldo Wilkes MD Activ e ALLOPURINOL 100 MG ORAL TABLET Take 1 tab po x 7 days, then 2 times every day thereafter if tolerated. ALLOPURINOL 07130939286 No Longer Active Osbaldo Wilkes MD Active NASONEX 50 MCG/ACT NASAL SUSPENSION use 2 sprays in each nos tril qday MOMETASONE FUROATE 80431740546 No Longer Active Osbaldo valdez MD Active PREDNISONE 5 MG ORAL TABLET PREDNISONE 78109738092 No Longer Active Osbaldo Wilkes MD Active AZITHROMYCIN 250 MG ORAL TABLET 2 po qd x 1 day, then 1 po q d x 4 days AZITHROMYCIN 42385348128 No Longer Active Pavithra Mora Active SUDAFED 12 HOUR 120 MG ORAL TABLET EXTENDED RELEASE 12 HOUR 1 pill twice daily if needed for congestion PSEUDOEPHEDRINE HCL 63298191979 A ctive Mau Mcmahon MD Active MECLIZINE HCL 25 MG ORAL TABLET one 4 times a day as needed for dizziness MECLIZINE HCL 74668882036 No Longer Active Mau Mcmahon MD Active ZOFRAN 4 MG ORAL TABLET 1 po q6hr PRN Nausea 9 ONDANSETRON HCL 14754424697 No Longer Active Mau Mcmahon MD Acti ve PREDNISONE 5 MG ORAL TABLET Take 3 tabs po on the day, decrease by 1 tablet every 3 days until off PREDNISONE 98721711718 No Longer Active Gilbert Amador MD Active CHERATUSSIN AC 100-10 MG/5ML ORAL SYRUP 1 tsp by mouth every 4 hours as needed for cough GUAIFENESIN-CODEINE 14615103808 No Longe r Active Gilbert Amador MD Active ZITHROMAX 250 MG ORAL TABLET 2 po today, then 1 po q days 2-5 20 23/10/22 AZITHROMYCIN 30436951832 No Longer Active Deirdre Riddle APRN Active CELEBREX 100 MG ORAL CAPSULE take 1 tab po BID for osteoarthriti s CELECOXIB 36311781275 No Longer Active Deirdre Riddle APRN A ctive OMEPRAZOLE 20 MG ORAL CAPSULE DELAYED RELEASE 1 tablet po in the am OMEPRAZOLE 52663160975 No Longer Active Deirdre Riddle APRN A ctive COZAAR 50 MG ORAL TABLET 1 tab po daily for hypertension and gout 2 LOSARTAN POTASSIUM 10268472476 Active Deirdre Riddle APRN Activ e BACTRIM DS 800-160 MG ORAL TABLET 1 tab by mouth twice daily 201 12/08/14 TRIMETHOPRIM-SULFAMETHOXAZOLE 03287236850 No Longer Active Vincent Riddle APRN Active ZITHROMAX 1 GM ORAL PACKET DIR AZITHROMY ANALISA 27896741866 No Longer Active Deirdre Riddle APRN Active LEVAQUIN 500 MG ORAL TABLET 1 tablet by mouth daily 20 25/07/14 LEVOFLOXACIN 64076947602 No Longer Active Mau Mcmahon MD Acti ve HYDROCHLOROTHIAZIDE 25 MG ORAL TABLET 1 PO Q AM 201 10/16/21 HYDROCHLOROTHIAZIDE 86668690927 No Longer Active Ryne Cristina DO Ac tive SIMVASTATIN 20 MG ORAL TABLET 1 tablet po q hs SIMVASTATIN 89472348383 No Longer Active Ryne Cristina DO Active SIMVASTATIN 20 MG ORAL TABLET 1 tablet po q hs SIMVASTATIN 20 MG ORAL TABLET 830429 SIMVASTATIN Inactive HYDROCHLOROTHIAZIDE 25 MG ORAL TABLET 1 PO Q AM 201 10/16/21 HYDROCHLOROTHIAZIDE 25 MG ORAL TABLET 454573 HYDROCHLOROTHIAZIDE In active LEVAQUIN 500 MG ORAL TABLET 1 tablet by mouth daily 20 25/07/14 LEVAQUIN 500 MG ORAL TABLET 088424 LEVOFLOXACIN Inactive ZITHROMAX 1 GM ORAL PACKET DIR Z ITHROMAX 1 GM ORAL PACKET 236698 AZITHROMYCIN Inactive BACTRIM DS 800-160 MG ORAL TABLET 1 tab by mouth twice daily 201 12/08/14 BACTRIM DS 800-160 MG ORAL TABLET 633735 TRIMETHOPRIM-SULFAMETHOXAZOLE Inactive OMEPRAZOLE 20 MG ORAL CAPSULE DELAYED RELEASE 1 tablet po in the am OMEPRAZOLE 20 MG ORAL CAPSULE DELAYED RELEASE 039132 OM EPRAZOLE Inactive CELEBREX 100 MG ORAL CAPSULE take 1 tab po BID for osteoarthriti s CELEBREX 100 MG ORAL CAPSULE 452736 CELECOXIB Zohreh ctive CHERATUSSIN AC 100-10 MG/5ML ORAL SYRUP 1 tsp by mouth every 4 hours as needed for cough CHERATUSSIN AC 100-10 MG/5ML ORAL SYRUP 9 71617 GUAIFENESIN-CODEINE Inactive PREDNISONE 5 MG ORAL TABLET Take 3 tabs po on the , decrease by 1 tablet every 3 days until off PREDNISONE 5 MG OR AL TABLET 340509 PREDNISONE Inactive ZOFRAN 4 MG ORAL TABLET 1 po q6hr PRN Nausea 9 ZOFRAN 4 MG ORAL TABLET 248349 ONDANSETRON HCL Inactive MECLIZINE HCL 25 MG ORAL TABLET one 4 times a day as needed for dizziness MECLIZINE HCL 25 MG ORAL TABLET 364474 MECLIZINE HCL Inactive PREDNISONE 5 MG ORAL TABLET PREDNISO NE 5 MG ORAL TABLET 395379 PREDNISONE Inactive NASONEX 50 MCG/ACT NASAL SUSPENSION use 2 sprays in each nos tril qday NASONEX 50 MCG/ACT NASAL SUSPENSION 7466523 MOMET ASONE FUROATE Inactive ALLOPURINOL 100 MG ORAL TABLET Take 1 tab po x 7 days, then 2 times every day thereafter if tolerated. ALLOPURINOL 100 MG ORAL TABLET 599314 ALLOPURINOL Inactive COLCHICINE 0.6 MG ORAL CAPSULE PRN FOR GOUT FLARE UPS COLCHICINE 0.6 MG ORAL CAPSULE 3948508 COLCHICINE Inactive HYDROCHLOROTHIAZIDE 25 MG ORAL TABLET 0.5 tablet by [facility] daily for blood pressure. HYDROCHLOROTHIAZIDE 25 MG ORAL TABLET 310 798 HYDROCHLOROTHIAZIDE Inactive ZITHROMAX 250 MG ORAL TABLET 2 po today, then 1 po q days 2-5 20 23/10/22 ZITHROMAX 250 MG ORAL TABLET 423731 AZITHROMYCIN [place] ctive AZITHROMYCIN 250 MG ORAL TABLET 2 po qd x 1 day, then 1 po q d x 4 days AZITHROMYCIN 250 MG ORAL TABLET 125307 AZITHROMY ANALISA Inactive Vital Signs Date Name [...] mg/dL Encounters Code Encounter Date Provider Facility CPT-53670 Level 4 Est. Patient 21:12:34 CDT Mau bailey MD [facility] CPT-84454 Level 3 Est. 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 CPT-63861 Level 4 Est. Patient 12:43:27 CDT Mau bailey MD [facility] CPT-63479 Level 3 Est. Patient 16:46:20 CDT Gilbert Amador MD [facility] CPT-60705 Level 3 Est. Patient 09:03:26 CDT Deirdre carter APRN [facility] CPT-31764 Level 4 Est. Patient 15:38:51 MANUFACTURING TEST TECHNICIAN Mau bailey MD [facility] CPT-79948 Level 4 Est. Patient 10:26:24 CDT Mau bailey MD [facility] CPT-00216 Level 3 Est. Patient 17:21:09 CDT Ryne ornelas DO [facility] CPT-57429 Level 4 Est. Patient 09:22:16 CDT Mau bailey MD [facility] CPT-10546 Level 3 Est. Patient 08:55:02 MANUFACTURING TEST TECHNICIAN Mau bailey MD [facility] Procedures Code Procedure Name Date Entry Date Standard Desc ription CPT-LR Lesion Removal 21:12:34 CDT CPT-98967 EKG Trac and Interp - XRAY USE ONLY 1 5:52:34 CDT CPT-53795 Venipuncture Draw Fee 09:05:38 CDT CPT-97821 Uric Acid - LAB USE ONLY 09:05:38 CDT 03/10 CPT-56113 Sed Rate - LAB USE ONLY 09:05:38 CDT 03/10 CPT-73978 CMP - LAB USE ONLY 09:05:37 CDT CPT-18063 CBC - LAB USE ONLY 09:05:37 CDT CPT-J2930 Solu Medrol 125 mg (Methyl Prednisolone Sodium Succinate) 16:27:04 CDT CPT-32529 Abx/Therapy Injection 16:27:04 CDT CPT-J2930 Solu Medrol 125 mg (Methyl Prednisolone Sodium Succinate) 14:33:18 CDT
--- OUTSIDE RECORDS SUMMARY | 2019-11-22 08:30 | XMS REPORT | Clinical Summary ---
Author Author Admin, Volodymyr De Dios Organization [employer] Address Unknown Phone Unavailable Allergies, Adverse Reactions, [...] 6 hours as needed for cough GUAIFENESIN-CODEINE 34646039951 Active Osbaldo villa MD Active PREDNISONE 20 MG TABS 2 daily for 3 days then 1 daily for 3 days 20 26/08/06 PREDNISONE 59456756584 Active sObaldo Wilkes MD Active HYDROCHLOROTHIAZIDE 25 MG TABS 0.5 tablet by mouth daily for blood pressure. HYDROCHLOROTHIAZIDE 54316324860 No Longer Active Timur Wilkes MD Active COLCHICINE 0.6 MG ORAL CAPS PRN FOR GOUT FLARE UPS 201 01/08/07 COLCHICINE 77504745629 No Longer Active Osbaldo Wilkes MD Activ e ALLOPURINOL 100 MG TAB Take 1 tab po x 7 days, then 2 times every day thereafter if tolerated. ALLOPURINOL 15289985529 No Longer Active Osbaldo Wilkes MD Active NASONEX 50 MCG/ACT SUSP use 2 sprays in each nostril qday 1 MOMETASONE FUROATE 77678768491 No Longer Active Osbaldo Wilkes MD Active PREDNISONE 5 MG TAB PREDNISONE 9608454 7321 No Longer Active Osbaldo Wilkes MD Active AZITHROMYCIN 250 MG TABS 2 po qd x 1 day, then 1 po qd x 4 days AZITHROMYCIN 13887139512 No Longer Active Pavithra Mora Activ e SUDAFED 12 HOUR 120 MG [id number] 1 pill twice daily if neede d for congestion PSEUDOEPHEDRINE HCL 14279376564 Active Mau Mcmahon MD Active MECLIZINE HCL 25 MG TAB one 4 times a day as needed for dizzines s MECLIZINE HCL 11289741107 No Longer Active Mau Mcmahon MD Active ZOFRAN 4 MG TABS 1 po q6hr PRN Nausea ONDANSETR ON HCL 84275264004 No Longer Active Mau Mcmahon MD Active PREDNISONE 5 MG TAB Take 3 tabs po on the first day, decrease by 1 tablet every 3 days until off PREDNISONE 37374496952 No Longer Active Gilbert Amador MD Active CHERATUSSIN AC 100-10 MG/5ML SYRP 1 tsp by mouth every 4 hours as needed for cough GUAIFENESIN-CODEINE 77534325528 No Longer Activ e Gilbert Amador MD Active ZITHROMAX 250 MG TAB 2 po today, then 1 po q days 2-5 AZITHROMYCIN 82777444002 No Longer Active Deirdre Fitzgerald APRN Acti ve CELEBREX 100 MG ORAL CAPS take 1 tab po BID for osteoarthritis 2 CELECOXIB 80227982082 No Longer Active Deirdre Fitzgerald APRN Active OMEPRAZOLE 20 MG CPDR 1 tablet po in the am OMEPR AZOLE 67214260740 No Longer Active Deirdre Fitzgerald APRN Active COZAAR 50 MG ORAL TABS 1 tab po daily for hypertension and gout 201 12/11/12 LOSARTAN POTASSIUM 23622260139 Active Deirdre Fitzgerald APRN Ac tive BACTRIM DS 800-160 MG TAB 1 tab by mouth twice daily 2 TRIMETHOPRIM-SULFAMETHOXAZOLE 23926487683 No Longer Active Deirdre SPIVEY RN Active ZITHROMAX 1 GM ORAL PACK DIR AZITHROMYCIN 17872036989 No Longer Active Deirdre Fitzgerald APRN Active LEVAQUIN 500 MG TAB 1 tablet by mouth daily LEV OFLOXACIN 90656338932 No Longer Active Mau Mcmahon MD Active HYDROCHLOROTHIAZIDE 25 MG TABS 1 PO Q AM HYDROCHLOROTHIAZIDE 04124837965 No Longer Active Ryne Cristina DO Ac tive SIMVASTATIN 20 MG TABS 1 tablet po q hs SIMVASTAT IN 77725549754 No Longer Active Ryne Cristina DO Active SIMVASTATIN 20 MG TABS 1 tablet po q hs SIMVAST ATIN 20 MG TABS 242919 SIMVASTATIN Inactive HYDROCHLOROTHIAZIDE 25 MG TABS 1 PO Q AM HYDROCHLOROTHIAZIDE 25 MG TABS 850767 HYDROCHLOROTHIAZIDE Inactive LEVAQUIN 500 MG TAB 1 tablet by mouth daily LEVAQUIN 500 MG TAB 699303 LEVOFLOXACIN Inactive ZITHROMAX 1 GM ORAL PACK DIR ZITHROMAX 1 GM ORAL PACK 902053 AZITHROMYCIN Inactive BACTRIM DS 800-160 MG TAB 1 tab by mouth twice daily 2 BACTRIM DS 800-160 MG TAB 179689 TRIMETHOPRIM-SULFAMETHOXAZOLE Inac tive OMEPRAZOLE 20 MG CPDR 1 tablet po in the am OME PRAZOLE 20 MG CPDR 545587 OMEPRAZOLE Inactive CELEBREX 100 MG ORAL CAPS take 1 tab po BID for osteoarthritis 2 CELEBREX 100 MG ORAL CAPS 031030 CELECOXIB Inacti ve CHERATUSSIN AC 100-10 MG/5ML SYRP 1 tsp by mouth every 4 hours as needed for cough CHERATUSSIN AC 100-10 MG/5ML SYRP 906799 GUAIFENESIN-CODEINE Inactive PREDNISONE 5 MG TAB Take 3 tabs po on the first day, decrease by 1 tablet every 3 days until off PREDNISONE 5 MG TAB 692183 PREDNISONE Inactive ZOFRAN 4 MG TABS 1 po q6hr PRN Nausea ZOFRAN 4 MG TABS 132786 ONDANSETRON HCL Inactive MECLIZINE HCL 25 MG TAB one 4 times a day as needed for dizzines s MECLIZINE HCL 25 MG TAB 520143 MECLIZINE HCL Inactive PREDNISONE 5 MG TAB PREDNISONE 5 MG TA B 320875 PREDNISONE Inactive NASONEX 50 MCG/ACT SUSP use 2 sprays in each nostril qday 1 NASONEX 50 MCG/ACT SUSP 9692885 MOMETASONE FUROATE Inactive ALLOPURINOL 100 MG TAB Take 1 tab po x 7 days, then 2 times every day thereafter if tolerated. ALLOPURINOL 100 MG TAB 956365 ALLOPURINO L Inactive COLCHICINE 0.6 MG ORAL CAPS PRN FOR GOUT FLARE UPS 201 01/08/07 COLCHICINE 0.6 MG ORAL CAPS 6808567 COLCHICINE Inactive HYDROCHLOROTHIAZIDE 25 MG TABS 0.5 tablet by mouth daily for blood pressure. HYDROCHLOROTHIAZIDE 25 MG TABS 850156 HYDROCHLOR OTHIAZIDE Inactive ZITHROMAX 250 MG TAB 2 po today, then 1 po q days 2-5 ZITHROMAX 250 MG TAB 3523536 AZITHROMYCIN Inactive AZITHROMYCIN 250 MG TABS 2 po qd x 1 day, then 1 po qd x 4 days AZITHROMYCIN 250 MG TABS 9462505 AZITHROMYCIN Inactiv e Vital Signs Date Name [...] Panel - Chemistry sodium, serum 141 mmol/L 433-603 8879/05/22 potassium, serum 4.4 mmol/L 3.5-5.2 chloride, serum [...] Acid - Chemistry sodium, serum 139 mmol/L 083-716 0830/09/01 carbon dioxide, venous blood 30.0 mmol/L 21.0-32 [...] mg/dL Encounters Code Encounter Date Provider Facility CPT-59267 Level 4 Est. Patient 21:12:34 CDT Mau bailey MD [facility] CPT-73055 Level 3 Est. 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 Patient 12:43:27 CDT Mau bailey MD [facility] CPT-16884 Level 3 Est. Patient 16:46:20 CDT Gilbert Amador MD [facility] CPT-09862 Level 3 Est. Patient 09:03:26 CDT Paulina FLYNN [facility] CPT-32576 Level 4 Est. Patient 15:38:51 [employer] Mau bailey MD [facility] CPT-18868 Level 4 Est. Patient 10:26:24 CDT Mau bailey MD [facility] CPT-82338 Level 3 Est. Patient 17:21:09 CDT Ryne ornelas DO [facility] CPT-97808 Level 4 Est. Patient 09:22:16 CDT Mau bailey MD [facility] CPT-93836 Level 3 Est. Patient 08:55:02 WE[employer] Mau bailey MD [facility] Procedures Code Procedure Name Date Entry Date Standard Desc ription CPT-LR Lesion Removal 21:12:34 CDT CPT-92962 EKG Trac and Interp - XRAY USE ONLY 1 5:52:34 CDT CPT-48604 Venipuncture Draw Fee 09:05:38 CDT CPT-23649 Uric Acid - LAB USE ONLY 09:05:38 CDT 03/10 CPT-21524 Sed Rate - LAB USE ONLY 09:05:38 CDT 03/10 CPT-36186 CMP - LAB USE ONLY 09:05:37 CDT CPT-62095 CBC - LAB USE ONLY 09:05:37 CDT CPT-J2930 Solu Medrol 125 mg (Methyl Prednisolone Sodium Succinate) 16:27:04 CDT CPT-24917 Abx/Therapy Injection 16:27:04 CDT CPT-J2930 Solu Medrol 125 mg (Methyl Prednisolone Sodium Succinate) 14:33:18 CDT
--- OUTSIDE RECORDS SUMMARY | 2019-11-22 08:31 | XMS REPORT | Clinical Summary ---
Author Author Admin, Volodymyr De Dios Organization [employer] Address Unknown Phone Unavailable Allergies, Adverse Reactions, [...] skin Pneumonia, right lower lobe ICD-486 Inactive Osbalod Wilkes MD Poison bel ICD-692.6 Inactive Osbaldo Kaur D Bronchitis ICD-490 Inactive Osbaldo Wilkes MD 201 01/08/07 Rhinitis, acute ICD-460 Inactive Osbaldo Lechuga MD Medication List Medication Instructions Start Date Stop Date Generic Name NDC Status Provider Patient Instruction GUAIFENESIN-CODEINE 100-10 MG/5ML SYRP 5ml every 4 to 6 hours as needed for cough GUAIFENESIN-CODEINE 75652915262 Active Osbaldo villa MD Active PREDNISONE 20 MG TABS 2 daily for 3 days then 1 daily for 3 days 20 26/08/06 PREDNISONE 49656399278 Active Osbaldo Wilkes MD Active HYDROCHLOROTHIAZIDE 25 MG TABS 0.5 tablet by mouth daily for blood pressure. HYDROCHLOROTHIAZIDE 22956763589 No Longer Active Timur Wilkes MD Active COLCHICINE 0.6 MG ORAL CAPS PRN FOR GOUT FLARE UPS 201 01/08/07 COLCHICINE 27170124363 No Longer Active Osbaldo Wilkes MD Activ e ALLOPURINOL 100 MG TAB Take 1 tab po x 7 days, then 2 times every day thereafter if tolerated. ALLOPURINOL 21542055890 No Longer Active Osbaldo Wilkes MD Active NASONEX 50 MCG/ACT SUSP use 2 sprays in each nostril qday 1 MOMETASONE FUROATE 73829977883 No Longer Active Osbaldo Wilkes MD Active PREDNISONE 5 MG TAB PREDNISONE 4123033 7321 No Longer Active Osbaldo Wilkes MD Active AZITHROMYCIN 250 MG TABS 2 po qd x 1 day, then 1 po qd x 4 days AZITHROMYCIN 77231569477 No Longer Active Pavithra Mora Activ e SUDAFED 12 HOUR 120 MG [id number] 1 pill twice daily if neede d for congestion PSEUDOEPHEDRINE HCL 03728969756 Active Mau Mcmahon MD Active MECLIZINE HCL 25 MG TAB one 4 times a day as needed for dizzines s MECLIZINE HCL 58467182557 No Longer Active Mau Mcmahon MD Active ZOFRAN 4 MG TABS 1 po q6hr PRN Nausea ONDANSETR ON HCL 69532390337 No Longer Active Mau Mcmahon MD Active PREDNISONE 5 MG TAB Take 3 tabs po on the first day, decrease by 1 tablet every 3 days until off PREDNISONE 00080540131 No Longer Active Gilbert Amador MD Active CHERATUSSIN AC 100-10 MG/5ML SYRP 1 tsp by mouth every 4 hours as needed for cough GUAIFENESIN-CODEINE 50511773918 No Longer Activ e Gilbert Amador MD Active ZITHROMAX 250 MG TAB 2 po today, then 1 po q days 2-5 AZITHROMYCIN 90085169433 No Longer Active Deirdre Fitzgerald APRN Acti ve CELEBREX 100 MG ORAL CAPS take 1 tab po BID for osteoarthritis 2 CELECOXIB 36539516348 No Longer Active Deirdre Fitzgerald APRN Active OMEPRAZOLE 20 MG CPDR 1 tablet po in the am OMEPR AZOLE 26890802789 No Longer Active Deirdre Fitzgerald APRN Active COZAAR 50 MG ORAL TABS 1 tab po daily for hypertension and gout 201 12/11/12 LOSARTAN POTASSIUM 45764655905 Active Deirdre Fitzgerald APRN Ac tive BACTRIM DS 800-160 MG TAB 1 tab by mouth twice daily 2 TRIMETHOPRIM-SULFAMETHOXAZOLE 66138714847 No Longer Active Deirdre SPIVEY RN Active ZITHROMAX 1 GM ORAL PACK DIR AZITHROMYCIN 22300813046 No Longer Active Deirdre Fitzgerald APRN Active LEVAQUIN 500 MG TAB 1 tablet by mouth daily LEV OFLOXACIN 37879543667 No Longer Active Mau Mcmahon MD Active HYDROCHLOROTHIAZIDE 25 MG TABS 1 PO Q AM HYDROCHLOROTHIAZIDE 44544387962 No Longer Active Ryne Cristina DO Ac tive SIMVASTATIN 20 MG TABS 1 tablet po q hs SIMVASTAT IN 35098246669 No Longer Active Ryne Cristina DO Active SIMVASTATIN 20 MG TABS 1 tablet po q hs SIMVAST ATIN 20 MG TABS 103899 SIMVASTATIN Inactive HYDROCHLOROTHIAZIDE 25 MG TABS 1 PO Q AM HYDROCHLOROTHIAZIDE 25 MG TABS 884368 HYDROCHLOROTHIAZIDE Inactive LEVAQUIN 500 MG TAB 1 tablet by mouth daily LEVAQUIN 500 MG TAB 263031 LEVOFLOXACIN Inactive ZITHROMAX 1 GM ORAL PACK DIR ZITHROMAX 1 GM ORAL PACK 866329 AZITHROMYCIN Inactive BACTRIM DS 800-160 MG TAB 1 tab by mouth twice daily 2 BACTRIM DS 800-160 MG TAB 483243 TRIMETHOPRIM-SULFAMETHOXAZOLE Inac tive OMEPRAZOLE 20 MG CPDR 1 tablet po in the am OME PRAZOLE 20 MG CPDR 917485 OMEPRAZOLE Inactive CELEBREX 100 MG ORAL CAPS take 1 tab po BID for osteoarthritis 2 CELEBREX 100 MG ORAL CAPS 103124 CELECOXIB Inacti ve CHERATUSSIN AC 100-10 MG/5ML SYRP 1 tsp by mouth every 4 hours as needed for cough CHERATUSSIN AC 100-10 MG/5ML SYRP 235031 GUAIFENESIN-CODEINE Inactive PREDNISONE 5 MG TAB Take 3 tabs po on the first day, decrease by 1 tablet every 3 days until off PREDNISONE 5 MG TAB 516328 PREDNISONE Inactive ZOFRAN 4 MG TABS 1 po q6hr PRN Nausea ZOFRAN 4 MG TABS 033737 ONDANSETRON HCL Inactive MECLIZINE HCL 25 MG TAB one 4 times a day as needed for dizzines s MECLIZINE HCL 25 MG TAB 322366 MECLIZINE HCL Inactive PREDNISONE 5 MG TAB PREDNISONE 5 MG TA B 650910 PREDNISONE Inactive NASONEX 50 MCG/ACT SUSP use 2 sprays in each nostril qday 1 NASONEX 50 MCG/ACT SUSP 2531394 MOMETASONE FUROATE Inactive ALLOPURINOL 100 MG TAB Take 1 tab po x 7 days, then 2 times every day thereafter if tolerated. ALLOPURINOL 100 MG TAB 751297 ALLOPURINO L Inactive COLCHICINE 0.6 MG ORAL CAPS PRN FOR GOUT FLARE UPS 201 01/08/07 COLCHICINE 0.6 MG ORAL CAPS 1767586 COLCHICINE Inactive HYDROCHLOROTHIAZIDE 25 MG TABS 0.5 tablet by mouth daily for blood pressure. HYDROCHLOROTHIAZIDE 25 MG TABS 587303 HYDROCHLOR OTHIAZIDE Inactive ZITHROMAX 250 MG TAB 2 po today, then 1 po q days 2-5 ZITHROMAX 250 MG TAB 3219298 AZITHROMYCIN Inactive AZITHROMYCIN 250 MG TABS 2 po qd x 1 day, then 1 po qd x 4 days AZITHROMYCIN 250 MG TABS 3197923 AZITHROMYCIN Inactiv e Vital Signs Date Name [...] Panel - Chemistry sodium, serum 141 mmol/L 263-766 8910/05/22 potassium, serum 4.4 mmol/L 3.5-5.2 chloride, serum [...] mg/dL Encounters Code Encounter Date Provider Facility CPT-37089 Level 4 Est. Patient 21:12:34 CDT Mau bailey MD [facility] CPT-28602 Level 3 Est. 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 Patient 12:43:27 CDT Mau bailey MD [facility] CPT-75295 Level 3 Est. Patient 16:46:20 CDT Gilbert Amador MD [facility] CPT-35819 Level 3 Est. Patient 09:03:26 CDT Paulina FLYNN [facility] CPT-53218 Level 4 Est. Patient 15:38:51 SPANISH INTERPRETER/TRANSLATOR Mau bailey MD [facility] CPT-72966 Level 4 Est. Patient 10:26:24 CDT Mau bailey MD [facility] CPT-61291 Level 3 Est. Patient 17:21:09 CDT Ryne ornelas DO [facility] CPT-52595 Level 4 Est. Patient 09:22:16 CDT Mau bailey MD [facility] CPT-04896 Level 3 Est. Patient 08:55:02 SPANISH INTERPRETER/TRANSLATOR Mau bailey MD [facility] Procedures Code Procedure Name Date Entry Date Standard Desc ription CPT-LR Lesion Removal 21:12:34 CDT CPT-89532 EKG Trac and Interp - XRAY USE ONLY 1 5:52:34 CDT CPT-46135 Venipuncture Draw Fee 09:05:38 CDT CPT-93212 Uric Acid - LAB USE ONLY 09:05:38 CDT 03/10 CPT-72680 Sed Rate - LAB USE ONLY 09:05:38 CDT 03/10 CPT-31106 CMP - LAB USE ONLY 09:05:37 CDT CPT-11961 CBC - LAB USE ONLY 09:05:37 CDT CPT-J2930 Solu Medrol 125 mg (Methyl Prednisolone Sodium Succinate) 16:27:04 CDT CPT-50190 Abx/Therapy Injection 16:27:04 CDT CPT-J2930 Solu Medrol 125 mg (Methyl Prednisolone Sodium Succinate) 14:33:18 CDT
--- OUTSIDE RECORDS SUMMARY | 2019-11-22 08:31 | XMS REPORT | Continuity of Care Document ---
Demographics x Preferred Language Unknown Marital Status Unknown Zoroastrianism Affiliation Unknown Race Unknown Ethnic Group Unknown Author Organization Unknown Address Unknown Phone Unavailable Allergies Active Description Code Type Severity Reaction Onset Reported/Identified Relationship to Patient Clinical Status Yes NKDA Drug Allergy N/A N/A Yes No known allergies Drug N/A N/A Yes No Known Drug Allergies [id number] Drug Allergy Unknown N/A 12/12/2016 Medications There is no data. 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 8 Skin tag 03/26/2018 Zaid Mcmahon MD E78. 2 Mixed hyperlipidemia 03/26/2018 Zaid Mcmahon MD J30. 2 Allergic rhinitis, seasonal 03/26/2018 Zaid Mcmahon MD Z23 Influenza Vaccination for Prophylaxis 03/26/2018 Zaid Mcmahon MD Z68. 31 Body Mass Index 31.0-31.9 Adult 08/02/2018 Zaid Mcmahon MD J01. 90 SINUSITIS, ACUTE 08/02/2018 Zaid Mcmahon MD E66. 9 Obesity Class I (BMI 30-34.9) 09/09/2019 Zaid Mcmahon MD H66. 91 Otitis media acute right 09/09/2019 Zaid Mcmahon MD E66. 01 Obesity Class III (BMI >=40) 09/09/2019 Zaid Mcmahon MD Z68. 41 BMI 40-44.9 11/12/2019 Lisandro HERNANDEZ, Zaid Z13. 9 Health screening 11/20/2019 Lisandro HERNANDEZ, Zaid E66. 9 Obesity Class I (BMI 30-34.9) 11/20/2019 Zaid Mcmahon MD L57. 0 Actinic keratosis, cheek, right 11/20/2019 Zaid Mcmahon MD J44. 9 COPD 11/20/2019 Lisandro HERNANDEZ, Zaid Z68. 32 BMI 32-32.9 Procedures Code Description [place] [address] MRI NECK SPINE W/O DYE 06/18/2015 85998 META BOLIC PANEL TOTAL CA 06/19/2015 43291 TYSHAWN MIN B-12 06/19/2015 08687 COMP LETE CBC W/AUTO DIFF WBC 06/19/2015 88174 RBC SED RATE, NONAUTOMATED 06/19/2015 53604 ANTI NUCLEAR ANTIBODIES 06/19/2015 47376 C-RE ACTIVE PROTEIN 06/19/2015 13069 HLA TYPING, A, B, OR C 06/19/2015 59856 X-RA Y EXAM OF HAND 11/20/2015 48031 PT R E-EVALUATION 12/30/2015 Results Test Result Range CBC WITH DIFF - 06/19/15 00:00 BASO% 0.5 % 0-2 EOS% 0.5 % 0-7.0 HCT 43.7 % 41.9-52.0 HGB 14.8 G/DL 13.0-18.0 LYMPH% 13.5 % 20-40 MCH 30.5 PG 27-31 MCHC 33.9 G/DL 33-37 MCV 90.1 FL 80-94 MONO% 8.9 % 0-10.0 MPV 9.6 FL 7.3-10.4 NEUTRO% 76.2 % 40-70 PLT 303 10^3u 130-400 RBC 4.9 10^6u 4.7-6.1 RDW 12.2 % 11.5-15.5 WBC 13.0 10^3u 4.8-10.8 NEUTRO# 9.9 10^3u 1.5-7.5 LYMPH# 1.8 10^3u 0.9-4.0 MONO# 1.2 10^3u 0-0.8 EOS# 0.1 10^3u 0-0.6 BASO# 0.1 10^3u 0-0.1 SEDR - 06/19/15 00:00 SEDR 9 0-20 IMM GRANULOCYTE % 0.4 % IMM GRANULOCYTE # 0.1 10^3u 0-5 BMP - 06/19/15 00:00 BCR 13.7 10-20 BUN 14 MG/DL 7-18 CA 8.4 MG/DL 8.4-10.2 CL 98 MEQ/L 98-107 CO2 31.2 MEQ/L 22-28 CREA 1.02 MG/DL 0.6-1.3 EGFR 75 eGFR >= 60 GLU 97 MG/DL 70-105 K 3.6 MEQ/L 3.5-5.1 NA 135 MEQ/L 134-145 OSMSC 270.5 MOSML 280-300 Anion Gap 5.8 8-16 CRP - 06/19/15 00:00 CRP 5.7 MG/DL 0-1 VITB12 - 06/19/15 00:00 B12 810 PG/ML 193-986 HLA B27 ANTIGEN - 06/19/15 00:00 HLAB27 NEGATIVE NEGATIVE STORM SCREEN - 06/19/15 00:00 STORM NEGATIVE NEGATIVE CBC WITH DIFF - 10/08/15 00:00 BASO% 0.5 % 0-2 EOS% 0.6 % 0-7.0 HCT 43.3 % 41.9-52.0 HGB 14.3 G/DL 13.0-18.0 LYMPH% 21.0 % 20-40 MCH 29.7 PG 27-31 MCHC 33.0 G/DL 33-37 MCV 89.8 FL 80-94 MONO% 7.4 % 0-10.0 MPV 9.7 FL 7.3-10.4 NEUTRO% 70.0 % 40-70 PLT 346 10^3u 130-400 RBC 4.8 10^6u 4.7-6.1 RDW 12.9 % 11.5-15.5 WBC 10.2 10^3u 4.8-10.8 NEUTRO# 7.2 10^3u 1.5-7.5 LYMPH# 2.2 10^3u 0.9-4.0 MONO# 0.8 10^3u 0-0.8 EOS# 0.1 10^3u 0-0.6 BASO# 0.1 10^3u 0-0.1 SEDR - 10/08/15 00:00 SEDR 2 0-20 IMM GRANULOCYTE % 0.5 % IMM GRANULOCYTE # 0.1 10^3u 0-5 CRP - 10/08/15 00:00 CRP 0.4 MG/DL 0-1 TSH - 10/08/15 00:00 TSH 3.61 UIUML 0.36-3.74 URIC - 10/08/15 00:00 URIC 5.5 MG/DL 2.6-7.2 CMP - 10/08/15 00:00 ALB 4.0 G/DL 3.5-5 ALP 68 IU/L 39-107 ALT 39 IU/L 12-65 AST 19 IU/L 10-42 BCR 15.8 10-20 BUN 16 MG/DL 7-18 CA 8.8 MG/DL 8.4-10.2 CL 99 MEQ/L 98-107 CO2 28.0 MEQ/L 22-28 CREA 1.01 MG/DL 0.6-1.3 EGFR 76 eGFR >= 60 GLU 95 MG/DL 70-105 K 3.7 MEQ/L 3.5-5.1 NA 138 MEQ/L 134-145 OSMSC 276.7 MOSML 280-300 TBIL 0.5 MG/DL 0.1-1.0 TP 7.2 G/DL 6.0-8.3 Albumin/Globulin Ratio 1.2 0-8 Anion Gap 11.0 8-16 RF - 10/08/15 00:00 RF 10 IU/mL <14 CYCLIC CITRULINATED PEPTIDE AB - 6 00:00 CYCLIC CITRULINATED PEPTIDE AB < 16 UNITS STORM SCREEN - 10/08/15 00:00 STORM NEGATIVE NEGATIVE Methicillin resistant Staphylococcus aur eus (MRSA) screening culture - 12/16/16 07:05 Methicillin resistant Staphylococcus aureus (MRSA) scr eening culture NEG NRG Encounters ACCT No. Visit Date/Time Discharge Status Pt. Type Provider Facility Loc./Unit Complaint [id number] 01/08/2016 00:01:00 01/26/2016 11: 55:00 DIS Outpatient NAUN JEFFREY [facility] PT [id number] 12/21/2015 16:02:00 01/07/2016 23: 59:00 DIS Outpatient NAUN JEFFREY [facility] PT [id number] 11/20/2015 10:15:00 11/20/2015 10:15 :00 DIS Outpatient NON STAFF, [facility] RAD [id number] 10/08/2015 16:22:00 10/08/2015 16:22 :00 DIS Outpatient VITOR HARRIS [facility] LAB [id number] 07/10/2015 00:01:00 07/31/2015 16: 36:00 DIS Outpatient VITOR HARRIS [facility] OT [id number] 07/24/2015 15:50:00 07/24/2015 15:50 :00 DIS Outpatient ZAID MCMAHON [facility] RAD [id number] 06/29/2015 16:02:00 07/09/2015 23: 59:00 DIS Outpatient VITOR HARRIS [facility] OT [id number] 06/19/2015 11:04:00 06/19/2015 11:04 :00 DIS Outpatient HARRISVITOR [facility] LAB [id number] 06/18/2015 09:51:00 06/18/2015 09:51 :00 DIS Outpatient KIMBERLYVITOR [facility] RAD [id number] 06/01/2015 16:20:00 06/01/2015 16:20 :00 DIS Outpatient VITOR HARRIS [facility] RAD [id number] 06/08/2015 00:00:00 Document Registration [id number] 06/08/2014 00:00:00 Document Registration [id number] 08/30/2016 09:00:00 7 23:59:59 CLS Outpatient RAAD CHAPMAN [facility] Ortho [id number] 05/24/2016 10:24:30 6 16:35:00 DIS R RAAD CHAPMAN [facility] VIKY OT shoulder [id number] 07/05/2016 09:07:10 6 23:59:59 CLS Outpatient RAAD CHAPMAN D [facility] Ortho [id number] 05/11/2016 00:00:00 6 23:59:59 [facility] [id number] 11/20/2019 08:20:01 ACT Unknown Lisandro HERNANDEZ, Zaid [id number] 11/18/2019 08:54:00 020 16:16:00 DIS Outpatient EDI HERNANDEZ, DANYELLE De Souza [facility] PREOP CHRONIC OTITIS MEDIA [id number] 12/16/2016 06:57:00 017 10:20:00 DIS Outpatient EDI HERNANDEZ, DANYELLE De Souza [facility] CHRONIC SEROUS OTITIS M EDIA [id number] 12/12/2016 10:31:00 017 12:08:00 DIS Outpatient DANYELLE DALEY MD [facility] PREOP CHRONIC SEROUS OTITIS M EDIA [id number] 11/22/2019 11:00:00 P DANYELLE De Dios MD [facility] CHRONIC OTITIS MEDIA
--- OUTSIDE RECORDS SUMMARY | 2019-11-22 08:31 | XMS REPORT | Clinical Summary ---
Author Author Admin, Volodymyr De Dios Organization [employer] Address Unknown Phone Unavailable Allergies, Adverse [...] examination, unspecified Skin tag 701.9 Active Mau Mcmaohn MD Unspecified hypertrophic and atrophic conditions of [...] 6 hours as needed for cough GUAIFENESIN-CODEINE [id number] Active Osbaldo villa MD Active PREDNISONE 20 MG TABS 2 daily for 3 days then 1 daily for 3 days 20 26/08/06 PREDNISONE 47115175877 Active Osbaldo Wilkes MD Active HYDROCHLOROTHIAZIDE 25 MG TABS 0.5 tablet by mouth daily for blood pressure. HYDROCHLOROTHIAZIDE 62926747567 No Longer Active Timur Wilkes MD Active COLCHICINE 0.6 MG ORAL CAPS PRN FOR GOUT FLARE UPS 201 01/08/07 COLCHICINE 07210667432 No Longer Active Osbaldo Wilkes MD Activ e ALLOPURINOL 100 MG TAB Take 1 tab po x 7 days, then 2 times every day thereafter if tolerated. ALLOPURINOL 64755063128 No Longer Active Osbaldo Wilkes MD Active NASONEX 50 MCG/ACT SUSP use 2 sprays in each nostril qday 1 MOMETASONE FUROATE 38933361594 No Longer Active Osbaldo Wilkes MD Active PREDNISONE 5 MG TAB PREDNISONE 0187775 7321 No Longer Active Osbaldo Wilkes MD Active AZITHROMYCIN 250 MG TABS 2 po qd x 1 day, then 1 po qd x 4 days AZITHROMYCIN 51524376120 No Longer Active Pavithra Mora Activ e SUDAFED 12 HOUR 120 MG [id number] 1 pill twice daily if neede d for congestion PSEUDOEPHEDRINE HCL 51157936442 Active Mau Mcmahon MD Active MECLIZINE HCL 25 MG TAB one 4 times a day as needed for dizzines s MECLIZINE HCL 98760445175 No Longer Active Mau Mcmahon MD Active ZOFRAN 4 MG TABS 1 po q6hr PRN Nausea ONDANSETR ON HCL 45338149556 No Longer Active Mau Mcmahon MD Active PREDNISONE 5 MG TAB Take 3 tabs po on the first day, decrease by 1 tablet every 3 days until off PREDNISONE 83436243962 No Longer Active Gilbert Amador MD Active CHERATUSSIN AC 100-10 MG/5ML SYRP 1 tsp by mouth every 4 hours as needed for cough GUAIFENESIN-CODEINE 27793868546 No Longer Activ e Gilbert Amador MD Active ZITHROMAX 250 MG TAB 2 po today, then 1 po q days 2-5 AZITHROMYCIN 59850430220 No Longer Active Deirdre Fitzgerald APRN Acti ve CELEBREX 100 MG ORAL CAPS take 1 tab po BID for osteoarthritis 2 CELECOXIB 84497835380 No Longer Active Deirdre Fitzgerald APRN Active OMEPRAZOLE 20 MG CPDR 1 tablet po in the am OMEPR AZOLE 61255018041 No Longer Active Deirdre Fitzgerald APRN Active COZAAR 50 MG ORAL TABS 1 tab po daily for hypertension and gout 201 12/11/12 LOSARTAN POTASSIUM 34799940621 Active Deirdre Fitzgerald APRN Ac tive BACTRIM DS 800-160 MG TAB 1 tab by mouth twice daily 2 TRIMETHOPRIM-SULFAMETHOXAZOLE 11267981871 No Longer Active Deirdre SPIVEY RN Active ZITHROMAX 1 GM ORAL PACK DIR AZITHROMYCIN 68324938597 No Longer Active Deirdre Fitzgerald APRN Active LEVAQUIN 500 MG TAB 1 tablet by mouth daily LEV OFLOXACIN 20892996370 No Longer Active Mau Mcmahon MD Active HYDROCHLOROTHIAZIDE 25 MG TABS 1 PO Q AM HYDROCHLOROTHIAZIDE 64584879576 No Longer Active Ryne Cristina DO Ac tive SIMVASTATIN 20 MG TABS 1 tablet po q hs SIMVASTAT IN 25958491191 No Longer Active Ryne Cristina DO Active SIMVASTATIN 20 MG TABS 1 tablet po q hs SIMVAST ATIN 20 MG TABS 447117 SIMVASTATIN Inactive HYDROCHLOROTHIAZIDE 25 MG TABS 1 PO Q AM HYDROCHLOROTHIAZIDE 25 MG TABS 296574 HYDROCHLOROTHIAZIDE Inactive LEVAQUIN 500 MG TAB 1 tablet by mouth daily LEVAQUIN 500 MG TAB 834180 LEVOFLOXACIN Inactive ZITHROMAX 1 GM ORAL PACK DIR ZITHROMAX 1 GM ORAL PACK 900215 AZITHROMYCIN Inactive BACTRIM DS 800-160 MG TAB 1 tab by mouth twice daily 2 BACTRIM DS 800-160 MG TAB 816458 TRIMETHOPRIM-SULFAMETHOXAZOLE Inac tive OMEPRAZOLE 20 MG CPDR 1 tablet po in the am OME PRAZOLE 20 MG CPDR 887839 OMEPRAZOLE Inactive CELEBREX 100 MG ORAL CAPS take 1 tab po BID for osteoarthritis 2 CELEBREX 100 MG ORAL CAPS 889791 CELECOXIB Inacti ve CHERATUSSIN AC 100-10 MG/5ML SYRP 1 tsp by mouth every 4 hours as needed for cough CHERATUSSIN AC 100-10 MG/5ML SYRP 882647 GUAIFENESIN-CODEINE Inactive PREDNISONE 5 MG TAB Take 3 tabs po on the first day, decrease by 1 tablet every 3 days until off PREDNISONE 5 MG TAB 097432 PREDNISONE Inactive ZOFRAN 4 MG TABS 1 po q6hr PRN Nausea ZOFRAN 4 MG TABS 395359 ONDANSETRON HCL Inactive MECLIZINE HCL 25 MG TAB one 4 times a day as needed for dizzines s MECLIZINE HCL 25 MG TAB 835021 MECLIZINE HCL Inactive PREDNISONE 5 MG TAB PREDNISONE 5 MG TA B 084194 PREDNISONE Inactive NASONEX 50 MCG/ACT SUSP use 2 sprays in each nostril qday 1 NASONEX 50 MCG/ACT SUSP 8333392 MOMETASONE FUROATE Inactive ALLOPURINOL 100 MG TAB Take 1 tab po x 7 days, then 2 times every day thereafter if tolerated. ALLOPURINOL 100 MG TAB 237411 ALLOPURINO L Inactive COLCHICINE 0.6 MG ORAL CAPS PRN FOR GOUT FLARE UPS 201 01/08/07 COLCHICINE 0.6 MG ORAL CAPS 0543226 COLCHICINE Inactive HYDROCHLOROTHIAZIDE 25 MG TABS 0.5 tablet by mouth daily for blood pressure. HYDROCHLOROTHIAZIDE 25 MG TABS 763262 HYDROCHLOR OTHIAZIDE Inactive ZITHROMAX 250 MG TAB 2 po today, then 1 po q days 2-5 ZITHROMAX 250 MG TAB 6721707 AZITHROMYCIN Inactive AZITHROMYCIN 250 MG TABS 2 po qd x 1 day, then 1 po qd x 4 days AZITHROMYCIN 250 MG TABS 5863555 AZITHROMYCIN Inactiv e Vital Signs Date Name [...] Panel - Chemistry sodium, serum 141 mmol/L 283-425 8246/05/22 potassium, serum 4.4 mmol/L 3.5-5.2 chloride, serum [...] mg/dL Encounters Code Encounter Date Provider Facility CPT-30576 Level 4 Est. Patient 21:12:34 CDT Mau bailey MD [facility] CPT-52157 Level 3 Est. Patient 16:26:55 TIMBER SETTER Osbaldo Wilkes MD [facility] CPT-83237 Level 4 Est. Patient 12:43:27 CDT Mau bailey MD [facility] CPT-22334 Level 3 Est. Patient 16:46:20 CDT Gilbert Amador MD [facility] CPT-24455 Level 3 Est. Patient 09:03:26 CDT Paulina FLYNN [facility] CPT-79733 Level 4 Est. Patient 15:38:51 TIMBER SETTER Mau bailey MD [facility] CPT-16097 Level 4 Est. Patient 10:26:24 CDT Mau bailey MD [facility] CPT-99007 Level 3 Est. Patient 17:21:09 CDT Ryne ornelas DO [facility] CPT-11091 Level 4 Est. Patient 09:22:16 CDT Mau bailey MD [facility] CPT-89203 Level 3 Est. Patient 08:55:02 TIMBER SETTER Mau bailey MD [facility] Procedures Code Procedure Name Date Entry Date Standard Desc ription CPT-LR Lesion Removal 21:12:34 CDT CPT-86791 EKG Trac and Interp - XRAY USE ONLY 1 5:52:34 CDT CPT-37181 Venipuncture Draw Fee 09:05:38 CDT CPT-71525 Uric Acid - LAB USE ONLY 09:05:38 CDT 03/10 CPT-36112 Sed Rate - LAB USE ONLY 09:05:38 CDT 03/10 CPT-34041 CMP - LAB USE ONLY 09:05:37 CDT CPT-96576 CBC - LAB USE ONLY 09:05:37 CDT CPT-J2930 Solu Medrol 125 mg (Methyl Prednisolone Sodium Succinate) 16:27:04 CDT CPT-45163 Abx/Therapy Injection 16:27:04 CDT CPT-J2930 Solu Medrol 125 mg (Methyl Prednisolone Sodium Succinate) 14:33:18 CDT
--- NOTE | 2019-11-22 08:33 | Progress Note-Pre Operative ---
Pre-Operative Progress Note H&P Reviewed The H&P was reviewed, patient examined and no changes noted. Date Seen by Provider: November 22, 2019 Time Seen by Provider: 08: Date H&P Reviewed: November 22, 2019 Time H&P Reviewed: : Pre-Operative Diagnosis: DANYELLE Anders MD November 22, 2019 08:33
[2019-11-22] MEDS ORDERED: ONDANSETRON 4 MG/2 ML (SDV) Z0FRAN ONE (08:36)
[2019-11-22] MEDS ORDERED: LIDOCAINE PF 2% 5 ML (XYLOCAINE) VIAL ONE (08:36)
[2019-11-22] MEDS ORDERED: MIDAZOLAM 2 MG/2 ML (VERSED) VIAL ONE (08:36)
[2019-11-22] MEDS ORDERED: fentaNYL INJECTION 100 MCG/2 ML AMP ONE (08:36)
[2019-11-22] MEDS ORDERED: proPOfol 200 MG/20 ML (DIPRIVAN) VIAL IV ONE (08:36)
[2019-11-22 08:49] LABS: BASOPHILS % (AUTO) 0 % (0-10); EOSINOPHILS # (AUTO) 0.3 10^3/uL (0.0-0.3); EOSINOPHILS % (AUTO) 4 % (0-10); HEMATOCRIT 46 % (40-54); HEMOGLOBIN 15.2 G/DL (13.3-17.7); LYMPHOCYTES # (AUTO) 2.4 X 10^3 (1.0-4.0); LYMPHOCYTES % (AUTO) 30 % (12-44); MEAN CORPUSCULAR HEMOGLOBIN 30 PG (25-34); MEAN CORPUSCULAR HGB CONC 33 G/DL (32-36); MEAN CORPUSCULAR VOLUME 89 FL (80-99); MEAN PLATELET VOLUME 10.6 FL (7.4-10.4); MONOCYTES # (AUTO) 0.8 X 10^3 (0.0-1.0); MONOCYTES % (AUTO) 10 % (0-12); NEUTROPHILS # (AUTO) 4.5 X 10^3 (1.8-7.8); NEUTROPHILS % (AUTO) 56 % (42-75); PLATELET COUNT 257 10^3/uL (130-400); RED CELL DISTRIBUTION WIDTH 13.1 % (10.0-14.5)
[2019-11-22 09:00] LABS: BUN/CREATININE RATIO 14; CALCIUM 9.2 MG/DL (8.5-10.1); CARBON DIOXIDE 22 MMOL/L (21-32); CHLORIDE 106 MMOL/L (98-107); CREATININE SERUM 1.09 MG/DL (0.60-1.30); GFR ESTIMATED > 60; GLUCOSE 107 MG/DL (70-105); POTASSIUM 4.3 MMOL/L (3.6-5.0); SODIUM 139 MMOL/L (135-145)
--- NOTE | 2019-11-22 09:43 | Progress Note-Post Operative ---
Post-Operative Progess Note Surgeon (s)/Pediatric Psychologist (s) Surgeon DANYELLE DALEY MD Pediatric Psychologist n/a Pre-Operative Diagnosis Bilat MARCEL Post-Operative Diagnosis same Post-Op Procedure Note Date of Procedure: November 22, 2019 Name of Procedure Performed: BMT Description & Findings Description and Findings: n/a Anesthesia Type lma Estimated Blood Loss minimal Packing none. Specimen(s) collected/removed none DANYELLE DALEY MD November 22, 2019 09:43
[2019-11-22] MEDS ORDERED: APAP 325 MG/10.15 ML LIQ (TYLENOL) UDC PO PRN (09:45)
[2019-11-22] MEDS ORDERED: SEVOFLURANE (ULTANE) 15 ML INHAL SOLN ONE (09:46)
[2019-11-22] MEDS ORDERED: MEPERIDINE (DEMEROL) INJ 50 MG/ML IVP ONE (10:00)
[2019-11-22] MEDS ORDERED: morphine INJ 10 MG/ML 1ML (SYR OR VIAL) IVP ONE (10:00)
[2019-11-22] MEDS ORDERED: GENT5DRO30 EACH EAR (10:54)
--- NOTE | 2019-11-22 11:29 | Anesthesia-General Post-Op ---
General Patient Condition Mental Status/LOC: Same as Preop Cardiovascular: Satisfactory Nausea/Vomiting: Absent Respiratory: Satisfactory Pain: Controlled Complications: Absent Post Op Complications Complications None Follow Up Care/Instructions Patient Instructions None needed. Anesthesia/Patient Condition Patient Condition Patient is doing well, no complaints, stable vital signs, no apparent adverse anesthesia problems. No complications reported per nursing. YOUSUF RAYO CRNA November 22, 2019 11:29
== END 2019-11-22 11:36 | disposition home or self-care (01) ==
LOC: SDC 07:54
PROVIDERS: ATTEND Otolaryngology Otolaryngology/Facial Plastic Surgery
DX: H66.93 Otitis media, unspecified, bilateral (principal); H69.90 Unspecified Eustachian tube disorder, unspecified ear; T85.698A Other mechanical complication of other specified internal prosthetic devices, implants and grafts, initial encounter; K21.9 Gastro-esophageal reflux disease without esophagitis; Z79.899 Other long term (current) drug therapy
CPT/HCPCS: 36415; 80048; 85025; 87081; 87635